=== PATIENT | female | born 1950 | race Caucasian/White ===

== ENCOUNTER 2016-11-08 15:24 | Inpatient (IN) | payer OTHER ==
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
[2016-11-08] MEDS ORDERED: METOCLOPRAMIDE HCL INJECTION 10 MG/2 ML VIAL IVPB ONE (17:27)
[2016-11-08] MEDS ORDERED: KETOROLAC TROMETHAMINE 30 MG/1 ML VIAL IVPUSH ONE (17:27)
[2016-11-08 19:12] LABS: BASOPHIL 1.5 % (0-2.0); EOSINOPHIL 9.8 % (0-4.5); MEAN CELL VOLUME 87.3 fl (80-96); MEAN PLT VOLUME 11.5 fl (7.5-11.1); PLATELET COUNT 174 K/MM3 (134-434); RDW 15.1 % (11.6-15.6); WHITE BLOOD COUNT 8.4 K/mm3 (4.0-10.0)
[2016-11-08] MEDS ORDERED: DEXAMETHASONE SOD PHOSPHATE 10 MG/1 ML VIAL IVPUSH ONE (19:16)
[2016-11-08] MEDS ORDERED: DEXAMETHASONE SOD PHOSPHATE 10 MG/1 ML VIAL ONE (19:30)
[2016-11-08 19:38] LABS: INR 1.05 (0.82-1.09); PROTHROMBIN TIME (PATIENT) 11.6 SEC (9.98-11.88)
[2016-11-08 20:00] LABS: ALBUMIN 3.2 g/dl (3.4-5.0); ANION GAP 9 (8-16); BILIRUBIN,TOTAL 0.3 mg/dL (0.2-1.0); CALCIUM 8.2 mg/dL (8.5-10.1); CO2 25 mmol/L (21-32); CREATININE 1.1 mg/dL (0.55-1.02); GLUCOSE,RANDOM 99 mg/dL (74-106); SGOT/AST 17 U/L (15-37); SGPT/ALT 16 U/L (12-78); TOT PROT 6.2 g/dl (6.4-8.2)
[2016-11-08 20:02] LABS: ALK PHOS 91 U/L (45-117); TROPONIN I < 0.02 ng/ml (0.00-0.05)
--- NOTE | 2016-11-08 22:05 | PDOC ---
*Physical Exam - Vital Signs Last Vital Signs Temp Pulse Resp BP Pulse Ox 98.4 F 78 20 120/68 97 11/08/16 15:41 11/08/16 15:41 11/08/16 15:41 11/08/16 15:41 11/08/16 15:41 - Physical Exam Comments: 11/08/16 19:[address] Romero/Neurosurgery Dr. Romero [phone] Morgan/neurology [phone] MRI of brain with gado req by DR. Romero and Dr. Morgan. As per Dr. Romero/ call him back with MRI results 2204hrs: Called Dr. Romero/NS ED Treatment Course - LABORATORY CBC & Chemistry Diagram: 11/08/16 19:00 11/08/16 19:00 - ADDITIONAL ORDERS Additional order review: Laboratory Results 11/08/16 11/08/16 11/08/16 19:00 19:00 19:00 INR 1.05 Sodium 144 Potassium 4.3 Chloride 110 H Carbon Dioxide 25 Anion Gap 9 BUN 21 H Creatinine 1.1 H Creat Clearance w eGFR 49.69 Random Glucose 99 Calcium 8.2 L Total Bilirubin 0.3 AST 17 ALT 16 Alkaline Phosphatase 91 Creatine Kinase 74 Troponin I < 0.02 Total Protein 6.2 L Albumin 3.2 L Blood Type A POSITIVE Antibody Screen Negative 11/08/16 19:00 RBC 4.06 MCV 87.3 MCHC 32.0 RDW 15.1 MPV 11.5 H Neutrophils % 65.0 Lymphocytes % 17.5 Monocytes % 6.2 Eosinophils % 9.8 H Basophils % 1.5 - RADIOLOGY Radiology Studies Ordered: Category Date Time Status BRAIN MRI WITH CONTRAST [MRI] Stat MRI 11/08/16 19:14 Completed Radiograph Interpretation: 11/09/16 03:30 CT chest with IV contrast: Masslike area of consolidation seen below the right hilum and in the posterior medial right thorax suspicious for neoplasm. Enlarged mediastinal lymph nodes are noted. Fracture of L1 noted, not clearly a pathologic fracture - Medications Given in the ED: ED Medications Discontinued Medications Generic Name Dose Route Start Last Admin Trade Name Freq PRN Reason Stop Dose Admin Dexamethasone Sodium Phosphate 10 mg 11/08/16 19:16 11/08/16 19:40 Decadron Injection - IVPUSH 11/08/16 19:17 10 mg ONCE ONE Administration Ketorolac Tromethamine 30 mg 11/08/16 17:27 11/08/16 17:47 Toradol Injection - IVPUSH 11/08/16 17:28 Not Given ONCE ONE Metoclopramide HCl 10 mg 11/08/16 17:27 11/08/16 17:47 Reglan Injection - IVPB 11/08/16 17:28 Not Given ONCE ONE Progress Note - Progress Note Progress Note: 2012hrs: Spoke to Dr. Romero/neurosurgery/ 2013hrs: Called Dr. Morgan/neurology environmental health and safety intern 2019hrs: spoke to Dr. Morgan/ arvind to call Dr. Reardon/neurosurgery 2024hrs: Called Dr. Reardon/NS. samuels admit to hospitalist. will Consult in the am 2031hrs: Called Dr. Morgan/ arvind CT abd/pelvis/ch with contrast *DC/Admit/Observation/Transfer Diagnosis at time of Disposition: Weakness, Brain metastasis - Discharge Dispostion Admit: Yes
[2016-11-08] MEDS ORDERED: levETIRAcetam 500 MG/5 ML INJECTION VIAL IVPB ONE ×2 (22:38→22:59)
[2016-11-08] MEDS ORDERED: RANITIDINE HCL 150 MG TABLET (FP) PO ONE (22:50)
[2016-11-08] MEDS ORDERED: RANITIDINE HCL 150 MG TABLET (FP) ONE (23:02)
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
[2016-11-09] MEDS ORDERED: DEXAMETHASONE SOD PHOSPHATE 4 MG/1 ML VIAL IVPB SCH (01:15)
[2016-11-09] MEDS ORDERED: DEXAMETHASONE SOD PHOSPHATE 4 MG/1 ML VIAL ONE (02:04)
[2016-11-09] MEDS: DEXAMETHASONE SOD PHOSPHATE 4 MG/1 ML VIAL IVPB SCH ×4 (02:15→21:13)
[2016-11-09] MEDS ORDERED: SODIUM CHLORIDE 1,000 ML IV SCH (03:00)
[2016-11-09 03:13] VITALS: BMI 29.0
[2016-11-09] MEDS ORDERED: PNEUMOC 13-VAL CONJ-DIP CRM/PF 0.5 ML DISP.SYRIN IM ONE (03:18)
[2016-11-09 03:43] LABS: URINE APPEARANCE CLEAR; URINE BILIRUBIN NEGATIVE (NEGATIVE); URINE COLOR STRAW; URINE GLUCOSE (UA) 3+ (NEGATIVE); URINE KETONE TRACE (NEGATIVE); URINE NITRITE NEGATIVE (NEGATIVE); URINE PROTEIN NEGATIVE (NEGATIVE); URINE UROBILINOGEN NEGATIVE E.U./dl (0.2-1.0)
[2016-11-09 03:44] LABS: URINE BLOOD 1+ (NEGATIVE); URINE LEUK ESTERASE 1+ (NEGATIVE)
[2016-11-09] MEDS: CYCLOBENZAPRINE HCL 10 MG TABLET (FP) PO PRN ×2 (04:16→21:16)
[2016-11-09 04:45] LABS: URINE BACTERIA RARE /hpf (NONE SEEN); URINE MUCUS RARE; URINE RBC 1 /hpf (0-3); URINE WBC 17 /hpf (3-5)
[2016-11-09 07:46] LABS: BASOPHIL 0.2 % (0-2.0); EOSINOPHIL 0.4 % (0-4.5); MCH 28.5 pg (25.7-33.7); MEAN CELL VOLUME 86.3 fl (80-96); MEAN PLT VOLUME 11.2 fl (7.5-11.1); NEUTROPHILS 87.3 % (42.8-82.8); PLATELET COUNT 154 K/MM3 (134-434); WHITE BLOOD COUNT 7.4 K/mm3 (4.0-10.0)
[2016-11-09 07:47] LABS: ALBUMIN 2.8 g/dl (3.4-5.0); ANION GAP 10 (8-16); BILIRUBIN,TOTAL 0.3 mg/dL (0.2-1.0); CALCIUM 8.3 mg/dL (8.5-10.1); CO2 22 mmol/L (21-32); SGOT/AST 14 U/L (15-37); SGPT/ALT 15 U/L (12-78); TOT PROT 5.9 g/dl (6.4-8.2)
[2016-11-09 07:48] LABS: ALK PHOS 83 U/L (45-117)
[2016-11-09] MEDS ORDERED: INSULIN (NOVOLOG) ASPART 100 UNITS/ML 10ML VIAL ONE ×3 (07:56→20:47)
[2016-11-09] MEDS: INSULIN SLIDING SCALE (NOVOLOG) 1 VIAL SQ SCH ×4 (07:57→21:08)
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
[2016-11-09] MEDS: diphenhydrAMINE HCL 25 MG CAPSULE (FP) PO SCH (09:25)
[2016-11-09 10:33] LABS: GLUCOSE,RANDOM 320 mg/dL (74-106)
[2016-11-09] MEDS: levETIRAcetam 500 MG/5 ML INJECTION VIAL IVPB SCH ×2 (11:50→22:03)
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
--- NOTE | 2016-11-09 15:56 | PN ---
Progress Note (short form) - Note Progress Note: Radiation Oncology: Patient seen and examined. I will dictate consult. No intervention at present . Patient is stable . I would get lung biopsy and consider biopsy of second organ. My cell is [phone]
--- NOTE | 2016-11-09 16:24 | PN ---
Physical Exam: SUBJECTIVE: Patient seen and examined at bedside. No overnight events. No new complaints. Denies CP, YU, SOB, abd. pain, N/V. OBJECTIVE: Vital Signs Period Temp Pulse Resp BP Sys/Curran Pulse Ox Last 24 Hr 97.9 F-98.2 F 76-85 18-18 116-139/60-94 98-98 GENERAL:AAOx3, NAD HEAD: Nc/AT EYES: PERRL, EOMI, sclera anicteric, conjunctiva clear. No ptosis. ENT: moist mucous membranes. NECK: Supple, No JVD LUNGS: CTAB, HEART: Regular rate and rhythm, S1, S2 without murmur, rub or gallop. ABDOMEN: Soft, nontender, nondistended, normoactive bowel sounds, no guarding, no rebound, no hepatosplenomegaly, no masses. EXTREMITIES: 2+ pulses, warm, well-perfused, no edema. NEUROLOGICAL: no facial droop, EOMI, round equal pupils , reactive to light , nl facial sensation, tongue and uvula at mid line . shoulder shrug 5/5 b/l, deltoid and shoulder flexion 4/5 on L , and 5/5 on R . biceps and triceps 5/5 b/ l , wrist felxion and extension 5/5 b/l . Nl hand sound engineering technician b/l . hip flexion 5/5 b/l. R knee flexion and extension 5/ 5 , unable to evaluate strength due to knee sx. dorsiflexion and plantar flexion 5/5 b/l . sensation to light touch decreased on L leg from knee down. reflexes 2+ biceps , triceps , knee jerk b/l . Babibski's up-going on L, down going on R Laboratory Results - last 24 hr 11/09/16 11/09/16 11/09/16 01:05 06:10 06:10 WBC 7.4 RBC 3.85 Hgb 11.0 Hct 33.2 MCV 86.3 MCHC 33.0 RDW 15.0 Plt Count 154 MPV 11.2 H Neutrophils % 87.3 H D Lymphocytes % 10.8 D Monocytes % 1.3 L Eosinophils % 0.4 D Basophils % 0.2 Sodium 141 Potassium 4.5 Chloride 109 H Carbon Dioxide 22 Anion Gap 10 BUN 17 Creatinine 1.0 Creat Clearance w eGFR 55.47 POC Glucometer Random Glucose 320 H* D Calcium 8.3 L Total Bilirubin 0.3 AST 14 L ALT 15 Alkaline Phosphatase 83 Total Protein 5.9 L Albumin 2.8 L Urine Color Straw Urine Appearance Clear Urine pH 5.0 Ur Specific Prospect 1.010 Urine Protein Negative Urine Glucose (UA) 3+ H Urine Ketones Trace H Urine Blood 1+ H Urine Nitrite Negative Urine Bilirubin Negative Urine Urobilinogen Negative Ur Leukocyte Esterase 1+ H Urine RBC 1 Urine WBC 17 Ur Epithelial Cells Rare Urine Bacteria Rare Urine Mucus Rare 11/09/16 11/09/16 11/09/16 06:42 07:52 11:51 WBC RBC Hgb Hct MCV MCHC RDW Plt Count MPV Neutrophils % Lymphocytes % Monocytes % Eosinophils % Basophils % Sodium Potassium Chloride Carbon Dioxide Anion Gap BUN Creatinine Creat Clearance w eGFR POC Glucometer 307 260 165 Random Glucose Calcium Total Bilirubin AST ALT Alkaline Phosphatase Total Protein Albumin Urine Color Urine Appearance Urine pH Ur Specific Prospect Urine Protein Urine Glucose (UA) Urine Ketones Urine Blood Urine Nitrite Urine Bilirubin Urine Urobilinogen Ur Leukocyte Esterase Urine RBC Urine WBC Ur Epithelial Cells Urine Bacteria Urine Mucus Active Medications Generic Name Dose Route Start Last Admin Trade Name Freq PRN Reason Stop Dose Admin Atorvastatin Calcium 10 mg 11/09/16 22:00 Lipitor - PO HS ALEX Cyclobenzaprine HCl 5 mg 11/09/16 02:37 11/09/16 04:16 Flexeril - PO 5 mg TID PRN Administration PAIN Dexamethasone Sodium Phosphate 4 mg 11/09/16 02:00 11/09/16 16:15 Decadron Injection - IVPB 4 mg Q6H-IV ALEX Administration Diphenhydramine HCl 25 mg 11/09/16 10:00 11/09/16 09:25 Benadryl - PO 25 mg DAILY ALEX Administration Sodium Chloride 1,000 mls @ 42 mls/hr 11/09/16 03:00 11/09/16 04:03 Normal Saline - IV 42 mls/hr ASDIR ALEX Administration Insulin Aspart 1 vial 11/09/16 07:00 11/09/16 16:22 Novolog Vial Sliding Scale - SQ 2 units ACHS ALEX Administration Protocol Levetiracetam 500 mg 11/09/16 10:45 11/09/16 11:50 Keppra Injection - IVPB 500 mg BID ALEX Administration Non-Formulary Medication 37.5 mg 11/09/16 10:00 Phentermine Hcl [Adipex-P] PO DAILY ALEX Ondansetron HCl 4 mg 11/09/16 02:49 Zofran Injection IVPUSH Q8H PRN NAUSEA AND/OR VOMITING ASSESSMENT/PLAN: 65 y/o F with significant pmhx CAD ,and DM who presneted with L sided weakness. She was found tohave R sided brain masses with R lung mass and Liver masses Problem List - Problems (1) Lung malignancy Assessment/Plan: * tissue biopsy pending * evaluated by Dr Martinez * consulted pulmonary * Rad Onc on the case (2) Brain metastasis Assessment/Plan: * Decadron for edema * neuro checks q shift (3) Liver metastases Visit type - Emergency Visit Emergency Visit: Yes ED Registration Date: 11/09/16 Care time: The patient presented to the Emergency Department on the above date and was hospitalized for further evaluation of their emergent condition. - New Patient This patient is new to me today: Yes Date on this admission: 11/12/16 - Critical Care Critical Care patient: No
--- NOTE | 2016-11-09 16:58 | PN ---
Progress Note (short form) - Note Progress Note: Patient seen and examined 65 year old 1 05/14 ppd smoker from age 20 until 10-15 years ago. Presents with large RLL mass , right effusion, compression atelectasis. Has 3 ring enhancing lesions in right parietal lobe associated with significant vasogenic edema. Likely meningioma as well. Has hypodense lesions in liver compatible with mets and compression in lumbar spine with sclerotic lesion on CT. Plan: Tissue diagnosis-scheduled for bronchoscopy on 11/12. Needs bone scan and MRI of lumbosacral spine. Already on decadron and anti-epileptics. 70-80 pack years suggest likely oat cell ca-- the commonest lung ca presenting with CURRICULUM ASSISTANT and liver mets. ( Incidence of CURRICULUM ASSISTANT mets at diagnosis in oat cell ca in some series 2%- 8% ) ( [place] second commonest lung ca with CURRICULUM ASSISTANT mets at presentation and at postmortem.(35%) ) Peripheral lesion would also favor this. Less likely however with heavy smoking history. Further comments after tissue.
--- NOTE | 2016-11-09 17:09 | EKG ---
Test Reason : Blood Pressure : / mmHG Vent. Rate : 077 BPM Atrial Rate : 077 BPM P-R Int : 130 ms QRS Dur : 122 ms QT Int : 412 ms P-R-T Axes : 032 010 003 degrees QTc Int : 466 ms POOR DATA QUALITY, INTERPRETATION MAY BE ADVERSELY AFFECTED NORMAL SINUS RHYTHM RIGHT BUNDLE BRANCH BLOCK INFERIOR INFARCT (CITED ON OR BEFORE 08-NOV-2016) T WAVE ABNORMALITY, CONSIDER LATERAL ISCHEMIA ABNORMAL ECG Confirmed by MD ESTHELA, JOAN ([id number]) on 11/09/2016 5:08:44 PM Referred By: Confirmed By:JOAN PROCTOR MD
--- NOTE | 2016-11-09 18:00 | PN ---
Teaching Attending Note Name of Resident: Willam Nick ATTENDING PHYSICIAN STATEMENT I saw and evaluated the patient. I reviewed the resident's note and discussed the case with the resident. I agree with the resident's findings and plan as documented. SUBJECTIVE: no fever or chills, feels weaker on L , no visual change , no YU , no N/V . OBJECTIVE: NAD CV : RRR Lungs : CTAB ext : no edema NEuro : no facial droop, EOMI, round equal pupils , reactive to light , nl facial sensation, tongue and uvula at mid line . shoulder shrug 5/5 b/l, deltoid and shoulder flexion 4/5 on L , and 5/5 on R . biceps and triceps 5/5 b/ l , wrist felxion and extension 5/5 b/l . Nl hand label stitcher b/l . hip flexion 5/5 b/l. R knee flexion and extension 5/ 5 , unable to evaluate strength due to knee sx. dorsiflexion and plantar flexion 5/5 b/l . sensation to light touch decreased on L leg from knee down. reflexes 2+ biceps , triceps , knee jerk b/l . Babibski's up-going on L, down going on R ASSESSMENT AND PLAN: 65 y/o lady with h/o CAD ,and DM who presneted with L sided weakness. She was found tohave R sided brain masses with R lung mass and Liver masses 1- Brain Masses: likely Mets form Lung cancer. liver mets as well surrounding edema and mid line shift. - Bronchoscopy for lung mass Bx on Saturday - case was d/w Dr. Martinez, no need for Bx of brain or liver lesions in addition to lung - will plan for radiation Tx after tissue diagnosis. for that she needs to be in [facility] - cont steroids and Keppra - dc IVF . - PPI - case was d/w patient and her son in details. - appreciate all consultants help 2- DM : hold metformin and use SSI . might need to use long acting DVT px
[2016-11-09] MEDS: HEPARIN NA (PORCINE) 5,000 UNITS/ML 1ML VIAL SQ SCH (21:13)
[2016-11-09] MEDS: ATORVASTATIN CA 10 MG TABLET (FP) PO SCH (21:15)
[2016-11-10] MEDS: DEXAMETHASONE SOD PHOSPHATE 4 MG/1 ML VIAL IVPB SCH ×4 (02:13→22:33)
[2016-11-10] MEDS: HEPARIN NA (PORCINE) 5,000 UNITS/ML 1ML VIAL SQ SCH ×3 (06:14→22:34)
[2016-11-10] MEDS: INSULIN SLIDING SCALE (NOVOLOG) 1 VIAL SQ SCH ×4 (06:14→22:33)
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
[2016-11-10 07:55] LABS: ALBUMIN 2.9 g/dl (3.4-5.0); ANION GAP 10 (8-16); CALCIUM 9.2 mg/dL (8.5-10.1); CO2 24 mmol/L (21-32); CREATININE 1.1 mg/dL (0.55-1.02); GLUCOSE,RANDOM 196 mg/dL (74-106); SGOT/AST 14 U/L (15-37); SGPT/ALT 14 U/L (12-78)
[2016-11-10 07:57] LABS: ALK PHOS 87 U/L (45-117); BILIRUBIN,TOTAL 0.2 mg/dL (0.2-1.0); TOT PROT 6.2 g/dl (6.4-8.2)
[2016-11-10 09:36] LABS: BASOPHIL 0.5 % (0-2.0); EOSINOPHIL 0.2 % (0-4.5); MCH 27.9 pg (25.7-33.7); MCHC 31.8 g/dl (32.0-36.0); MEAN CELL VOLUME 87.7 fl (80-96); MEAN PLT VOLUME 12.1 fl (7.5-11.1); NEUTROPHILS 87.9 % (42.8-82.8); PLATELET COUNT 121 K/MM3 (134-434); RDW 15.1 % (11.6-15.6); WHITE BLOOD COUNT 13.4 K/mm3 (4.0-10.0)
[2016-11-10] MEDS ORDERED: PT OWN MED DRAWER 7, Y5N ONE (10:12)
[2016-11-10] MEDS: diphenhydrAMINE HCL 25 MG CAPSULE (FP) PO SCH (10:31)
[2016-11-10] MEDS: levETIRAcetam 500 MG/5 ML INJECTION VIAL IVPB SCH ×2 (10:32→22:34)
--- NOTE | 2016-11-10 11:16 | PN ---
Progress Note (short form) - Note Progress Note: PULMONARY SEE CONSULT 11/09 VSS/AFEBRILE ANICTERIC DIMINISHED BREATH SOUNDS S1S2 BS+ SOFT OBESE NO EDEMA/CALF TENDERNESS LABS/MEDS/NOTES REVIEWED LARGE CENTRAL LUNG MASS BRAIN METS/LIVER METS R/O BONE METS WILL HAVE FOB/BX ON SATURDAY NPO AFTER MIDNIGHT SATURDAY Pili CASTELLANOS MD Problem List - Problems (1) Liver metastases Code(s): C78.7 - SECONDARY MALIG NEOPLASM OF LIVER AND INTRAHEPATIC BILE DUCT (2) Brain metastasis Code(s): C79.31 - SECONDARY MALIGNANT NEOPLASM OF BRAIN (3) Lung malignancy Code(s): C34.90 - MALIGNANT NEOPLASM OF UNSP PART OF UNSP BRONCHUS OR LUNG Qualifiers: Laterality: right Lung location: hilum of lung Qualified Code(s) : C34.01 - Malignant neoplasm of right main bronchus
[2016-11-10] MEDS ORDERED: SODIUM CHLORIDE 1,000 ML IV SCH (11:30)
--- NOTE | 2016-11-10 12:47 | PN ---
Progress Note (short form) - Note Progress Note: Patient seen and examined 65 year old 1 1/2 ppd smoker from age 20 until 10-15 years ago. Presents with large RLL mass , right effusion, compression atelectasis. Has 3 ring enhancing lesions in right parietal lobe associated with significant vasogenic edema. Likely meningioma as well. Has hypodense lesions in liver compatible with mets and compression in lumbar spine with sclerotic lesion on CT. CBC, BMP 11/10/16 06:00 11/10/16 06:00 Vital Signs Period Temp Pulse Resp BP Sys/Curran Pulse Ox Last 24 Hr 98.4 F-99.0 F 66-87 20-20 94-118/46-69 98 Current Medications Generic Name Dose Route Start Last Admin Trade Name Freq PRN Reason Stop Dose Admin Atorvastatin Calcium 10 mg 11/09/16 22:00 11/09/16 21:15 Lipitor - PO 10 mg HS ALEX Administration Cyclobenzaprine HCl 5 mg 11/09/16 02:37 11/09/16 21:16 Flexeril - PO 5 mg TID PRN Administration PAIN Dexamethasone Sodium Phosphate 4 mg 11/09/16 02:00 11/10/16 10:31 Decadron Injection - IVPB 4 mg Q6H-IV ALEX Administration Diphenhydramine HCl 25 mg 11/09/16 10:00 11/10/16 10:31 Benadryl - PO 25 mg DAILY ALEX Administration Heparin Sodium (Porcine) 5,000 unit 11/09/16 22:00 11/10/16 06:14 Heparin - SQ 5,000 unit TID ALEX Administration Sodium Chloride 1,000 mls @ 75 mls/hr 11/10/16 11:30 Normal Saline - IV ASDIR ALEX Insulin Aspart 1 vial 11/09/16 07:00 11/10/16 06:14 Novolog Vial Sliding Scale - SQ 4 units ACHS ALEX Administration Protocol Levetiracetam 500 mg 11/09/16 10:45 11/10/16 10:32 Keppra Injection - IVPB 500 mg BID ALEX Administration Non-Formulary Medication 37.5 mg 11/09/16 10:00 Phentermine Hcl [Adipex-P] PO DAILY ALEX Ondansetron HCl 4 mg 11/09/16 02:49 Zofran Injection IVPUSH Q8H PRN NAUSEA AND/OR VOMITING Plan: Tissue diagnosis-scheduled for bronchoscopy on 11/12. Needs bone scan and MRI of lumbosacral spine.
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
--- NOTE | 2016-11-10 14:15 | PN ---
Physical Exam: SUBJECTIVE: Patient seen and examined at bedside. Pt states she is anxious and did not sleep very well. She had no other complaints and denied CP, SOB, abd pain, bowel or bladder problems, difficulty eating or drinking. OBJECTIVE: Vital Signs Period Temp Pulse Resp BP Sys/Curran Pulse Ox Last 24 Hr 98.4 F-99.0 F 66-87 17-20 94-118/46-69 96-98 GENERAL: The patient is awake, alert, and fully oriented, in no acute distress. Pt seems anxious. HEAD: Normal with no signs of trauma. EYES: PERRL, extraocular movements intact, sclera anicteric, conjunctiva clear. No ptosis. ENT: Ears normal, nares patent, oropharynx clear without exudates, moist mucous membranes. NECK: Trachea midline, full range of motion, supple. LUNGS: Breath sounds equal, clear to auscultation bilaterally, no wheezes, no crackles, no accessory muscle use. HEART: Regular rate and rhythm, S1, S2 without murmur, rub or gallop. ABDOMEN: Soft, nontender, nondistended, normoactive bowel sounds, no guarding, no rebound, no hepatosplenomegaly, no masses. EXTREMITIES: 2+ pulses, warm, well-perfused, no edema. NEUROLOGICAL: Cranial nerves II through XII intact. Tongue midline. Uvula midline. No deviation. Normal speech, gait not observed. Motor strength 5/5 shoulder flexion, extension, abduction bilaterally. Elbow and wrist flexion/extension 5/5 bilaterally. Hip flexion 5/ 5. Right knee flexion/extension 5/5. Left knee not tested 2/2 pain. Pedal dorsiflexion and plantar flexion 5/5. Tactile sensation appreciated well bilaterally on shins, thighs, forearms, arms, and cheeks. PSYCH: Normal mood, normal affect. SKIN: Warm, dry, normal turgor, no rashes or lesions noted Laboratory Results - last 24 hr 11/09/16 11/09/16 11/10/16 16:19 21:06 06:00 WBC 13.4 H D RBC 3.86 Hgb 10.8 Hct 33.8 MCV 87.7 MCHC 31.8 L RDW 15.1 Plt Count 121 L D MPV 12.1 H Neutrophils % 87.9 H Lymphocytes % 10.1 Monocytes % 1.3 L Eosinophils % 0.2 Basophils % 0.5 Sodium Potassium Chloride Carbon Dioxide Anion Gap BUN Creatinine Creat Clearance w eGFR POC Glucometer 198 298 Random Glucose Calcium Total Bilirubin AST ALT Alkaline Phosphatase Total Protein Albumin Triglycerides Cholesterol Total LDL Cholesterol HDL Cholesterol 11/10/16 11/10/16 11/10/16 06:00 06:12 10:54 WBC RBC Hgb Hct MCV MCHC RDW Plt Count MPV Neutrophils % Lymphocytes % Monocytes % Eosinophils % Basophils % Sodium 145 Potassium 4.6 Chloride 111 H Carbon Dioxide 24 Anion Gap 10 BUN 21 H D Creatinine 1.1 H Creat Clearance w eGFR 49.69 POC Glucometer 209 181 Random Glucose 196 H D Calcium 9.2 Total Bilirubin 0.2 D AST 14 L ALT 14 Alkaline Phosphatase 87 Total Protein 6.2 L Albumin 2.9 L Triglycerides Cancelled Cholesterol Cancelled Total LDL Cholesterol Cancelled HDL Cholesterol Cancelled Active Medications Generic Name Dose Route Start Last Admin Trade Name Freq PRN Reason Stop Dose Admin Atorvastatin Calcium 10 mg 11/09/16 22:00 11/09/16 21:15 Lipitor - PO 10 mg HS ALEX Administration Cyclobenzaprine HCl 5 mg 11/09/16 02:37 11/09/16 21:16 Flexeril - PO 5 mg TID PRN Administration PAIN Dexamethasone Sodium Phosphate 4 mg 11/09/16 02:00 11/10/16 10:31 Decadron Injection - IVPB 4 mg Q6H-IV ALEX Administration Diphenhydramine HCl 25 mg 11/09/16 10:00 11/10/16 10:31 Benadryl - PO 25 mg DAILY ALEX Administration Heparin Sodium (Porcine) 5,000 unit 11/09/16 22:00 11/10/16 13:00 Heparin - SQ 5,000 unit TID ALEX Administration Sodium Chloride 1,000 mls @ 75 mls/hr 11/10/16 11:30 Normal Saline - IV ASDIR ALEX Insulin Aspart 1 vial 11/09/16 07:00 11/10/16 12:56 Novolog Vial Sliding Scale - SQ 2 units ACHS ALEX Administration Protocol Levetiracetam 500 mg 11/09/16 10:45 11/10/16 10:32 Keppra Injection - IVPB 500 mg BID ALEX Administration Non-Formulary Medication 37.5 mg 11/09/16 10:00 Phentermine Hcl [Adipex-P] PO DAILY ALEX Ondansetron HCl 4 mg 11/09/16 02:49 Zofran Injection IVPUSH Q8H PRN NAUSEA AND/OR VOMITING ASSESSMENT/PLAN: 65 y/o woman with PMH of CAD and DM who presented with L sided weakness. She was found to have masses in the right side of her brain as well as in her liver and lungs. # Brain Masses: likely mets from lung cancer - Cerebral edema - Keppra 500mg BID - Decadron 4mg IVPB Q6H # Lung Mass: likely primary cancer -bronchoscopy set for Sat11/12/2016 -case discussed with Dr. Martinez. No need for Bx of brain or liver lesions in addition to lung Bx -possible therapy was discussed with patient who is open to radiation but does not want chemo at this time. -plan for radiation therapy following tissue diagnosis. She will need to be in [facility] for this. # Back Pain -? etiology -Back MRI today. f/u result # DM -continue SSI # JEANNIE -resume IVF -f/u labs in am # Leukocytosis: mild -no Sx of UTI -likely 2/2 steroids #Thrombocytopenia -mild -continue heparin -monitor labs -continue DVT ppx Visit type - Emergency Visit Emergency Visit: No - New Patient This patient is new to me today: Yes Date on this admission: 11/10/16 - Critical Care Critical Care patient: No
--- NOTE | 2016-11-10 15:49 | PN ---
Teaching Attending Note Name of Resident: Elian Urbano ATTENDING PHYSICIAN STATEMENT I saw and evaluated the patient. I reviewed the resident's note and discussed the case with the resident. I agree with the resident's findings and plan as documented. SUBJECTIVE: no fever or chills, has no abd pain . has L Lower back pain , L upper ext is still weak no urine or stool incontinence OBJECTIVE: NAD CV : RRR Lungs : CTAB ext : no edema NEuro : no facial droop, EOMI, round equal pupils , reactive to light , nl facial sensation, tongue and uvula at mid line . shoulder shrug 5/5 b/l, deltoid and shoulder flexion 4/5 on L , and 5/5 on R . biceps and triceps 5/5 b/ l , wrist felxion and extension 5/5 b/l . Nl hand front end mechanic b/l . L pronator drift hip flexion 5/5 b/l. R knee flexion and extension 5/ 5 , unable to evaluate strength due to knee sx. dorsiflexion and plantar flexion 5/5 b/l . sensation to light touch decreased on L leg from knee down. reflexes 2+ biceps , triceps , knee jerk b/l . Babibski's up-going on L, down going on R ASSESSMENT AND PLAN: 65 y/o lady with h/o CAD ,and DM who presneted with L sided weakness. She was found tohave R sided brain masses with R lung mass and Liver masses 1- Brain Masses: likely Mets form Lung cancer. liver mets as well surrounding edema and mid line shift. - Bronchoscopy for lung mass Bx on Saturday - will plan for radiation Tx after tissue diagnosis. for that she needs to be in [facility] - cont steroids and Keppra - PPI - appreciate all consultants help 2- DM : hold metformin and use SSI . might need to use long acting 3- JEANNIE : resume IVF at low dose and monitor 4- mild leuokytosis : likely due to steroids . although has pyuria but has no sx of UTI 5- thrombocytopenia : mild . will cont heparinand monitor plt count DVT px
[2016-11-10] MEDS ORDERED: INSULIN (NOVOLOG) ASPART 100 UNITS/ML 10ML VIAL ONE (22:10)
[2016-11-10] MEDS: ATORVASTATIN CA 10 MG TABLET (FP) PO SCH (22:33)
[2016-11-10] MEDS ORDERED: diphenhydrAMINE HCL 25 MG CAPSULE (FP) PO ONE (22:54)
[2016-11-11] MEDS: DEXAMETHASONE SOD PHOSPHATE 4 MG/1 ML VIAL IVPB SCH ×4 (02:36→21:17)
[2016-11-11] MEDS: HEPARIN NA (PORCINE) 5,000 UNITS/ML 1ML VIAL SQ SCH ×3 (06:16→21:17)
[2016-11-11] MEDS: INSULIN SLIDING SCALE (NOVOLOG) 1 VIAL SQ SCH ×4 (06:17→21:13)
[2016-11-11 07:35] LABS: BASOPHIL 0.1 % (0-2.0); EOSINOPHIL 0.1 % (0-4.5); MCH 28.1 pg (25.7-33.7); MCHC 32.3 g/dl (32.0-36.0); MEAN PLT VOLUME 11.7 fl (7.5-11.1); NEUTROPHILS 91.1 % (42.8-82.8); PLATELET COUNT 213 K/MM3 (134-434); RDW 15.3 % (11.6-15.6); WHITE BLOOD COUNT 10.4 K/mm3 (4.0-10.0)
--- NOTE | 2016-11-11 08:07 | PN ---
Progress Note (short form) - Note Progress Note: Subjective: no fever or chills, did not sleep last night . Objective: Vital Signs: Last Vital Signs Temp Pulse Resp BP Pulse Ox 97.9 F 65 20 121/72 96 11/11/16 06:00 11/11/16 06:00 11/11/16 06:00 11/11/16 06:00 11/10/16 21:00 Laboratory Results - last 24 hr 11/10/16 11/10/16 11/10/16 06:00 06:00 10:54 WBC 13.4 H D RBC 3.86 Hgb 10.8 Hct 33.8 MCV 87.7 MCHC 31.8 L RDW 15.1 Plt Count 121 L D MPV 12.1 H Neutrophils % 87.9 H Lymphocytes % 10.1 Monocytes % 1.3 L Eosinophils % 0.2 Basophils % 0.5 Sodium 145 Potassium 4.6 Chloride 111 H Carbon Dioxide 24 Anion Gap 10 BUN 21 H D Creatinine 1.1 H Creat Clearance w eGFR 49.69 POC Glucometer 181 Random Glucose 196 H D Calcium 9.2 Total Bilirubin 0.2 D AST 14 L ALT 14 Alkaline Phosphatase 87 Total Protein 6.2 L Albumin 2.9 L Triglycerides Cancelled Cholesterol Cancelled Total LDL Cholesterol Cancelled HDL Cholesterol Cancelled 11/10/16 11/10/16 11/11/16 17:27 22:29 06:00 WBC 10.4 H RBC 4.19 Hgb 11.8 Hct 36.5 MCV 87.0 MCHC 32.3 RDW 15.3 Plt Count 213 D MPV 11.7 H Neutrophils % 91.1 H Lymphocytes % 7.1 L D Monocytes % 1.6 L Eosinophils % 0.1 Basophils % 0.1 Sodium Potassium Chloride Carbon Dioxide Anion Gap BUN Creatinine Creat Clearance w eGFR POC Glucometer 126 251 Random Glucose Calcium Total Bilirubin AST ALT Alkaline Phosphatase Total Protein Albumin Triglycerides Cholesterol Total LDL Cholesterol HDL Cholesterol 11/11/16 06:14 WBC RBC Hgb Hct MCV MCHC RDW Plt Count MPV Neutrophils % Lymphocytes % Monocytes % Eosinophils % Basophils % Sodium Potassium Chloride Carbon Dioxide Anion Gap BUN Creatinine Creat Clearance w eGFR POC Glucometer 230 Random Glucose Calcium Total Bilirubin AST ALT Alkaline Phosphatase Total Protein Albumin Triglycerides Cholesterol Total LDL Cholesterol HDL Cholesterol Physical Exam: NAD CV : RRR Lungs : CTAB ext : no edema NEuro : no facial droop, EOMI, round equal pupils , reactive to light , nl facial sensation, tongue and uvula at mid line. Shoulder shrug 5/5 b/l, deltoid and shoulder flexion 5/5 on L( improved ) , and 5/5 on R . biceps and triceps 5/5 b/l , wrist felxion and extension 5/5 b/l . Nl hand help desk representative b/l . L pronator drift hip flexion 5/5 b/l. R knee flexion and extension 5/ 5 , unable to evaluate strength due to knee sx. dorsiflexion and plantar flexion 5/5 b/l . sensation to light touch decreased on L leg from knee down. reflexes 2+ biceps , triceps , knee jerk b/l . Babibski's up-going on L, down going on R ASSESSMENT AND PLAN: 65 y/o lady with h/o CAD ,and DM who presneted with L sided weakness. She was found tohave R sided brain masses with R lung mass and Liver masses 1- Brain Masses: likely Mets form Lung cancer. liver mets as well surrounding edema and mid line shift. MRI of L spine with mets to bone and epidural space Neuro exam has improved - Bronchoscopy for lung mass Bx on Saturday - will plan for radiation Tx after tissue diagnosis. for that she needs to be in [facility] - L spine mets might also benefit form radiation - cont steroids and Keppra - PPI - appreciate all consultants help 2- DM : hold metformin and use SSI . 3- JEANNIE : refused IVF today. I will encourage oral hydration . BMP pending 4- Mild leuokytosis : likely due to steroids . 5- thrombocytopenia : resolved DVT px Visit type - Emergency Visit Emergency Visit: Yes ED Registration Date: 11/09/16 Care time: The patient presented to the Emergency Department on the above date and was hospitalized for further evaluation of their emergent condition. - New Patient This patient is new to me today: No - Critical Care Critical Care patient: No
[2016-11-11 08:22] LABS: ANION GAP 10 (8-16); CALCIUM 8.9 mg/dL (8.5-10.1); CO2 24 mmol/L (21-32); CREATININE 1.1 mg/dL (0.55-1.02); GLUCOSE,RANDOM 222 mg/dL (74-106)
[2016-11-11] MEDS: levETIRAcetam 500 MG/5 ML INJECTION VIAL IVPB SCH ×2 (09:23→22:16)
--- NOTE | 2016-11-11 10:45 | PN ---
Progress Note (short form) - Note Progress Note: PULMONARY SEE CONSULT 11/09 VSS/AFEBRILE ANICTERIC DIMINISHED BREATH SOUNDS S1S2 BS+ SOFT OBESE NO EDEMA/CALF TENDERNESS LABS/MEDS/NOTES/IMAGING REVIEWED LARGE CENTRAL LUNG MASS BRAIN METS/LIVER METS/BONE METS WILL HAVE FOB/BX ON SATURDAY NPO AFTER MIDNIGHT SATURDAY Pili CASTELLANOS MD Problem List - Problems (1) Liver metastases Code(s): C78.7 - SECONDARY MALIG NEOPLASM OF LIVER AND INTRAHEPATIC BILE DUCT (2) Brain metastasis Code(s): C79.31 - SECONDARY MALIGNANT NEOPLASM OF BRAIN (3) Lung malignancy Code(s): C34.90 - MALIGNANT NEOPLASM OF UNSP PART OF UNSP BRONCHUS OR LUNG Qualifiers: Laterality: right Lung location: hilum of lung Qualified Code(s) : C34.01 - Malignant neoplasm of right main bronchus
[2016-11-11] MEDS: diphenhydrAMINE HCL 25 MG CAPSULE (FP) PO SCH (10:50)
[2016-11-11] MEDS ORDERED: INSULIN (NOVOLOG) ASPART 100 UNITS/ML 10ML VIAL ONE (12:16)
--- NOTE | 2016-11-11 12:42 | PN ---
Progress Note (short form) - Note Progress Note: Patient seen and examined 65 year old 1 1/2 ppd smoker from age 20 until 10-15 years ago. Presents with large RLL mass , right effusion, compression atelectasis. Has 3 ring enhancing lesions in right parietal lobe associated with significant vasogenic edema. Likely meningioma as well. Has hypodense lesions in liver compatible with mets and compression in lumbar spine with sclerotic lesion on CT. Vital Signs Period Temp Pulse Resp BP Sys/Curran Pulse Ox Last 24 Hr 97.9 F-98.9 F 65-80 20-20 121-131/70-76 96 CBC, BMP 11/11/16 06:00 11/11/16 06:00 Current Medications Generic Name Dose Route Start Last Admin Trade Name Freq PRN Reason Stop Dose Admin Atorvastatin Calcium 10 mg 11/09/16 22:00 11/10/16 22:33 Lipitor - PO 10 mg HS ALEX Administration Cyclobenzaprine HCl 5 mg 11/09/16 02:37 11/09/16 21:16 Flexeril - PO 5 mg TID PRN Administration PAIN Dexamethasone Sodium Phosphate 4 mg 11/09/16 02:00 11/11/16 10:52 Decadron Injection - IVPB 4 mg Q6H-IV ALEX Administration Diphenhydramine HCl 25 mg 11/09/16 10:00 11/11/16 10:50 Benadryl - PO Not Given DAILY ALEX Heparin Sodium (Porcine) 5,000 unit 11/09/16 22:00 11/11/16 06:16 Heparin - SQ 5,000 unit TID ALEX Administration Insulin Aspart 1 vial 11/09/16 07:00 11/11/16 12:33 Novolog Vial Sliding Scale - SQ 4 units ACHS ALEX Administration Protocol Levetiracetam 500 mg 11/09/16 10:45 11/11/16 09:23 Keppra Injection - IVPB 500 mg BID ALEX Administration Non-Formulary Medication 37.5 mg 11/09/16 10:00 Phentermine Hcl [Adipex-P] PO DAILY ALEX Ondansetron HCl 4 mg 11/09/16 02:49 Zofran Injection IVPUSH Q8H PRN NAUSEA AND/OR VOMITING Plan: Tissue diagnosis-scheduled for bronchoscopy on 11/12. MRI spine- shows multilevels bone involvement, pathological fractures but no cord compression Maalox Low dose temazepam as she reacted badly to benadryl
[2016-11-11] MEDS ORDERED: ZOLPIDEM TARTRATE 5 MG TABLET PO PRN (12:52)
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
[2016-11-11] MEDS: PANTOPRAZOLE 40 MG TABLET (FP) PO SCH (16:06)
--- NOTE | 2016-11-11 19:43 | PN ---
Progress Note (short form) - Note Progress Note: Radiation oncology workup results appreciated. I would still bx a metastatic site to confirm .
[2016-11-11] MEDS: ATORVASTATIN CA 10 MG TABLET (FP) PO SCH (21:17)
[2016-11-11] MEDS: PHENTERMINE HCL 37.5 MG PO SCH ×2 (21:42→21:43)
[2016-11-11] MEDS ORDERED: TEMAZEPAM 15 MG CAPSULE PO SCH (22:00)
[2016-11-12] MEDS: DEXAMETHASONE SOD PHOSPHATE 4 MG/1 ML VIAL IVPB SCH ×3 (03:19→17:25)
[2016-11-12] MEDS ORDERED: INSULIN (NOVOLOG) ASPART 100 UNITS/ML 10ML VIAL ONE ×2 (06:01→21:10)
[2016-11-12] MEDS: HEPARIN NA (PORCINE) 5,000 UNITS/ML 1ML VIAL SQ SCH ×2 (06:16→13:45)
[2016-11-12] MEDS: INSULIN SLIDING SCALE (NOVOLOG) 1 VIAL SQ SCH ×4 (06:17→21:28)
[2016-11-12 08:07] LABS: BASOPHIL 0.2 % (0-2.0); EOSINOPHIL 0.3 % (0-4.5); MCH 28.2 pg (25.7-33.7); MCHC 32.4 g/dl (32.0-36.0); MEAN PLT VOLUME 11.2 fl (7.5-11.1); NEUTROPHILS 85.8 % (42.8-82.8); PLATELET COUNT 206 K/MM3 (134-434); RDW 15.1 % (11.6-15.6); WHITE BLOOD COUNT 12.1 K/mm3 (4.0-10.0)
--- NOTE | 2016-11-12 08:35 | PN ---
Physical Exam: SUBJECTIVE: Patient seen and examined at bedside. Resting comfortably, NAD. Afebrile and hemodynamically stable. No acute events overnight. Pt complains of nonbloody cough and continues to have apprehension about her diagnosis. Pt denies dizziness, vision changes, difficulty eating/drinking, CP, SOB, abd pain , weakness, fever, chills, nausea, and vomiting. OBJECTIVE: Vital Signs Period Temp Pulse Resp BP Sys/Curran Pulse Ox Last 24 Hr 97.9 F-99 F 59-89 16-20 107-127/65-82 96-98 GENERAL: The patient is awake, alert, and fully oriented, in no acute distress. HEAD: Normal with no signs of trauma. EYES: PERRL, extraocular movements intact, sclera anicteric, conjunctiva clear. No ptosis. ENT: Ears normal, nares patent, oropharynx clear without exudates, moist mucous membranes. NECK: Trachea midline, full range of motion, supple. LUNGS: Breath sounds equal, clear to auscultation bilaterally, no wheezes, no crackles, no accessory muscle use. HEART: irregular rhythm, S1, S2 without murmur, rub or gallop. ABDOMEN: Soft, nontender, nondistended, normoactive bowel sounds, no guarding, no rebound, no hepatosplenomegaly, no masses. EXTREMITIES: capillary refill <2 sec, warm, well-perfused, no edema. NEUROLOGICAL: Cranial nerves II through XII grossly intact. Normal speech, gait not observed. Strength 5/5 b/l in shoulders, elbows, knees, ankles. Sensation intact globally. PSYCH: Slightly anxious, normal affect. SKIN: Warm, dry, normal turgor, no rashes or lesions noted Laboratory Results - last 24 hr 11/11/16 11/11/16 11/11/16 06:00 12:12 17:03 Sodium 143 Potassium 4.5 Chloride 109 H Carbon Dioxide 24 Anion Gap 10 BUN 23 H Creatinine 1.1 H POC Glucometer 216 262 Random Glucose 222 H Calcium 8.9 11/11/16 11/12/16 21:12 06:11 Sodium Potassium Chloride Carbon Dioxide Anion Gap BUN Creatinine POC Glucometer 244 182 Random Glucose Calcium Active Medications Generic Name Dose Route Start Last Admin Trade Name Freq PRN Reason Stop Dose Admin Atorvastatin Calcium 10 mg 11/09/16 22:00 11/11/16 21:17 Lipitor - PO 10 mg HS ALEX Administration Cyclobenzaprine HCl 5 mg 11/09/16 02:37 11/09/16 21:16 Flexeril - PO 5 mg TID PRN Administration PAIN Dexamethasone Sodium Phosphate 4 mg 11/09/16 02:00 11/12/16 03:19 Decadron Injection - IVPB 4 mg Q6H-IV ALEX Administration Heparin Sodium (Porcine) 5,000 unit 11/09/16 22:00 11/12/16 06:16 Heparin - SQ Not Given TID ALEX Insulin Aspart 1 vial 11/09/16 07:00 11/12/16 06:17 Novolog Vial Sliding Scale - SQ Not Given ACHS [facility] Protocol Levetiracetam 500 mg 11/09/16 10:45 11/11/16 22:16 Keppra Injection - IVPB 500 mg BID ALEX Administration Ondansetron HCl 4 mg 11/09/16 02:49 Zofran Injection IVPUSH Q8H PRN NAUSEA AND/OR VOMITING Pantoprazole Sodium 40 mg 11/11/16 12:45 11/11/16 16:06 Protonix - PO 40 mg DAILY ALEX Administration Zolpidem Tartrate 5 mg 11/11/16 12:52 Ambien - PO 11/12/16 12:51 HS PRN INSOMNIA ASSESSMENT/PLAN: 65 y/o woman with PMH of CAD and DM who presented with L sided weakness. She was found to have masses in the right side of her brain as well as in her liver and lungs. # Brain Masses: likely mets from lung cancer - Cerebral edema - Keppra 500mg BID - Decadron 4mg IVPB Q6H # Lung Mass: likely primary cancer -bronchoscopy showed an irregular friable mass in the right lung. -pending biopsy result -case discussed with Dr. Martinez. No need for Bx of brain or liver lesions in addition to lung Bx -possible therapy was discussed with patient who is open to radiation but does not want chemo at this time. -plan for radiation therapy following tissue diagnosis. She will need to be in [facility] for this. # Back Pain -Back MRI showed L1 and L4 compression fracture without cord involvement # DM -continue SSI # JEANNIE -encourage PO hydration -f/u labs in am # Leukocytosis: mild -no Sx of UTI -likely 2/2 steroids #Thrombocytopenia: resolved -continue heparin -continue to monitor labs #continue DVT ppx -HSQ 5000 units -SCDs #FEN -leukocytosis 12.1 -NPO after midnight #Dispo -Consider d/c tomorrow pending discharge planning and outpatient follow up planning for Heme/onc Visit type - Emergency Visit Emergency Visit: No - New Patient This patient is new to me today: No - Critical Care Critical Care patient: No
[2016-11-12] MEDS: levETIRAcetam 500 MG/5 ML INJECTION VIAL IVPB SCH ×2 (09:47→22:20)
--- NOTE | 2016-11-12 10:09 | PN ---
Progress Note (short form) - Note Progress Note: PULMONARY VSS/AFEBRILE ANICTERIC DIMINISHED BREATH SOUNDS S1S2 BS+ SOFT OBESE NO EDEMA/CALF TENDERNESS LABS/MEDS/NOTES/IMAGING REVIEWED LARGE CENTRAL LUNG MASS BRAIN METS/LIVER METS/BONE METS WILL HAVE FOB/BX TODAY Pili CASTELLANOS MD Problem List - Problems (1) Liver metastases Code(s): C78.7 - SECONDARY MALIG NEOPLASM OF LIVER AND INTRAHEPATIC BILE DUCT (2) Brain metastasis Code(s): C79.31 - SECONDARY MALIGNANT NEOPLASM OF BRAIN (3) Lung malignancy Code(s): C34.90 - MALIGNANT NEOPLASM OF UNSP PART OF UNSP BRONCHUS OR LUNG Qualifiers: Laterality: right Lung location: hilum of lung Qualified Code(s) : C34.01 - Malignant neoplasm of right main bronchus
[2016-11-12] MEDS: PANTOPRAZOLE 40 MG TABLET (FP) PO SCH (12:14)
[2016-11-12] MEDS ORDERED: MIDAZOLAM HCL 2 MG/2 ML SINGLE DOSE VIAL ONE (13:10)
--- NOTE | 2016-11-12 13:53 | PROC ---
Procedure Note Procedure: BRONCHOSCOPY NOTE After discussing the risks and benefits of the procedure, informed consent was obtained. Pt was placed under anesthesia and intubated with size 8.0 ETT by anesthesia. [employer] video bronchoscope was passed via the ETT and the airways were examined down to the subsegmental level. The susy was sharp, there were no endobronchial lesions in the left lung. In the right lung in the right lower lobe at the level of the superior subsegment there was an irregular, friable mass which the scope could not pass. The area was biopsied with the bronchial forceps and washed with saline. Area visualized until hemostasis achieved. Bronchoscope then withdrawn and procedure terminated. No immediate complications. Pre-op Dx: lung mass Post-op Dx: r/o lung cancer Plan: - f/u BAL washings for culture and cytology - f/u endobronchial biopsies Allen Bishop MD
[2016-11-12] MEDS ORDERED: ONDANSETRON 4 MG/2 ML VIAL IVPUSH PRN (14:11)
[2016-11-12] MEDS ORDERED: ALBUTEROL SO4 0.083% IH SOL 2.5 MG/3 ML VIAL.NEB. NEB ONE (14:12)
[2016-11-12] MEDS ORDERED: LACTATED RINGERS SOLUTION 1,000 ML IV SCH (14:15)
--- NOTE | 2016-11-12 15:21 | PN ---
Progress Note (short form) - Note Progress Note: Radiation Oncology Seen by Dr Sosa over the weekend. Chart and films reviewed. Awaiting tissue diagnosis for what appears to be an advanced lung cancer with mets to liver, brain, bone. For FOB biopsy today. Cont decadron for symptomatic brain mets. Follow up path. Further RT recs to follow.
--- NOTE | 2016-11-12 18:41 | PN ---
Teaching Attending Note Name of Resident: Elian Urbano ATTENDING PHYSICIAN STATEMENT I saw and evaluated the patient. I reviewed the resident's note and discussed the case with the resident. I agree with the resident's findings and plan as documented. SUBJECTIVE: no weaknes, feels better . has no abd pain or diarrhea OBJECTIVE: NAD CV : RRR Lungs : CTAB ext : no edema NEuro: no facial droop, EOMI, round equal pupils , reactive to light , nl facial sensation, tongue and uvula at mid line. Shoulder shrug 5/5 b/l, deltoid and shoulder flexion 5/5 on L( improved ) , and 5/5 on R . biceps and triceps 5/5 b/l , wrist felxion and extension 5/5 b/l . Nl hand incinerator attendant b/l . L pronator drift hip flexion 5/5 b/l. R knee flexion and extension 5/ 5 , unable to evaluate strength due to knee sx. dorsiflexion and plantar flexion 5/5 b/l . sensation to light touch decreased on L leg from knee down. reflexes 2+ biceps , triceps , knee jerk b/l . ASSESSMENT AND PLAN: 65 y/o lady with h/o CAD ,and DM who presneted with L sided weakness. She was found tohave R sided brain masses with R lung mass and Liver masses 1- Brain Masses: likely Mets form Lung cancer. liver mets as well surrounding edema and mid line shift. MRI of L spine with mets to bone and epidural space Neuro exam has improved - s/p Bronchoscopy and BX with BAL . follow cytology and results - radiation Tx after tissue diagnosis. - L spine mets might also benefit form radiation - cont steroids and Keppra - PPI - appreciate all consultants help 2- DM : hold metformin and use SSI . 3- JEANNIE : oral hydration . BMP in am 4- Mild leuokytosis : likely due to steroids . 5- thrombocytopenia : resolved DVT px dc tomorrow . she prefers to follow on Bx results as out pt and follow with consultants. declined palliative care
--- NOTE | 2016-11-12 19:08 | PN ---
Progress Note (short form) - Note Progress Note: Patient seen and examined c/o pain right chest on coughing Last Vital Signs Temp Pulse Resp BP Pulse Ox 98.6 F 80 20 112/66 95 11/12/16 18:00 11/12/16 18:00 11/12/16 18:00 11/12/16 18:00 11/12/16 14:45 Cor: RSR, No murmurs, No gallops Lungs: Clear to P&A Abd: Soft, Normal bowel sounds, No organomegaly Ext:No significant edema Skin: No rashes, Integument intact Abnormal Lab Results 11/12/16 06:30 WBC 12.1 H MPV 11.2 H Neutrophils % 85.8 H Monocytes % 3.4 L D Active Medications Atorvastatin Calcium (Lipitor -) 10 mg PO HS [facility] Last Admin: 11/11/16 21:17 Dose: 10 mg Cyclobenzaprine HCl (Flexeril -) 5 mg PO TID PRN PRN Reason: PAIN Last Admin: 11/09/16 21:16 Dose: 5 mg Dexamethasone Sodium Phosphate (Decadron Injection -) 4 mg IVPB Q6H-IV [facility] Last Admin: 11/12/16 17:25 Dose: 4 mg Fentanyl (Sublimaze Injection -) 25 mcg IVPUSH [id number] PRN PRN Reason: PAIN Stop: 11/15/16 14:12 Heparin Sodium (Porcine) (Heparin -) 5,000 unit SQ TID [facility] Last Admin: 11/12/16 13:45 Dose: Not Given Lactated Ringer's (Lactated Ringers Solution) 1,000 mls @ 75 mls/hr IV ASDIR [facility] Last Admin: 11/12/16 15:47 Dose: 75 mls/hr Insulin Aspart (Novolog Vial Sliding Scale -) 1 vial SQ ACHS [facility] PRN Reason: Protocol Last Admin: 11/12/16 17:46 Dose: Not Given Levetiracetam (Keppra Injection -) 500 mg IVPB BID [facility] Last Admin: 11/12/16 09:47 Dose: 500 mg Ondansetron HCl (Zofran Injection) 4 mg IVPUSH Q8H PRN PRN Reason: NAUSEA AND/OR VOMITING Ondansetron HCl (Zofran Injection) 4 mg IVPUSH Q6H PRN PRN Reason: NAUSEA AND/OR VOMITING Stop: 11/12/16 20:12 Pantoprazole Sodium (Protonix -) 40 mg PO DAILY [facility] Last Admin: 11/12/16 12:14 Dose: Not Given A?P 65 y/o patient with presumed widely metastatic lung cancer--RLL mass with liver mets/brain mets/bone mets s/p bronch awaiting pathology FOr WBRT hold dvt prophylaxis
[2016-11-12] MEDS ORDERED: PT OWN MED DRAWER 7, Y5N ONE (20:31)
[2016-11-12] MEDS: DEXAMETHASONE SOD PHOSPHATE 10 MG/1 ML VIAL IVPB SCH (21:28)
[2016-11-12] MEDS: ATORVASTATIN CA 10 MG TABLET (FP) PO SCH (21:29)
[2016-11-13] MEDS: DEXAMETHASONE SOD PHOSPHATE 10 MG/1 ML VIAL IVPB SCH ×4 (03:22→21:45)
[2016-11-13] MEDS ORDERED: INSULIN (NOVOLOG) ASPART 100 UNITS/ML 10ML VIAL ONE ×2 (05:52→18:40)
[2016-11-13] MEDS: INSULIN SLIDING SCALE (NOVOLOG) 1 VIAL SQ SCH ×4 (06:09→22:36)
[2016-11-13] MEDS: BENZOCAINE/MENTH/CETYLPYRD CL 1 EACH LOZENGE MM PRN ×3 (06:26→15:42)
[2016-11-13] MEDS ORDERED: PT OWN MED DRAWER 7, Y5N ONE ×3 (06:27→21:31)
[2016-11-13] MEDS ORDERED: ACETAMINOPHEN 325 MG TABLET (FP) PO ONE (06:54)
[2016-11-13 07:28] LABS: MCH 28.5 pg (25.7-33.7); MCHC 32.9 g/dl (32.0-36.0); MEAN CELL VOLUME 86.9 fl (80-96); MEAN PLT VOLUME 11.3 fl (7.5-11.1); PLATELET COUNT 163 K/MM3 (134-434); RDW 15.4 % (11.6-15.6); WHITE BLOOD COUNT 10.5 K/mm3 (4.0-10.0)
[2016-11-13 08:20] LABS: ANION GAP 6 (8-16); CALCIUM 8.9 mg/dL (8.5-10.1); CO2 28 mmol/L (21-32); CREATININE 1.1 mg/dL (0.55-1.02); GLUCOSE,RANDOM 211 mg/dL (74-106)
[2016-11-13] MEDS: PANTOPRAZOLE 40 MG TABLET (FP) PO SCH (09:01)
--- NOTE | 2016-11-13 09:28 | PN ---
Progress Note, Physician Chief Complaint: Pt. has no GA complaints. No pain. - Current Medication List Current Medications: Active Medications Atorvastatin Calcium (Lipitor -) 10 mg PO HS [facility] Last Admin: 11/12/16 21:29 Dose: 10 mg Benzocaine/Menthol (Cepacol Lozenge -) 1 each MM PRN PRN PRN Reason: SORE THROAT Last Admin: 11/13/16 08:55 Dose: 1 each Cyclobenzaprine HCl (Flexeril -) 5 mg PO TID PRN PRN Reason: PAIN Last Admin: 11/09/16 21:16 Dose: 5 mg Dexamethasone Sodium Phosphate (Decadron Injection -) 4 mg IVPB Q6H-IV [facility] Last Admin: 11/13/16 08:52 Dose: 4 mg Fentanyl (Sublimaze Injection -) 25 mcg IVPUSH [id number] PRN PRN Reason: PAIN Stop: 11/15/16 14:12 Lactated Ringer's (Lactated Ringers Solution) 1,000 mls @ 75 mls/hr IV ASDIR [facility] Last Admin: 11/12/16 15:47 Dose: 75 mls/hr Insulin Aspart (Novolog Vial Sliding Scale -) 1 vial SQ ACHS [facility] PRN Reason: Protocol Last Admin: 11/13/16 06:09 Dose: 4 units Levetiracetam (Keppra Injection -) 500 mg IVPB BID [facility] Last Admin: 11/12/16 22:20 Dose: 500 mg Ondansetron HCl (Zofran Injection) 4 mg IVPUSH Q8H PRN PRN Reason: NAUSEA AND/OR VOMITING Pantoprazole Sodium (Protonix -) 40 mg PO DAILY [facility] Last Admin: 11/13/16 09:01 Dose: 40 mg - Objective Vital Signs: Vital Signs Temperature -98.7 F L 11/13/16 05:52 Pulse Rate 79 11/13/16 05:52 Respiratory Rate 22 11/13/16 05:52 Blood Pressure 139/99 11/13/16 05:52 O2 Sat by Pulse Oximetry (%) 95 11/12/16 21:00 Constitutional: Yes: Well Nourished, No Distress, Calm Neurological: Yes: WNL, Alert, Oriented Labs: CBC, BMP 11/13/16 06:00 11/13/16 06:00 INR, PTT INR 1.05 (0.82-1.09) 11/08/16 19:00 Assessment/Plan POD#1 s/p fiberoptic bronchoscopy and biopsy under GA. Doing well. D/C from anesthesia care.
[2016-11-13] MEDS: levETIRAcetam 500 MG/5 ML INJECTION VIAL IVPB SCH ×2 (09:33→22:28)
--- NOTE | 2016-11-13 10:00 | PN ---
Progress Note (short form) - Note Progress Note: PULMONARY VSS/AFEBRILE ANICTERIC DIMINISHED BREATH SOUNDS S1S2 BS+ SOFT OBESE NO EDEMA/CALF TENDERNESS LABS/MEDS/NOTES/IMAGING REVIEWED LARGE CENTRAL LUNG MASS ENDOBRONCHIAL LESION BIOPSIED VIA BRONCHOSCOPY BRAIN METS/LIVER METS/LUMBAR METS AWAIT PATH STABLE POST BRONCHO R JASMIN SOSA Problem List - Problems (1) Liver metastases Code(s): C78.7 - SECONDARY MALIG NEOPLASM OF LIVER AND INTRAHEPATIC BILE DUCT (2) Brain metastasis Code(s): C79.31 - SECONDARY MALIGNANT NEOPLASM OF BRAIN (3) Lung malignancy Code(s): C34.90 - MALIGNANT NEOPLASM OF UNSP PART OF UNSP BRONCHUS OR LUNG Qualifiers: Laterality: right Lung location: hilum of lung Qualified Code(s) : C34.01 - Malignant neoplasm of right main bronchus
--- NOTE | 2016-11-13 12:11 | PN ---
Progress Note (short form) - Note Progress Note: Subjective: no fever or chills, has no abd pain , has no new weakness . stillhas the decreased sensation in L leg Objective: Vital Signs: Last Vital Signs Temp Pulse Resp BP Pulse Ox 98.2 F 79 20 123/87 95 11/13/16 08:00 11/13/16 08:00 11/13/16 09:00 11/13/16 08:00 11/13/16 09:00 Laboratory Results - last 24 hr 11/12/16 11/12/16 11/13/16 17:42 21:27 06:00 WBC RBC Hgb Hct MCV MCHC RDW Plt Count MPV Sodium 142 Potassium 4.9 Chloride 108 H Carbon Dioxide 28 Anion Gap 6 L BUN 25 H Creatinine 1.1 H POC Glucometer 124 304 Random Glucose 211 H Calcium 8.9 11/13/16 11/13/16 06:00 06:07 WBC 10.5 H RBC 4.26 Hgb 12.2 Hct 37.0 MCV 86.9 MCHC 32.9 RDW 15.4 Plt Count 163 D MPV 11.3 H Sodium Potassium Chloride Carbon Dioxide Anion Gap BUN Creatinine POC Glucometer 219 Random Glucose Calcium Physical Exam: NAD CV: RRR Lungs: CTAB ext : no edema NEuro: no facial droop, EOMI, round equal pupils , reactive to light , nl facial sensation, tongue and uvula at mid line. Shoulder shrug 5/5 b/l, deltoid and shoulder flexion 5/5 on L( improved ) , and 5/5 on R . biceps and triceps 5/5 b/l , wrist felxion and extension 5/5 b/l . Nl hand layout mechanic b/l . L pronator drift hip flexion 5/5 b/l. R knee flexion and extension 5/ 5 , unable to evaluate strength due to knee sx. dorsiflexion and plantar flexion 5/5 b/l . sensation to light touch decreased on L leg from knee down. reflexes 2+ biceps , triceps , knee jerk b/l . ASSESSMENT AND PLAN: 65 y/o lady with h/o CAD ,and DM who presneted with L sided weakness. She was found tohave R sided brain masses with R lung mass and Liver masses 1- Presumed lung cancer with mets to Liver and Brain MRI of L spine with mets to bone and epidural space - s/p Bronchoscopy and BX with BAL . follow cytology and results - Radiation Tx after tissue diagnosis. - L spine mets might also benefit form radiation - cont steroids and Keppra - PPI - Bone scan was not done yesterday 2- DM : hold metformin and use SSI . 3- JEANNIE : oral hydration . 4- Mild leuokytosis: likely due to steroids . 5- Thrombocytopenia: resolved DVT px Patient wants to go home. Explained to her that dural mets can cause paralysis , and it is preferred to stay and get a plan regarding her radiation . She agreed to stay today. She will think about it tomorrow , and might leave AMA If AMA , will prescribe keppra and oral decadron and give her referrals Visit type - Emergency Visit Emergency Visit: Yes ED Registration Date: 11/09/16 Care time: The patient presented to the Emergency Department on the above date and was hospitalized for further evaluation of their emergent condition. - New Patient This patient is new to me today: No - Critical Care Critical Care patient: No
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
[2016-11-13] MEDS: ATORVASTATIN CA 10 MG TABLET (FP) PO SCH (22:29)
[2016-11-14] MEDS: DEXAMETHASONE SOD PHOSPHATE 10 MG/1 ML VIAL IVPB SCH ×4 (02:34→22:02)
[2016-11-14] MEDS ORDERED: PT OWN MED DRAWER 7, Y5N ONE (06:19)
[2016-11-14] MEDS ORDERED: ACETAMINOPHEN 325 MG TABLET (FP) PO ONE (08:05)
[2016-11-14] MEDS: PANTOPRAZOLE 40 MG TABLET (FP) PO SCH (10:06)
[2016-11-14] MEDS: levETIRAcetam 500 MG/5 ML INJECTION VIAL IVPB SCH ×2 (10:47→22:01)
--- NOTE | 2016-11-14 11:39 | PN ---
Progress Note (short form) - Note Progress Note: PULMONARY VSS/AFEBRILE ANICTERIC DIMINISHED BREATH SOUNDS S1S2 BS+ SOFT OBESE NO EDEMA/CALF TENDERNESS LABS/MEDS/NOTES/IMAGING REVIEWED LARGE CENTRAL LUNG MASS ENDOBRONCHIAL LESION BIOPSIED VIA BRONCHOSCOPY PATH PENDING BRAIN METS/LIVER METS/LUMBAR METS AWAIT PATH STABLE POST BRONCHO BONE SCAN UNDERWAY RT-ONCO APPRECIATED Pili CASTELLANOS MD Problem List - Problems (1) Liver metastases Code(s): C78.7 - SECONDARY MALIG NEOPLASM OF LIVER AND INTRAHEPATIC BILE DUCT (2) Brain metastasis Code(s): C79.31 - SECONDARY MALIGNANT NEOPLASM OF BRAIN (3) Lung malignancy Code(s): C34.90 - MALIGNANT NEOPLASM OF UNSP PART OF UNSP BRONCHUS OR LUNG Qualifiers: Laterality: right Lung location: hilum of lung Qualified Code(s) : C34.01 - Malignant neoplasm of right main bronchus
[2016-11-14] MEDS: INSULIN SLIDING SCALE (NOVOLOG) 1 VIAL SQ SCH ×3 (11:56→22:15)
[2016-11-14] MEDS: BENZOCAINE/MENTH/CETYLPYRD CL 1 EACH LOZENGE MM PRN ×2 (15:01→22:01)
--- NOTE | 2016-11-14 18:06 | PN ---
Physical Exam: SUBJECTIVE: Patient seen and examined OBJECTIVE: Vital Signs Period Temp Pulse Resp BP Sys/Curran Pulse Ox Last 24 Hr 97.6 F-98.7 F 71-75 16-20 118-129/64-82 95-96 GENERAL: The patient is awake, alert, and fully oriented, in no acute distress. HEAD: Normal with no signs of trauma. EYES: PERRL, extraocular movements intact, sclera anicteric, conjunctiva clear. No ptosis. ENT: Ears normal, nares patent, oropharynx clear without exudates, moist mucous membranes. NECK: Trachea midline, full range of motion, supple. LUNGS: Breath sounds equal, clear to auscultation bilaterally, no wheezes, no crackles, no accessory muscle use. HEART: Regular rate and rhythm, S1, S2 without murmur, rub or gallop. ABDOMEN: Soft, nontender, nondistended, normoactive bowel sounds, no guarding, no rebound, no hepatosplenomegaly, no masses. EXTREMITIES: 2+ pulses, warm, well-perfused, no edema. NEUROLOGICAL: Cranial nerves II through XII grossly intact. Normal speech, gait not observed. PSYCH: Normal mood, normal affect. SKIN: Warm, dry, normal turgor, no rashes or lesions noted Laboratory Results - last 24 hr 11/13/16 11/14/16 11/14/16 22:30 05:53 06:00 POC Glucometer 200 284 340 11/14/16 11/14/16 11:44 17:06 POC Glucometer 112 157 Active Medications Generic Name Dose Route Start Last Admin Trade Name Freq PRN Reason Stop Dose Admin Atorvastatin Calcium 10 mg 11/09/16 22:00 11/13/16 22:29 Lipitor - PO 10 mg HS [facility] Administration Benzocaine/Menthol 1 each 11/13/16 04:10 11/14/16 15:01 Cepacol Lozenge - MM 1 each PRN PRN Administration SORE THROAT Cyclobenzaprine HCl 5 mg 11/09/16 02:37 11/09/16 21:16 Flexeril - PO 5 mg TID PRN Administration PAIN Dexamethasone Sodium Phosphate 4 mg 11/12/16 21:00 11/14/16 15:01 Decadron Injection - IVPB 4 mg Q6H-IV [facility] Administration Fentanyl 25 mcg 11/12/16 14:11 Sublimaze Injection - IVPUSH 11/15/16 14:12 [id number] PRN PAIN Insulin Aspart 1 vial 11/14/16 09:28 11/14/16 17:53 Novolog Vial Sliding Scale - SQ 2 units ACHS [facility] Administration Protocol Levetiracetam 500 mg 11/09/16 10:45 11/14/16 10:47 Keppra Injection - IVPB 500 mg BID [facility] Administration Ondansetron HCl 4 mg 11/09/16 02:49 Zofran Injection IVPUSH Q8H PRN NAUSEA AND/OR VOMITING Pantoprazole Sodium 40 mg 11/11/16 12:45 11/14/16 10:06 Protonix - PO 40 mg DAILY [facility] Administration ASSESSMENT/PLAN: 65 y/o woman with PMH of CAD and DM who presented with L sided weakness. She was found to have masses in the right side of her brain as well as in her liver and lungs. # Brain Masses: likely mets from lung cancer - Cerebral edema - Keppra 500mg BID - Decadron 4mg IVPB Q6H # Lung Mass: likely primary cancer -bronchoscopy showed an irregular friable mass in the right lung. -pending biopsy result -case discussed with Dr. Martinez. No need for Bx of brain or liver lesions in addition to lung Bx -possible therapy was discussed with patient who is open to radiation but does not want chemo at this time. -plan for radiation therapy following tissue diagnosis. She will need to be in [facility] this. 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
--- NOTE | 2016-11-14 19:15 | PN ---
Teaching Attending Note Name of Resident: Elian Urbano ATTENDING PHYSICIAN STATEMENT I saw and evaluated the patient. I reviewed the resident's note and discussed the case with the resident. I agree with the resident's findings and plan as documented. SUBJECTIVE: Patient is comfortable with no acute distress. OBJECTIVE: Vital Signs Temperature 99 F 11/14/16 17:00 Pulse Rate 74 11/14/16 17:00 Respiratory Rate 20 11/14/16 17:00 Blood Pressure 98/69 11/14/16 17:00 O2 Sat by Pulse Oximetry (%) 96 11/14/16 09:00 PE: per resident's note CBCD WBC 10.5 K/mm3 (4.0-10.0) H 11/13/16 06:00 RBC 4.26 M/mm3 (3.60-5.2) 11/13/16 06:00 Hgb 12.2 GM/dL (10.7-15.3) 11/13/16 06:00 Hct 37.0 % (32.4-45.2) 11/13/16 06:00 MCV 86.9 fl (80-96) 11/13/16 06:00 MCHC 32.9 g/dl (32.0-36.0) 11/13/16 06:00 RDW 15.4 % (11.6-15.6) 11/13/16 06:00 Plt Count 163 K/MM3 (134-434) D 11/13/16 06:00 MPV 11.3 fl (7.5-11.1) H 11/13/16 06:00 CMP Sodium 142 mmol/L (136-145) 11/13/16 06:00 Potassium 4.9 mmol/L (3.5-5.1) 11/13/16 06:00 Chloride 108 mmol/L (98-107) H 11/13/16 06:00 Carbon Dioxide 28 mmol/L (21-32) 11/13/16 06:00 Anion Gap 6 (8-16) L 11/13/16 06:00 BUN 25 mg/dL (7-18) H 11/13/16 06:00 Creatinine 1.1 mg/dL (0.55-1.02) H 11/13/16 06:00 Creat Clearance w eGFR 49.69 (>60) 11/10/16 06:00 Random Glucose 211 mg/dL (74-106) H 11/13/16 06:00 Calcium 8.9 mg/dL (8.5-10.1) 11/13/16 06:00 Total Bilirubin 0.2 mg/dL (0.2-1.0) D 11/10/16 06:00 AST 14 U/L (15-37) L 11/10/16 06:00 ALT 14 U/L (12-78) 11/10/16 06:00 Alkaline Phosphatase 87 U/L (45-117) 11/10/16 06:00 Total Protein 6.2 g/dl (6.4-8.2) L 11/10/16 06:00 Albumin 2.9 g/dl (3.4-5.0) L 11/10/16 06:00 CARDIAC ENZYMES Creatine Kinase 74 IU/L (26-192) 11/08/16 19:00 Troponin I < 0.02 ng/ml (0.00-0.05) 11/08/16 19:00 Current Medications Generic Name Dose Route Start Last Admin Trade Name Freq PRN Reason Stop Dose Admin Atorvastatin Calcium 10 mg 11/09/16 22:00 11/13/16 22:29 Lipitor - PO 10 mg HS ALEX Administration Benzocaine/Menthol 1 each 11/13/16 04:10 11/14/16 15:01 Cepacol Lozenge - MM 1 each PRN PRN Administration SORE THROAT Cyclobenzaprine HCl 5 mg 11/09/16 02:37 11/09/16 21:16 Flexeril - PO 5 mg TID PRN Administration PAIN Dexamethasone Sodium Phosphate 4 mg 11/12/16 21:00 11/14/16 15:01 Decadron Injection - IVPB 4 mg Q6H-IV ALEX Administration Fentanyl 25 mcg 11/12/16 14:11 Sublimaze Injection - IVPUSH 11/15/16 14:12 [id number] PRN PAIN Insulin Aspart 1 vial 11/14/16 09:28 11/14/16 17:53 Novolog Vial Sliding Scale - SQ 2 units ACHS ALEX Administration Protocol Levetiracetam 500 mg 11/09/16 10:45 11/14/16 10:47 Keppra Injection - IVPB 500 mg BID ALEX Administration Ondansetron HCl 4 mg 11/09/16 02:49 Zofran Injection IVPUSH Q8H PRN NAUSEA AND/OR VOMITING Pantoprazole Sodium 40 mg 11/11/16 12:45 11/14/16 10:06 Protonix - PO 40 mg DAILY ALEX Administration Home Medications Medication Instructions Recorded Acetaminophen [Non-Aspirin Pain 500 mg PO DAILY PRN 11/08/16 Relief] Atorvastatin Ca [Lipitor] 10 mg PO HS 11/08/16 Calcium Carbonate [Calcium] 1,200 mg PO DAILY 11/08/16 Diphenhydramine HCl [Benadryl -] 25 mg PO DAILY 11/08/16 Ibuprofen 800 mg PO TID PRN 11/08/16 Icosapent Ethyl [Vascepa] 1 gm PO DAILY 11/08/16 Metformin HCl 500 mg PO BID 11/08/16 Phentermine HCl [Adipex-P] 37.5 mg PO DAILY 11/08/16 HISTORY: 65-year-old female with lung cancer TECHNIQUE: 3 hours after the intravenous injection of 25.7 mCi of technetium 99m MDP, whole-body bone scan was performed from the vertex of skull through the bilateral feet in the anterior and posterior projections. Spot views of the head and neck, torso and pelvis were obtained in the anterior and posterior, as well as the bilateral lateral and oblique projections. COMPARISON: no comparison bone scan is available. Correlation is made with CT of the chest, abdomen and pelvis dated November 09, 2016 and MRI of the lumbar spine dated November 10, 2016 FINDINGS: Multiple foci of activity seen in the left scapula, right clavicle, L2 vertebral body and to lesser extent L1, L3 and L5 vertebral body. The kidneys are visualized. IMPRESSION: Scintigraphic findings suggestive of osteoblastic metastasis of the left scapula, right clavicle, L2 vertebral body and to lesser extent L1, L3 and L5 vertebral bodies. Reported By: Renzo Sweeney MD MRI OF THE BRAIN (without and with contrast) CLINICAL INFORMATION GIVEN: evaluate for metastatic neoplastic disease Multiplanar imaging was obtained before and following the intravenous administration of paramagnetic contrast. Diffusion weighted spin-echo echo-planar imaging was also performed. There is diffuse neoplastic marrow infiltration involving the L1 vertebral body and L1 pedicles with an associated moderate pathologic fracture of the superior and inferior vertebral body endplates. There is resultant minimal bony retropulsion. Smaller focal neoplastic lesions are seen within the T12 and L4 vertebral bodies. There is associated minimal to mild pathologic fracture involving the L4 inferior endplate ventrally. Neoplastic disease is also seen within the left L1 pedicle and left L1 transverse process. No central canal compromise is noted. There is no thecal sac impingement/compression. The conus medullaris appears unremarkable. A small amount of epidural neoplastic disease is seen within the left L1-L2 and L2-L3 intervertebral foramina superiorly. There is possible partial imaging of a small neoplastic lesion within the right posterior iliac bone abutting the sacroiliac joint. Neoplastic findings are seen within the partially imaged liver and right chest as discussed in detail on recently performed CT. Mild lumbar levoscoliosis. Moderate multilevel bilateral degenerative facet arthropathy. Left L5-S1 foraminal disc herniation with impingement upon the exiting L5 nerve root. Bilateral L5 spondylolysis with associated minimal L5-S1 spondylolisthesis. Left renal atrophy. IMPRESSION : Multilevel osseous neoplastic disease is seen involving the lumbar spine. A moderate pathologic L1 vertebral body compression fracture is noted with minimal bony retropulsion. Minimal to mild pathologic L4 vertebral body compression fracture without bony retropulsion No central canal compromise or thecal sac impingement is seen. A small amount of epidural neoplastic disease is noted within the left L1-L2 and L2-L3 intervertebral foramina. Moderate left L5-S1 foraminal disc herniation. Minimal L5-S1 spondylolytic spondylolisthesis. Multilevel osseous neoplastic disease is seen involving the lumbar spine. A moderate pathologic L1 vertebral body compression fracture is noted with minimal bony retropulsion. Minimal to mild pathologic L4 vertebral body compression fracture without bony retropulsion No central canal compromise or thecal sac impingement is seen. A small amount of epidural neoplastic disease is noted within the left L1-L2 and L2-L3 intervertebral foramina. Moderate left L5-S1 foraminal disc herniation. Minimal L5-S1 spondylolytic spondylolisthesis CT of the chest IMPRESSION: 1. Poorly defined right lower lobe mass strongly suspicious for malignancy. The mass is associated with adjacent atelectasis and pleural fluid. 2. Additional right lung nodules possibly metastatic in nature. 3. Mediastinal and right hilar lymphadenopathy. 4. Multiple hepatic masses consistent with metastatic disease. 5. Partial compression and sclerosis of L1. A metastatic lesion cannot be excluded and a follow-up MRI is recommended. Please see above discussion. A/P: 65 y/o lady with h/o CAD ,and DM who presneted with L sided weakness. She was found tohave R sided brain masses with R lung mass and Liver masses # RLL mass highly suspecious of Malignancy with Mediastinal and right hilat lymphadenopathy. with multiple hepatic masses consistent with metastatic disease. MRI of L spine with mets to bone and epidural space s/p Bronchoscopy and BX with BAL . follow cytology and results; Radiation Tx after tissue diagnosis. cont steroids and Keppra , PPI , Bone scan positive for osteoblastic lesion of the left scapula, right clavicle, L2 vertebral body, and lesser estent L1,L3 and L5. # Hx of T2DM : hold metformin and use SSI . # JEANNIE : oral hydration . # Mild leuokytosis: likely due to steroids . will repeat labs in am # Thrombocytopenia: resolved DVT px Patient wants to go home. Explained to her that dural mets can cause paralysis , and it is preferred to stay and get a plan regarding her radiation . She agreed to stay today. She will think about it tomorrow , and might leave AMA If AMA , will prescribe keppra and oral decadron and give her referrals
[2016-11-14] MEDS ORDERED: INSULIN (NOVOLOG) ASPART 100 UNITS/ML 10ML VIAL ONE (21:27)
[2016-11-14] MEDS: ATORVASTATIN CA 10 MG TABLET (FP) PO SCH (22:01)
[2016-11-15] MEDS: DEXAMETHASONE SOD PHOSPHATE 10 MG/1 ML VIAL IVPB SCH ×4 (03:17→21:57)
[2016-11-15] MEDS: BENZOCAINE/MENTH/CETYLPYRD CL 1 EACH LOZENGE MM PRN ×2 (03:49→09:46)
[2016-11-15] MEDS: INSULIN SLIDING SCALE (NOVOLOG) 1 VIAL SQ SCH ×5 (07:00→21:57)
[2016-11-15 07:50] LABS: EOSINOPHIL 0.5 % (0-4.5); MCH 28.6 pg (25.7-33.7); MCHC 32.6 g/dl (32.0-36.0); MEAN CELL VOLUME 87.6 fl (80-96); MEAN PLT VOLUME 11.3 fl (7.5-11.1); NEUTROPHILS 85.8 % (42.8-82.8); PLATELET COUNT 173 K/MM3 (134-434); RDW 14.9 % (11.6-15.6); WHITE BLOOD COUNT 11.7 K/mm3 (4.0-10.0)
[2016-11-15 08:11] LABS: ALBUMIN 3.1 g/dl (3.4-5.0); ANION GAP 7 (8-16); BILIRUBIN,TOTAL 0.5 mg/dL (0.2-1.0); CO2 28 mmol/L (21-32); CREATININE 1.1 mg/dL (0.55-1.02); GLUCOSE,RANDOM 279 mg/dL (74-106); SGOT/AST 11 U/L (15-37); SGPT/ALT 17 U/L (12-78); TOT PROT 6.9 g/dl (6.4-8.2)
[2016-11-15 08:12] LABS: ALK PHOS 115 U/L (45-117)
[2016-11-15] MEDS: levETIRAcetam 500 MG/5 ML INJECTION VIAL IVPB SCH ×2 (09:35→21:57)
[2016-11-15] MEDS: PANTOPRAZOLE 40 MG TABLET (FP) PO SCH (09:35)
--- NOTE | 2016-11-15 10:31 | PN ---
Progress Note (short form) - Note Progress Note: PULMONARY Denies shortness of breath or chest pain. +cough with green sputum. No fevers or chills. Some throat discomfort since bronchosocpy/intubation. Last Vital Signs Temp Pulse Resp BP Pulse Ox 99 F 75 20 132/61 96 11/15/16 05:13 11/15/16 05:13 11/15/16 05:13 11/15/16 05:13 11/14/16 21:00 Gen: NAD at rest Heart: RRR Lung: decreased breath sounds at the bases Abd: soft, nontender Ext: no edema CBC, BMP 11/15/16 06:00 11/15/16 06:00 Active Medications Atorvastatin Calcium (Lipitor -) 10 mg PO HS [facility] Last Admin: 11/14/16 22:01 Dose: 10 mg Benzocaine/Menthol (Cepacol Lozenge -) 1 each MM PRN PRN PRN Reason: SORE THROAT Last Admin: 11/15/16 09:46 Dose: 1 each Cyclobenzaprine HCl (Flexeril -) 5 mg PO TID PRN PRN Reason: PAIN Last Admin: 11/09/16 21:16 Dose: 5 mg Dexamethasone Sodium Phosphate (Decadron Injection -) 4 mg IVPB Q6H-IV ALEX Last Admin: 11/15/16 09:35 Dose: 4 mg Fentanyl (Sublimaze Injection -) 25 mcg IVPUSH [id number] PRN PRN Reason: PAIN Stop: 11/15/16 14:12 Insulin Aspart (Novolog Vial Sliding Scale -) 1 vial SQ ACHS ALEX PRN Reason: Protocol Last Admin: 11/15/16 07:00 Dose: 6 units Levetiracetam (Keppra Injection -) 500 mg IVPB BID ALEX Last Admin: 11/15/16 09:35 Dose: 500 mg Ondansetron HCl (Zofran Injection) 4 mg IVPUSH Q8H PRN PRN Reason: NAUSEA AND/OR VOMITING Pantoprazole Sodium (Protonix -) 40 mg PO DAILY [facility] Last Admin: 11/15/16 09:35 Dose: 40 mg A/P Likely Metastatic Lung Cancer with brain/liver/bone mets CAD DM - spoke to pathology, should have a preliminary diagnosis by tomorrow - continue decadron - pain control - DVT prophylaxis
[2016-11-15] MEDS: PETROLATUM, WHITE 30 GM TUBE TP SCH (11:45)
[2016-11-15] MEDS ORDERED: INSULIN (NOVOLOG) ASPART 100 UNITS/ML 10ML VIAL ONE (12:04)
--- NOTE | 2016-11-15 15:57 | PN ---
Physical Exam: SUBJECTIVE: Patient seen and examined at bedside. Pt complained of discomfort in her left eye. She was putting face creme on and some got in her eye. Pt is also upset with the staff at the hospital. No other complaints. Pt denies headache, cp sob, nausea, vomiting, diarrhea, abdominal pain. OBJECTIVE: Vital Signs Period Temp Pulse Resp BP Sys/Curran Pulse Ox Last 24 Hr 99 F-99.5 F 71-75 20-20 105-132/52-66 96 GENERAL: The patient is awake, alert, and fully oriented, in no acute distress. HEAD: Normal with no signs of trauma. EYES: PERRL, extraocular movements intact, sclera anicteric, conjunctiva clear. No ptosis. ENT: Ears normal, nares patent, oropharynx clear without exudates, moist mucous membranes. NECK: Trachea midline, full range of motion, supple. No carotid bruits, no thyromegally. LUNGS: Breath sounds equal, clear to auscultation bilaterally, no wheezes, no crackles, no accessory muscle use. HEART: Regular rate and rhythm, S1, S2 without murmur, rub or gallop. ABDOMEN: Soft, nontender, nondistended, normoactive bowel sounds, no guarding, no rebound, no hepatosplenomegaly, no masses. EXTREMITIES: 2+ pulses, warm, well-perfused, no edema. NEUROLOGICAL: Cranial nerves II through XII grossly intact. Normal speech, gait not observed. PSYCH: Normal mood, normal affect. SKIN: Warm, dry, normal turgor, no rashes or lesions noted Laboratory Results - last 24 hr 11/14/16 11/14/16 11/15/16 17:06 22:14 06:00 WBC 11.7 H RBC 4.30 Hgb 12.3 Hct 37.6 MCV 87.6 MCHC 32.6 RDW 14.9 Plt Count 173 MPV 11.3 H Neutrophils % 85.8 H Lymphocytes % 6.8 L D Monocytes % 6.9 D Eosinophils % 0.5 Basophils % 0.0 Sodium Potassium Chloride Carbon Dioxide Anion Gap BUN Creatinine Creat Clearance w eGFR POC Glucometer 157 239 Random Glucose Calcium Total Bilirubin AST ALT Alkaline Phosphatase Total Protein Albumin 11/15/16 11/15/16 11/15/16 06:00 06:59 12:00 WBC RBC Hgb Hct MCV MCHC RDW Plt Count MPV Neutrophils % Lymphocytes % Monocytes % Eosinophils % Basophils % Sodium 138 Potassium 4.0 Chloride 103 Carbon Dioxide 28 Anion Gap 7 L BUN 23 H Creatinine 1.1 H Creat Clearance w eGFR 49.69 POC Glucometer 273 239 Random Glucose 279 H D Calcium 9.0 Total Bilirubin 0.5 D AST 11 L D ALT 17 D Alkaline Phosphatase 115 D Total Protein 6.9 Albumin 3.1 L Active Medications Generic Name Dose Route Start Last Admin Trade Name Frevanessa PRN Reason Stop Dose Admin Atorvastatin Calcium 10 mg 11/09/16 22:00 11/14/16 22:01 Lipitor - PO 10 mg HS ALEX Administration Benzocaine/Menthol 1 each 11/13/16 04:10 11/15/16 09:46 Cepacol Lozenge - MM 1 each PRN PRN Administration SORE THROAT Cyclobenzaprine HCl 5 mg 11/09/16 02:37 11/09/16 21:16 Flexeril - PO 5 mg TID PRN Administration PAIN Dexamethasone Sodium Phosphate 4 mg 11/12/16 21:00 11/15/16 14:55 Decadron Injection - IVPB 4 mg Q6H-IV ALEX Administration Insulin Aspart 1 vial 11/14/16 09:28 11/15/16 12:08 Novolog Vial Sliding Scale - SQ 4 units ACHS ALEX Administration Protocol Levetiracetam 500 mg 11/09/16 10:45 11/15/16 09:35 Keppra Injection - IVPB 500 mg BID ALEX Administration Ondansetron HCl 4 mg 11/09/16 02:49 Zofran Injection IVPUSH Q8H PRN NAUSEA AND/OR VOMITING Pantoprazole Sodium 40 mg 11/11/16 12:45 11/15/16 09:35 Protonix - PO 40 mg DAILY ALEX Administration Petrolatum 1 applic 11/15/16 10:45 11/15/16 11:45 Vaseline TP 1 applic DAILY ALEX Administration ASSESSMENT/PLAN: 65 y/o woman with PMH of CAD and DM who presented with L sided weakness. She was found to have masses in the right side of her brain as well as in her liver and lungs. # Brain Masses: likely mets from lung cancer - Cerebral edema - Keppra 500mg BID - Decadron 4mg IVPB Q6H # Lung Mass: likely primary cancer -bronchoscopy showed an irregular friable mass in the right lung. Pulm consult appreciated. Bx result expected tomorrow. -Pulm consult appreciated. Bx result expected tomorrow. -case discussed with Dr. Martinez. No need for Bx of brain or liver lesions in addition to lung Bx -possible therapy was discussed with patient who is open to radiation but does not want chemo at this time. -plan for radiation therapy following tissue diagnosis. She will need to be in [facility] for this. # Back Pain -Back MRI showed L1 and L4 compression fracture without cord involvement -Bone scan showed osteoblastic metastases of left scapula, right clavicle, L2 body, and to a lesser extent, L1,L3, and L5 # DM -continue SSI # JEANNIE -encourage PO hydration -monitor labs and exam # Leukocytosis: mild, stable -no Sx of UTI -likely 2/2 steroids #Thrombocytopenia: resolved -continue heparin -continue to monitor labs #continue DVT ppx -HSQ 5000 units -SCDs #FEN -not on fluids -monitor lytes -diabetic diet #Dispo -Admit to med-surg -pending planning for Heme/onc chemo vs radiation Visit type - Emergency Visit Emergency Visit: No - New Patient This patient is new to me today: No - Critical Care Critical Care patient: No
--- NOTE | 2016-11-15 18:31 | PN ---
Progress Note (short form) - Note Progress Note: Patient seen and examined c/o pain right chest on coughing Last Vital Signs Temp Pulse Resp BP Pulse Ox 99 F 75 20 132/61 96 11/15/16 05:13 11/15/16 05:13 11/15/16 05:13 11/15/16 05:13 11/14/16 21:00 Lungs: Clear to P&A Abd: Soft, Normal bowel sounds, No organomegaly Ext:No significant edema Skin: No rashes, Integument intact Abnormal Lab Results 11/15/16 11/15/16 06:00 06:00 WBC 11.7 H MPV 11.3 H Neutrophils % 85.8 H Lymphocytes % 6.8 L D Anion Gap 7 L BUN 23 H Creatinine 1.1 H Random Glucose 279 H D AST 11 L D Albumin 3.1 L Active Medications Generic Name Dose Route Start Last Admin Trade Name Freq PRN Reason Stop Dose Admin Atorvastatin Calcium 10 mg 11/09/16 22:00 11/14/16 22:01 Lipitor - PO 10 mg HS ALEX Administration Benzocaine/Menthol 1 each 11/13/16 04:10 11/15/16 09:46 Cepacol Lozenge - MM 1 each PRN PRN Administration SORE THROAT Cyclobenzaprine HCl 5 mg 11/09/16 02:37 11/09/16 21:16 Flexeril - PO 5 mg TID PRN Administration PAIN Dexamethasone Sodium Phosphate 4 mg 11/12/16 21:00 11/15/16 14:55 Decadron Injection - IVPB 4 mg Q6H-IV ALEX Administration Insulin Aspart 1 vial 11/14/16 09:28 11/15/16 16:43 Novolog Vial Sliding Scale - SQ 4 units ACHS ALEX Administration Protocol Levetiracetam 500 mg 11/09/16 10:45 11/15/16 09:35 Keppra Injection - IVPB 500 mg BID ALEX Administration Ondansetron HCl 4 mg 11/09/16 02:49 Zofran Injection IVPUSH Q8H PRN NAUSEA AND/OR VOMITING Pantoprazole Sodium 40 mg 11/11/16 12:45 11/15/16 09:35 Protonix - PO 40 mg DAILY ALEX Administration Petrolatum 1 applic 11/15/16 10:45 11/15/16 11:45 Vaseline TP 1 applic DAILY ALEX Administration A?P 65 y/o patient with presumed widely metastatic lung cancer--RLL mass with liver mets/brain mets/bone mets s/p bronch awaiting pathology FOr WBRT hold dvt prophylaxis
--- NOTE | 2016-11-15 21:27 | PN ---
Teaching Attending Note Name of Resident: Elian Urbano ATTENDING PHYSICIAN STATEMENT I saw and evaluated the patient. I reviewed the resident's note and discussed the case with the resident. I agree with the resident's findings and plan as documented. SUBJECTIVE: Lying in bed with no acute distress OBJECTIVE: Vital Signs Temperature 99 F 11/15/16 18:54 Pulse Rate 68 11/15/16 18:54 Respiratory Rate 20 11/15/16 18:54 Blood Pressure 118/72 11/15/16 18:54 O2 Sat by Pulse Oximetry (%) 95 11/15/16 09:00 PE: per resident's note CBCD WBC 11.7 K/mm3 (4.0-10.0) H 11/15/16 06:00 RBC 4.30 M/mm3 (3.60-5.2) 11/15/16 06:00 Hgb 12.3 GM/dL (10.7-15.3) 11/15/16 06:00 Hct 37.6 % (32.4-45.2) 11/15/16 06:00 MCV 87.6 fl (80-96) 11/15/16 06:00 MCHC 32.6 g/dl (32.0-36.0) 11/15/16 06:00 RDW 14.9 % (11.6-15.6) 11/15/16 06:00 Plt Count 173 K/MM3 (134-434) 11/15/16 06:00 MPV 11.3 fl (7.5-11.1) H 11/15/16 06:00 CMP Sodium 138 mmol/L (136-145) 11/15/16 06:00 Potassium 4.0 mmol/L (3.5-5.1) 11/15/16 06:00 Chloride 103 mmol/L (98-107) 11/15/16 06:00 Carbon Dioxide 28 mmol/L (21-32) 11/15/16 06:00 Anion Gap 7 (8-16) L 11/15/16 06:00 BUN 23 mg/dL (7-18) H 11/15/16 06:00 Creatinine 1.1 mg/dL (0.55-1.02) H 11/15/16 06:00 Creat Clearance w eGFR 49.69 (>60) 11/15/16 06:00 Random Glucose 279 mg/dL (74-106) H D 11/15/16 06:00 Calcium 9.0 mg/dL (8.5-10.1) 11/15/16 06:00 Total Bilirubin 0.5 mg/dL (0.2-1.0) D 11/15/16 06:00 AST 11 U/L (15-37) L D 11/15/16 06:00 ALT 17 U/L (12-78) D 11/15/16 06:00 Alkaline Phosphatase 115 U/L (45-117) D 11/15/16 06:00 Total Protein 6.9 g/dl (6.4-8.2) 11/15/16 06:00 Albumin 3.1 g/dl (3.4-5.0) L 11/15/16 06:00 CARDIAC ENZYMES Creatine Kinase 74 IU/L (26-192) 11/08/16 19:00 Troponin I < 0.02 ng/ml (0.00-0.05) 11/08/16 19:00 Current Medications Generic Name Dose Route Start Last Admin Trade Name Freq PRN Reason Stop Dose Admin Atorvastatin Calcium 10 mg 11/09/16 22:00 11/14/16 22:01 Lipitor - PO 10 mg HS ALEX Administration Benzocaine/Menthol 1 each 11/13/16 04:10 11/15/16 09:46 Cepacol Lozenge - MM 1 each PRN PRN Administration SORE THROAT Cyclobenzaprine HCl 5 mg 11/09/16 02:37 11/09/16 21:16 Flexeril - PO 5 mg TID PRN Administration PAIN Dexamethasone Sodium Phosphate 4 mg 11/12/16 21:00 11/15/16 14:55 Decadron Injection - IVPB 4 mg Q6H-IV ALEX Administration Insulin Aspart 1 vial 11/14/16 09:28 11/15/16 16:43 Novolog Vial Sliding Scale - SQ 4 units ACHS ALEX Administration Protocol Levetiracetam 500 mg 11/09/16 10:45 11/15/16 09:35 Keppra Injection - IVPB 500 mg BID ALEX Administration Ondansetron HCl 4 mg 11/09/16 02:49 Zofran Injection IVPUSH Q8H PRN NAUSEA AND/OR VOMITING Pantoprazole Sodium 40 mg 11/11/16 12:45 11/15/16 09:35 Protonix - PO 40 mg DAILY ALEX Administration Petrolatum 1 applic 11/15/16 10:45 11/15/16 11:45 Vaseline TP 1 applic DAILY ALEX Administration Home Medications Medication Instructions Recorded Acetaminophen [Non-Aspirin Pain 500 mg PO DAILY PRN 11/08/16 Relief] Atorvastatin Ca [Lipitor] 10 mg PO HS 11/08/16 Calcium Carbonate [Calcium] 1,200 mg PO DAILY 11/08/16 Diphenhydramine HCl [Benadryl -] 25 mg PO DAILY 11/08/16 Ibuprofen 800 mg PO TID PRN 11/08/16 Icosapent Ethyl [Vascepa] 1 gm PO DAILY 11/08/16 Metformin HCl 500 mg PO BID 11/08/16 Phentermine HCl [Adipex-P] 37.5 mg PO DAILY 11/08/16 HISTORY: 65-year-old female with lung cancer TECHNIQUE: 3 hours after the intravenous injection of 25.7 mCi of technetium 99m MDP, whole-body bone scan was performed from the vertex of skull through the bilateral feet in the anterior and posterior projections. Spot views of the head and neck, torso and pelvis were obtained in the anterior and posterior, as well as the bilateral lateral and oblique projections. COMPARISON: no comparison bone scan is available. Correlation is made with CT of the chest, abdomen and pelvis dated November 09, 2016 and MRI of the lumbar spine dated November 10, 2016 FINDINGS: Multiple foci of activity seen in the left scapula, right clavicle, L2 vertebral body and to lesser extent L1, L3 and L5 vertebral body. The kidneys are visualized. IMPRESSION: Scintigraphic findings suggestive of osteoblastic metastasis of the left scapula, right clavicle, L2 vertebral body and to lesser extent L1, L3 and L5 vertebral bodies. Reported By: Renzo Sweeney MD MRI OF THE BRAIN (without and with contrast) CLINICAL INFORMATION GIVEN: evaluate for metastatic neoplastic disease Multiplanar imaging was obtained before and following the intravenous administration of paramagnetic contrast. Diffusion weighted spin-echo echo-planar imaging was also performed. There is diffuse neoplastic marrow infiltration involving the L1 vertebral body and L1 pedicles with an associated moderate pathologic fracture of the superior and inferior vertebral body endplates. There is resultant minimal bony retropulsion. Smaller focal neoplastic lesions are seen within the T12 and L4 vertebral bodies. There is associated minimal to mild pathologic fracture involving the L4 inferior endplate ventrally. Neoplastic disease is also seen within the left L1 pedicle and left L1 transverse process. No central canal compromise is noted. There is no thecal sac impingement/compression. The conus medullaris appears unremarkable. A small amount of epidural neoplastic disease is seen within the left L1-L2 and L2-L3 intervertebral foramina superiorly. There is possible partial imaging of a small neoplastic lesion within the right posterior iliac bone abutting the sacroiliac joint. Neoplastic findings are seen within the partially imaged liver and right chest as discussed in detail on recently performed CT. Mild lumbar levoscoliosis. Moderate multilevel bilateral degenerative facet arthropathy. Left L5-S1 foraminal disc herniation with impingement upon the exiting L5 nerve root. Bilateral L5 spondylolysis with associated minimal L5-S1 spondylolisthesis. Left renal atrophy. IMPRESSION : Multilevel osseous neoplastic disease is seen involving the lumbar spine. A moderate pathologic L1 vertebral body compression fracture is noted with minimal bony retropulsion. Minimal to mild pathologic L4 vertebral body compression fracture without bony retropulsion No central canal compromise or thecal sac impingement is seen. A small amount of epidural neoplastic disease is noted within the left L1-L2 and L2-L3 intervertebral foramina. Moderate left L5-S1 foraminal disc herniation. Minimal L5-S1 spondylolytic spondylolisthesis. Multilevel osseous neoplastic disease is seen involving the lumbar spine. A moderate pathologic L1 vertebral body compression fracture is noted with minimal bony retropulsion. Minimal to mild pathologic L4 vertebral body compression fracture without bony retropulsion No central canal compromise or thecal sac impingement is seen. A small amount of epidural neoplastic disease is noted within the left L1-L2 and L2-L3 intervertebral foramina. Moderate left L5-S1 foraminal disc herniation. Minimal L5-S1 spondylolytic spondylolisthesis CT of the chest IMPRESSION: 1. Poorly defined right lower lobe mass strongly suspicious for malignancy. The mass is associated with adjacent atelectasis and pleural fluid. 2. Additional right lung nodules possibly metastatic in nature. 3. Mediastinal and right hilar lymphadenopathy. 4. Multiple hepatic masses consistent with metastatic disease. 5. Partial compression and sclerosis of L1. A metastatic lesion cannot be excluded and a follow-up MRI is recommended. Please see above discussion. ASSESSMENT AND PLAN: 65 y/o lady with h/o CAD ,and DM who presneted with L sided weakness. She was found to have R sided brain masses with R lung mass and Liver masses. # RLL mass Likely metastatic Lung Cancer with brain/liver/bone mets.s/p Bronchoscopy and BX with BAL . follow cytology and results; Radiation Tx after tissue diagnosis, cont steroids and Keppra , PPI , Bone scan positive for osteoblastic lesion of the left scapula, right clavicle, L2 vertebral body, and lesser extent L1,L3 and L5. pathology report will be available in am preliminary report. Continue Decadron # Hx of T2DM : hold metformin and use SSI . # JEANNIE : oral hydration . # Mild leukocytosis: likely due to steroids . will repeat labs in am # Thrombocytopenia: resolved DVT px : SCDs If AMA , will prescribe keppra and oral decadron and give her referrals
[2016-11-15] MEDS: ATORVASTATIN CA 10 MG TABLET (FP) PO SCH (21:56)
[2016-11-15] MEDS ORDERED: PT OWN MED DRAWER 7, Y5N ONE (22:14)
[2016-11-16] MEDS: DEXAMETHASONE SOD PHOSPHATE 10 MG/1 ML VIAL IVPB SCH ×4 (03:39→21:28)
[2016-11-16] MEDS ORDERED: INSULIN (NOVOLOG) ASPART 100 UNITS/ML 10ML VIAL ONE ×2 (05:56→21:03)
[2016-11-16] MEDS: INSULIN SLIDING SCALE (NOVOLOG) 1 VIAL SQ SCH ×4 (06:06→21:28)
[2016-11-16 07:16] LABS: EOSINOPHIL 0.2 % (0-4.5); MCH 28.8 pg (25.7-33.7); MCHC 32.8 g/dl (32.0-36.0); MEAN PLT VOLUME 11.2 fl (7.5-11.1); NEUTROPHILS 88.3 % (42.8-82.8); PLATELET COUNT 193 K/MM3 (134-434); RDW 15.3 % (11.6-15.6)
[2016-11-16 07:38] LABS: ANION GAP 10 (8-16); CALCIUM 9.2 mg/dL (8.5-10.1); CO2 28 mmol/L (21-32); GLUCOSE,RANDOM 274 mg/dL (74-106)
[2016-11-16] MEDS: PANTOPRAZOLE 40 MG TABLET (FP) PO SCH (09:00)
[2016-11-16] MEDS: BENZOCAINE/MENTH/CETYLPYRD CL 1 EACH LOZENGE MM PRN (09:01)
[2016-11-16] MEDS: PETROLATUM, WHITE 30 GM TUBE TP SCH (09:08)
--- NOTE | 2016-11-16 09:47 | PN ---
Progress Note (short form) - Note Progress Note: Patient seen and examined Complains of pains in right flank area . No puch tenderness, Some right shoulder pains No chest pains or SOB No nausea ,emesis, diarrhea, constipation. No headaches. No dysuria, hematuria Some lower back pains Watery dscharge right eye Last Vital Signs Temp Pulse Resp BP Pulse Ox 98.0 F 75 18 120/66 95 11/16/16 08:58 11/16/16 08:58 11/16/16 08:58 11/16/16 08:58 11/15/16 09:00 HEENT: VIOLET, EOM Intact Oropharynx: No thrush, No mucositis, edentulous Cor: RSR, No murmurs, No gallops Lungs: Decreased breath sounds RLL Abd: Soft, Normal bowel sounds, No organomegaly Ext:No significant edema Skin: No rashes, Integument intact CBC, BMP 11/16/16 06:00 11/16/16 06:00 Current Medications Generic Name Dose Route Start Last Admin Trade Name Freq PRN Reason Stop Dose Admin Atorvastatin Calcium 10 mg 11/09/16 22:00 11/15/16 21:56 Lipitor - PO 10 mg HS ALEX Administration Benzocaine/Menthol 1 each 11/13/16 04:10 11/16/16 09:01 Cepacol Lozenge - MM 1 each PRN PRN Administration SORE THROAT Cyclobenzaprine HCl 5 mg 11/09/16 02:37 11/09/16 21:16 Flexeril - PO 5 mg TID PRN Administration PAIN Dexamethasone Sodium Phosphate 4 mg 11/12/16 21:00 11/16/16 09:00 Decadron Injection - IVPB 4 mg Q6H-IV ALEX Administration Insulin Aspart 1 vial 11/14/16 09:28 11/16/16 06:06 Novolog Vial Sliding Scale - SQ 6 units ACHS ALEX Administration Protocol Levetiracetam 500 mg 11/09/16 10:45 11/15/16 21:57 Keppra Injection - IVPB 500 mg BID ALEX Administration Ondansetron HCl 4 mg 11/09/16 02:49 Zofran Injection IVPUSH Q8H PRN NAUSEA AND/OR VOMITING Pantoprazole Sodium 40 mg 11/11/16 12:45 11/16/16 09:00 Protonix - PO 40 mg DAILY ALEX Administration Petrolatum 1 applic 11/15/16 10:45 11/16/16 09:08 Vaseline TP 1 applic DAILY ALEX Administration Impression: Likely metastatic lung ca Liver , bone, spine, , brain mets Epidural disease lumbar spine Hyperglycemia Social issues- Living in [place], custody issues with nephew etc Plan : Awaiting pathology Recommendations thereafter Continue decadron /keppra. Eye culture if drainage resumes/persists. Problem List - Problems (1) Brain metastasis Code(s): C79.31 - SECONDARY MALIGNANT NEOPLASM OF BRAIN (2) Liver metastases Code(s): C78.7 - SECONDARY MALIG NEOPLASM OF LIVER AND INTRAHEPATIC BILE DUCT (3) Lung malignancy Code(s): C34.90 - MALIGNANT NEOPLASM OF UNSP PART OF UNSP BRONCHUS OR LUNG Qualifiers: Laterality: right Lung location: hilum of lung Qualified Code(s) : C34.01 - Malignant neoplasm of right main bronchus (4) Metastasis to spinal column Code(s): C79.51 - SECONDARY MALIGNANT NEOPLASM OF BONE
[2016-11-16] MEDS: levETIRAcetam 500 MG/5 ML INJECTION VIAL IVPB SCH ×2 (10:10→22:17)
--- NOTE | 2016-11-16 11:27 | PN ---
Progress Note (short form) - Note Progress Note: PULMONARY SPOKE WITH PATHOLOGY PRELIM APPEARS NONSMALL CELL TYPE PATIENT WAS INFORMED THAT WE ARE WAITING FOR FURTHER STAINS AND GENETIC TESTING SON WAS PRESENT VSS/AFEBRILE ANICTERIC DIMINISHED BREATH SOUNDS S1S2 BS+ SOFT OBESE NO EDEMA/CALF TENDERNESS LABS/MEDS/NOTES/IMAGING REVIEWED LARGE CENTRAL LUNG MASS NON SMALL CELL TYPE ENDOBRONCHIAL LESION PRESENT VIA BRONCHOSCOPY BRAIN METS/LIVER METS/LUMBAR METS POSITIVE BONE SCAN BEYOND SPINE WILL CALL ONCO-RT AND ONCO TO DETERMINE PLAN OF CARE PATIENT AMENABLE TO RT/CHEMO/IMMUNOTHERAPY (IF POSSIBLE) Pili CASTELLANOS MD Problem List - Problems (1) Liver metastases Code(s): C78.7 - SECONDARY MALIG NEOPLASM OF LIVER AND INTRAHEPATIC BILE DUCT (2) Brain metastasis Code(s): C79.31 - SECONDARY MALIGNANT NEOPLASM OF BRAIN (3) Lung malignancy Code(s): C34.90 - MALIGNANT NEOPLASM OF UNSP PART OF UNSP BRONCHUS OR LUNG Qualifiers: Laterality: right Lung location: hilum of lung Qualified Code(s) : C34.01 - Malignant neoplasm of right main bronchus
--- NOTE | 2016-11-16 15:50 | PATH ---
Surgical Pathology Report Patient Name: ALAINA CLARK Med. Rec. #: [id number] /Age/Gender: 1950 (Age: 65) / F Account: [id number] Location: [facility] MED/SURG Taken: 11/12/2016 Received: 11/15/2016 Reported: 11/16/2016 Physicians: Allen Bishop M.D. Jd Garcia M.D. Alejandro Martinez M.D. Specimen(s) Received RIGHT LOWER LOBE BIOPSY Clinical History Hemoptysis Final Diagnosis LUNG, RIGHT LOWER LOBE, BRONCHOSCOPIC BIOPSY: NON-SMALL CELL CARCINOMA, CONSISTENT WITH ADENOCARCINOMA, POORLY DIFFERENTIATED, WITH GIANT CELL FEATURES (SEE COMMENT). Comment: Immunohistochemical stains performed and interpreted at [facility] show the tumor cells are positive for TTF1 and CK7 immunostains and are negative for p63, synaptophysin and chromogranin immunostains. The morphologic findings and renal profile are consistent with poorly differentiated adenocarcinoma. The material is available for molecular studies. The case was discussed with Dr. Martinez and Dr. Garcia on 11/16/16. Electronically Signed Dhaval Short M.D. Addendum Reported: 11/19/2016 Addendum Diagnosis PD-L1 (Keytruda) IHC, Clone 22C3 Pharm Dx performed and interpreted at [place], [place] ([id number]) shows the following: Result: PD-L1 (Keytruda) TPS: 95% (High Expression) Reference Range: TPS=Tumor Proportion Score (% of at least 100 viable tumor cells showing complete or partial membrane staining at =1+) TPS< 1% =No Expression TPS 1-49% =Low Expression. TPS =50% =High Expression. The PD-L1, 22C3 pharmDx is FDA approved for use in the detection of PD-L1 in formalin-fixed paraffin-embedded non-small cell lung carcinoma using the [employer] platform. The assay is indicated as an aid in identifying NSCLC patients for treatment with Keytruda (pembrolizumab). Dhaval Short M.D. Gross Description Received in formalin labeled "biopsy right lower lobe" is a 0.5 x 0.5 x 0.2 cm aggregate of jones soft tissue fragments. The formalin is filtered and the specimen is entirely submitted in one cassette. 11/15/2016 saudi11/15/2016
--- NOTE | 2016-11-16 15:57 | PATH ---
Cytology Non-Gynecological Report Patient Name: ALAINA CLARK Med. Rec. #: [id number] /Age/Gender: 1950 (Age: 65) / F Account: [id number] Location: [facility] MED/SURG Taken: 11/12/2016 Received: 11/14/2016 Reported: 11/16/2016 Physicians: Petty Whyte M.D. Robert DeMatteo, M.D. Norman Rosen, M.D. Specimen(s) Received BRONCHIAL WASHINGS RIGHT LOWER LOBE Clinical History Hemoptysis Final Diagnosis LUNG, RIGHT LOWER LOBE, BRONCHIAL WASHINGS: SATISFACTORY FOR EVALUATION. POSITIVE FOR MALIGNANT CELLS. NON-SMALL CELL CARCINOMA, CONSISTENT WITH ADENOCARCINOMA WITH GIANT CELL FEATURES (SEE COMMENT). Comment: Refer to [id number] for the biopsy and immunostain results. Electronically Signed Dhaval Short M.D. Gross Description Received is 20 cc of bloody fluid fresh. One cytofunnel slide and one cell block are made.
--- NOTE | 2016-11-16 16:45 | PN ---
Physical Exam: SUBJECTIVE: Patient seen and examined at bedside. No acute events overnight. Pt complains of mild irritation of her left eye. No other complaints. Pt denies headache, cp, sob, nausea, vomiting, diarrhea, abdominal pain. OBJECTIVE: Vital Signs Period Temp Pulse Resp BP Sys/Curran Pulse Ox Last 24 Hr 98.0 F-99 F 65-75 18-20 118-141/50-72 96 GENERAL: The patient is awake, alert, and fully oriented, in no acute distress. HEAD: Normal with no signs of trauma. EYES: left eye slight conjunctival redness PERRL, extraocular movements intact, sclera anicteric, conjunctiva clear. No ptosis. ENT: Ears normal, nares patent, oropharynx clear without exudates, moist mucous membranes. NECK: Trachea midline, full range of motion, supple. LUNGS: Breath sounds equal, clear to auscultation bilaterally, no wheezes, no crackles, no accessory muscle use. HEART: Regular rate and rhythm, S1, S2 without murmur, rub or gallop. ABDOMEN: Soft, nontender, nondistended, normoactive bowel sounds, no guarding, no rebound, no hepatosplenomegaly, no masses. EXTREMITIES: 2+ pulses, warm, well-perfused, no edema. NEUROLOGICAL: Cranial nerves II through XII grossly intact. Normal speech, gait not observed. PSYCH: Normal mood, normal affect. SKIN: Warm, dry, normal turgor, no rashes or lesions noted Laboratory Results - last 24 hr 11/15/16 11/15/16 11/16/16 16:40 21:54 06:00 WBC 11.0 H RBC 4.41 Hgb 12.7 Hct 38.8 MCV 88.0 MCHC 32.8 RDW 15.3 Plt Count 193 MPV 11.2 H Neutrophils % 88.3 H Lymphocytes % 6.6 L Monocytes % 4.9 Eosinophils % 0.2 Basophils % 0.0 Sodium Potassium Chloride Carbon Dioxide Anion Gap BUN Creatinine POC Glucometer 246 338 Random Glucose Calcium 11/16/16 11/16/16 06:00 06:03 WBC RBC Hgb Hct MCV MCHC RDW Plt Count MPV Neutrophils % Lymphocytes % Monocytes % Eosinophils % Basophils % Sodium 142 Potassium 4.4 Chloride 104 Carbon Dioxide 28 Anion Gap 10 BUN 26 H Creatinine 1.0 POC Glucometer 263 Random Glucose 274 H Calcium 9.2 Active Medications Generic Name Dose Route Start Last Admin Trade Name Freq PRN Reason Stop Dose Admin Atorvastatin Calcium 10 mg 11/09/16 22:00 11/15/16 21:56 Lipitor - PO 10 mg HS ALEX Administration Benzocaine/Menthol 1 each 11/13/16 04:10 11/16/16 09:01 Cepacol Lozenge - MM 1 each PRN PRN Administration SORE THROAT Cyclobenzaprine HCl 5 mg 11/09/16 02:37 11/09/16 21:16 Flexeril - PO 5 mg TID PRN Administration PAIN Dexamethasone Sodium Phosphate 4 mg 11/12/16 21:00 11/16/16 15:37 Decadron Injection - IVPB 4 mg Q6H-IV ALEX Administration Insulin Aspart 1 vial 11/14/16 09:28 11/16/16 11:00 Novolog Vial Sliding Scale - SQ 4 units ACHS ALEX Administration Protocol Levetiracetam 500 mg 11/09/16 10:45 11/16/16 10:10 Keppra Injection - IVPB 500 mg BID ALEX Administration Ondansetron HCl 4 mg 11/09/16 02:49 Zofran Injection IVPUSH Q8H PRN NAUSEA AND/OR VOMITING Pantoprazole Sodium 40 mg 11/11/16 12:45 11/16/16 09:00 Protonix - PO 40 mg DAILY ALEX Administration Petrolatum 1 applic 11/15/16 10:45 11/16/16 09:08 Vaseline TP 1 applic DAILY ALEX Administration ASSESSMENT/PLAN: 65 y/o woman with PMH of CAD and DM who presented with L sided weakness. She was found to have masses in the right side of her brain as well as in her liver and lungs. # Planning -Pt had a lengthy conversation today with Heme/onc (Dr. Martinez) regarding bone scan result and future planning. Pt agreed to have radiation therapy of her back and brain. The possibility of immunotherapy vs chemo for her liver and lung were discussed. That decision will depend upon eligibility for immunotherapy based on lab testing. # Brain Masses: likely mets from lung cancer - Cerebral edema - Keppra 500mg BID - Decadron 4mg IVPB Q6H # Lung Mass: likely primary cancer -bronchoscopy showed an irregular friable mass in the right lung. Pulm consult appreciated. Bx result expected tomorrow. -Pulm consult appreciated. Bx result expected tomorrow. -case discussed with Dr. Martinez. No need for Bx of brain or liver lesions in addition to lung Bx -possible therapy was discussed with patient who is open to radiation but does not want chemo at this time. -plan for radiation therapy following tissue diagnosis. She will need to be in [facility] for this. # Back Pain -Back MRI showed L1 and L4 compression fracture without cord involvement -Bone scan showed osteoblastic metastases of left scapula, right clavicle, L2 body, and to a lesser extent, L1,L3, and L5 # DM -continue SSI # JEANNIE -encourage PO hydration -monitor labs and exam # Leukocytosis: mild, stable -no Sx of UTI -likely 2/2 steroids #Thrombocytopenia: resolved -continue heparin -continue to monitor labs #continue DVT ppx -HSQ 5000 units -SCDs #FEN -not on fluids -monitor lytes -diabetic diet #Dispo -Admit to med-surg -pending planning for Heme/onc chemo vs radiation Visit type - Emergency Visit Emergency Visit: Yes ED Registration Date: 11/09/16 Care time: The patient presented to the Emergency Department on the above date and was hospitalized for further evaluation of their emergent condition. - New Patient This patient is new to me today: No - Critical Care Critical Care patient: No
--- NOTE | 2016-11-16 17:03 | PN ---
Progress Note (short form) - Note Progress Note: Radiation Oncology c/o right clavicle and shoulder pain. ambulating with cane/walker. states unsteady since left knee surgery. AOx3, no visual deficit, EOMI, sensation LT intact, equal motor in UE, decreased left LE 2/2 pain in knee, gait wide based with cane. BS - diffuse bone mets including left clavicle and L spine. MRI spine - multilevel vertebral mets with pathologic fractures, epidural extension at L1-L3 neuroforaminae. MRI Brain - 3 right supratentorial mets <1.5cm with vasogenic edema, mild midline shift, meningioma in right CPA. Pathology endobronchial bx - NSCLC adenocarcinoma, biomarker studies pending. 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 Will need palliative RT to brain, L-spine, possibly clavicle. Discussed option of GKS vs whole brain RT, pros and cons, logistics. She elects WBRT. As she is neurologically stable, would continue decadron/seizure meds and plan to commence RT next week, hopefully RT planning on Sat pending hospital approval. If stable after initial treatments, she ay continue as outpatient. Will need systemic tx per med onc.
--- NOTE | 2016-11-16 20:45 | PN ---
Teaching Attending Note Name of Resident: Elian Urbano ATTENDING PHYSICIAN STATEMENT I saw and evaluated the patient. I reviewed the resident's note and discussed the case with the resident. I agree with the resident's findings and plan as documented. SUBJECTIVE: Denies having any pain OBJECTIVE: Vital Signs Temperature 97.4 F L 11/16/16 18:14 Pulse Rate 88 11/16/16 18:14 Respiratory Rate 20 11/16/16 18:14 Blood Pressure 132/80 11/16/16 18:14 O2 Sat by Pulse Oximetry (%) 96 11/16/16 09:00 PE: Per resident's note CBCD WBC 11.0 K/mm3 (4.0-10.0) H 11/16/16 06:00 RBC 4.41 M/mm3 (3.60-5.2) 11/16/16 06:00 Hgb 12.7 GM/dL (10.7-15.3) 11/16/16 06:00 Hct 38.8 % (32.4-45.2) 11/16/16 06:00 MCV 88.0 fl (80-96) 11/16/16 06:00 MCHC 32.8 g/dl (32.0-36.0) 11/16/16 06:00 RDW 15.3 % (11.6-15.6) 11/16/16 06:00 Plt Count 193 K/MM3 (134-434) 11/16/16 06:00 MPV 11.2 fl (7.5-11.1) H 11/16/16 06:00 CMP Sodium 142 mmol/L (136-145) 11/16/16 06:00 Potassium 4.4 mmol/L (3.5-5.1) 11/16/16 06:00 Chloride 104 mmol/L (98-107) 11/16/16 06:00 Carbon Dioxide 28 mmol/L (21-32) 11/16/16 06:00 Anion Gap 10 (8-16) 11/16/16 06:00 BUN 26 mg/dL (7-18) H 11/16/16 06:00 Creatinine 1.0 mg/dL (0.55-1.02) 11/16/16 06:00 Creat Clearance w eGFR 49.69 (>60) 11/15/16 06:00 Random Glucose 274 mg/dL (74-106) H 11/16/16 06:00 Calcium 9.2 mg/dL (8.5-10.1) 11/16/16 06:00 Total Bilirubin 0.5 mg/dL (0.2-1.0) D 11/15/16 06:00 AST 11 U/L (15-37) L D 11/15/16 06:00 ALT 17 U/L (12-78) D 11/15/16 06:00 Alkaline Phosphatase 115 U/L (45-117) D 11/15/16 06:00 Total Protein 6.9 g/dl (6.4-8.2) 11/15/16 06:00 Albumin 3.1 g/dl (3.4-5.0) L 11/15/16 06:00 CARDIAC ENZYMES Creatine Kinase 74 IU/L (26-192) 11/08/16 19:00 Troponin I < 0.02 ng/ml (0.00-0.05) 11/08/16 19:00 Current Medications Generic Name Dose Route Start Last Admin Trade Name Freq PRN Reason Stop Dose Admin Atorvastatin Calcium 10 mg 11/09/16 22:00 11/15/16 21:56 Lipitor - PO 10 mg HS ALEX Administration Benzocaine/Menthol 1 each 11/13/16 04:10 11/16/16 09:01 Cepacol Lozenge - MM 1 each PRN PRN Administration SORE THROAT Cyclobenzaprine HCl 5 mg 11/09/16 02:37 11/09/16 21:16 Flexeril - PO 5 mg TID PRN Administration PAIN Dexamethasone Sodium Phosphate 4 mg 11/12/16 21:00 11/16/16 15:37 Decadron Injection - IVPB 4 mg Q6H-IV ALEX Administration Insulin Aspart 1 vial 11/14/16 09:28 11/16/16 17:05 Novolog Vial Sliding Scale - SQ 4 units ACHS ALEX Administration Protocol Levetiracetam 500 mg 11/09/16 10:45 11/16/16 10:10 Keppra Injection - IVPB 500 mg BID ALEX Administration Ondansetron HCl 4 mg 11/09/16 02:49 Zofran Injection IVPUSH Q8H PRN NAUSEA AND/OR VOMITING Pantoprazole Sodium 40 mg 11/11/16 12:45 11/16/16 09:00 Protonix - PO 40 mg DAILY ALEX Administration Petrolatum 1 applic 11/15/16 10:45 11/16/16 09:08 Vaseline TP 1 applic DAILY ALEX Administration Home Medications Medication Instructions Recorded Acetaminophen [Non-Aspirin Pain 500 mg PO DAILY PRN 11/08/16 Relief] Atorvastatin Ca [Lipitor] 10 mg PO HS 11/08/16 Calcium Carbonate [Calcium] 1,200 mg PO DAILY 11/08/16 Diphenhydramine HCl [Benadryl -] 25 mg PO DAILY 11/08/16 Ibuprofen 800 mg PO TID PRN 11/08/16 Icosapent Ethyl [Vascepa] 1 gm PO DAILY 11/08/16 Metformin HCl 500 mg PO BID 11/08/16 Phentermine HCl [Adipex-P] 37.5 mg PO DAILY 11/08/16 MRI spine - multilevel vertebral mets with pathologic fractures, epidural extension at L1-L3 neuroforaminae. MRI Brain - 3 right supratentorial mets <1.5cm with vasogenic edema, mild midline shift, meningioma in right temporal area, incidental findings. ASSESSMENT AND PLAN: 65 y/o lady with h/o CAD ,and DM who presneted with L sided weakness. She was found to have R sided brain masses with R lung mass and Liver masses. 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 Will need palliative RT to brain, L -spine, possibly clavicle. # RLL mass Likely metastatic Lung Cancer with brain/liver/bone mets.s/p Bronchoscopy and BX with BAL; NSCLC adenocarcinoma, biomarker studies pending. follow markers ; Radiation Tx after tissue diagnosis, continue steroids and Keppra , PPI . Diffuse Bone mets;Bone scan positive for osteoblastic lesion of the left scapula , right clavicle, L2 vertebral body, and lesser extent L1,L3 and L5. pathology report will be available in am preliminary report. Continue Decadron hopefully RT planning on Mon pending hospital approval. # Hx of T2DM : hold metformin and use SSI . # JEANNIE : oral hydration . # Mild leukocytosis: likely due to steroids . will repeat labs in am # Thrombocytopenia: resolved DVT px : SCDs If AMA , will prescribe keppra and oral decadron and give her referrals discussed with the patient in detail reagrding the Bx result
[2016-11-16] MEDS: ATORVASTATIN CA 10 MG TABLET (FP) PO SCH (21:28)
[2016-11-16] MEDS ORDERED: PT OWN MED DRAWER 7, Y5N ONE (21:36)
[2016-11-17] MEDS: DEXAMETHASONE SOD PHOSPHATE 10 MG/1 ML VIAL IVPB SCH ×4 (02:28→22:23)
[2016-11-17] MEDS ORDERED: PT OWN MED DRAWER 7, Y5N ONE (02:34)
[2016-11-17] MEDS: BENZOCAINE/MENTH/CETYLPYRD CL 1 EACH LOZENGE MM PRN ×2 (02:35→22:30)
[2016-11-17] MEDS: INSULIN SLIDING SCALE (NOVOLOG) 1 VIAL SQ SCH ×3 (06:14→22:21)
[2016-11-17 07:29] LABS: BASOPHIL 0.1 % (0-2.0); EOSINOPHIL 0.3 % (0-4.5); MCH 28.3 pg (25.7-33.7); MCHC 32.5 g/dl (32.0-36.0); MEAN CELL VOLUME 87.1 fl (80-96); MEAN PLT VOLUME 11.1 fl (7.5-11.1); NEUTROPHILS 86.3 % (42.8-82.8); PLATELET COUNT 168 K/MM3 (134-434); RDW 15.2 % (11.6-15.6); WHITE BLOOD COUNT 11.7 K/mm3 (4.0-10.0)
[2016-11-17 08:34] LABS: ANION GAP 11 (8-16); CALCIUM 8.7 mg/dL (8.5-10.1); CO2 26 mmol/L (21-32); GLUCOSE,RANDOM 273 mg/dL (74-106)
--- NOTE | 2016-11-17 10:22 | PN ---
Progress Note (short form) - Note Progress Note: PULMONARY Denies shortness of breath or chest pain. +cough with green sputum. No fevers or chills. Still with some throat discomfort since bronchosocpy/intubation. Last Vital Signs Temp Pulse Resp BP Pulse Ox 98.6 F 68 18 116/67 94 L 11/17/16 06:00 11/17/16 06:00 11/17/16 06:00 11/17/16 06:00 11/16/16 21:00 Intake & Output 11/14/16 11/15/16 11/16/16 11/17/16 23:59 23:59 23:59 23:59 Intake Total 550 1250 1070 50 Balance 550 1250 1070 50 Gen: NAD at rest Heart: RRR Lung: decreased breath sounds at the bases Abd: soft, nontender Ext: no edema CBC, BMP 11/17/16 06:20 11/17/16 06:00 Active Medications Atorvastatin Calcium (Lipitor -) 10 mg PO HS ALEX Last Admin: 11/16/16 21:28 Dose: 10 mg Benzocaine/Menthol (Cepacol Lozenge -) 1 each MM PRN PRN PRN Reason: SORE THROAT Last Admin: 11/17/16 02:35 Dose: 1 each Cyclobenzaprine HCl (Flexeril -) 5 mg PO TID PRN PRN Reason: PAIN Last Admin: 11/09/16 21:16 Dose: 5 mg Dexamethasone Sodium Phosphate (Decadron Injection -) 4 mg IVPB Q6H-IV ALEX Last Admin: 11/17/16 02:28 Dose: 4 mg Insulin Aspart (Novolog Vial Sliding Scale -) 1 vial SQ ACHS ALEX PRN Reason: Protocol Last Admin: 11/17/16 06:14 Dose: 6 units Levetiracetam (Keppra Injection -) 500 mg IVPB BID ALEX Last Admin: 11/16/16 22:17 Dose: 500 mg Ondansetron HCl (Zofran Injection) 4 mg IVPUSH Q8H PRN PRN Reason: NAUSEA AND/OR VOMITING Pantoprazole Sodium (Protonix -) 40 mg PO DAILY ALEX Last Admin: 11/16/16 09:00 Dose: 40 mg Petrolatum (Vaseline) 1 applic TP DAILY ALEX Last Admin: 11/16/16 09:08 Dose: 1 applic A/P Metastatic Lung Cancer with brain/liver/bone mets CAD DM - f/u final path - continue decadron - pain control - for RT - DVT prophylaxis
[2016-11-17] MEDS: PANTOPRAZOLE 40 MG TABLET (FP) PO SCH (10:24)
[2016-11-17] MEDS: PETROLATUM, WHITE 30 GM TUBE TP SCH (10:24)
[2016-11-17] MEDS: levETIRAcetam 500 MG/5 ML INJECTION VIAL IVPB SCH ×2 (10:24→23:06)
[2016-11-17] MEDS ORDERED: ARTIFICIAL TEARS (POLYVINYL ALCOHOL 1.4%) OPTH DROPS OU PRN (10:28)
--- NOTE | 2016-11-17 11:29 | PN ---
Physical Exam: SUBJECTIVE: Patient seen and examined Has no new complains. OBJECTIVE: Vital Signs Temperature 98.6 F 11/17/16 06:00 Pulse Rate 68 11/17/16 06:00 Respiratory Rate 18 11/17/16 06:00 Blood Pressure 116/67 11/17/16 06:00 O2 Sat by Pulse Oximetry (%) 94 L 11/16/16 21:00 GENERAL: The patient is awake, alert, and fully oriented, in no acute distress. HEAD: Normal with no signs of trauma. EYES: PERRL, extraocular movements intact, sclera anicteric, conjunctiva clear. No ptosis. ENT: Ears normal, nares patent, oropharynx clear without exudates, moist mucous membranes. NECK: Trachea midline, full range of motion, supple. LUNGS: Breath sounds equal, clear to auscultation bilaterally, no wheezes, no crackles, no accessory muscle use. HEART: Regular rate and rhythm, S1, S2 without murmur, rub or gallop. ABDOMEN: Soft, nontender, nondistended, normoactive bowel sounds, no guarding, no rebound, no hepatosplenomegaly, no masses. EXTREMITIES: 2+ pulses, warm, well-perfused, no edema. NEUROLOGICAL: Cranial nerves II through XII grossly intact. Normal speech, gait is stable. PSYCH: Normal mood, normal affect. SKIN: Warm, dry, normal turgor, no rashes or lesions noted Laboratory Results - last 24 hr 11/16/16 11/16/16 11/16/16 11:16 16:58 21:27 WBC RBC Hgb Hct MCV MCH MCHC RDW Plt Count MPV Neutrophils % Lymphocytes % Monocytes % Eosinophils % Basophils % Sodium Potassium Chloride Carbon Dioxide Anion Gap BUN Creatinine POC Glucometer 206 231 214 Random Glucose Calcium 11/17/16 11/17/16 11/17/16 06:00 06:13 06:20 WBC 11.7 H RBC 4.15 Hgb 11.7 Hct 36.2 MCV 87.1 MCH 28.3 MCHC 32.5 RDW 15.2 Plt Count 168 MPV 11.1 Neutrophils % 86.3 H Lymphocytes % 6.3 L Monocytes % 7.0 Eosinophils % 0.3 Basophils % 0.1 D Sodium 141 Potassium 4.5 Chloride 104 Carbon Dioxide 26 Anion Gap 11 BUN 31 H Creatinine 1.0 POC Glucometer 276 Random Glucose 273 H Calcium 8.7 Active Medications Generic Name Dose Route Start Last Admin Trade Name Freq PRN Reason Stop Dose Admin Artificial Tears 1 drop 11/17/16 10:28 Artificial Tears OU TID PRN DRY EYES Atorvastatin Calcium 10 mg 11/09/16 22:00 11/16/16 21:28 Lipitor - PO 10 mg HS ALEX Administration Benzocaine/Menthol 1 each 11/17/16 10:22 Cepacol Lozenge - MM PRN PRN SORE THROAT Cyclobenzaprine HCl 5 mg 11/09/16 02:37 11/09/16 21:16 Flexeril - PO 5 mg TID PRN Administration PAIN Dexamethasone Sodium Phosphate 4 mg 11/12/16 21:00 11/17/16 02:28 Decadron Injection - IVPB 4 mg Q6H-IV ALEX Administration Insulin Aspart 1 vial 11/14/16 09:28 11/17/16 06:14 Novolog Vial Sliding Scale - SQ 6 units ACHS ALEX Administration Protocol Levetiracetam 500 mg 11/09/16 10:45 11/17/16 10:24 Keppra Injection - IVPB 500 mg BID ALEX Administration Ondansetron HCl 4 mg 11/09/16 02:49 Zofran Injection IVPUSH Q8H PRN NAUSEA AND/OR VOMITING Pantoprazole Sodium 40 mg 11/11/16 12:45 11/17/16 10:24 Protonix - PO 40 mg DAILY ALEX Administration Petrolatum 1 applic 11/15/16 10:45 11/17/16 10:24 Vaseline TP 1 applic DAILY ALEX Administration MRI spine - multilevel vertebral mets with pathologic fractures, epidural extension at L1-L3 neuroforaminae. MRI Brain - 3 right supratentorial mets <1.5cm with vasogenic edema, mild midline shift, meningioma in right temporal area, incidental findings. ASSESSMENT AND PLAN: 65 y/o lady with h/o CAD ,and DM who presneted with L sided weakness. She was found to have R sided brain masses with R lung mass and Liver masses. 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 Will need palliative RT to brain, L -spine, possibly clavicle. # RLL mass Likely metastatic Lung Cancer with brain/liver/bone mets.s/p Bronchoscopy and BX with BAL; NSCLC adenocarcinoma, biomarker studies pending. Follow markers ; Radiation Tx after tissue diagnosis, continue steroids and Keppra , PPI . Diffuse Bone mets;Bone scan positive for osteoblastic lesion of the left scapula , right clavicle, L2 vertebral body, and lesser extent L1,L3 and L5. pathology report will be available in am preliminary report. Continue Decadron RT planning on Mon pending hospital approval. # Hx of T2DM : hold metformin and use SSI . # JEANNIE : oral hydration . # Mild leukocytosis: likely due to steroids . will repeat labs in am # Thrombocytopenia: resolved DVT px : SCDs If AMA , will prescribe keppra and oral decadron and give her referrals discussed with the patient in detail reagrding the Bx result Visit type - Emergency Visit Emergency Visit: Yes ED Registration Date: 11/09/16 Care time: The patient presented to the Emergency Department on the above date and was hospitalized for further evaluation of their emergent condition. - New Patient This patient is new to me today: No - Critical Care Critical Care patient: No
[2016-11-17] MEDS: ATORVASTATIN CA 10 MG TABLET (FP) PO SCH (22:24)
[2016-11-18] MEDS: CYCLOBENZAPRINE HCL 10 MG TABLET (FP) PO PRN ×2 (00:19→23:12)
[2016-11-18] MEDS: DEXAMETHASONE SOD PHOSPHATE 10 MG/1 ML VIAL IVPB SCH ×4 (02:16→22:19)
[2016-11-18] MEDS: INSULIN SLIDING SCALE (NOVOLOG) 1 VIAL SQ SCH ×4 (06:22→22:18)
--- NOTE | 2016-11-18 08:33 | PN ---
Physical Exam: SUBJECTIVE: Patient seen and examined at bedside. Pt complains of minor right lower back pain. No other complaints at this time. Pt denies headache, chest pain, sob, abdominal pain, nausea, vomiting, diarrhea, dysuria. OBJECTIVE: Vital Signs Period Temp Pulse Resp BP Sys/Curran Pulse Ox Last 24 Hr 97.9 F-98.7 F 61-74 20-20 104-132/53-78 94-94 GENERAL: The patient is awake, alert, and fully oriented, in no acute distress. HEAD: Normal with no signs of trauma. EYES: PERRL, extraocular movements intact, sclera anicteric, conjunctiva clear. No ptosis. ENT: Ears normal, nares patent, oropharynx clear without exudates, moist mucous membranes. NECK: Trachea midline, full range of motion, supple. LUNGS: Breath sounds equal, clear to auscultation bilaterally, no wheezes, no crackles, no accessory muscle use. HEART: Regular rate and rhythm, S1, S2 without murmur, rub or gallop. ABDOMEN: Soft, nontender, nondistended, normoactive bowel sounds, no guarding, no rebound, no hepatosplenomegaly, no masses. Lumbar region no tenderness to palpation. EXTREMITIES: 2+ pulses, warm, well-perfused, no edema. NEUROLOGICAL: Cranial nerves II through XII grossly intact. Normal speech, gait not observed. PSYCH: Normal mood, normal affect. SKIN: Warm, dry, normal turgor, no rashes or lesions noted Laboratory Results - last 24 hr 11/17/16 11/17/16 11/17/16 06:00 17:37 22:20 Sodium 141 Potassium 4.5 Chloride 104 Carbon Dioxide 26 Anion Gap 11 BUN 31 H Creatinine 1.0 POC Glucometer 275 327 Random Glucose 273 H Calcium 8.7 Active Medications Generic Name Dose Route Start Last Admin Trade Name Freq PRN Reason Stop Dose Admin Artificial Tears 1 drop 11/17/16 10:28 Artificial Tears OU TID PRN DRY EYES Atorvastatin Calcium 10 mg 11/09/16 22:00 11/17/16 22:24 Lipitor - PO 10 mg HS ALEX Administration Benzocaine/Menthol 1 each 11/17/16 10:22 11/17/16 22:30 Cepacol Lozenge - MM 1 each PRN PRN Administration SORE THROAT Cyclobenzaprine HCl 5 mg 11/09/16 02:37 11/18/16 00:19 Flexeril - PO 5 mg TID PRN Administration PAIN Dexamethasone Sodium Phosphate 4 mg 11/12/16 21:00 11/18/16 02:16 Decadron Injection - IVPB 4 mg Q6H-IV ALEX Administration Insulin Aspart 1 vial 11/14/16 09:28 11/18/16 06:22 Novolog Vial Sliding Scale - SQ 4 units ACHS ALEX Administration Protocol Levetiracetam 500 mg 11/09/16 10:45 11/17/16 23:06 Keppra Injection - IVPB 500 mg BID ALEX Administration Ondansetron HCl 4 mg 11/09/16 02:49 Zofran Injection IVPUSH Q8H PRN NAUSEA AND/OR VOMITING Pantoprazole Sodium 40 mg 11/11/16 12:45 11/17/16 10:24 Protonix - PO 40 mg DAILY ALEX Administration Petrolatum 1 applic 11/15/16 10:45 11/17/16 10:24 Vaseline TP 1 applic DAILY ALEX Administration ASSESSMENT/PLAN: 65 y/o woman with PMH of CAD and DM who presented with L sided weakness. She was found to have masses in the right side of her brain as well as in her liver and lungs. # Radiation therapy -Pt agreed to whole brain radiation therapy. Will wait to see enrollment status tomorrow. # Brain Masses: likely mets from lung cancer - Cerebral edema - Keppra 500mg BID - Decadron 4mg IVPB Q6H # Lung Mass: likely primary cancer -bronchoscopy showed an irregular friable mass in the right lung. Pulm consult appreciated. Bx result expected tomorrow. -Pulm consult appreciated. Bx result expected tomorrow. -case discussed with Dr. Martinez. No need for Bx of brain or liver lesions in addition to lung Bx -possible therapy was discussed with patient who is open to radiation but does not want chemo at this time. -plan for radiation therapy following tissue diagnosis. She will need to be in [facility] for this. # Back Pain -Back MRI showed L1 and L4 compression fracture without cord involvement -Bone scan showed osteoblastic metastases of left scapula, right clavicle, L2 body, and to a lesser extent, L1,L3, and L5 # DM -continue SSI # JEANNIE -encourage PO hydration -monitor labs and exam # Leukocytosis: mild, stable -no Sx of UTI -likely 2/2 steroids #Thrombocytopenia: resolved -continue heparin -continue to monitor labs #continue DVT ppx -Pt is frequently out of bed and walking -SCDs when in bed #FEN -not on fluids -monitor lytes -diabetic diet #Dispo -Admit to med-surg -pending planning for Heme/onc chemo vs radiation Visit type - Emergency Visit Emergency Visit: Yes ED Registration Date: 11/09/16 Care time: The patient presented to the Emergency Department on the above date and was hospitalized for further evaluation of their emergent condition. - New Patient This patient is new to me today: No - Critical Care Critical Care patient: No
[2016-11-18] MEDS ORDERED: PT OWN MED DRAWER 7, Y5N ONE ×2 (09:15→21:08)
[2016-11-18] MEDS: PANTOPRAZOLE 40 MG TABLET (FP) PO SCH (09:42)
[2016-11-18] MEDS: BENZOCAINE/MENTH/CETYLPYRD CL 1 EACH LOZENGE MM PRN ×3 (09:43→22:20)
[2016-11-18] MEDS: levETIRAcetam 500 MG/5 ML INJECTION VIAL IVPB SCH ×2 (10:27→23:12)
--- NOTE | 2016-11-18 10:30 | PN ---
Progress Note (short form) - Note Progress Note: PULMONARY Denies shortness of breath or chest pain. +cough clearing. No fevers or chills. Last Vital Signs Temp Pulse Resp BP Pulse Ox 98.4 F 61 20 120/69 94 L 11/18/16 05:32 11/18/16 05:32 11/18/16 05:32 11/18/16 05:32 11/17/16 21:00 Gen: NAD at rest Heart: RRR Lung: decreased breath sounds at the bases Abd: soft, nontender Ext: no edema CBC, BMP 11/17/16 06:20 11/17/16 06:00 Active Medications Artificial Tears (Artificial Tears) 1 drop OU TID PRN PRN Reason: DRY EYES Atorvastatin Calcium (Lipitor -) 10 mg PO HS [facility] Last Admin: 11/17/16 22:24 Dose: 10 mg Benzocaine/Menthol (Cepacol Lozenge -) 1 each MM PRN PRN PRN Reason: SORE THROAT Last Admin: 11/18/16 09:43 Dose: 1 each Cyclobenzaprine HCl (Flexeril -) 5 mg PO TID PRN PRN Reason: PAIN Last Admin: 11/18/16 00:19 Dose: 5 mg Dexamethasone Sodium Phosphate (Decadron Injection -) 4 mg IVPB Q6H-IV ALEX Last Admin: 11/18/16 09:42 Dose: 4 mg Insulin Aspart (Novolog Vial Sliding Scale -) 1 vial SQ ACHS ALEX PRN Reason: Protocol Last Admin: 11/18/16 06:22 Dose: 4 units Levetiracetam (Keppra Injection -) 500 mg IVPB BID ALEX Last Admin: 11/17/16 23:06 Dose: 500 mg Ondansetron HCl (Zofran Injection) 4 mg IVPUSH Q8H PRN PRN Reason: NAUSEA AND/OR VOMITING Pantoprazole Sodium (Protonix -) 40 mg PO DAILY [facility] Last Admin: 11/18/16 09:42 Dose: 40 mg Petrolatum (Vaseline) 1 applic TP DAILY [facility] Last Admin: 11/17/16 10:24 Dose: 1 applic A/P Metastatic Lung Cancer with brain/liver/bone mets CAD DM - continue decadron - pain control - for RT - DVT prophylaxis
[2016-11-18] MEDS: PETROLATUM, WHITE 30 GM TUBE TP SCH (15:32)
--- NOTE | 2016-11-18 20:27 | PN ---
Teaching Attending Note Name of Resident: Elian Urbano ATTENDING PHYSICIAN STATEMENT I saw and evaluated the patient. I reviewed the resident's note and discussed the case with the resident. I agree with the resident's findings and plan as documented. SUBJECTIVE: comfortable with no acute distress. No nausea or vomiting. OBJECTIVE: Vital Signs Temperature 98 F 11/18/16 18:25 Pulse Rate 71 11/18/16 18:25 Respiratory Rate 20 11/18/16 18:25 Blood Pressure 112/61 11/18/16 18:25 O2 Sat by Pulse Oximetry (%) 94 L 11/18/16 09:00 CBCD WBC 11.7 K/mm3 (4.0-10.0) H 11/17/16 06:20 RBC 4.15 M/mm3 (3.60-5.2) 11/17/16 06:20 Hgb 11.7 GM/dL (10.7-15.3) 11/17/16 06:20 Hct 36.2 % (32.4-45.2) 11/17/16 06:20 MCV 87.1 fl (80-96) 11/17/16 06:20 MCHC 32.5 g/dl (32.0-36.0) 11/17/16 06:20 RDW 15.2 % (11.6-15.6) 11/17/16 06:20 Plt Count 168 K/MM3 (134-434) 11/17/16 06:20 MPV 11.1 fl (7.5-11.1) 11/17/16 06:20 CMP Sodium 141 mmol/L (136-145) 11/17/16 06:00 Potassium 4.5 mmol/L (3.5-5.1) 11/17/16 06:00 Chloride 104 mmol/L (98-107) 11/17/16 06:00 Carbon Dioxide 26 mmol/L (21-32) 11/17/16 06:00 Anion Gap 11 (8-16) 11/17/16 06:00 BUN 31 mg/dL (7-18) H 11/17/16 06:00 Creatinine 1.0 mg/dL (0.55-1.02) 11/17/16 06:00 Creat Clearance w eGFR 49.69 (>60) 11/15/16 06:00 Random Glucose 273 mg/dL (74-106) H 11/17/16 06:00 Calcium 8.7 mg/dL (8.5-10.1) 11/17/16 06:00 Total Bilirubin 0.5 mg/dL (0.2-1.0) D 11/15/16 06:00 AST 11 U/L (15-37) L D 11/15/16 06:00 ALT 17 U/L (12-78) D 11/15/16 06:00 Alkaline Phosphatase 115 U/L (45-117) D 11/15/16 06:00 Total Protein 6.9 g/dl (6.4-8.2) 11/15/16 06:00 Albumin 3.1 g/dl (3.4-5.0) L 11/15/16 06:00 CARDIAC ENZYMES Creatine Kinase 74 IU/L (26-192) 11/08/16 19:00 Troponin I < 0.02 ng/ml (0.00-0.05) 11/08/16 19:00 Current Medications Generic Name Dose Route Start Last Admin Trade Name Freq PRN Reason Stop Dose Admin Artificial Tears 1 drop 11/17/16 10:28 Artificial Tears OU TID PRN DRY EYES Atorvastatin Calcium 10 mg 11/09/16 22:00 11/17/16 22:24 Lipitor - PO 10 mg HS ALEX Administration Benzocaine/Menthol 1 each 11/17/16 10:22 11/18/16 17:33 Cepacol Lozenge - MM 1 each PRN PRN Administration SORE THROAT Cyclobenzaprine HCl 5 mg 11/09/16 02:37 11/18/16 00:19 Flexeril - PO 5 mg TID PRN Administration PAIN Dexamethasone Sodium Phosphate 4 mg 11/12/16 21:00 11/18/16 15:32 Decadron Injection - IVPB 4 mg Q6H-IV ALEX Administration Insulin Aspart 1 vial 11/14/16 09:28 11/18/16 17:32 Novolog Vial Sliding Scale - SQ 4 units ACHS ALEX Administration Protocol Levetiracetam 500 mg 11/09/16 10:45 11/18/16 10:27 Keppra Injection - IVPB 500 mg BID ALEX Administration Ondansetron HCl 4 mg 11/09/16 02:49 Zofran Injection IVPUSH Q8H PRN NAUSEA AND/OR VOMITING Pantoprazole Sodium 40 mg 11/11/16 12:45 11/18/16 09:42 Protonix - PO 40 mg DAILY ALEX Administration Petrolatum 1 applic 11/15/16 10:45 11/18/16 15:32 Vaseline TP 1 applic DAILY ALEX Administration Home Medications Medication Instructions Recorded Acetaminophen [Non-Aspirin Pain 500 mg PO DAILY PRN 11/08/16 Relief] Atorvastatin Ca [Lipitor] 10 mg PO HS 11/08/16 Calcium Carbonate [Calcium] 1,200 mg PO DAILY 11/08/16 Diphenhydramine HCl [Benadryl -] 25 mg PO DAILY 11/08/16 Ibuprofen 800 mg PO TID PRN 11/08/16 Icosapent Ethyl [Vascepa] 1 gm PO DAILY 11/08/16 Metformin HCl 500 mg PO BID 11/08/16 Phentermine HCl [Adipex-P] 37.5 mg PO DAILY 11/08/16 MRI spine - multilevel vertebral mets with pathologic fractures, epidural extension at L1-L3 neuroforaminae. MRI Brain - 3 right supratentorial mets <1.5cm with vasogenic edema, mild midline shift, meningioma in right temporal area, incidental findings. ASSESSMENT AND PLAN: 65 y/o lady with h/o CAD ,and DM who presneted with L sided weakness. She was found to have R sided brain masses with R lung mass and Liver masses. 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 Will need palliative RT to brain, L -spine, possibly clavicle. # RLL mass Likely metastatic Lung Cancer with brain/liver/bone mets.s/p Bronchoscopy and BX with BAL; NSCLC adenocarcinoma, biomarker studies pending. Radiation Tx after tissue diagnosis, continue steroids and Keppra , PPI . Diffuse Bone mets;Bone scan positive for osteoblastic lesion of the left scapula , right clavicle, L2 vertebral body, and lesser extent L1,L3 and L5. pathology report will be available in am preliminary report. Continue Decadron hopefully RT planning on Sat pending hospital approval. # Hx of T2DM : hold metformin and use SSI . # JEANNIE : oral hydration . # Mild leukocytosis: likely due to steroids . will repeat labs in am # Thrombocytopenia: resolved DVT px : SCDs If AMA , will prescribe keppra and oral decadron and give her referrals discussed with the patient in detail reagrding the Bx result
[2016-11-18] MEDS: ATORVASTATIN CA 10 MG TABLET (FP) PO SCH (22:19)
[2016-11-19] MEDS: DEXAMETHASONE SOD PHOSPHATE 10 MG/1 ML VIAL IVPB SCH ×4 (02:57→21:47)
[2016-11-19] MEDS: INSULIN SLIDING SCALE (NOVOLOG) 1 VIAL SQ SCH ×5 (06:34→22:56)
[2016-11-19] MEDS: BENZOCAINE/MENTH/CETYLPYRD CL 1 EACH LOZENGE MM PRN ×2 (06:37→21:51)
[2016-11-19 08:22] LABS: BASOPHIL 0.1 % (0-2.0); EOSINOPHIL 0.3 % (0-4.5); MCH 28.4 pg (25.7-33.7); MCHC 32.6 g/dl (32.0-36.0); MEAN CELL VOLUME 87.1 fl (80-96); MEAN PLT VOLUME 11.8 fl (7.5-11.1); NEUTROPHILS 90.5 % (42.8-82.8); PLATELET COUNT 183 K/MM3 (134-434); RDW 15.3 % (11.6-15.6); WHITE BLOOD COUNT 18.8 K/mm3 (4.0-10.0)
[2016-11-19 08:38] LABS: ANION GAP 8 (8-16); CALCIUM 8.9 mg/dL (8.5-10.1); CO2 27 mmol/L (21-32); CREATININE 0.9 mg/dL (0.55-1.02); GLUCOSE,RANDOM 253 mg/dL (74-106)
[2016-11-19] MEDS: PANTOPRAZOLE 40 MG TABLET (FP) PO SCH (10:14)
[2016-11-19] MEDS: levETIRAcetam 500 MG/5 ML INJECTION VIAL IVPB SCH ×2 (12:04→21:47)
--- NOTE | 2016-11-19 12:43 | PN ---
Progress Note (short form) - Note Progress Note: PULMONARY VSS/AFEBRILE ANICTERIC DIMINISHED BREATH SOUNDS S1S2 BS+ SOFT OBESE NO EDEMA/CALF TENDERNESS LABS/MEDS/NOTES/IMAGING REVIEWED LARGE CENTRAL LUNG MASS NON SMALL CELL TYPE ENDOBRONCHIAL LESION PRESENT VIA BRONCHOSCOPY BRAIN METS/LIVER METS/LUMBAR METS POSITIVE BONE SCAN BEYOND SPINE WILL START WBRT TOMORROW Pili CASTELLANOS MD Problem List - Problems (1) Liver metastases Code(s): C78.7 - SECONDARY MALIG NEOPLASM OF LIVER AND INTRAHEPATIC BILE DUCT (2) Brain metastasis Code(s): C79.31 - SECONDARY MALIGNANT NEOPLASM OF BRAIN (3) Lung malignancy Code(s): C34.90 - MALIGNANT NEOPLASM OF UNSP PART OF UNSP BRONCHUS OR LUNG Qualifiers: Laterality: right Lung location: hilum of lung Qualified Code(s) : C34.01 - Malignant neoplasm of right main bronchus
--- NOTE | 2016-11-19 13:59 | EKG ---
Test Reason : Blood Pressure : / mmHG Vent. Rate : 077 BPM Atrial Rate : 077 BPM P-R Int : 118 ms QRS Dur : 128 ms QT Int : 398 ms P-R-T Axes : 034 003 -05 degrees QTc Int : 450 ms NORMAL SINUS RHYTHM RIGHT BUNDLE BRANCH BLOCK INFERIOR INFARCT , AGE UNDETERMINED ABNORMAL ECG NO PREVIOUS ECGS AVAILABLE Confirmed by EDENILSON SOSA, WILL ([id number] on 11/19/2016 1:58:56 PM Referred By: Confirmed By:WILL PYLE MD
[2016-11-19] MEDS: PETROLATUM, WHITE 30 GM TUBE TP SCH (14:49)
--- NOTE | 2016-11-19 15:16 | PN ---
Progress Note (short form) - Note Progress Note: Radiation Oncology Continues with left shoulder pain. Completed RT simulation today. On review of simulation CT and prior chest CT scans, there is noted a displaced fracture of medial right clavicle, probably pathologic. Would obtain orthopedic eval. Will begin WBRT and L-spine RT tomorrow. Clavicle tx on hold until ortho eval. Cont decadron.
--- NOTE | 2016-11-19 19:07 | PN ---
Physical Exam: SUBJECTIVE: Patient seen and examined at bedside. No acute events overnight. Pt has no complaints at this time. Pt denies fever, headache, chest pain, sob, abd pain, nausea, vomiting, diarrhea. OBJECTIVE: Vital Signs Period Temp Pulse Resp BP Sys/Curran Pulse Ox Last 24 Hr 97.7 F-98.2 F 65-86 18-20 105-126/52-71 95-96 GENERAL: The patient is awake, alert, and fully oriented, in no acute distress. HEAD: Normal with no signs of trauma. EYES: PERRL, extraocular movements intact, sclera anicteric, conjunctiva clear. No ptosis. ENT: Ears normal, nares patent, oropharynx clear without exudates, moist mucous membranes. NECK: Trachea midline, full range of motion, supple. LUNGS: Breath sounds equal, clear to auscultation bilaterally, no wheezes, no crackles, no accessory muscle use. HEART: Regular rate and rhythm, S1, S2 without murmur, rub or gallop. ABDOMEN: Soft, nontender, nondistended, normoactive bowel sounds, no guarding, no rebound, no hepatosplenomegaly, no masses. EXTREMITIES: 2+ pulses, warm, well-perfused, no edema. NEUROLOGICAL: Cranial nerves II through XII grossly intact. Normal speech, gait not observed. PSYCH: Normal mood, normal affect. SKIN: Warm, dry, normal turgor, no rashes or lesions noted Laboratory Results - last 24 hr 11/18/16 11/19/16 11/19/16 22:15 06:30 06:30 WBC 18.8 H D RBC 4.28 Hgb 12.1 Hct 37.3 MCV 87.1 MCH 28.4 MCHC 32.6 RDW 15.3 Plt Count 183 MPV 11.8 H Neutrophils % 90.5 H Lymphocytes % 5.3 L Monocytes % 3.8 Eosinophils % 0.3 Basophils % 0.1 Sodium 141 Potassium 4.5 Chloride 106 Carbon Dioxide 27 Anion Gap 8 BUN 23 H D Creatinine 0.9 POC Glucometer 333 Random Glucose 253 H Calcium 8.9 11/19/16 11/19/16 06:33 12:01 WBC RBC Hgb Hct MCV MCH MCHC RDW Plt Count MPV Neutrophils % Lymphocytes % Monocytes % Eosinophils % Basophils % Sodium Potassium Chloride Carbon Dioxide Anion Gap BUN Creatinine POC Glucometer 261 150 Random Glucose Calcium Active Medications Generic Name Dose Route Start Last Admin Trade Name Freq PRN Reason Stop Dose Admin Artificial Tears 1 drop 11/17/16 10:28 Artificial Tears OU TID PRN DRY EYES Atorvastatin Calcium 10 mg 11/09/16 22:00 11/18/16 22:19 Lipitor - PO 10 mg HS ALEX Administration Benzocaine/Menthol 1 each 11/17/16 10:22 11/19/16 06:37 Cepacol Lozenge - MM 1 each PRN PRN Administration SORE THROAT Cyclobenzaprine HCl 5 mg 11/09/16 02:37 11/18/16 23:12 Flexeril - PO 5 mg TID PRN Administration PAIN Dexamethasone Sodium Phosphate 4 mg 11/12/16 21:00 11/19/16 14:49 Decadron Injection - IVPB 4 mg Q6H-IV ALEX Administration Insulin Aspart 1 vial 11/14/16 09:28 11/19/16 17:27 Novolog Vial Sliding Scale - SQ 6 units ACHS ALEX Administration Protocol Levetiracetam 500 mg 11/09/16 10:45 11/19/16 12:04 Keppra Injection - IVPB 500 mg BID ALEX Administration Ondansetron HCl 4 mg 11/09/16 02:49 Zofran Injection IVPUSH Q8H PRN NAUSEA AND/OR VOMITING Pantoprazole Sodium 40 mg 11/11/16 12:45 11/19/16 10:14 Protonix - PO 40 mg DAILY ALEX Administration Petrolatum 1 applic 11/15/16 10:45 11/19/16 14:49 Vaseline TP 1 applic DAILY ALEX Administration ASSESSMENT/PLAN: 65 y/o woman with PMH of CAD and DM who presented with L sided weakness. She was found to have masses in the right side of her brain as well as in her liver and lungs. # Radiation therapy -Pt agreed to whole brain radiation therapy. Will wait to see enrollment status tomorrow. # Brain Masses: likely mets from lung cancer - Cerebral edema - Keppra 500mg BID - Decadron 4mg IVPB Q6H # Lung Mass: likely primary cancer -bronchoscopy showed an irregular friable mass in the right lung. Pulm consult appreciated. Bx result expected tomorrow. -Pulm consult appreciated. Bx result expected tomorrow. -case discussed with Dr. Martinez. No need for Bx of brain or liver lesions in addition to lung Bx -possible therapy was discussed with patient who is open to radiation but does not want chemo at this time. -plan for radiation therapy following tissue diagnosis. She will need to be in [facility] for this. -Bx shows NSCLC -pending testing for candidacy for immunotherapy # Back Pain -Back MRI showed L1 and L4 compression fracture without cord involvement -Bone scan showed osteoblastic metastases of left scapula, right clavicle, L2 body, and to a lesser extent, L1,L3, and L5 # DM -continue SSI # JEANNIE -encourage PO hydration -monitor labs and exam # Leukocytosis: mild, stable -no Sx of UTI -likely 2/2 steroids #Thrombocytopenia: resolved -continue heparin -continue to monitor labs #continue DVT ppx -Pt is frequently out of bed and walking -SCDs when in bed #FEN -not on fluids -monitor lytes -diabetic diet #Dispo -Admit to med-surg -pending planning for Heme/onc chemo vs radiation Visit type - Emergency Visit Emergency Visit: No - New Patient This patient is new to me today: No - Critical Care Critical Care patient: No
--- NOTE | 2016-11-19 19:12 | PN ---
Teaching Attending Note Name of Resident: Elian Urbano ATTENDING PHYSICIAN STATEMENT I saw and evaluated the patient. I reviewed the resident's note and discussed the case with the resident. I agree with the resident's findings and plan as documented. SUBJECTIVE: 1st RT today, comfortable , no acute distress. OBJECTIVE: Vital Signs Temperature 98.2 F 11/19/16 18:43 Pulse Rate 79 11/19/16 18:43 Respiratory Rate 20 11/19/16 18:43 Blood Pressure 121/58 11/19/16 18:43 O2 Sat by Pulse Oximetry (%) 96 11/19/16 09:00 CBCD WBC 18.8 K/mm3 (4.0-10.0) H D 11/19/16 06:30 RBC 4.28 M/mm3 (3.60-5.2) 11/19/16 06:30 Hgb 12.1 GM/dL (10.7-15.3) 11/19/16 06:30 Hct 37.3 % (32.4-45.2) 11/19/16 06:30 MCV 87.1 fl (80-96) 11/19/16 06:30 MCHC 32.6 g/dl (32.0-36.0) 11/19/16 06:30 RDW 15.3 % (11.6-15.6) 11/19/16 06:30 Plt Count 183 K/MM3 (134-434) 11/19/16 06:30 MPV 11.8 fl (7.5-11.1) H 11/19/16 06:30 CMP Sodium 141 mmol/L (136-145) 11/19/16 06:30 Potassium 4.5 mmol/L (3.5-5.1) 11/19/16 06:30 Chloride 106 mmol/L (98-107) 11/19/16 06:30 Carbon Dioxide 27 mmol/L (21-32) 11/19/16 06:30 Anion Gap 8 (8-16) 11/19/16 06:30 BUN 23 mg/dL (7-18) H D 11/19/16 06:30 Creatinine 0.9 mg/dL (0.55-1.02) 11/19/16 06:30 Creat Clearance w eGFR 49.69 (>60) 11/15/16 06:00 Random Glucose 253 mg/dL (74-106) H 11/19/16 06:30 Calcium 8.9 mg/dL (8.5-10.1) 11/19/16 06:30 Total Bilirubin 0.5 mg/dL (0.2-1.0) D 11/15/16 06:00 AST 11 U/L (15-37) L D 11/15/16 06:00 ALT 17 U/L (12-78) D 11/15/16 06:00 Alkaline Phosphatase 115 U/L (45-117) D 11/15/16 06:00 Total Protein 6.9 g/dl (6.4-8.2) 11/15/16 06:00 Albumin 3.1 g/dl (3.4-5.0) L 11/15/16 06:00 CARDIAC ENZYMES Creatine Kinase 74 IU/L (26-192) 11/08/16 19:00 Troponin I < 0.02 ng/ml (0.00-0.05) 11/08/16 19:00 Current Medications Generic Name Dose Route Start Last Admin Trade Name Freq PRN Reason Stop Dose Admin Artificial Tears 1 drop 11/17/16 10:28 Artificial Tears OU TID PRN DRY EYES Atorvastatin Calcium 10 mg 11/09/16 22:00 11/18/16 22:19 Lipitor - PO 10 mg HS ALEX Administration Benzocaine/Menthol 1 each 11/17/16 10:22 11/19/16 06:37 Cepacol Lozenge - MM 1 each PRN PRN Administration SORE THROAT Cyclobenzaprine HCl 5 mg 11/09/16 02:37 11/18/16 23:12 Flexeril - PO 5 mg TID PRN Administration PAIN Dexamethasone Sodium Phosphate 4 mg 11/12/16 21:00 11/19/16 14:49 Decadron Injection - IVPB 4 mg Q6H-IV ALEX Administration Insulin Aspart 1 vial 11/14/16 09:28 11/19/16 17:27 Novolog Vial Sliding Scale - SQ 6 units ACHS ALEX Administration Protocol Levetiracetam 500 mg 11/09/16 10:45 11/19/16 12:04 Keppra Injection - IVPB 500 mg BID ALEX Administration Ondansetron HCl 4 mg 11/09/16 02:49 Zofran Injection IVPUSH Q8H PRN NAUSEA AND/OR VOMITING Pantoprazole Sodium 40 mg 11/11/16 12:45 11/19/16 10:14 Protonix - PO 40 mg DAILY ALEX Administration Petrolatum 1 applic 11/15/16 10:45 11/19/16 14:49 Vaseline TP 1 applic DAILY ALEX Administration Home Medications Medication Instructions Recorded Acetaminophen [Non-Aspirin Pain 500 mg PO DAILY PRN 11/08/16 Relief] Atorvastatin Ca [Lipitor] 10 mg PO HS 11/08/16 Calcium Carbonate [Calcium] 1,200 mg PO DAILY 11/08/16 Diphenhydramine HCl [Benadryl -] 25 mg PO DAILY 11/08/16 Ibuprofen 800 mg PO TID PRN 11/08/16 Icosapent Ethyl [Vascepa] 1 gm PO DAILY 11/08/16 Metformin HCl 500 mg PO BID 11/08/16 Phentermine HCl [Adipex-P] 37.5 mg PO DAILY 11/08/16 PE: per resident's notes. MRI spine - multilevel vertebral mets with pathologic fractures, epidural extension at L1-L3 neuroforaminae. MRI Brain - 3 right supratentorial mets <1.5cm with vasogenic edema, mild midline shift, meningioma in right temporal area, incidental findings. ASSESSMENT AND PLAN: 65 y/o lady with h/o CAD ,and DM who presneted with L sided weakness. She was found to have R sided brain masses with R lung mass and Liver masses. 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 Will need palliative RT to brain, L-spine, avoid clavicle. # RLL mass Likely metastatic Lung Cancer with brain/liver/bone mets.s/p Bronchoscopy and BX with BAL; NSCLC adenocarcinoma, biomarker studies pending. ; Radiation Tx after tissue diagnosis, continue steroids and Keppra , PPI . Diffuse Bone mets;Bone scan positive for osteoblastic lesion of the left scapula , right clavicle, L2 vertebral body, and lesser extent L1,L3 and L5. pathology report will be available in am preliminary report. Continue Decadron hopefully RT planning on Mon pending hospital approval. # Hx of T2DM : hold metformin and use SSI . # JEANNIE : oral hydration . # Mild leukocytosis: likely due to steroids . will repeat labs in am # Thrombocytopenia: resolved DVT px : SCDs
[2016-11-19] MEDS: ATORVASTATIN CA 10 MG TABLET (FP) PO SCH (21:47)
[2016-11-19] MEDS ORDERED: PT OWN MED DRAWER 7, Y5N ONE (21:50)
[2016-11-19] MEDS: CYCLOBENZAPRINE HCL 10 MG TABLET (FP) PO PRN (21:51)
[2016-11-19] MEDS ORDERED: INSULIN (NOVOLOG) ASPART 100 UNITS/ML 10ML VIAL ONE (22:24)
[2016-11-20] MEDS: DEXAMETHASONE SOD PHOSPHATE 10 MG/1 ML VIAL IVPB SCH ×4 (03:57→21:47)
[2016-11-20] MEDS: INSULIN SLIDING SCALE (NOVOLOG) 1 VIAL SQ SCH ×4 (06:57→21:46)
[2016-11-20 07:20] LABS: MCH 28.4 pg (25.7-33.7); MCHC 32.5 g/dl (32.0-36.0); MEAN CELL VOLUME 87.3 fl (80-96); MEAN PLT VOLUME 11.6 fl (7.5-11.1); PLATELET COUNT 187 K/MM3 (134-434); WHITE BLOOD COUNT 19.8 K/mm3 (4.0-10.0)
[2016-11-20 07:55] LABS: ANION GAP 9 (8-16); CALCIUM 8.5 mg/dL (8.5-10.1); CO2 23 mmol/L (21-32); GLUCOSE,RANDOM 296 mg/dL (74-106)
[2016-11-20] MEDS: PANTOPRAZOLE 40 MG TABLET (FP) PO SCH (09:33)
[2016-11-20] MEDS: levETIRAcetam 500 MG/5 ML INJECTION VIAL IVPB SCH ×2 (09:33→22:51)
[2016-11-20] MEDS: PETROLATUM, WHITE 30 GM TUBE TP SCH (09:37)
[2016-11-20 13:11] LABS: PLATELET ESTIMATE ADEQUATE (NORMAL)
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
--- NOTE | 2016-11-20 15:33 | PN ---
Physical Exam: SUBJECTIVE: Patient seen and examined at bedside. Pt continues to have mild right lower back discomfort. No acute events overnight. No other complaints at this time. OBJECTIVE: Vital Signs Period Temp Pulse Resp BP Sys/Curran Pulse Ox Last 24 Hr 98.2 F-98.5 F 65-79 20-20 105-126/58-62 96-96 GENERAL: The patient is awake, alert, and fully oriented, in no acute distress. HEAD: Normal with no signs of trauma. EYES: PERRL, extraocular movements intact, sclera anicteric, conjunctiva clear. No ptosis. ENT: Ears normal, nares patent, oropharynx clear without exudates, moist mucous membranes. NECK: Trachea midline, full range of motion, supple. LUNGS: Breath sounds equal, clear to auscultation bilaterally, no wheezes, no crackles, no accessory muscle use. HEART: Regular rate and rhythm, S1, S2 without murmur, rub or gallop. ABDOMEN: Soft, nontender, nondistended, normoactive bowel sounds, no guarding, no rebound, no hepatosplenomegaly, no masses. EXTREMITIES: 2+ pulses, warm, well-perfused, no edema. NEUROLOGICAL: Cranial nerves II through XII grossly intact. Normal speech, gait not observed. PSYCH: Normal mood, normal affect. SKIN: Warm, dry, normal turgor, no rashes or lesions noted Laboratory Results - last 24 hr 11/19/16 11/19/16 11/20/16 17:18 22:17 06:00 WBC 19.8 H RBC 4.20 Hgb 11.9 Hct 36.6 MCV 87.3 MCH 28.4 MCHC 32.5 RDW 15.0 Plt Count 187 MPV 11.6 H Neutrophils % 92.0 H Lymphocytes % 4.0 L D Monocytes % 2.0 L Eosinophils % 0.0 D Basophils % 0.0 Band Neutrophils 2.0 Differential Comment Manual diff done Platelet Estimate Adequate Sodium Potassium Chloride Carbon Dioxide Anion Gap BUN Creatinine POC Glucometer 256 286 Random Glucose Calcium 11/20/16 11/20/16 11/20/16 06:00 06:54 11:18 WBC RBC Hgb Hct MCV MCH MCHC RDW Plt Count MPV Neutrophils % Lymphocytes % Monocytes % Eosinophils % Basophils % Band Neutrophils Differential Comment Platelet Estimate Sodium 140 Potassium 4.2 Chloride 108 H Carbon Dioxide 23 Anion Gap 9 BUN 28 H D Creatinine 1.0 POC Glucometer 293 227 Random Glucose 296 H Calcium 8.5 Active Medications Generic Name Dose Route Start Last Admin Trade Name Freq PRN Reason Stop Dose Admin Artificial Tears 1 drop 11/17/16 10:28 Artificial Tears OU TID PRN DRY EYES Atorvastatin Calcium 10 mg 11/09/16 22:00 11/19/16 21:47 Lipitor - PO 10 mg HS ALEX Administration Benzocaine/Menthol 1 each 11/17/16 10:22 11/19/16 21:51 Cepacol Lozenge - MM 1 each PRN PRN Administration SORE THROAT Cyclobenzaprine HCl 5 mg 11/09/16 02:37 11/19/16 21:51 Flexeril - PO 5 mg TID PRN Administration PAIN Dexamethasone Sodium Phosphate 4 mg 11/12/16 21:00 11/20/16 09:33 Decadron Injection - IVPB 4 mg Q6H-IV ALEX Administration Insulin Aspart 1 vial 11/14/16 09:28 11/20/16 11:21 Novolog Vial Sliding Scale - SQ 4 units ACHS ALEX Administration Protocol Levetiracetam 500 mg 11/09/16 10:45 11/20/16 09:33 Keppra Injection - IVPB 500 mg BID ALEX Administration Ondansetron HCl 4 mg 11/09/16 02:49 Zofran Injection IVPUSH Q8H PRN NAUSEA AND/OR VOMITING Pantoprazole Sodium 40 mg 11/11/16 12:45 11/20/16 09:33 Protonix - PO 40 mg DAILY ALEX Administration Petrolatum 1 applic 11/15/16 10:45 11/20/16 09:37 Vaseline TP 1 applic DAILY ALEX Administration ASSESSMENT/PLAN: 65 y/o woman with PMH of CAD and DM who presented with L sided weakness. She was found to have masses in the right side of her brain as well as in her liver and lungs. # Radiation therapy -Pt agreed to whole brain radiation therapy. Beginning today. # Brain Masses: likely mets from lung cancer - Cerebral edema - Keppra 500mg BID - Decadron 4mg IVPB Q6H # Lung Mass: likely primary cancer -bronchoscopy showed an irregular friable mass in the right lung. Pulm consult appreciated. Bx result expected tomorrow. -Pulm consult appreciated. Bx result expected tomorrow. -case discussed with Dr. Martinez. No need for Bx of brain or liver lesions in addition to lung Bx -possible therapy was discussed with patient who is open to radiation but does not want chemo at this time. -plan for radiation therapy following tissue diagnosis. She will need to be in [facility] for this. -Bx shows NSCLC -pending testing for candidacy for immunotherapy # Back Pain -Back MRI showed L1 and L4 compression fracture without cord involvement -Bone scan showed osteoblastic metastases of left scapula, right clavicle, L2 body, and to a lesser extent, L1,L3, and L5 -Ordered warm compresses for low back discomfort # DM -continue SSI # JEANNIE -encourage PO hydration -monitor labs and exam # Leukocytosis -no Sx of UTI -likely 2/2 steroids #Thrombocytopenia: resolved -continue heparin -continue to monitor labs #continue DVT ppx -Pt is frequently out of bed and walking -SCDs when in bed #FEN -not on fluids -monitor lytes -diabetic diet #Dispo -Admit to med-surg -pending planning for Heme/onc chemo vs radiation #d/w attending Visit type - Emergency Visit Emergency Visit: No - New Patient This patient is new to me today: No - Critical Care Critical Care patient: No
--- NOTE | 2016-11-20 16:10 | PN ---
Progress Note (short form) - Note Progress Note: Still with some left posterior pleuritic type pain with coughing and movement. SOB Is a little better. Intake & Output 11/17/16 11/18/16 11/19/16 11/20/16 23:59 23:59 23:59 23:59 Intake Total 600 570 850 Balance 600 570 850 Last Vital Signs Temp Pulse Resp BP Pulse Ox 98.5 F 67 20 105/62 96 11/20/16 08:30 11/20/16 08:30 11/20/16 08:30 11/20/16 08:30 11/20/16 09:00 Active Medications Artificial Tears (Artificial Tears) 1 drop OU TID PRN PRN Reason: DRY EYES Atorvastatin Calcium (Lipitor -) 10 mg PO HS [facility] Last Admin: 11/19/16 21:47 Dose: 10 mg Benzocaine/Menthol (Cepacol Lozenge -) 1 each MM PRN PRN PRN Reason: SORE THROAT Last Admin: 11/19/16 21:51 Dose: 1 each Cyclobenzaprine HCl (Flexeril -) 5 mg PO TID PRN PRN Reason: PAIN Last Admin: 11/19/16 21:51 Dose: 5 mg Dexamethasone Sodium Phosphate (Decadron Injection -) 4 mg IVPB Q6H-IV ALEX Last Admin: 11/20/16 15:57 Dose: 4 mg Insulin Aspart (Novolog Vial Sliding Scale -) 1 vial SQ ACHS ALEX PRN Reason: Protocol Last Admin: 11/20/16 11:21 Dose: 4 units Levetiracetam (Keppra Injection -) 500 mg IVPB BID [facility] Last Admin: 11/20/16 09:33 Dose: 500 mg Ondansetron HCl (Zofran Injection) 4 mg IVPUSH Q8H PRN PRN Reason: NAUSEA AND/OR VOMITING Pantoprazole Sodium (Protonix -) 40 mg PO DAILY [facility] Last Admin: 11/20/16 09:33 Dose: 40 mg Petrolatum (Vaseline) 1 applic TP DAILY [facility] Last Admin: 11/20/16 09:37 Dose: 1 applic Gen: NAD at rest Heart: RRR Lung: Few scattered rhonchi Left > Right Abd: soft, nontender Ext: no edema Laboratory Results - last 24 hr 11/19/16 11/19/16 11/20/16 17:18 22:17 06:00 WBC 19.8 H RBC 4.20 Hgb 11.9 Hct 36.6 MCV 87.3 MCH 28.4 MCHC 32.5 RDW 15.0 Plt Count 187 MPV 11.6 H Neutrophils % 92.0 H Lymphocytes % 4.0 L D Monocytes % 2.0 L Eosinophils % 0.0 D Basophils % 0.0 Band Neutrophils 2.0 Differential Comment Manual diff done Platelet Estimate Adequate Sodium Potassium Chloride Carbon Dioxide Anion Gap BUN Creatinine POC Glucometer 256 286 Random Glucose Calcium 11/20/16 11/20/16 11/20/16 06:00 06:54 11:18 WBC RBC Hgb Hct MCV MCH MCHC RDW Plt Count MPV Neutrophils % Lymphocytes % Monocytes % Eosinophils % Basophils % Band Neutrophils Differential Comment Platelet Estimate Sodium 140 Potassium 4.2 Chloride 108 H Carbon Dioxide 23 Anion Gap 9 BUN 28 H D Creatinine 1.0 POC Glucometer 293 227 Random Glucose 296 H Calcium 8.5 A/P Metastatic Lung Cancer with brain/liver/bone mets CAD DM - decadron - pain control - RT - DVT prophylaxis - BD TX PRN Dr Robert
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
[2016-11-20] MEDS: ONDANSETRON 4 MG/2 ML VIAL IVPUSH PRN (19:54)
--- NOTE | 2016-11-20 20:10 | PN ---
Teaching Attending Note Name of Resident: Elian Urbano ATTENDING PHYSICIAN STATEMENT I saw and evaluated the patient. I reviewed the resident's note and discussed the case with the resident. I agree with the resident's findings and plan as documented. SUBJECTIVE: Comfortable with no acute distress, started RT today of brain and LS. OBJECTIVE: Vital Signs Temperature 98.2 F 11/20/16 18:00 Pulse Rate 62 11/20/16 18:00 Respiratory Rate 20 11/20/16 18:00 Blood Pressure 106/61 11/20/16 18:00 O2 Sat by Pulse Oximetry (%) 96 11/20/16 09:00 PE: per resident CBCD WBC 19.8 K/mm3 (4.0-10.0) H 11/20/16 06:00 RBC 4.20 M/mm3 (3.60-5.2) 11/20/16 06:00 Hgb 11.9 GM/dL (10.7-15.3) 11/20/16 06:00 Hct 36.6 % (32.4-45.2) 11/20/16 06:00 MCV 87.3 fl (80-96) 11/20/16 06:00 MCHC 32.5 g/dl (32.0-36.0) 11/20/16 06:00 RDW 15.0 % (11.6-15.6) 11/20/16 06:00 Plt Count 187 K/MM3 (134-434) 11/20/16 06:00 MPV 11.6 fl (7.5-11.1) H 11/20/16 06:00 CMP Sodium 140 mmol/L (136-145) 11/20/16 06:00 Potassium 4.2 mmol/L (3.5-5.1) 11/20/16 06:00 Chloride 108 mmol/L (98-107) H 11/20/16 06:00 Carbon Dioxide 23 mmol/L (21-32) 11/20/16 06:00 Anion Gap 9 (8-16) 11/20/16 06:00 BUN 28 mg/dL (7-18) H D 11/20/16 06:00 Creatinine 1.0 mg/dL (0.55-1.02) 11/20/16 06:00 Creat Clearance w eGFR 49.69 (>60) 11/15/16 06:00 Random Glucose 296 mg/dL (74-106) H 11/20/16 06:00 Calcium 8.5 mg/dL (8.5-10.1) 11/20/16 06:00 Total Bilirubin 0.5 mg/dL (0.2-1.0) D 11/15/16 06:00 AST 11 U/L (15-37) L D 11/15/16 06:00 ALT 17 U/L (12-78) D 11/15/16 06:00 Alkaline Phosphatase 115 U/L (45-117) D 11/15/16 06:00 Total Protein 6.9 g/dl (6.4-8.2) 11/15/16 06:00 Albumin 3.1 g/dl (3.4-5.0) L 11/15/16 06:00 CARDIAC ENZYMES Creatine Kinase 74 IU/L (26-192) 11/08/16 19:00 Troponin I < 0.02 ng/ml (0.00-0.05) 11/08/16 19:00 Current Medications Generic Name Dose Route Start Last Admin Trade Name Freq PRN Reason Stop Dose Admin Artificial Tears 1 drop 11/17/16 10:28 Artificial Tears OU TID PRN DRY EYES Atorvastatin Calcium 10 mg 11/09/16 22:00 11/19/16 21:47 Lipitor - PO 10 mg HS ALEX Administration Benzocaine/Menthol 1 each 11/17/16 10:22 11/19/16 21:51 Cepacol Lozenge - MM 1 each PRN PRN Administration SORE THROAT Cyclobenzaprine HCl 5 mg 11/09/16 02:37 11/19/16 21:51 Flexeril - PO 5 mg TID PRN Administration PAIN Dexamethasone Sodium Phosphate 4 mg 11/12/16 21:00 11/20/16 15:57 Decadron Injection - IVPB 4 mg Q6H-IV ALEX Administration Insulin Aspart 1 vial 11/14/16 09:28 11/20/16 16:30 Novolog Vial Sliding Scale - SQ 4 units ACHS ALEX Administration Protocol Levetiracetam 500 mg 11/09/16 10:45 11/20/16 09:33 Keppra Injection - IVPB 500 mg BID ALEX Administration Ondansetron HCl 4 mg 11/09/16 02:49 11/20/16 19:54 Zofran Injection IVPUSH 4 mg Q8H PRN Administration NAUSEA AND/OR VOMITING Pantoprazole Sodium 40 mg 11/11/16 12:45 11/20/16 09:33 Protonix - PO 40 mg DAILY ALEX Administration Petrolatum 1 applic 11/15/16 10:45 11/20/16 09:37 Vaseline TP 1 applic DAILY ALEX Administration Home Medications Medication Instructions Recorded Acetaminophen [Non-Aspirin Pain 500 mg PO DAILY PRN 11/08/16 Relief] Atorvastatin Ca [Lipitor] 10 mg PO HS 11/08/16 Calcium Carbonate [Calcium] 1,200 mg PO DAILY 11/08/16 Diphenhydramine HCl [Benadryl -] 25 mg PO DAILY 11/08/16 Ibuprofen 800 mg PO TID PRN 11/08/16 Icosapent Ethyl [Vascepa] 1 gm PO DAILY 11/08/16 Metformin HCl 500 mg PO BID 11/08/16 Phentermine HCl [Adipex-P] 37.5 mg PO DAILY 11/08/16 HISTORY: 65-year-old female with lung cancer TECHNIQUE: 3 hours after the intravenous injection of 25.7 mCi of technetium 99m MDP, whole-body bone scan was performed from the vertex of skull through the bilateral feet in the anterior and posterior projections. Spot views of the head and neck, torso and pelvis were obtained in the anterior and posterior, as well as the bilateral lateral and oblique projections. COMPARISON: no comparison bone scan is available. Correlation is made with CT of the chest, abdomen and pelvis dated November 09, 2016 and MRI of the lumbar spine dated November 10, 2016 FINDINGS: Multiple foci of activity seen in the left scapula, right clavicle, L2 vertebral body and to lesser extent L1, L3 and L5 vertebral body. The kidneys are visualized. IMPRESSION: Scintigraphic findings suggestive of osteoblastic metastasis of the left scapula, right clavicle, L2 vertebral body and to lesser extent L1, L3 and L5 vertebral bodies. Reported By: Renzo Sweeney MD MRI OF THE BRAIN (without and with contrast) CLINICAL INFORMATION GIVEN: evaluate for metastatic neoplastic disease Multiplanar imaging was obtained before and following the intravenous administration of paramagnetic contrast. Diffusion weighted spin-echo echo-planar imaging was also performed. There is diffuse neoplastic marrow infiltration involving the L1 vertebral body and L1 pedicles with an associated moderate pathologic fracture of the superior and inferior vertebral body endplates. There is resultant minimal bony retropulsion. Smaller focal neoplastic lesions are seen within the T12 and L4 vertebral bodies. There is associated minimal to mild pathologic fracture involving the L4 inferior endplate ventrally. Neoplastic disease is also seen within the left L1 pedicle and left L1 transverse process. No central canal compromise is noted. There is no thecal sac impingement/compression. The conus medullaris appears unremarkable. A small amount of epidural neoplastic disease is seen within the left L1-L2 and L2-L3 intervertebral foramina superiorly. There is possible partial imaging of a small neoplastic lesion within the right posterior iliac bone abutting the sacroiliac joint. Neoplastic findings are seen within the partially imaged liver and right chest as discussed in detail on recently performed CT. Mild lumbar levoscoliosis. Moderate multilevel bilateral degenerative facet arthropathy. Left L5-S1 foraminal disc herniation with impingement upon the exiting L5 nerve root. Bilateral L5 spondylolysis with associated minimal L5-S1 spondylolisthesis. Left renal atrophy. IMPRESSION : Multilevel osseous neoplastic disease is seen involving the lumbar spine. A moderate pathologic L1 vertebral body compression fracture is noted with minimal bony retropulsion. Minimal to mild pathologic L4 vertebral body compression fracture without bony retropulsion No central canal compromise or thecal sac impingement is seen. A small amount of epidural neoplastic disease is noted within the left L1-L2 and L2-L3 intervertebral foramina. Moderate left L5-S1 foraminal disc herniation. Minimal L5-S1 spondylolytic spondylolisthesis. Multilevel osseous neoplastic disease is seen involving the lumbar spine. A moderate pathologic L1 vertebral body compression fracture is noted with minimal bony retropulsion. Minimal to mild pathologic L4 vertebral body compression fracture without bony retropulsion No central canal compromise or thecal sac impingement is seen. A small amount of epidural neoplastic disease is noted within the left L1-L2 and L2-L3 intervertebral foramina. Moderate left L5-S1 foraminal disc herniation. Minimal L5-S1 spondylolytic spondylolisthesis CT of the chest IMPRESSION: 1. Poorly defined right lower lobe mass strongly suspicious for malignancy. The mass is associated with adjacent atelectasis and pleural fluid. 2. Additional right lung nodules possibly metastatic in nature. 3. Mediastinal and right hilar lymphadenopathy. 4. Multiple hepatic masses consistent with metastatic disease. 5. Partial compression and sclerosis of L1. A metastatic lesion cannot be excluded and a follow-up MRI is recommended. Please see above discussion. MRI spine - multilevel vertebral mets with pathologic fractures, epidural extension at L1-L3 neuroforaminae. MRI Brain - 3 right supratentorial mets <1.5cm with vasogenic edema, mild midline shift, meningioma in right temporal area, incidental findings. ASSESSMENT AND PLAN: 65 y/o lady with h/o CAD ,and DM who presneted with L sided weakness. She was found to have R sided brain masses with R lung mass and Liver masses. 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 #1 RT treatment today ;palliative RT to brain, L-spine, but not clavicle. As per RT oncologist :If stable after initial treatments, she may continue as an outpatient. Will need systemic tx per med onc. # RLL mass Likely metastatic Lung Cancer with brain/liver/bone mets.s/p Bronchoscopy and BX with BAL; NSCLC adenocarcinoma, biomarker studies pending. On decadron and Keppra continue and PPI Diffuse Bone mets;Bone scan positive for osteoblastic lesion of the left scapula , right clavicle, L2 vertebral body, and lesser extent L1,L3 and L5. # Hx of T2DM : hold metformin and use SSI . # JEANNIE : oral hydration . # Mild leukocytosis: likely due to steroids . will repeat labs in am # Thrombocytopenia: resolved DVT px : SCDs discussed with the patient in detail regarding the Bx result
[2016-11-20] MEDS: ATORVASTATIN CA 10 MG TABLET (FP) PO SCH (21:47)
[2016-11-21] MEDS: DEXAMETHASONE SOD PHOSPHATE 10 MG/1 ML VIAL IVPB SCH ×4 (03:45→21:13)
[2016-11-21] MEDS ORDERED: INSULIN (NOVOLOG) ASPART 100 UNITS/ML 10ML VIAL ONE ×3 (06:00→20:41)
[2016-11-21] MEDS: INSULIN SLIDING SCALE (NOVOLOG) 1 VIAL SQ SCH ×4 (06:19→21:12)
[2016-11-21] MEDS ORDERED: PT OWN MED DRAWER 7, Y5N ONE ×2 (10:28→13:55)
[2016-11-21] MEDS: levETIRAcetam 500 MG/5 ML INJECTION VIAL IVPB SCH (10:33)
[2016-11-21] MEDS: PANTOPRAZOLE 40 MG TABLET (FP) PO SCH (10:33)
[2016-11-21] MEDS: BENZOCAINE/MENTH/CETYLPYRD CL 1 EACH LOZENGE MM PRN (10:40)
[2016-11-21] MEDS: PETROLATUM, WHITE 30 GM TUBE TP SCH (11:39)
--- NOTE | 2016-11-21 13:44 | PN ---
Progress Note (short form) - Note Progress Note: Radiation Oncology: Patient treated to brain and spine today . 2/10 fractions delivered. tolerated treatment without incident today but had vomiting and diarrhea on saturday. Please premedicate for vomiting and diarrhea tomorrow.
[2016-11-21] MEDS: ONDANSETRON 4 MG/2 ML VIAL IVPUSH PRN (13:58)
[2016-11-21] MEDS: CYCLOBENZAPRINE HCL 10 MG TABLET (FP) PO PRN (16:02)
--- NOTE | 2016-11-21 16:07 | PN ---
Progress Note, Physician History of Present Illness: pulmonary alert,nad,c/o cp,+ cough - Current Medication List Current Medications: Active Medications Artificial Tears (Artificial Tears) 1 drop OU TID PRN PRN Reason: DRY EYES Atorvastatin Calcium (Lipitor -) 10 mg PO HS ALEX Last Admin: 11/20/16 21:47 Dose: 10 mg Benzocaine/Menthol (Cepacol Lozenge -) 1 each MM PRN PRN PRN Reason: SORE THROAT Last Admin: 11/21/16 10:40 Dose: 1 each Cyclobenzaprine HCl (Flexeril -) 5 mg PO TID PRN PRN Reason: PAIN Last Admin: 11/21/16 16:02 Dose: 5 mg Dexamethasone Sodium Phosphate (Decadron Injection -) 4 mg IVPB Q6H-IV ALEX Last Admin: 11/21/16 09:25 Dose: 4 mg Insulin Aspart (Novolog Vial Sliding Scale -) 1 vial SQ ACHS ALEX PRN Reason: Protocol Last Admin: 11/21/16 11:37 Dose: 8 units Levetiracetam (Keppra Injection -) 500 mg IVPB BID [facility] Last Admin: 11/21/16 10:33 Dose: 500 mg Ondansetron HCl (Zofran Injection) 4 mg IVPUSH Q8H PRN PRN Reason: NAUSEA AND/OR VOMITING Last Admin: 11/21/16 13:58 Dose: 4 mg Pantoprazole Sodium (Protonix -) 40 mg PO DAILY [facility] Last Admin: 11/21/16 10:33 Dose: 40 mg Petrolatum (Vaseline) 1 applic TP DAILY [facility] Last Admin: 11/21/16 11:39 Dose: Not Given - Objective Vital Signs: Vital Signs Temperature 98.6 F 11/21/16 14:52 Pulse Rate 66 11/21/16 14:52 Respiratory Rate 20 11/21/16 14:52 Blood Pressure 110/62 11/21/16 14:52 O2 Sat by Pulse Oximetry (%) 95 11/21/16 09:00 Constitutional: Yes: Well Nourished, Calm Eyes: Yes: WNL HENT: Yes: WNL Neck: Yes: WNL Respiratory: Yes: Rhonchi (few rhnchi) Gastrointestinal: Yes: Normal Bowel Sounds, Soft Extremities: Yes: WNL Edema: No Labs: CBC, BMP 11/20/16 06:00 Problem List - Problems (1) Brain metastasis Code(s): C79.31 - SECONDARY MALIGNANT NEOPLASM OF BRAIN (2) Liver metastases Code(s): C78.7 - SECONDARY MALIG NEOPLASM OF LIVER AND INTRAHEPATIC BILE DUCT (3) Lung malignancy Code(s): C34.90 - MALIGNANT NEOPLASM OF UNSP PART OF UNSP BRONCHUS OR LUNG Qualifiers: Laterality: right Lung location: hilum of lung Qualified Code(s) : C34.01 - Malignant neoplasm of right main bronchus (4) Metastasis to spinal column Code(s): C79.51 - SECONDARY MALIGNANT NEOPLASM OF BONE (5) Weakness Code(s): R53.1 - WEAKNESS Assessment/Plan A/P Metastatic Lung Cancer with brain/liver/bone mets CAD DM - decadron - pain control - RT - DVT prophylaxis - BD TX PRN DR NICOLAS
[2016-11-21] MEDS ORDERED: oxyCODONE HCL 5 MG TABLET PO PRN (17:56)
--- NOTE | 2016-11-21 18:09 | PN ---
Teaching Attending Note Name of Resident: Elian Urbano ATTENDING PHYSICIAN STATEMENT I saw and evaluated the patient. I reviewed the resident's note and discussed the case with the resident. I agree with the resident's findings and plan as documented. SUBJECTIVE: no fever or chills. has mild back pain in L spine. no YU or visual changes OBJECTIVE: NAD CV: RRR Lungs: CTAB ext : no edema NEuro: no facial droop, EOMI, round equal pupils , reactive to light , nl facial sensation, tongue and uvula at mid line. Shoulder shrug 5 on L , refused to do R , deltoid and shoulder flexion 5/5 on L , declined R . biceps and triceps 5/5 b/l , wrist felxion and extension 5/5 b/l . Nl hand time piece repairer b/l . No pronator drift hip flexion 5/5 b/l. R knee flexion and extension 5/ 5 , unable to evaluate strength due to knee sx. dorsiflexion and plantar flexion 5/5 b/l . sensation to light touch NL all over reflexes 2+ biceps , triceps B/L , and R biceps ASSESSMENT AND PLAN: 65 y/o lady with h/o CAD ,and DM who presneted with L sided weakness. She was found tohave R sided brain masses with R lung mass and Liver masses 1- poorly differentiated lung adenocarcinoma , with mets to Liver, Brain , epidural space , and skeleton - change keppra to po - cont IV decadron - cont Radiation treatments 06/22 . - add oxycodone PRN 2- DM : hold metformin and use SSI . 3- JEANNIE :resolved . oral hydration . 4- Mild leuokytosis: likely due to steroids . HLOC. to finish radiation
--- NOTE | 2016-11-21 19:11 | PN ---
Physical Exam: SUBJECTIVE: Patient seen and examined at bedside. Pt complains of right lower back discomfort and nausea. No acute events overnight. No other complaints at this time. Pt denies headache, cp, sob, vomiting, diarrhea, dysuria, fever. OBJECTIVE: Vital Signs Period Temp Pulse Resp BP Sys/Curran Pulse Ox Last 24 Hr 98.6 F-98.9 F 66-83 20-22 104-130/50-79 95-95 GENERAL: The patient is awake, alert, and fully oriented, in no acute distress. HEAD: Normal with no signs of trauma. EYES: PERRL, extraocular movements intact, sclera anicteric, conjunctiva clear. No ptosis. ENT: Ears normal, nares patent, oropharynx clear without exudates, moist mucous membranes. NECK: Trachea midline, full range of motion, supple. LUNGS: Breath sounds equal, clear to auscultation bilaterally, no wheezes, no crackles, no accessory muscle use. HEART: Regular rate and rhythm, S1, S2 without murmur, rub or gallop. ABDOMEN: Soft, nontender, nondistended, normoactive bowel sounds, no guarding, no rebound, no hepatosplenomegaly, no masses. EXTREMITIES: 2+ pulses, warm, well-perfused, no edema. NEUROLOGICAL: Cranial nerves II through XII grossly intact. Normal speech, gait not observed. PSYCH: Normal mood, normal affect. SKIN: Warm, dry, normal turgor, no rashes or lesions noted Laboratory Results - last 24 hr 11/20/16 11/21/16 11/21/16 21:45 06:18 11:22 POC Glucometer 168 343 335 11/21/16 17:26 POC Glucometer 315 Active Medications Generic Name Dose Route Start Last Admin Trade Name Freq PRN Reason Stop Dose Admin Artificial Tears 1 drop 11/17/16 10:28 Artificial Tears OU TID PRN DRY EYES Atorvastatin Calcium 10 mg 11/09/16 22:00 11/20/16 21:47 Lipitor - PO 10 mg HS ALEX Administration Benzocaine/Menthol 1 each 11/17/16 10:22 11/21/16 10:40 Cepacol Lozenge - MM 1 each PRN PRN Administration SORE THROAT Cyclobenzaprine HCl 5 mg 11/09/16 02:37 11/21/16 16:02 Flexeril - PO 5 mg TID PRN Administration PAIN Dexamethasone Sodium Phosphate 4 mg 11/12/16 21:00 11/21/16 17:22 Decadron Injection - IVPB 4 mg Q6H-IV ALEX Administration Insulin Aspart 1 vial 11/14/16 09:28 11/21/16 18:23 Novolog Vial Sliding Scale - SQ 8 units ACHS ALEX Administration Protocol Levetiracetam 500 mg 11/21/16 22:00 Keppra - PO BID ALEX Ondansetron HCl 4 mg 11/09/16 02:49 11/21/16 13:58 Zofran Injection IVPUSH 4 mg Q8H PRN Administration NAUSEA AND/OR VOMITING Oxycodone HCl 5 mg 11/21/16 17:56 Roxicodone - PO Q6H PRN PAIN Pantoprazole Sodium 40 mg 11/11/16 12:45 11/21/16 10:33 Protonix - PO 40 mg DAILY ALEX Administration Petrolatum 1 applic 11/15/16 10:45 11/21/16 11:39 Vaseline TP Not Given DAILY ALEX ASSESSMENT/PLAN: 65 y/o woman with PMH of CAD and DM who presented with L sided weakness. She was found to have masses in the right side of her brain as well as in her liver and lungs. # Radiation therapy -Pt agreed to whole brain radiation therapy. -Pt went for RT of brain and back. Is having nausea since then. On Zofran # Brain Masses: likely mets from lung cancer - Cerebral edema - Keppra 500mg BID - Decadron 4mg IVPB Q6H -Whole brain RT # Lung Mass: likely primary cancer -bronchoscopy showed an irregular friable mass in the right lung. Pulm consult appreciated. Bx result expected tomorrow. -Pulm consult appreciated. Bx result expected tomorrow. -case discussed with Dr. Martinez. No need for Bx of brain or liver lesions in addition to lung Bx -possible therapy was discussed with patient who is open to radiation but does not want chemo at this time. -plan for radiation therapy following tissue diagnosis. She will need to be in [facility] for this. -Bx shows NSCLC -pending testing for candidacy for immunotherapy # Back Pain -Back MRI showed L1 and L4 compression fracture without cord involvement -Bone scan showed osteoblastic metastases of left scapula, right clavicle, L2 body, and to a lesser extent, L1,L3, and L5 -Warm compresses for low back discomfort # DM -continue SSI # JEANNIE: resolved -encourage PO hydration -monitor labs and exam # Leukocytosis -no Sx of UTI -likely 2/2 steroids #Thrombocytopenia: resolved -continue heparin -continue to monitor labs #continue DVT ppx -Pt is frequently out of bed and walking -SCDs when in bed #FEN -not on fluids -monitor lytes -diabetic diet #Dispo -Admit to med-surg -pending planning for Heme/onc chemo vs radiation as out pt #d/w attending Visit type - Emergency Visit Emergency Visit: No - New Patient This patient is new to me today: No - Critical Care Critical Care patient: No
[2016-11-21] MEDS: levETIRAcetam 500 MG TABLET (FP) PO SCH (21:13)
[2016-11-21] MEDS: ATORVASTATIN CA 10 MG TABLET (FP) PO SCH (21:13)
[2016-11-22] MEDS: DEXAMETHASONE SOD PHOSPHATE 10 MG/1 ML VIAL IVPB SCH ×3 (03:17→14:23)
[2016-11-22] MEDS: BENZOCAINE/MENTH/CETYLPYRD CL 1 EACH LOZENGE MM PRN ×2 (03:17→09:25)
[2016-11-22] MEDS: CYCLOBENZAPRINE HCL 10 MG TABLET (FP) PO PRN ×2 (03:57→22:10)
[2016-11-22] MEDS: INSULIN SLIDING SCALE (NOVOLOG) 1 VIAL SQ SCH ×4 (06:38→22:12)
[2016-11-22] MEDS ORDERED: INSULIN (NOVOLOG) ASPART 100 UNITS/ML 10ML VIAL ONE ×2 (06:44→22:00)
[2016-11-22] MEDS ORDERED: PT OWN MED DRAWER 7, Y5N ONE (09:23)
[2016-11-22] MEDS: PANTOPRAZOLE 40 MG TABLET (FP) PO SCH (09:25)
[2016-11-22] MEDS: levETIRAcetam 500 MG TABLET (FP) PO SCH ×2 (09:25→22:11)
--- NOTE | 2016-11-22 12:37 | PN ---
Progress Note (short form) - Note Progress Note: Resting in NAD. No acute events overnight. SOB is improving. Intake & Output 11/19/16 11/20/16 11/21/16 11/22/16 23:59 23:59 23:59 23:59 Intake Total 850 750 740 50 Balance 850 750 740 50 Last Vital Signs Temp Pulse Resp BP Pulse Ox 98.9 F 66 20 128/74 94 L 11/22/16 06:14 11/22/16 06:14 11/22/16 06:14 11/22/16 06:14 11/21/16 21:00 Active Medications Artificial Tears (Artificial Tears) 1 drop OU TID PRN PRN Reason: DRY EYES Atorvastatin Calcium (Lipitor -) 10 mg PO HS [facility] Last Admin: 11/21/16 21:13 Dose: 10 mg Benzocaine/Menthol (Cepacol Lozenge -) 1 each MM PRN PRN PRN Reason: SORE THROAT Last Admin: 11/22/16 09:25 Dose: 1 each Cyclobenzaprine HCl (Flexeril -) 5 mg PO TID PRN PRN Reason: PAIN Last Admin: 11/22/16 03:57 Dose: 5 mg Dexamethasone Sodium Phosphate (Decadron Injection -) 4 mg IVPB Q6H-IV ALEX Last Admin: 11/22/16 08:46 Dose: 4 mg Insulin Aspart (Novolog Vial Sliding Scale -) 1 vial SQ ACHS ALEX PRN Reason: Protocol Last Admin: 11/22/16 06:38 Dose: 6 units Insulin Detemir (Levemir Vial) 10 units SQ [facility] Levetiracetam (Keppra -) 500 mg PO BID [facility] Last Admin: 11/22/16 09:25 Dose: 500 mg Ondansetron HCl (Zofran Injection) 4 mg IVPUSH Q8H PRN PRN Reason: NAUSEA AND/OR VOMITING Last Admin: 11/21/16 13:58 Dose: 4 mg Oxycodone HCl (Roxicodone -) 5 mg PO Q6H PRN PRN Reason: PAIN Pantoprazole Sodium (Protonix -) 40 mg PO DAILY [facility] Last Admin: 11/22/16 09:25 Dose: 40 mg Petrolatum (Vaseline) 1 applic TP DAILY [facility] Last Admin: 11/21/16 11:39 Dose: Not Given Gen: NAD at rest Heart: RRR Lung: Few scattered rhonchi Left > Right Abd: soft, nontender Ext: no edema Laboratory Results - last 24 hr 11/21/16 11/21/16 11/22/16 17:26 21:11 06:37 POC Glucometer 315 383 261 A/P Metastatic Lung Cancer with brain/liver/bone mets CAD DM - decadron - pain control - RT - DVT prophylaxis - BD TX PRN Dr Robert
[2016-11-22] MEDS: ONDANSETRON 4 MG/2 ML VIAL IVPUSH PRN (14:06)
[2016-11-22] MEDS: PETROLATUM, WHITE 30 GM TUBE TP SCH (14:23)
--- NOTE | 2016-11-22 18:19 | PN ---
Teaching Attending Note Name of Resident: Elian Urbano ATTENDING PHYSICIAN STATEMENT I saw and evaluated the patient. I reviewed the resident's note and discussed the case with the resident. I agree with the resident's findings and plan as documented. SUBJECTIVE: no fever or chills. has no ABd pain , had minimal back pain . OBJECTIVE: NAD CV: RRR Lungs: CTAB ext : no edema NEuro: no facial droop, EOMI, round equal pupils , reactive to light , nl facial sensation, tongue and uvula at mid line. Shoulder shrug 5 on L , refused to do R , deltoid and shoulder flexion 5/5 on L , declined R . biceps and triceps 5/5 b/l , wrist felxion and extension 5/5 b/l . Nl hand home service technician b/l . No pronator drift hip flexion 5/5 b/l. R knee flexion and extension 5/ 5 , unable to evaluate strength due to knee sx. dorsiflexion and plantar flexion 5/5 b/l . sensation to light touch NL all over reflexes 2+ biceps , triceps B/L , and R biceps ASSESSMENT AND PLAN: 65 y/o lady with h/o CAD ,and DM who presneted with L sided weakness. She was found tohave R sided brain masses with R lung mass and Liver masses 1- poorly differentiated lung adenocarcinoma , with mets to Liver, Brain , epidural space , and skeleton - cont PO Keppra - cont IV decadron - cont Radiation treatments 07/20 . - dc oxycodone, as it causes her dizziness 2- DM : hold metformin and use SSI . 3- JEANNIE :resolved. oral hydration. 4- Mild leuokytosis: likely due to steroids . will repeat tomorrow HLOC.
--- NOTE | 2016-11-22 20:15 | PN ---
Progress Note (short form) - Note Progress Note: Radiation Oncology On day 3 of RT to brain and L-spine. Mild nausea without other symptoms. Will continue tomorrow. Cont decadron, changed to po. Antiemetics. Seen by orthopedics who will f/u. No RT to clavicle fracture for now.
--- NOTE | 2016-11-22 20:32 | PN ---
Physical Exam: SUBJECTIVE: Patient seen and examined at bedside. Pt complains of right lower back discomfort and nausea. No acute events overnight. No other complaints at this time. Pt denies headache, cp, sob, vomiting, diarrhea, dysuria, fever. OBJECTIVE: Vital Signs Period Temp Pulse Resp BP Sys/Curran Pulse Ox Last 24 Hr 98.9 F-99.8 F 64-74 18-20 102-128/53-74 94-94 GENERAL: The patient is awake, alert, and fully oriented, in no acute distress. HEAD: Normal with no signs of trauma. EYES: PERRL, extraocular movements intact, sclera anicteric, conjunctiva clear. No ptosis. ENT: Ears normal, nares patent, oropharynx clear without exudates, moist mucous membranes. NECK: Trachea midline, full range of motion, supple. LUNGS: Breath sounds equal, clear to auscultation bilaterally, no wheezes, no crackles, no accessory muscle use. HEART: Regular rate and rhythm, S1, S2 without murmur, rub or gallop. ABDOMEN: Soft, nontender, nondistended, normoactive bowel sounds, no guarding, no rebound, no hepatosplenomegaly, no masses. EXTREMITIES: 2+ pulses, warm, well-perfused, no edema. NEUROLOGICAL: Cranial nerves II through XII grossly intact. Normal speech, gait not observed. PSYCH: Normal mood, normal affect. SKIN: Warm, dry, normal turgor, no rashes or lesions noted Laboratory Results - last 24 hr 11/21/16 11/22/16 11/22/16 21:11 06:37 11:47 POC Glucometer 383 261 229 11/22/16 16:43 POC Glucometer 268 Active Medications Generic Name Dose Route Start Last Admin Trade Name Freq PRN Reason Stop Dose Admin Artificial Tears 1 drop 11/17/16 10:28 Artificial Tears OU TID PRN DRY EYES Atorvastatin Calcium 10 mg 11/09/16 22:00 11/21/16 21:13 Lipitor - PO 10 mg HS ALEX Administration Benzocaine/Menthol 1 each 11/17/16 10:22 11/22/16 09:25 Cepacol Lozenge - MM 1 each PRN PRN Administration SORE THROAT Cyclobenzaprine HCl 5 mg 11/09/16 02:37 11/22/16 03:57 Flexeril - PO 5 mg TID PRN Administration PAIN Dexamethasone 4 mg 11/22/16 20:15 Decadron - PO Q6H ALEX Insulin Aspart 1 vial 11/14/16 09:28 11/22/16 17:41 Novolog Vial Sliding Scale - SQ 6 units ACHS ALEX Administration Protocol Insulin Detemir 10 units 11/22/16 22:00 Levemir Vial SQ HS ALEX Levetiracetam 500 mg 11/21/16 22:00 11/22/16 09:25 Keppra - PO 500 mg BID ALEX Administration Ondansetron HCl 4 mg 11/09/16 02:49 11/22/16 14:06 Zofran Injection IVPUSH 4 mg Q8H PRN Administration NAUSEA AND/OR VOMITING Oxycodone HCl 5 mg 11/21/16 17:56 Roxicodone - PO Q6H PRN PAIN Pantoprazole Sodium 40 mg 11/11/16 12:45 11/22/16 09:25 Protonix - PO 40 mg DAILY ALEX Administration Petrolatum 1 applic 11/15/16 10:45 11/22/16 14:23 Vaseline TP Not Given DAILY ALEX ASSESSMENT/PLAN: 65 y/o woman with PMH of CAD and DM who presented with L sided weakness. She was found to have masses in the right side of her brain as well as in her liver and lungs. # Radiation therapy -Pt agreed to whole brain radiation therapy. -Pt went for RT of brain and back. Is having nausea since then. On Zofran # Brain Masses: likely mets from lung cancer - Cerebral edema - Keppra 500mg PO BID - Decadron 4mg IVPB Q6H -Whole brain RT -D/C Oxycodone 2/2 dizziness # Lung Mass: likely primary cancer -bronchoscopy showed an irregular friable mass in the right lung. -Pulm consult appreciated. -case discussed with Dr. Martinez. No need for Bx of brain or liver lesions in addition to lung Bx -possible therapy was discussed with patient who is open to radiation but does not want chemo at this time. -plan for radiation therapy following tissue diagnosis. -Bx shows NSCLC -pending testing for candidacy for immunotherapy # Back Pain -Back MRI showed L1 and L4 compression fracture without cord involvement -Bone scan showed osteoblastic metastases of left scapula, right clavicle, L2 body, and to a lesser extent, L1,L3, and L5 -Warm compresses for low back discomfort # DM -continue SSI # JEANNIE: resolved -encourage PO hydration -monitor labs and exam # Leukocytosis -no Sx of UTI -likely 2/2 steroids #Thrombocytopenia: resolved -continue heparin -continue to monitor labs #continue DVT ppx -Pt is frequently out of bed and walking -SCDs when in bed #FEN -not on fluids -monitor lytes -diabetic diet #Dispo -Admit to med-surg -pending planning for Heme/onc chemo vs radiation as out pt #d/w attending Visit type - Emergency Visit Emergency Visit: No - New Patient This patient is new to me today: No - Critical Care Critical Care patient: No - Discharge Referral Referred to [facility] Med [facility].C[facility] No
[2016-11-22] MEDS: DEXAMETHASONE 4 MG TABLET (FP) PO SCH (21:10)
[2016-11-22] MEDS: INSULIN DETEMIR 100 UNITS/ML MDV SQ SCH (22:11)
[2016-11-22] MEDS: ATORVASTATIN CA 10 MG TABLET (FP) PO SCH (22:11)
[2016-11-23] MEDS: CYCLOBENZAPRINE HCL 10 MG TABLET (FP) PO PRN ×3 (01:38→18:50)
[2016-11-23] MEDS: DEXAMETHASONE 4 MG TABLET (FP) PO SCH ×4 (01:39→20:17)
[2016-11-23] MEDS: INSULIN SLIDING SCALE (NOVOLOG) 1 VIAL SQ SCH ×4 (06:38→21:18)
[2016-11-23] MEDS ORDERED: PT OWN MED DRAWER 7, Y5N ONE (08:58)
[2016-11-23] MEDS: PANTOPRAZOLE 40 MG TABLET (FP) PO SCH (09:07)
[2016-11-23] MEDS: levETIRAcetam 500 MG TABLET (FP) PO SCH ×2 (09:07→21:18)
[2016-11-23] MEDS: PETROLATUM, WHITE 30 GM TUBE TP SCH (09:51)
--- NOTE | 2016-11-23 10:46 | PN ---
Progress Note (short form) - Note Progress Note: Patient seen and examined 11/22/16 Denies any complaints AFVSS Lungs: Clear to P&A Abd: Soft, Normal bowel sounds, No organomegaly Ext:No significant edema Skin: No rashes, Integument intact LAbs reviewed A?P 65 y/o patient with presumed widely metastatic lung cancer--RLL mass with liver mets/brain mets/bone mets adenocarcinoma PDL1+ discussed with patient , rad-oncchanging decadron to PO pain control d/c planning initiated
--- NOTE | 2016-11-23 13:07 | PN ---
Progress Note, Physician History of Present Illness: pulmonary alert,feeling better,-resp distress - Current Medication List Current Medications: Active Medications Artificial Tears (Artificial Tears) 1 drop OU TID PRN PRN Reason: DRY EYES Atorvastatin Calcium (Lipitor -) 10 mg PO HS [facility] Last Admin: 11/22/16 22:11 Dose: 10 mg Benzocaine/Menthol (Cepacol Lozenge -) 1 each MM PRN PRN PRN Reason: SORE THROAT Last Admin: 11/22/16 09:25 Dose: 1 each Cyclobenzaprine HCl (Flexeril -) 5 mg PO TID PRN PRN Reason: PAIN Last Admin: 11/23/16 11:25 Dose: 5 mg Dexamethasone (Decadron -) 4 mg PO Q6H [facility] Last Admin: 11/23/16 07:51 Dose: 4 mg Insulin Aspart (Novolog Vial Sliding Scale -) [address] [facility] PRN Reason: Protocol Last Admin: 11/23/16 11:43 Dose: 4 units Insulin Detemir (Levemir Vial) 10 units SQ [facility] Last Admin: 11/22/16 22:11 Dose: 10 unit Levetiracetam (Keppra -) 500 mg PO BID [facility] Last Admin: 11/23/16 09:07 Dose: 500 mg Ondansetron HCl (Zofran Injection) 4 mg IVPUSH Q8H PRN PRN Reason: NAUSEA AND/OR VOMITING Last Admin: 11/22/16 14:06 Dose: 4 mg Oxycodone HCl (Roxicodone -) 5 mg PO Q6H PRN PRN Reason: PAIN Pantoprazole Sodium (Protonix -) 40 mg PO DAILY [facility] Last Admin: 11/23/16 09:07 Dose: 40 mg Petrolatum (Vaseline) 1 applic TP DAILY [facility] Last Admin: 11/23/16 09:51 Dose: 1 applic - Objective Vital Signs: Vital Signs Temperature 98.6 F 11/23/16 05:44 Pulse Rate 65 11/23/16 05:44 Respiratory Rate 20 11/23/16 08:10 Blood Pressure 108/48 11/23/16 05:44 O2 Sat by Pulse Oximetry (%) 96 11/23/16 08:10 Constitutional: Yes: Well Nourished, Calm Eyes: Yes: WNL HENT: Yes: WNL Neck: Yes: WNL Cardiovascular: Yes: Regular Rate and Rhythm, S1, S2 Respiratory: Yes: Diminished Gastrointestinal: Yes: Normal Bowel Sounds, Soft Extremities: Yes: WNL Edema: No Labs: CBC, BMP Problem List - Problems (1) Brain metastasis Code(s): C79.31 - SECONDARY MALIGNANT NEOPLASM OF BRAIN (2) Liver metastases Code(s): C78.7 - SECONDARY MALIG NEOPLASM OF LIVER AND INTRAHEPATIC BILE DUCT (3) Lung malignancy Code(s): C34.90 - MALIGNANT NEOPLASM OF UNSP PART OF UNSP BRONCHUS OR LUNG Qualifiers: Laterality: right Lung location: hilum of lung Qualified Code(s) : C34.01 - Malignant neoplasm of right main bronchus (4) Metastasis to spinal column Code(s): C79.51 - SECONDARY MALIGNANT NEOPLASM OF BONE (5) Weakness Code(s): R53.1 - WEAKNESS Assessment/Plan A/P Metastatic Lung Cancer with brain/liver/bone mets CAD DM - decadron - pain control - RT - DVT prophylaxis - BD TX PRN DR NICOLAS
[2016-11-23] MEDS: ONDANSETRON 4 MG/2 ML VIAL IVPUSH PRN (14:01)
--- NOTE | 2016-11-23 14:20 | PN ---
Progress Note, Physician Chief Complaint: follow up for metastatic Lung Adeno History of Present Illness: Patient seen and examined, She just returned from RT. She feels OK, but more tired after the RT. She is waiting for a SWer to discuss about the social situation. She is able to walk around with some pain in the back. She does c.o nausea post RT. She continues to be on steroids. - Current Medication List Current Medications: Active Medications Artificial Tears (Artificial Tears) 1 drop OU TID PRN PRN Reason: DRY EYES Atorvastatin Calcium (Lipitor -) 10 mg PO HS [facility] [place] Last Admin: 11/22/16 22:11 Dose: 10 mg Benzocaine/Menthol (Cepacol Lozenge -) 1 each MM PRN PRN PRN Reason: SORE THROAT Last Admin: 11/22/16 09:25 Dose: 1 each Cyclobenzaprine HCl (Flexeril -) 5 mg PO TID PRN PRN Reason: PAIN Last Admin: 11/23/16 11:25 Dose: 5 mg Dexamethasone (Decadron -) 4 mg PO Q6H [facility] [place] Last Admin: 11/23/16 13:20 Dose: Not Given Insulin Aspart (Novolog Vial Sliding Scale -) 1 vial SQ ACHS [facility] [place] PRN Reason: Protocol Last Admin: 11/23/16 11:43 Dose: 4 units Insulin Detemir (Levemir Vial) 10 units SQ HS [facility] Last Admin: 11/22/16 22:11 Dose: 10 unit Levetiracetam (Keppra -) 500 mg PO BID [facility] [place] Last Admin: 11/23/16 09:07 Dose: 500 mg Ondansetron HCl (Zofran Injection) 4 mg IVPUSH Q8H PRN PRN Reason: NAUSEA AND/OR VOMITING Last Admin: 11/23/16 14:01 Dose: 4 mg Oxycodone HCl (Roxicodone -) 5 mg PO Q6H PRN PRN Reason: PAIN Pantoprazole Sodium (Protonix -) 40 mg PO DAILY [facility] [place] Last Admin: 11/23/16 09:07 Dose: 40 mg Petrolatum (Vaseline) 1 applic TP DAILY [facility] [place] Last Admin: 11/23/16 09:51 Dose: 1 applic - Objective Vital Signs: Vital Signs Temperature 98.6 F 11/23/16 05:44 Pulse Rate 65 11/23/16 05:44 Respiratory Rate 20 11/23/16 08:10 Blood Pressure 108/48 11/23/16 05:44 O2 Sat by Pulse Oximetry (%) 96 11/23/16 08:10 Constitutional: Yes: Well Nourished, Mild Distress Eyes: Yes: Conjunctiva Clear HENT: Yes: Atraumatic, Normocephalic Neck: Yes: Supple Cardiovascular: Yes: Regular Rate and Rhythm Respiratory: Yes: Regular, CTA Bilaterally Gastrointestinal: Yes: Normal Bowel Sounds, Soft Extremities: Yes: WNL Labs: CBC, BMP 11/20/16 06:00 11/20/16 06:00 INR, PTT INR 1.05 (0.82-1.09) 11/08/16 19:00 Problem List - Problems (1) Lung malignancy Assessment/Plan: Patient with newly diagnosed Stage IV Lung Adeno Molecular markers pending PDL1 reportedly 90%, would be a candidate for up-front immunotherapy (Pembro) if the molecular targets are not detected. Discussed with the patient about the possibility of using Pembrolizumab in her case and she is in agreement. Patient to follow us as an OP Code(s): C34.90 - MALIGNANT NEOPLASM OF UNSP PART OF UNSP BRONCHUS OR LUNG Qualifiers: Laterality: right Lung location: hilum of lung Qualified Code(s) : C34.01 - Malignant neoplasm of right main bronchus (2) Brain metastasis Assessment/Plan: Presently undergoing WBRT On Dexamethasone c/w Zofran for nausea Code(s): C79.31 - SECONDARY MALIGNANT NEOPLASM OF BRAIN (3) Liver metastases Assessment/Plan: Mets from Lung adenocarcinoma Will need systemic treatment once RT is completed and will be administered as an OP Code(s): C78.7 - SECONDARY MALIG NEOPLASM OF LIVER AND INTRAHEPATIC BILE DUCT (4) Metastasis to spinal column Assessment/Plan: would need bisphosphonates as an outpatient Code(s): C79.51 - SECONDARY MALIGNANT NEOPLASM OF BONE Assessment/Plan d/c planning initiated.
--- NOTE | 2016-11-23 14:31 | PN ---
Physical Exam: SUBJECTIVE: Patient seen and examined at bedside. No acute events overnight. Pt has no new complaints at this time. OBJECTIVE: Vital Signs Period Temp Pulse Resp BP Sys/Curran Pulse Ox Last 24 Hr 98.6 F-99.4 F 65-72 20-20 108-117/48-54 95-96 GENERAL: The patient is awake, alert, and fully oriented, in no acute distress. HEAD: Normal with no signs of trauma. EYES: PERRL, extraocular movements intact, sclera anicteric, conjunctiva clear. No ptosis. ENT: Ears normal, nares patent, oropharynx clear without exudates, moist mucous membranes. NECK: Trachea midline, full range of motion, supple. LUNGS: Breath sounds equal, clear to auscultation bilaterally, no wheezes, no crackles, no accessory muscle use. HEART: Regular rate and rhythm, S1, S2 without murmur, rub or gallop. ABDOMEN: Soft, nontender, nondistended, normoactive bowel sounds, no guarding, no rebound, no hepatosplenomegaly, no masses. EXTREMITIES: 2+ pulses, warm, well-perfused, no edema. NEUROLOGICAL: Cranial nerves II through XII grossly intact. Normal speech, gait not observed. PSYCH: Normal mood, normal affect. SKIN: Warm, dry, normal turgor, no rashes or lesions noted Laboratory Results - last 24 hr 11/22/16 11/22/16 11/23/16 16:43 22:05 06:36 POC Glucometer 268 309 387 11/23/16 11:35 POC Glucometer 222 Active Medications Generic Name Dose Route Start Last Admin Trade Name Freq PRN Reason Stop Dose Admin Artificial Tears 1 drop 11/17/16 10:28 Artificial Tears OU TID PRN DRY EYES Atorvastatin Calcium 10 mg 11/09/16 22:00 11/22/16 22:11 Lipitor - PO 10 mg HS ALEX Administration Benzocaine/Menthol 1 each 11/17/16 10:22 11/22/16 09:25 Cepacol Lozenge - MM 1 each PRN PRN Administration SORE THROAT Cyclobenzaprine HCl 5 mg 11/09/16 02:37 11/23/16 11:25 Flexeril - PO 5 mg TID PRN Administration PAIN Dexamethasone 4 mg 11/22/16 20:15 11/23/16 13:20 Decadron - PO Not Given Q6H ALEX Insulin Aspart 1 vial 11/14/16 09:28 11/23/16 11:43 Novolog Vial Sliding Scale - SQ 4 units ACHS ALEX Administration Protocol Insulin Detemir 10 units 11/22/16 22:00 11/22/16 22:11 Levemir Vial SQ 10 unit HS ALEX Administration Levetiracetam 500 mg 11/21/16 22:00 11/23/16 09:07 Keppra - PO 500 mg BID ALEX Administration Ondansetron HCl 4 mg 11/09/16 02:49 11/23/16 14:01 Zofran Injection IVPUSH 4 mg Q8H PRN Administration NAUSEA AND/OR VOMITING Oxycodone HCl 5 mg 11/21/16 17:56 Roxicodone - PO Q6H PRN PAIN Pantoprazole Sodium 40 mg 11/11/16 12:45 11/23/16 09:07 Protonix - PO 40 mg DAILY ALEX Administration Petrolatum 1 applic 11/15/16 10:45 11/23/16 09:51 Vaseline TP 1 applic DAILY ALEX Administration ASSESSMENT/PLAN: 65 y/o woman with PMH of CAD and DM who presented with L sided weakness. She was found to have masses in the right side of her brain as well as in her liver and lungs. # Radiation therapy -Pt agreed to whole brain radiation therapy. -Pt went for RT of brain and back. Is having nausea since then. On Zofran -RT to continue Mon -Pt complaining of pain. Flexeril increased to 10mg TID # Brain Masses: likely mets from lung cancer - Cerebral edema - Keppra 500mg PO BID - Decadron 4mg IVPB Q6H -Whole brain RT -D/C Oxycodone 2/2 dizziness # Lung Mass: likely primary cancer -bronchoscopy showed an irregular friable mass in the right lung. -Pulm consult appreciated. -case discussed with Dr. Martinez. No need for Bx of brain or liver lesions in addition to lung Bx -possible therapy was discussed with patient who is open to radiation but does not want chemo at this time. -plan for radiation therapy following tissue diagnosis. -Bx shows NSCLC -pending testing for candidacy for immunotherapy # Back Pain -Back MRI showed L1 and L4 compression fracture without cord involvement -Bone scan showed osteoblastic metastases of left scapula, right clavicle, L2 body, and to a lesser extent, L1,L3, and L5 -Warm compresses for low back discomfort # DM -continue SSI # JEANNIE: resolved -encourage PO hydration -monitor labs and exam # Leukocytosis -no Sx of UTI -likely 2/2 steroids #Thrombocytopenia: resolved -continue heparin -continue to monitor labs #continue DVT ppx -Pt is frequently out of bed and walking -SCDs when in bed #FEN -not on fluids -monitor lytes -diabetic diet #Dispo -Admit to med-surg -pending planning for Heme/onc chemo vs radiation as out pt #d/w attending Visit type - Emergency Visit Emergency Visit: No - New Patient This patient is new to me today: No - Critical Care Critical Care patient: No
--- NOTE | 2016-11-23 15:07 | PN ---
Progress Note (short form) - Note Progress Note: Radiation Oncology Tolerating RT to brain and L-spine on fx #4 of 10 with mild nausea. Will continue on Saturday. Cont po decadron. Antiemetics prn. Seen by orthopedics who will f/u. No RT to clavicle fracture for now.
--- NOTE | 2016-11-23 19:19 | PN ---
Teaching Attending Note Name of Resident: Elian Urbano ATTENDING PHYSICIAN STATEMENT I saw and evaluated the patient. I reviewed the resident's note and discussed the case with the resident. I agree with the resident's findings and plan as documented. SUBJECTIVE: no fever or chills , mild back pain . no YU or nausea. no new weakness OBJECTIVE: NAD CV: RRR Lungs: CTAB ext : no edema NEuro: no facial droop, EOMI, round equal pupils , reactive to light , nl facial sensation, tongue and uvula at mid line. Shoulder shrug 5 on L , refused to do R , deltoid and shoulder flexion 5/5 on L , declined R . biceps and triceps 5/5 b/l , wrist felxion and extension 5/5 b/l . 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 No pronator drift hip flexion 5/5 b/l. R knee flexion and extension 5/ 5 , unable to evaluate strength due to knee sx. dorsiflexion and plantar flexion 5/5 b/l . sensation to light touch NL all over reflexes 2+ biceps , triceps B/L , and R biceps ASSESSMENT AND PLAN: 65 y/o lady with h/o CAD ,and DM who presneted with L sided weakness. She was found tohave R sided brain masses with R lung mass and Liver masses 1- poorly differentiated lung adenocarcinoma , with mets to Liver, Brain , epidural space , and skeleton - cont PO Keppra - cont IV decadron . will switch to po 4 mg q 6hr at dc - cont Radiation treatments 08/20. 2- DM : hold metformin and use SSI . levemir started due to severe hyperglycemia with steroids 3- JEANNIE :resolved. oral hydration. 4- Mild leuokytosis: likely due to steroids . will repeat tomorrow dipso : will arrange for dc tomorrow , with VNS, and equipments son will be transporting her to radiation
[2016-11-23] MEDS ORDERED: INSULIN (NOVOLOG) ASPART 100 UNITS/ML 10ML VIAL ONE (21:10)
[2016-11-23] MEDS: ATORVASTATIN CA 10 MG TABLET (FP) PO SCH (21:18)
[2016-11-23] MEDS: INSULIN DETEMIR 100 UNITS/ML MDV SQ SCH (21:18)
[2016-11-24 00:21] VITALS: BP 105/56; PULSE 84; TEMP 99
[2016-11-24] MEDS: DEXAMETHASONE 4 MG TABLET (FP) PO SCH ×3 (02:22→14:56)
[2016-11-24] MEDS: CYCLOBENZAPRINE HCL 10 MG TABLET (FP) PO PRN ×2 (02:23→08:39)
[2016-11-24] MEDS: INSULIN SLIDING SCALE (NOVOLOG) 1 VIAL SQ SCH ×2 (06:01→12:24)
[2016-11-24] MEDS ORDERED: INSULIN (NOVOLOG) ASPART 100 UNITS/ML 10ML VIAL ONE (06:26)
[2016-11-24 07:31] LABS: MCH 28.5 pg (25.7-33.7); MCHC 32.7 g/dl (32.0-36.0); MEAN CELL VOLUME 87.1 fl (80-96); MEAN PLT VOLUME 11.6 fl (7.5-11.1); PLATELET COUNT 156 K/MM3 (134-434); RDW 15.1 % (11.6-15.6); WHITE BLOOD COUNT 21.7 K/mm3 (4.0-10.0)
[2016-11-24] MEDS: ONDANSETRON 4 MG/2 ML VIAL IVPUSH PRN (08:39)
[2016-11-24 08:52] LABS: PLATELET ESTIMATE ADEQUATE (NORMAL)
[2016-11-24] MEDS: PANTOPRAZOLE 40 MG TABLET (FP) PO SCH (09:49)
[2016-11-24] MEDS: levETIRAcetam 500 MG TABLET (FP) PO SCH (09:49)
--- NOTE | 2016-11-24 12:04 | PN ---
Progress Note (short form) - Note Progress Note: Progress Note: Seen in follow up. No new complaints. Meds reviewed. Current Medications Generic Name Dose Route Start Last Admin Trade Name Freq PRN Reason Stop Dose Admin Artificial Tears 1 drop 11/17/16 10:28 Artificial Tears OU TID PRN DRY EYES Atorvastatin Calcium 10 mg 11/09/16 22:00 11/23/16 21:18 Lipitor - PO 10 mg HS ALEX Administration Benzocaine/Menthol 1 each 11/17/16 10:22 11/22/16 09:25 Cepacol Lozenge - MM 1 each PRN PRN Administration SORE THROAT Cyclobenzaprine HCl 10 mg 11/23/16 19:06 11/24/16 08:39 Flexeril - PO 10 mg TID PRN Administration PAIN Dexamethasone 4 mg 11/22/16 20:15 11/24/16 08:38 Decadron - PO 4 mg Q6H ALEX Administration Insulin Aspart 1 vial 11/14/16 09:28 11/24/16 06:01 Novolog Vial Sliding Scale - SQ 4 units ACHS ALEX Administration Protocol Insulin Detemir 10 units 11/22/16 22:00 11/23/16 21:18 Levemir Vial SQ 10 unit HS ALEX Administration Levetiracetam 500 mg 11/21/16 22:00 11/24/16 09:49 Keppra - PO 500 mg BID ALEX Administration Ondansetron HCl 4 mg 11/09/16 02:49 11/24/16 08:39 Zofran Injection IVPUSH 4 mg Q8H PRN Administration NAUSEA AND/OR VOMITING Pantoprazole Sodium 40 mg 11/11/16 12:45 11/24/16 09:49 Protonix - PO 40 mg DAILY ALEX Administration Petrolatum 1 applic 11/15/16 10:45 11/23/16 09:51 Vaseline TP 1 applic DAILY ALEX Administration On exam: CBC, [facility] 11/24/16 06:00 11/20/16 06:00 General: In no acute distress. Extremities: No pallor or icterus, no pedal edema. Chest:good air entry bilaterally, . Abdomen: Soft, no organomegaly, no masses. Neuro: Alert, oriented, non-focal. CVS: Normal sinus rhythm, S1, S2, no gallop or murmur. CBC, BMP 11/24/16 06:00 11/20/16 06:00 Assessment. Newly diagnosed NSCLC IV, with brain mets and spinal mets, currently receiving radiation. Steroids. Performance Status 2 Will be discharged soon, and will complete RTX, and initiate systemic chemotherapy as outpatient.
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
== END 2016-11-24 15:16 | disposition home health service (06) | DRG 166 ==
LOC: JER 15:24 → JERBED 11-09 00:21 → UNDOADMIN 11-09 00:50 → JERBED 11-09 00:50 → J7W 11-09 02:45
PROVIDERS: ADMIT Internal Medicine; ATTEND Internal Medicine
PROC: 0B9F8ZX Drainage of Right Lower Lung Lobe, Via Natural or Artificial Opening Endoscopic, Diagnostic (ICD-10-PCS; 2016-11-12)
PROC: 0BBF8ZX Excision of Right Lower Lung Lobe, Via Natural or Artificial Opening Endoscopic, Diagnostic (ICD-10-PCS; principal; 2016-11-12 14:00)
PROC: D0Y07ZZ Contact Radiation of Brain (ICD-10-PCS; 2016-11-20)
PROC: D0Y67ZZ Contact Radiation of Spinal Cord (ICD-10-PCS; 2016-11-20)
DX: C34.90 Malignant neoplasm of unspecified part of unspecified bronchus or lung (principal); G93.6 Cerebral edema; C79.31 Secondary malignant neoplasm of brain; N17.9 Acute kidney failure, unspecified; C78.7 Secondary malignant neoplasm of liver and intrahepatic bile duct; J98.11 Atelectasis; C79.51 Secondary malignant neoplasm of bone; M84.48XA Pathological fracture, other site, initial encounter for fracture; I10 Essential (primary) hypertension; I25.10 Atherosclerotic heart disease of native coronary artery without angina pectoris; I25.2 Old myocardial infarction; E11.9 Type 2 diabetes mellitus without complications; Z87.891 Personal history of nicotine dependence; Z79.84 Long term (current) use of oral hypoglycemic drugs; D69.6 Thrombocytopenia, unspecified; R11.10 Vomiting, unspecified; R19.7 Diarrhea, unspecified; D72.829 Elevated white blood cell count, unspecified
CPT/HCPCS: 36415; 70450-TC; 70552-TC; 71260-TC; 72149-TC; 74177-TC; 78306-TC; 80048; 80053; 81003; 81015; 82550; 84484; 85025; 85027; 85610; 86850; 86900; 86901; 87070; 87102; 87116; 87205; 87206; 87210; 88108; 88305-TC; 88341-TC; 90670; 93005; 93010; 94010; 94760; 99283-25; A9503; A9576; J1644

== ENCOUNTER 2016-12-27 07:31 | Day surgery (SDC) | payer OTHER ==
[2016-12-27 08:57] LABS: MCHC 33.5 g/dl (32.0-36.0); MEAN CELL VOLUME 86.5 fl (80-96); MEAN PLT VOLUME 9.8 fl (7.5-11.1); PLATELET COUNT 202 K/MM3 (134-434); RDW 17.2 % (11.6-15.6); WHITE BLOOD COUNT 11.1 K/mm3 (4.0-10.0)
[2016-12-27 09:18] LABS: ALBUMIN 2.3 g/dl (3.4-5.0); ANION GAP 8 (8-16); BILIRUBIN,DIRECT < 0.2 mg/dL (0.0-0.2); BILIRUBIN,TOTAL 0.5 mg/dL (0.2-1.0); CALCIUM 7.9 mg/dL (8.5-10.1); CO2 25 mmol/L (21-32); CREATININE 0.9 mg/dL (0.55-1.02); GLUCOSE,RANDOM 113 mg/dL (74-106); MAGNESIUM 2.1 mg/dL (1.8-2.4); SGOT/AST 12 U/L (15-37); SGPT/ALT 34 U/L (12-78); TOT PROT 6.1 g/dl (6.4-8.2)
[2016-12-27 09:19] LABS: ALK PHOS 78 U/L (45-117)
[2016-12-27] MEDS ORDERED: ZOLEDRONIC ACID 4 MG in SODIUM CHLORIDE 100 ML IVPB ONE ×2 (11:00→12:00)
[2016-12-27] MEDS ORDERED: SODIUM CHLORIDE 250 ML IV ONE ×4 (12:00→13:30)
[2016-12-27] MEDS ORDERED: PEMBROLIZUMAB 200 MG in SODIUM CHLORIDE 50 ML IV ONE ×2 (12:00→13:00)
[2016-12-27 14:09] LABS: PLATELET ESTIMATE ADEQUATE
[2016-12-27 18:32] VITALS: BP 106/60; PULSE 68; TEMP 98.1
== END 2016-12-27 16:00 | disposition home or self-care (01) ==
LOC: JINFUSION 07:31 → J7W 11:11 → JINFUSION 16:00
PROVIDERS: ATTEND Internal Medicine Hematology & Oncology
PROC: 3E03305 Introduction of Other Antineoplastic into Peripheral Vein, Percutaneous Approach (ICD-10-PCS; principal; 2016-12-27)
PROC: 3E0337Z Introduction of Electrolytic and Water Balance Substance into Peripheral Vein, Percutaneous Approach (ICD-10-PCS; 2016-12-27)
DX: C34.00 Malignant neoplasm of unspecified main bronchus (principal)
CPT/HCPCS: 36415; 80048; 80076; 83735; 85025; 86704; 86803; 87340; 93970-TC; 96361; 96413; J9271

== ENCOUNTER 2017-01-16 10:06 | Inpatient (IN) | payer OTHER ==
[2017-01-16] MEDS ORDERED: ALBUTEROL SO4 2.5/IPRATROPIUM 0.5 INH SOL 3 ML VIAL.NEB. NEB ONE ×2 (10:27→10:28)
[2017-01-16] MEDS ORDERED: VANCOMYCIN 1,000 MG in DEXTROSE 5%-WATER - 250 ML IVPB ONE (10:45)
--- NOTE | 2017-01-16 10:45 | PDOC ---
History of Present Illness - General History Source: Patient Exam Limitations: No Limitations - History of Present Illness Initial Comments: 01/16/17 10:48 The patient is a 66 year old female, BIBA with a significant past medical history of HTN, CAD, CA, and metastatic lung CA who presents to the emergency department with headaches, dizziness, and decreased appetite for the past 2-3 days. The patient arrives with decreased O2 Sat, and has been more lethargic since the onset of her symptoms. She also arrives with c/os of mild abdominal pain. The patient is currently being treated for metastatic lung cancer, currently going through chemotherapy. She denies recent fevers, or chills. She denies recent nausea, vomit, diarrhea or constipation. She denies recent dysuria, frequency, urgency or hematuria. She denies recent chest pain or shortness of breath. Allergies: NKDA Past surgical history: None reported. Social history: Denies EtOH use and recreational drug use. Primary Care Physician: Dr.Smitha Kim <Ulises Salas - Last Filed: 01/16/17 11:03> <Crys Dillon - Last Filed: 01/16/17 12:24> <Kassandra Locke - Last Filed: 01/16/17 12:46> - General Stated Complaint: R/O SEPSIS Time Seen by Provider: 01/16/17 10:10 Past History <Ulises Salas - Last Filed: 01/16/17 11:03> <Crys Dillon - Last Filed: 01/16/17 12:24> - Past Medical History Diabetes: Yes Disorders: Yes Hypercholesterolemia: Yes Seizures: Yes Lung CA: Yes (chemo and radaition therapy) - Surgical History Orthopedic Surgery: Yes - Psycho/Social/Smoking Cessation Hx Anxiety: No Suicidal Ideation: No Smoking History: Former smoker Have you smoked in the past 12 months: No Information on smoking cessation initiated: No Hx Alcohol Use: No Drug/Substance Use Hx: No Substance Use Type: None <Kassandra Locke - Last Filed: 01/16/17 12:46> - Past Medical History Allergies/Adverse Reactions: Allergies Allergy/AdvReac Type Severity Reaction Status Date / Time No Known Drug Allergies Allergy Verified 11/10/16 14:06 oats Allergy Verified 11/10/16 14:06 Home Medications: Ambulatory Orders Acetaminophen [Non-Aspirin Pain Relief] 500 mg PO TID PRN #60 tab 11/24/16 Alendronate Na [Fosamax (Weekly)] 70 mg PO Q7D #4 tablet 11/24/16 Atorvastatin Ca [Lipitor] 10 mg PO HS #1 tab 11/24/16 Calcium Carbonate/Vitamin D3 [Calcium 500 + Vit D3 400 Tab] 1 each PO BID #60 tablet 11/24/16 Dexamethasone [Decadron -] 4 mg PO Q6H #120 tablet 11/24/16 Icosapent Ethyl [Vascepa] 1 gm PO DAILY #0 cap 11/24/16 Insulin (Levemir) [Levemir Vial] 10 unit SQ HS #10 unit 11/24/16 Insulin Aspart [Novolog] See Protocol SQ AC #10 cartridge 11/24/16 Lancets 1 each MC AC #100 each 11/24/16 Levetiracetam [Keppra -] 500 mg PO BID #60 tab 11/24/16 Lidocaine 5% Patch [Lidoderm -] 1 patch TP DAILY #30 patch 11/24/16 Metformin HCl 500 mg PO BID #0 tab 11/24/16 Miscellaneous Medical Supply [Glucometer Device] 1 each SQ AC #1 kit 11/24/16 Miscellaneous Medical Supply [Glucometer Test Strips #100] 1 each SQ AC #1 box 11/24/16 Miscellaneous Medical Supply [Outpatient Order] 1 each MC ASDIR #1 misc Ondansetron HCl [Zofran] 4 mg PO Q8H #40 tab 11/24/16 Pantoprazole Sodium [Protonix -] 40 mg PO DAILY #30 tab 11/24/16 Pen Needle, Diabetic [Insulin Pen Needle] 1 each MC AC #100 dis.needle 11/24/16 Polyvinyl Alcohol [Artificial Tears] 1 drop OU TID PRN #0 drop 11/24/16 Syrge-Ndl,Ins 0.3 ml Half Elian [Insulin Syringe] 1 each MC HS #100 disp.syrin Review of Systems - Review of Systems Able to Perform ROS?: Yes Comments:: 01/16/17 10:48 GENERAL/CONSTITUTIONAL: No fever or chills. +weakness. +decreased appetite. HEAD, EYES, EARS, NOSE AND THROAT: No change in vision. No ear pain or discharge. No sore throat. CARDIOVASCULAR: No chest pain or shortness of breath. RESPIRATORY: No cough, wheezing, or hemoptysis. GASTROINTESTINAL: +abdominal pain. No nausea, vomiting, diarrhea or constipation. GENITOURINARY: No dysuria, frequency, or change in urination. MUSCULOSKELETAL: No joint or muscle swelling or pain. No neck or back pain. SKIN: No rash NEUROLOGIC: +headache and dizziness. No vertigo, loss of consciousness, or change in strength/sensation. ENDOCRINE: No increased thirst. No abnormal weight change. HEMATOLOGIC/LYMPHATIC: No anemia, easy bleeding, or history of blood clots. ALLERGIC/IMMUNOLOGIC: No hives or skin allergy. <Ulises Salas - Last Filed: 01/16/17 11:03> *Physical Exam - Vital Signs Last Vital Signs Temp Pulse Resp BP Pulse Ox 86 14 100/59 74 L 01/16/17 10:19 01/16/17 10:19 01/16/17 10:19 01/16/17 10:19 - Physical Exam Comments: 01/16/17 10:50 GENERAL: Awake, but lethargic , in no acute distress HEAD: No signs of trauma EYES: PERRLA, EOMI, sclera anicteric, conjunctiva clear ENT: Auricles normal inspection, hearing grossly normal, nares patent, oropharynx clear without exudates. Dry mucosa NECK: Normal ROM, supple, no lymphadenopathy, JVD, or masses LUNGS: Decreased breath sound bilaterally. Increased work of breathing. + Tachypneic. No wheezes, and no crackles HEART: Regular rate and rhythm, normal S1 and S2, no murmurs, rubs or gallops ABDOMEN: Soft, nontender, normoactive bowel sounds. No guarding, no rebound. No masses EXTREMITIES: Normal range of motion, no edema. No clubbing or cyanosis. No cords, erythema, or tenderness NEUROLOGICAL: Awake and alert but drowsy . Cranial nerves II through XII grossly intact. Normal speech, normal gait SKIN: Warm, Dry, normal turgor, no rashes or lesions noted. <Ulises Salas - Last Filed: 01/16/17 11:03> - Vital Signs Last Vital Signs Temp Pulse Resp BP Pulse Ox 98.5 F 76 14 85/83 94 L 09/06/17 10:10 01/16/17 12:12 01/16/17 10:19 01/16/17 12:13 01/16/17 12:12 <Crys Dillon - Last Filed: 01/16/17 12:24> - Vital Signs Last Vital Signs Temp Pulse Resp BP Pulse Ox 86 14 100/59 74 L 01/16/17 10:19 01/16/17 10:19 01/16/17 10:19 01/16/17 10:19 <Kassandra Locke - Last Filed: 01/16/17 12:46> Heart Score/ECG Review #1 General ECG Interpretation: Sinus Rhythm, Normal Rate (85), Normal Intervals, No acute ischemic changes Compared to previous ECG there are: No significant change (comparison 11/09/16) - ECG Intrepretation Rhythm: Regular Rhythm - Elsie Elsie: Left Elsie Deviation - QRS Widened: RBBB <Kassandra Locke - Last Filed: 01/16/17 12:46> ED Treatment Course - LABORATORY CBC & Chemistry Diagram: 01/16/17 10:25 01/16/17 10:25 - ADDITIONAL ORDERS Additional order review: Laboratory Results 01/16/17 01/16/17 01/16/17 11:25 10:25 10:25 VBG pH 7.32 POC VBG pCO2 38.7 POC VBG pO2 82.8 H Mixed VBG HCO3 19.4 Sodium Potassium Chloride Carbon Dioxide Anion Gap BUN Creatinine Creat Clearance w eGFR Random Glucose Lactic Acid 2.8 H* Calcium Total Bilirubin AST ALT Alkaline Phosphatase Creatine Kinase Troponin I Total Protein Albumin Blood Type A POSITIVE Antibody Screen Negative 01/16/17 10:25 VBG pH POC VBG pCO2 POC VBG pO2 Mixed VBG HCO3 Sodium 139 Potassium 5.3 H D Chloride 105 Carbon Dioxide 19 L D Anion Gap 15 BUN 59 H D Creatinine 1.9 H D Creat Clearance w eGFR 26.37 Random Glucose 421 H* D Lactic Acid Calcium 7.0 L Total Bilirubin 1.1 H D AST 1669 H ALT 1036 H D Alkaline Phosphatase 145 H D Creatine Kinase 274 H Troponin I 0.78 H* Total Protein 5.2 L Albumin 2.1 L Blood Type Antibody Screen 01/16/17 10:25 RBC 3.97 MCV 90.5 MCHC 31.8 L RDW 20.0 H D MPV 10.2 Neutrophils % Y Lymphocytes % Y - RADIOLOGY Radiograph Interpretation: 01/16/17 12:24 Chest x-ray, read and reviewed by Dr. Lassiter Impression: Bilateral interstitial and airspace disease suggestive of pneumonic infiltrates mainly in the right perihilar region wih consolidation/atelectasis in the right lower lobe extending to the inferior margin of the right hilum as well as a small right pleural effusion that was present on prior CT scan of the chest dates 06/11/2016. - Medications Given in the ED: ED Medications Discontinued Medications Generic Name Dose Route Start Last Admin Trade Name Freq PRN Reason Stop Dose Admin Albuterol/Ipratropium 1 amp 01/16/17 10:27 01/16/17 11:29 Duoneb - NEB 01/16/17 10:28 1 amp ONCE ONE Administration Vancomycin HCl 1,000 mg/ 250 mls @ 250 mls/hr 01/16/17 10:45 01/16/17 11:30 Dextrose IVPB 01/16/17 11:44 250 mls/hr ONCE ONE Administration Protocol Piperacillin Sod/Tazobactam 50 mls @ 100 mls/hr 01/16/17 10:49 01/16/17 11:30 Sod 3.375 gm/ Dextrose IVPB 01/16/17 11:18 100 mls/hr ONCE ONE Administration Protocol Methylprednisolone Sodium Succinate 125 mg 01/16/17 11:06 01/16/17 11:29 Solu-Medrol - IVPB 01/16/17 11:07 125 mg ONCE ONE Administration Sodium Chloride 1,000 ml 01/16/17 12:11 01/16/17 12:13 Normal Saline - IV 01/16/17 12:12 1,000 ml ONCE ONE Administration <HerchekCrys - Last Filed: 01/16/17 12:24> - LABORATORY CBC & Chemistry Diagram: 01/16/17 10:25 01/16/17 10:25 - RADIOLOGY Radiology Studies Ordered: Category Date Time Status CHEST X-RAY PORTABLE* [RAD] Stat Radiology 01/16/17 10:10 Ordered <Kassandra Locke - Last Filed: 01/16/17 12:46> Medical Decision Making - Medical Decision Making 01/16/17 11:03 Case discussed with , oncologist. <[place],Ulises - Last Filed: 01/16/17 11:03> - Medical Decision Making 01/16/17 10:33 66 yo F wit h/o metastatic lung cancer with mets to brain and other sites here with son for fever, worsening sob, and hypotension. had fever few days ago, decreased po intake last 2 - 3 days. today noted to be weaker, and sob. pt is currenlty DNR,/ DNI. followed by dr joy. oncologist. has been getting siezure prophylaxis and steroids recently for brain mets. on exam pt lethargic, increased work of breathing. lungs wiht decreased breath sounds. heart rrr no mrg. abd soft NT ND. ext wwp. no edema. plan: differential : pt wih resp failure, likley sepsis possible pna, vs. other source. michael labs cultures iv hydration rescusitation. pt is to be dnr/ dni. will assist work of breathing with bipap, and nebs. consult ICU. d/w dr. joy. cover abx for sepsis. 01/16/17 11:09 <Kassandra Locke - Last Filed: 01/16/17 12:46> *DC/Admit/Observation/Transfer - Attestations Scribe Attestion: 01/16/17 10:50 Documentation prepared by Ulises Salas, acting as medical aide for Kassandra Locke MD. <Ulises Salas - Last Filed: 01/16/17 11:03> - Attestations Scribe Attestion: 01/16/17 12:26 Documentation prepared by Crys Dillon, acting as medical aide for Kassandra Locke MD. <Crys Dillon - Last Filed: 01/16/17 12:24> - Discharge Dispostion Admit: Yes <Kassandra Locke - Last Filed: 01/16/17 12:46> Diagnosis at time of Disposition: Sepsis, Lung malignancy, Liver metastases - Referrals Referrals: AtaAneesh gordon [Primary Care Provider] -
[2017-01-16] MEDS ORDERED: PIPERACILLIN/TAZOB 3.375 GM 3.375 GM in DEXTROSE 5%-WATER - 50 ML IVPB ONE (10:49)
[2017-01-16] MEDS ORDERED: methylPREDNISolone NA SUCC 125 MG/2 ML VIAL IVPB ONE (11:06)
[2017-01-16 11:29] LABS: MCH 28.8 pg (25.7-33.7); MCHC 31.8 g/dl (32.0-36.0); MEAN CELL VOLUME 90.5 fl (80-96); MEAN PLT VOLUME 10.2 fl (7.5-11.1)
[2017-01-16 11:32] LABS: VENOUS BLOOD GAS HCO3 19.4 meq/L (19-25)
[2017-01-16 11:33] LABS: VENOUS PH 7.32 (7.32-7.42)
[2017-01-16] MEDS ORDERED: VANCOMYCIN 1 GRAM (PRE-DOCKED) 250 ML IVPB ONE (11:35)
[2017-01-16] MEDS ORDERED: methylPREDNISolone NA SUCC 125 MG/2 ML VIAL ONE (11:36)
[2017-01-16] MEDS ORDERED: PIPERACILLIN/TAZOB 3.375 GM 50 ML IVPB ONE (11:36)
[2017-01-16 11:45] LABS: INR 1.91 (0.82-1.09); PROTHROMBIN TIME (PATIENT) 21.3 SEC (9.98-11.88)
[2017-01-16 11:48] LABS: ACTIVATED PTT 26.1 SECONDS (26.9-34.4)
[2017-01-16 11:57] LABS: ALBUMIN 2.1 g/dl (3.4-5.0); ANION GAP 15 (8-16); CO2 19 mmol/L (21-32); CREATININE 1.9 mg/dL (0.55-1.02)
[2017-01-16 12:01] LABS: PLATELET COUNT 60 K/MM3 (134-434)
[2017-01-16] MEDS ORDERED: SODIUM CHLORIDE 0.9% 1000 ML INFUS.BAG IV ONE ×2 (12:11→12:29)
[2017-01-16 12:12] LABS: ALK PHOS 145 U/L (45-117); BILIRUBIN,TOTAL 1.1 mg/dL (0.2-1.0); CPK 274 IU/L (26-192); TOT PROT 5.2 g/dl (6.4-8.2)
[2017-01-16 12:19] LABS: SGOT/AST 1669 U/L (15-37); SGPT/ALT 1036 U/L (12-78); TROPONIN I 0.78 ng/ml (0.00-0.05)
[2017-01-16 12:20] LABS: GLUCOSE,RANDOM 421 mg/dL (74-106)
[2017-01-16 12:31] LABS: URINE APPEARANCE SLCLOUDY; URINE BILIRUBIN NEGATIVE (NEGATIVE); URINE BLOOD NEGATIVE (NEGATIVE); URINE COLOR DKYELLOW; URINE GLUCOSE (UA) 1+ (NEGATIVE); URINE KETONE NEGATIVE (NEGATIVE); URINE NITRITE NEGATIVE (NEGATIVE); URINE PROTEIN NEGATIVE (NEGATIVE); URINE UROBILINOGEN NEGATIVE mg/dL (0.2-1.0)
[2017-01-16] MEDS: INSULIN REGULAR HUMAN 100 UNITS/ML *VIAL IVPUSH ONE ×2 (12:35→14:05)
[2017-01-16 12:37] LABS: URINE LEUK ESTERASE 1+ (NEGATIVE)
[2017-01-16 12:38] LABS: URINE BACTERIA MANY /hpf (NONE SEEN); URINE HYALINE CAST 9 /lpf; URINE MUCUS RARE; URINE RBC 1 /hpf (0-3); URINE WBC 14 /hpf (3-5)
[2017-01-16] MEDS ORDERED: INSULIN REGULAR HUMAN 100 UNITS/ML *VIAL ONE ×2 (12:38→23:36)
[2017-01-16 12:45] LABS: METAMYELOCYTE 4 % (0-2); MYELOCYTE 1 % (0-2); NUCLEATED RED BLOOD CELL 8 % (0-0); TOTAL CELLS COUNTED 100; WHITE BLOOD COUNT 12.3 K/mm3 (4.0-10.0)
--- NOTE | 2017-01-16 12:48 | PN ---
Progress Note (short form) - Note Progress Note: PULMONARY CONSULTATION DICTATED 01/16/17 IMP ACUTE HYPOXEMIC RESPIRATORY FAILURE SEPSIS LIKELY PNEUMONIA ADVANCED METASTATIC LUNG CA WITH LIVER,CROZE CUTTER,BONE METS ACUTE RENAL FAILURE ELEVATED LACTATE + TROPONINS ELEVATED LFTS THROMBOCYTOPENIA PLAN IVF O2/BIPAP ANTIBIOTICS TREND LACTATE LEVEL TREND TROPONINS CULTURES EKG DUPLEX LOWER EXT DR NICOLAS Problem List - Problems (1) Brain metastasis Code(s): C79.31 - SECONDARY MALIGNANT NEOPLASM OF BRAIN (2) Liver metastases Code(s): C78.7 - SECONDARY MALIG NEOPLASM OF LIVER AND INTRAHEPATIC BILE DUCT (3) Lung malignancy Code(s): C34.90 - MALIGNANT NEOPLASM OF UNSP PART OF UNSP BRONCHUS OR LUNG Qualifiers: Laterality: right Lung location: hilum of lung Qualified Code(s) : C34.01 - Malignant neoplasm of right main bronchus (4) Weakness Code(s): R53.1 - WEAKNESS (5) Sepsis Code(s): A41.9 - SEPSIS, UNSPECIFIED ORGANISM (6) Acute hypoxemic respiratory failure Code(s): J96.01 - ACUTE RESPIRATORY FAILURE WITH HYPOXIA (7) Metastasis to spinal column Code(s): C79.51 - SECONDARY MALIGNANT NEOPLASM OF BONE (8) Thrombocytopenia Code(s): D69.6 - THROMBOCYTOPENIA, UNSPECIFIED (9) Lactate blood increase Code(s): R79.89 - OTHER SPECIFIED ABNORMAL FINDINGS OF BLOOD CHEMISTRY (10) Acute kidney failure Code(s): N17.9 - ACUTE KIDNEY FAILURE, UNSPECIFIED (11) Elevated troponin Code(s): R74.8 - ABNORMAL LEVELS OF OTHER SERUM ENZYMES
[2017-01-16] MEDS ORDERED: ARTIFICIAL TEARS (POLYVINYL ALCOHOL 1.4%) OPTH DROPS OU PRN (14:05)
--- NOTE | 2017-01-16 14:09 | HP ---
CHIEF COMPLAINT: Shortness of breath PCP/oncologist: Dr.Smitha Kim HISTORY OF PRESENT ILLNESS: This is a 66 year old female with a history of HTN, CAD/OR, lung ca with mets to the brain, bone, liver, and spine (s/p immunotherapy and RTX, no chemotherapy) brought into the ED complaining of shortness of breath and generalized weakness over the last 3 days. ER course was notable for: (1) SpO2 74% on arrival - placed on Bipap with improvement (2) Hypotension - 80's to 100's systolic (3) INR 1.91 (not on any AC) (4) Cr 1.9 (0.9 on admission about 1 month ago) (5) Glucose 421 (6) Troponin 0.78 (7) AST/ALT 1669/1036 (previously normal) (8) CXR: Right perihilar infiltrate with consolidation/atelectasis in the right lower lobe Recent Travel: None PAST MEDICAL HISTORY: As above PAST SURGICAL HISTORY: Gastric bypass, cholecystectomy, knee surgery Social History: Lives with son, reports she was previously independent in ADLs Smoking: Former smoker, quit about 10 years ago Alcohol: None Family History: Sister: lung ca () Allergies No Known Drug Allergies Allergy (Verified 11/10/16 14:06) oats Allergy (Verified 11/10/16 14:06) HOME MEDICATIONS: Home Medications Medication Instructions Recorded Acetaminophen [Non-Aspirin Pain 500 mg PO TID PRN #60 tab 11/24/16 Relief] Alendronate Na [Fosamax (Weekly)] 70 mg PO Q7D #4 tablet 11/24/16 Atorvastatin Ca [Lipitor] 10 mg PO HS #1 tab 11/24/16 Calcium Carbonate/Vitamin D3 1 each PO BID #60 tablet 11/24/16 [Calcium 500 + Vit D3 400 Tab] Dexamethasone [Decadron -] 4 mg PO Q6H #120 tablet 11/24/16 Icosapent Ethyl [Vascepa] 1 gm PO DAILY #0 cap 11/24/16 Insulin (Levemir) [Levemir Vial] 10 unit SQ HS #10 unit 11/24/16 Insulin Aspart [Novolog] See Protocol SQ AC #10 cartridge 11/24/16 Lancets 1 each AC #100 each 11/24/16 Levetiracetam [Keppra -] 500 mg PO BID #60 tab 11/24/16 Lidocaine 5% Patch [Lidoderm -] 1 patch TP DAILY #30 patch 11/24/16 Metformin HCl 500 mg PO BID #0 tab 11/24/16 Miscellaneous Medical Supply 1 each SQ AC #1 kit 11/24/16 [Glucometer Device] Miscellaneous Medical Supply 1 each SQ AC #1 box 11/24/16 [Glucometer Test Strips #100] Miscellaneous Medical Supply 1 each MC ASDIR #1 misc 11/24/16 [Outpatient Order] Ondansetron HCl [Zofran] 4 mg PO Q8H #40 tab 11/24/16 Pantoprazole Sodium [Protonix -] 40 mg PO DAILY #30 tab 11/24/16 Pen Needle, Diabetic [Insulin Pen 1 each AC #100 dis.needle 11/24/16 Needle] Polyvinyl Alcohol [Artificial 1 drop OU TID PRN #0 drop 11/24/16 Tears] Syrge-Ndl,Ins 0.3 ml Half Elian 1 each HS #100 disp.syrin 11/24/16 [Insulin Syringe] REVIEW OF SYSTEMS CONSTITUTIONAL: Generalized weakness, malaise, loss of appetite Absent: fever, chills, weight change HEENT: Absent: rhinorrhea, nasal congestion, throat pain, throat swelling, difficulty swallowing, mouth swelling, ear pain, eye pain, visual changes CARDIOVASCULAR: Absent: chest pain, syncope, palpitations, irregular heart rate, lightheadedness , peripheral edema RESPIRATORY: Cough, shortness of breath Absent: orthopnea, wheezing, stridor, hemoptysis GASTROINTESTINAL: Abdominal pain Absent: nausea, vomiting, diarrhea, constipation, melena, hematochezia GENITOURINARY: Absent: dysuria, frequency, urgency, hesitancy, hematuria, flank pain, genital pain MUSCULOSKELETAL: Absent: myalgia, arthralgia, joint swelling, back pain, neck pain SKIN: Absent: rash, itching, pallor HEMATOLOGIC/IMMUNOLOGIC: Absent: easy bleeding, easy bruising, lymphadenopathy, frequent infections ENDOCRINE: Absent: unexplained weight gain, unexplained weight loss, heat intolerance, cold intolerance NEUROLOGIC: Absent: headache, focal weakness or paresthesias, dizziness, unsteady gait, seizure, mental status changes, bladder or bowel incontinence PSYCHIATRIC: Absent: anxiety, depression, suicidal or homicidal ideation, hallucinations. PHYSICAL EXAMINATION Vital Signs - 24 hr 09/06/17 09/06/17 13:16 14:03 Pulse Rate [ 80 84 Left Apical] Respiratory 12 16 Rate Blood Pressure 97/55 102/71 [Left Arm] O2 Sat by Pulse 99 99 Oximetry (%) GENERAL: Awake, alert, and fully oriented (name, [facility], 2016), in respiratory distress. HEAD: Normal with no signs of trauma. EYES: Pupils equal, round and reactive to light, extraocular movements intact, sclera anicteric, conjunctiva clear. No lid lag. EARS, NOSE, THROAT: Ears normal, nares patent, oropharynx clear without exudates. Moist mucous membranes. NECK: Normal range of motion, supple without lymphadenopathy, JVD, or masses. LUNGS: Tachypneic on Bipap. Scattered ronchi. Breath sounds diminished at bases. HEART: Regular rate and rhythm, normal S1 and S2 without murmur, rub or gallop. ABDOMEN: Soft, no focal tenderness, not distended, normoactive bowel sounds, no guarding, no rebound, no masses. No hepatomegaly or splenomegaly. MUSCULOSKELETAL: Normal range of motion at all joints. No bony deformities or tenderness. No CVA tenderness. UPPER EXTREMITIES: 2+ pulses, warm, well-perfused. No cyanosis. No clubbing. No peripheral edema. LOWER EXTREMITIES: 2+ pulses, warm, well-perfused. No calf tenderness. No peripheral edema. NEUROLOGICAL: Cranial nerves II-XII intact. Normal speech. Normal gait. PSYCHIATRIC: Cooperative. Good eye contact. Appropriate mood and affect. SKIN: Warm, dry, normal turgor, no rashes or lesions noted, normal capillary refill. Laboratory Results - last 24 hr 01/16/17 13:29 Lactic Acid 1.9 ASSESSMENT/PLAN: 66 year old female with metastatic lung ca admitted with respiratory failure and sepsis likely secondary to PNA. Problem List - Problem (1) Pneumonia Assessment/Plan: -HCAP (last hospitalization <1 month ago) -Continue Vancomycin/Zosyn, add Azithromycin -Follow up urine antigens, blood cultures, sputum culture Code(s): J18.9 - PNEUMONIA, UNSPECIFIED ORGANISM (2) Sepsis Assessment/Plan: -Continue IVF resuscitation -Patient and family DO want central access/vasopressors if needed - must continue goals of care discussion -Palliative care involvement -Stress-dose steroids (on daily Decadron at home) -Follow up cultures, legionella antigen -Abx as above Code(s): A41.9 - SEPSIS, UNSPECIFIED ORGANISM (3) Respiratory failure Assessment/Plan: -Continue BiPap support; patient is DNR/DNI -Treatment of PNA as above -R/o PE -Evaluated by critical care team and not deemed candidate for ICU admission Code(s): J96.90 - RESPIRATORY FAILURE, UNSP, UNSP W HYPOXIA OR HYPERCAPNIA (4) Lung cancer, primary, with metastasis from lung to other site Assessment/Plan: -Palliative care evaluation -Oncology consultation Code(s): C34.90 - MALIGNANT NEOPLASM OF UNSP PART OF UNSP BRONCHUS OR LUNG (5) JEANNIE (acute kidney injury) Assessment/Plan: -Continue fluid resuscitation -Avoid nephrotoxic meds as able -Dose abx for Cr Cl 27 Code(s): N17.9 - ACUTE KIDNEY FAILURE, UNSPECIFIED (6) Hyperglycemia Assessment/Plan: -In the setting of chronic steroid use -Insulin 10 units given in ED -Continue Levemir at half home dose (NPO) -FS q6h -ISS -Check A1C Code(s): R73.9 - HYPERGLYCEMIA, UNSPECIFIED (7) Thrombocytopenia Assessment/Plan: -?secondary to sepsis -No chemical ppx -Monitor Code(s): D69.6 - THROMBOCYTOPENIA, UNSPECIFIED (8) Abnormal LFTs Assessment/Plan: -?shock liver, known liver mets -Abd u/s -Avoid hepatotoxic meds as able -Continue IVF resuscitation -Follow -Consider CTAP when stable Code(s): R79.89 - OTHER SPECIFIED ABNORMAL FINDINGS OF BLOOD CHEMISTRY (9) Elevated troponin Assessment/Plan: -Suspect demand-related rather than true ACS -Serial enzymes -PE is a consideration; obtain duplex LE to r/o DVT Code(s): R74.8 - ABNORMAL LEVELS OF OTHER SERUM ENZYMES (10) DVT prophylaxis Assessment/Plan: -SCDs -Protonix (sepsis, steroids, critical illness) Addendum: Patient remains hypotensive in 80s systolic following 3L IVF. Discussed with aftab Guerrero via phone and with patient. Explained that prognosis is poor and recommended palliative approach, however both son and patient do want central line placement and vasopressors. Discussed with Dr. Garcia in ED - patient is still boarding there, so ED will place line. ICU consult paged to discuss change in disposition. Accepted by Dr. Llamas. Code(s): [id number] - Visit type - Emergency Visit Emergency Visit: Yes ED Registration Date: 01/16/17 Care time: The patient presented to the Emergency Department on the above date and was hospitalized for further evaluation of their emergent condition. - New Patient This patient is new to me today: Yes Date on this admission: 01/18/17 - Critical Care Critical Care patient: Yes Total Critical Care Time (in minutes): 40 Critical Care Statement: The care of this patient involved high complexity decision making to prevent further life threatening deterioration of the patient 's condition and/or to evaluate & treat vital organ system(s) failure or risk of failure.
[2017-01-16] MEDS ORDERED: PANTOPRAZOLE SODIUM 40 MG in SODIUM CHLORIDE 100 ML IVPB SCH ×2 (14:15→15:04)
[2017-01-16] MEDS: HYDROCORTISONE SOD SUCCINATE 100 MG/2 ML VIAL IVPB SCH ×2 (14:42→21:44)
[2017-01-16] MEDS ORDERED: AZITHROMYCIN IVPB 500 MG in DEXTROSE 5%-WATER - 250 ML IVPB ONE (14:42)
[2017-01-16] MEDS ORDERED: PANTOPRAZOLE SODIUM 100 ML IVPB ONE (14:46)
[2017-01-16] MEDS ORDERED: AZITHROMYCIN IVPB 250 ML IVPB ONE (14:47)
--- NOTE | 2017-01-16 14:47 | EKG ---
Test Reason : Blood Pressure : / mmHG Vent. 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
[2017-01-16] MEDS ORDERED: ONDANSETRON 4 MG/2 ML VIAL IVPB PRN (14:58)
--- NOTE | 2017-01-16 14:58 | CONS ---
PULMONARY CONSULTATION DATE OF CONSULTATION: 01/16/2017 REFERRING PHYSICIAN: The patient is a 66-year-old white female known to me from previous hospitalizations in the past. 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 intake, shortness of breath, fever, headaches, and dizziness. The patient denied any complaint of nausea, vomiting or diaphoresis. The patient presented to the emergency department. In the ER, she was noted to be hypoxic and lethargic. She was placed on BiPAP. She was noted to be hypotensive. She was started on IV fluid with some clinical response. The patient denies any chest pain, nausea or vomiting. She denies any history of DVT or PE in the past. The patient underwent a chest x-ray that revealed increased markings bilaterally with a right lower lobe consolidation which was noted in previous CAT scan of the chest. PAST MEDICAL HISTORY: Again includes advanced bronchogenic carcinoma, non-small cell, with extensive metastasis to the brain, bone and liver; hypertension; ASHD ; status post DE. REVIEW OF SYSTEMS: Positive shortness of breath. Positive fever. Positive weakness. Positive decreased intake. No chest pain. No palpitations. No hemoptysis. Positive cough with sputum. No lower extremity edema. MEDICATIONS: Prior to admission include Fosamax, Lipitor, vitamin B3, Decadron, Levemir, NovoLog, Keppra, pantoprazole, and Zofran. PHYSICAL EXAMINATION: General: The patient is an elderly, chronically ill-appearing, white female, well developed, well nourished, awake, on BiPAP. Currently appears comfortable. Vital signs: She is currently afebrile. Her blood pressure is 85/53, respiratory rate is 18, O2 saturation is 100% on BiPAP on 100% FiO2. HEENT: Exam is normocephalic, atraumatic. Neck: Supple. Heart: Regular S1 and S2. Chest: Bilateral crackles. Abdomen: Soft. Bowel sounds are present. Extremities: No cyanosis, edema. LABORATORIES: WBC is 11.1, hemoglobin 11.4, hematocrit 36, platelet count of 60 ,000. INR is 1.91. Venous blood gas: PH 7.32, PCO2 of 38, PO2 of 82, mixed venous bicarbonate of 19. BUN 59, creatinine 1.9, lactate is 2.8. AST is 1669, ALT is 1036, alkaline phosphatase is 145. CK is 274, troponin 0.78. IMPRESSION: 1. Acute hypoxemic respiratory failure, multiple factors, with possible pneumonia. 2. Advanced bronchogenic carcinoma. 3. Hypotension. 4. Sepsis. 5. Dehydration. 6. Acute renal failure. 7. Elevated lactate. 8. Elevated liver function tests. 9. Positive troponins. PLAN: IV fluids. Broad-spectrum antibiotics. Continue BiPAP. Followup ABGs. Pancultures. Trend lactate. Monitor renal function. Trend troponins. EKG. Duplex lower ext. TYRA NICOLAS M.D. NOEL/[id number] MTDD
[2017-01-16] MEDS ORDERED: INSULIN SLIDING SCALE (NOVOLOG) 1 VIAL SQ SCH (15:00)
[2017-01-16] MEDS ORDERED: PIPERACILLIN/TAZOB 3.375 GM/50 ML PRE-DOCKED IVPB SCH ×2 (15:00→18:00)
--- NOTE | 2017-01-16 15:21 | PN ---
Progress Note (short form) - Note Progress Note: ID consult recent diagnosis of metastatic lung cancer- nonsmall cell- adenocarcinoma mets to liver, bone, brain s/p WBRT on decadron s/p chemotherapy now with 3 day history of sob with cough and weakness on bipap denies fevers or chills no abdominal pain, chest pain no diarrhea or dysuria noted to be hypotensive, hypoxic in ED labs with elevated creatinine, thrombocytopenia, elevated LFTS cxray with chronic RLL infiltrate/atelectais increased right perihilar markings as well she is alert poor historian not neutropenic respiratory failure sepsis probable pneumonia agree with coverage for HAP with vanco/zosyn/zithromax cultures sputum and blood urinary antigens for pneumonia abnl lfts- ?chemo, ?hypotension, for sonogram JEANNIE- vanco trough in am, adjust doses of antibiotics metastatic lung cancer overall prognosis is poor Problem List - Problems (1) Respiratory failure Code(s): J96.90 - RESPIRATORY FAILURE, UNSP, UNSP W HYPOXIA OR HYPERCAPNIA (2) Sepsis Code(s): A41.9 - SEPSIS, UNSPECIFIED ORGANISM (3) Pneumonia Code(s): J18.9 - PNEUMONIA, UNSPECIFIED ORGANISM (4) Abnormal LFTs Code(s): R79.89 - OTHER SPECIFIED ABNORMAL FINDINGS OF BLOOD CHEMISTRY (5) JEANNIE (acute kidney injury) Code(s): N17.9 - ACUTE KIDNEY FAILURE, UNSPECIFIED (6) Lung cancer, primary, with metastasis from lung to other site Code(s): C34.90 - MALIGNANT NEOPLASM OF UNSP PART OF UNSP BRONCHUS OR LUNG
[2017-01-16 16:00] VITALS: BMI 29.0
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
[2017-01-16 18:09] LABS: TROPONIN I 0.94 ng/ml (0.00-0.05)
[2017-01-16] MEDS: PIPERACILLIN/TAZOB 3.375 GM 3.375 GM in DEXTROSE 5%-WATER - 50 ML IVPB SCH (18:11)
[2017-01-16] MEDS ORDERED: SODIUM CHLORIDE 1,000 ML IV STA (18:13)
--- NOTE | 2017-01-16 18:44 | PDOC ---
ED Treatment Course - LABORATORY CBC & Chemistry Diagram: 01/18/17 05:35 01/18/17 05:35 - ADDITIONAL ORDERS Additional order review: Laboratory Results 01/16/17 01/16/17 01/16/17 11:25 11:25 10:25 INR PTT (Actin FS) VBG pH 7.32 POC VBG pCO2 38.7 POC VBG pO2 82.8 H Mixed VBG HCO3 19.4 Sodium Potassium Chloride Carbon Dioxide Anion Gap BUN Creatinine Creat Clearance w eGFR Random Glucose Lactic Acid Calcium Total Bilirubin AST ALT Alkaline Phosphatase Creatine Kinase Creatine Kinase Index CK-MB (CK-2) Troponin I Total Protein Albumin Urine Color Dkyellow Urine Appearance Slcloudy Urine pH 5.0 Ur Specific [place] 1.015 Urine Protein Negative Urine Glucose (UA) 1+ H D Urine Ketones Negative Urine Blood Negative Urine Nitrite Negative Urine Bilirubin Negative Urine Urobilinogen Negative Ur Leukocyte Esterase 1+ H Urine RBC 1 Urine WBC 14 Ur Epithelial Cells Rare Urine Bacteria Many Hyaline Casts 9 Urine Mucus Rare Blood Type A POSITIVE Antibody Screen Negative 01/16/17 01/16/17 01/16/17 10:25 10:25 10:25 INR 1.91 H D PTT (Actin FS) 26.1 L VBG pH POC VBG pCO2 POC VBG pO2 Mixed VBG HCO3 Sodium 139 Potassium 5.3 H D Chloride 105 Carbon Dioxide 19 L D Anion Gap 15 BUN 59 H D Creatinine 1.9 H D Creat Clearance w eGFR 26.37 Random Glucose 421 H* D Lactic Acid 2.8 H* Calcium 7.0 L Total Bilirubin 1.1 H D AST 1669 H ALT 1036 H D Alkaline Phosphatase 145 H D Creatine Kinase 274 H Creatine Kinase Index 2.6 CK-MB (CK-2) 7.142 H Troponin I 0.78 H* Total Protein 5.2 L Albumin 2.1 L Urine Color Urine Appearance Urine pH Ur Specific [place] Urine Protein Urine Glucose (UA) Urine Ketones Urine Blood Urine Nitrite Urine Bilirubin Urine Urobilinogen Ur Leukocyte Esterase Urine RBC Urine WBC Ur Epithelial Cells Urine Bacteria Hyaline Casts Urine Mucus Blood Type Antibody Screen 01/16/17 10:25 RBC 3.97 MCV 90.5 MCHC 31.8 L RDW 20.0 H D MPV 10.2 Neutrophils % Y Lymphocytes % Y - Medications Given in the ED: ED Medications Discontinued Medications Generic Name Dose Route Start Last Admin Trade Name Freq PRN Reason Stop Dose Admin Albuterol/Ipratropium 1 amp 01/16/17 10:27 01/16/17 11:29 Duoneb - NEB 01/16/17 10:28 1 amp ONCE ONE Administration Vancomycin HCl 1,000 mg/ 250 mls @ 250 mls/hr 01/16/17 10:45 01/16/17 11:30 Dextrose IVPB 01/16/17 11:44 250 mls/hr ONCE ONE Administration Protocol Piperacillin Sod/Tazobactam 50 mls @ 100 mls/hr 01/16/17 10:49 01/16/17 11:30 Sod 3.375 gm/ Dextrose IVPB 01/16/17 11:18 100 mls/hr ONCE ONE Administration Protocol Pantoprazole Sodium 40 mg/ 100 mls @ 200 mls/hr 01/16/17 14:15 01/16/17 14:09 Sodium Chloride IVPB 200 mls/hr DAILY ALEX Administration Azithromycin 500 mg/ Dextrose 250 mls @ 250 mls/hr 01/16/17 14:42 01/16/17 14: 44 IVPB 01/16/17 15:41 250 mls/hr ONCE ONE Administration Insulin Human Regular 8 units 01/16/17 12:23 01/16/17 14:05 Novolin R Vial *For Ivpush Or Iv Drip Only* IVPUSH 01/16/17 12:24 8 unit ONCE ONE Administration Methylprednisolone Sodium Succinate 125 mg 01/16/17 11:06 01/16/17 11:29 Solu-Medrol - IVPB 01/16/17 11:07 125 mg ONCE ONE Administration Piperacillin Sod/Tazobactam Sod 3.375 gm 01/16/17 15:00 01/16/17 15:05 Zosyn 3.375gm Ivpb (Pre-Docked) IVPB Not Given Q6H [facility] Protocol Sodium Chloride 1,000 ml 01/16/17 12:11 01/16/17 12:13 Normal Saline - IV 01/16/17 12:12 1,000 ml ONCE ONE Administration Sodium Chloride 1,000 ml 01/16/17 12:29 01/16/17 12:35 Normal Saline - IV 01/16/17 12:30 1,000 ml ONCE ONE Administration Medical Decision Making - Medical Decision Making 01/16/17 18:43 Pt remains hypotensive [employer]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
[2017-01-16 18:53] LABS: ANION GAP 11 (8-16); CO2 20 mmol/L (21-32); CREATININE 1.7 mg/dL (0.55-1.02)
[2017-01-16 19:08] LABS: CALCIUM 6.4 mg/dL (8.5-10.1); GLUCOSE,RANDOM 476 mg/dL (74-106)
--- NOTE | 2017-01-16 20:26 | CONSULT ---
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 VS in the ED: T 98.5, HR 84, BP 89/49, RR 16, reported to be satting 74% on RA. Pt was placed on bi-pap with improvement in sats to 100%. Labs were notable for WBC 12, plt 60, creat 1.7 (was 1.0 last month), elevated transaminases, and VBG 7.32/38/82. Initial lactate was 2.8-> 1.9, trop 0.78-> 0.94. BG 421. CXR showed known RLL lesion though unable to r/o concurrent infiltrate, and UA with 14WBC, 1RBC, +LE. Pt was cultured and started on vanco, zosyn, azithro per ID recs. She was also given stress dose steroids. BP was persistently low and after discussion with patient and son, they were amenable to transfer to ICU and possible central line placement if needed. DNR/ DNI status confirmed. Pt arrived in the ICU with SBP 90s to low 100s. LE doppler with + LLE DVT. EKG concerning for strain pattern. PE high on differential however given new JEANNIE , pt is not able to undergo CTA. Also, given significant thrombocytopenia, mildly elevated INR and known brain mets, will defer emperic anticoagulation without clearance from neuro. After discussion with son, we will pursue central line placement only if necessary in favor of less invasive methods, IVF, peripheral pressors. He and pt confirmed DNR/DNI status. Current Medications Artificial Tears (Artificial Tears) 1 drop OU TID PRN PRN Reason: DRY EYES Last Admin: 01/16/17 16:51 Dose: 1 drop Hydrocortisone Sodium Succinate (Solu-Cortef -) 100 mg IVPB Q8H ALEX Last Admin: 01/16/17 21:44 Dose: 100 mg Azithromycin 250 mg/ Dextrose 250 mls @ 250 mls/hr IVPB DAILY ALEX Stop: 01/20/17 10:59 Pantoprazole Sodium 40 mg/ (Sodium Chloride) 100 mls @ 200 mls/hr IVPB DAILY ALEX Piperacillin Sod/Tazobactam (Sod 3.375 gm/ Dextrose) 50 mls @ 100 mls/hr IVPB Q8H-IV ALEX Last Admin: 01/16/17 18:11 Dose: 100 mls/hr Insulin Human Regular 100 (units/ Sodium Chloride) 100 mls @ 7.66 mls/hr IVPB TITR ALEX; 0.1 UNITS/KG/HR PRN Reason: Protocol Levetiracetam (Keppra -) 500 mg PO BID ALEX Last Admin: 01/16/17 21:29 Dose: Not Given Lidocaine (Lidoderm Patch -) 1 patch TP DAILY [facility] Miscellaneous (Lidoderm Patch Removal) 1 each MC DAILY@2200 ALEX Ondansetron HCl (Zofran Injection) 4 mg IVPB Q6H PRN PRN Reason: NAUSEA - History Source History Provided By: Patient, Family Member, Medical Record Limitations to Obtaining History: No Limitations - Past Medical History 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 No: Alzheimer's Cardio/Vascular: Yes: CAD, HTN, DC. No: AFIB Pulmonary: Yes: Other (lung ca) Heme/Onc: Yes: Current Radiation Therapy, Other (metastatic lung cancer) Musculoskeletal: Yes: Chronic low back pain Endocrine: Yes: Diabetes Mellitus - Alcohol/Substance Use Hx Alcohol Use: No - Smoking History Smoking history: Former smoker Have you smoked in the past 12 months: No - Social History Usual Living Arrangement: With Child ADL: Independent History of Recent Travel: No Home Medications - Allergies Allergies/Adverse Reactions: Allergies Allergy/AdvReac Type Severity Reaction Status Date / Time No Known Drug Allergies Allergy Verified 11/10/16 14:06 oats Allergy Verified 11/10/16 14:06 - Home Medications Home Medications: Ambulatory Orders Acetaminophen [Non-Aspirin Pain Relief] 500 mg PO TID PRN #60 tab 11/24/16 Alendronate Na [Fosamax (Weekly)] 70 mg PO Q7D #4 tablet 11/24/16 Atorvastatin Ca [Lipitor] 10 mg PO HS #1 tab 11/24/16 Calcium Carbonate/Vitamin D3 [Calcium 500 + Vit D3 400 Tab] 1 each PO BID #60 tablet 11/24/16 Dexamethasone [Decadron -] 4 mg PO Q6H #120 tablet 11/24/16 Icosapent Ethyl [Vascepa] 1 gm PO DAILY #0 cap 11/24/16 Insulin (Levemir) [Levemir Vial] 10 unit SQ HS #10 unit 11/24/16 Insulin Aspart [Novolog] See Protocol SQ AC #10 cartridge 11/24/16 Levetiracetam [Keppra -] 500 mg PO BID #60 tab 11/24/16 Lidocaine 5% Patch [Lidoderm -] 1 patch TP DAILY #30 patch 11/24/16 Metformin HCl 500 mg PO BID #0 tab 11/24/16 Ondansetron HCl [Zofran] 4 mg PO Q8H #40 tab 11/24/16 Pantoprazole Sodium [Protonix -] 40 mg PO DAILY #30 tab 11/24/16 Family Disease History - Family Disease History Family Disease History: CA: Sister Review of Systems Unable to obtain ROS, reason: pt lethargic Physical Exam Vital Signs: Vital Signs Temperature 98.1 F 01/16/17 16:59 Pulse Rate 74 01/16/17 18:55 Respiratory Rate 16 01/16/17 18:55 Blood Pressure 87/53 01/16/17 18:55 O2 Sat by Pulse Oximetry (%) 95 01/16/17 18:55 Constitutional: Yes: Calm Eyes: Yes: Conjunctiva Clear, Other (pupils equal and round) HENT: Yes: Atraumatic Neck: Yes: Supple Cardiovascular: Yes: Regular Rate and Rhythm, S1, S2. No: Gallop, Murmur, Rub Respiratory: Yes: Accessory Muscle Use, On BiPap, Other (diminished b/l lower lobes) Gastrointestinal: Yes: Normal Bowel Sounds, Soft. No: Tenderness Extremities: Yes: WNL, Cool (cool distal LE) Edema: No Peripheral Pulses WNL: Yes Integumentary: Yes: Other (scattered ecchymosis) Neurological: Yes: Other (arousable, follows commands, answers yes/ no, strength equal bilaterally) ...Motor Strength: WNL Psychiatric: Yes: WNL Labs: CBC, BMP 01/16/17 17:17 Imaging - Results Chest X-ray: Report Reviewed, Image Reviewed Ultrasound: Report Reviewed EKG: Report Reviewed, Image Reviewed Other: Report Reviewed (LE doppler) Problem List - Problems (1) JEANNIE (acute kidney injury) Code(s): N17.9 - ACUTE KIDNEY FAILURE, UNSPECIFIED (2) Abnormal LFTs Code(s): R79.89 - OTHER SPECIFIED ABNORMAL FINDINGS OF BLOOD CHEMISTRY (3) Elevated troponin Code(s): R74.8 - ABNORMAL LEVELS OF OTHER SERUM ENZYMES (4) Hyperglycemia Code(s): R73.9 - HYPERGLYCEMIA, UNSPECIFIED (5) Lactate blood increase Code(s): R79.89 - OTHER SPECIFIED ABNORMAL FINDINGS OF BLOOD CHEMISTRY (6) Lung cancer, primary, with metastasis from lung to other site Code(s): C34.90 - MALIGNANT NEOPLASM OF UNSP PART OF UNSP BRONCHUS OR LUNG (7) Respiratory failure Code(s): J96.90 - RESPIRATORY FAILURE, UNSP, UNSP W HYPOXIA OR HYPERCAPNIA (8) Sepsis Code(s): A41.9 - SEPSIS, UNSPECIFIED ORGANISM (9) Thrombocytopenia Code(s): D69.6 - THROMBOCYTOPENIA, UNSPECIFIED (10) Brain metastasis Code(s): C79.31 - SECONDARY MALIGNANT NEOPLASM OF BRAIN (11) Liver metastases Code(s): C78.7 - SECONDARY MALIG NEOPLASM OF LIVER AND INTRAHEPATIC BILE DUCT (12) Lung malignancy Code(s): C34.90 - MALIGNANT NEOPLASM OF UNSP PART OF UNSP BRONCHUS OR LUNG Qualifiers: Laterality: right Lung location: hilum of lung Qualified Code(s) : C34.01 - Malignant neoplasm of right main bronchus (13) Metastasis to spinal column Code(s): C79.51 - SECONDARY MALIGNANT NEOPLASM OF BONE (14) Weakness Code(s): R53.1 - WEAKNESS (15) DVT (deep venous thrombosis) Code(s): I82.409 - ACUTE EMBOLISM AND THOMBOS UNSP DEEP VN UNSP LOWER EXTREMITY (16) UTI (urinary tract infection) Code(s): N39.0 - URINARY TRACT INFECTION, SITE NOT SPECIFIED Assessment/Plan Assessment/ Plan: 66 y/o woman with h/o HTN, CAD/ DC and 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 Pulm: Respiratory insufficiency in the setting of known lung met now with new hypoxia and + DVT study, concerning for PE -continue bi-pap for work of breathing and hypoxia -trend ABG -wean O2 as able -continue nebs -consider diuresis if BP stablizes and creatinine improves -possible CT angio if stable/ renal function stable to eval for possible PE given + DVT study -defer emperic anticoagulation until cleared by neuro given known brain mets and thrombocytopenia/ mild coagulopathy CV: Relative hypotension likely in the setting of urosepsis +/- cardiogenic 2/2 possible PE -consider cards consult -hemodynamic monitoring -hold home anti-HTN -IVF as needed though cautious given hypoxia and DNI status -peripheral dopamine/ neosynephrine as needed - family and pt amenable to central line if needed but would be in favor of less invasive treatments if possible -continue stress dose steroids -trend lactate -TTE -EKG -trend trops ID: Immunocompromised at baseline given underlying cancer now presenting with mild leukocytosis and hypotension, dirty UA concerning for urosepsis, cannot r/ o underlying PNA -plan per ID consult -continue vanco and zosyn for broad spectrum coverage -continue azithro for atypicals -f/u daniel culture -trend WBC, temperature curve Renal: JEANNIE likely secondary to hypotension; metabolic acidosis likely multifactorial - JEANNIE, hyperglycemia, +/- lactic acidosis -follow creat -renally dose meds -glycemic control as outlined below -renal us/ urine lytes if not improving -cautious IVF given DNI status Endo: DM now hyperglycemic likely compounded by steroids -insulin gtt until BG better controlled -trend AG -transition back to Levamir with sliding scale when BG better controlled Neuro: brain mets, somewhat lethargic likely in setting of UTI +/- hypotension -monitor mental status -continue keppra - home med -pain control as needed -f/u with neuro re: possible anticoagulation for DVT and possible PE GI: known liver mets; elevated liver enzymes on admission likely 2/2 mets vs 2/ 2 hypotension or hepatic congestion in setting of possible cardiogenic shock 2/ 2 PE -trend LFTs -hold statin -pantoprazole -NPO given tenuous respiratory status - advance as appropriate Heme/Onc: Metastatic lung Ca, now with + LLE DVT, concern for possible PE; thrombocytopenia and mild coagulopathy -f/u with neuro about whether anticoagulation is contraindicated -consider IVC filter for DVT -consider systemic anticoagulation for possible PE if cleared with neuro Ppx: -pantoprazole -venodynes - RLE only as + DVT in LLE Dispo: DNR/ DNI Contact info: Cesar Fink ([address] [place]) [phone] Varsha RAMIREZP CC time: 35 mins
[2017-01-16] MEDS: levETIRAcetam 500 MG TABLET (FP) PO SCH (21:29)
[2017-01-16] MEDS ORDERED: INSULIN REGULAR 100 UNITS in SODIUM CHLORIDE 99 ML IVPB SCH ×2 (21:45→23:00)
[2017-01-16 21:55] LABS: ARTERIAL BLD GAS O2 SATURATION 89.4 % (90-98.9); ARTERIAL BLOOD GAS BASE EXCESS -7.6 meq/l (-2-2)
[2017-01-16 21:56] LABS: ALLENS TEST POSITIVE; ART PUNCT SITE RIGHT RADIAL; LPM/O2% 100%; PT. ON O2? YES; TYPE OF O2 BIPAP; VENT RATE 12
[2017-01-16 21:57] LABS: ARTERIAL BLOOD GAS HCO3 19.1 meq/L (22-26); ARTERIAL BLOOD GAS PO2 76.6 mmHg (80-100); ARTERIAL BLOOD GAS pH 7.24 (7.35-7.45)
[2017-01-16] MEDS ORDERED: INSULIN DETEMIR 100 UNITS/ML MDV SQ SCH (22:00)
[2017-01-16] MEDS ORDERED: PHENYLEPHRINE HCL 10 MG/1 ML SINGLE DOSE VIAL ONE (22:49)
[2017-01-16] MEDS: PHENYLEPHRINE HCL 20,000 MCG in SODIUM CHLORIDE 248 ML IVPB SCH (22:57)
--- NOTE | 2017-01-16 23:14 | CONSULT ---
Consult Consult Specialty:: Oncology Reason for Consultation:: mNSCLC on Immunotherapy - History of Present Illness Chief Complaint: SOB History of Present Illness: is known to us from our office, she has a new diagnosis of mNSCLC adeno, met to LICENSED CLINICIAN, Bone and liver, after RT to the brain , she was started on Pembrolizumab and she received cycle one three weeks prior and tomorrow she was scheduled for cycle 2. She was directed to go to the ER when she called the office with complains of shortness of breath. Patient seen and examined in the ER. In the ER, she was hypoxic, hypotensive, was placed on BiPAP. Labs reviewed. Chart reviewed in detail Pt could not give much hx as she is on BiPAP. 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 No: Alzheimer's Cardio/Vascular: Yes: CAD, HTN, GA. No: AFIB Pulmonary: Yes: Other (lung ca) Musculoskeletal: Yes: Chronic low back pain Endocrine: Yes: Diabetes Mellitus - Alcohol/Substance Use Hx Alcohol Use: No - Smoking History Smoking history: Former smoker Have you smoked in the past 12 months: No - Social History Usual Living Arrangement: With Child ADL: Independent History of Recent Travel: No Home Medications - Allergies Allergies/Adverse Reactions: Allergies Allergy/AdvReac Type Severity Reaction Status Date / Time No Known Drug Allergies Allergy Verified 11/10/16 14:06 oats Allergy Verified 11/10/16 14:06 - Home Medications Home Medications: Ambulatory Orders Acetaminophen [Non-Aspirin Pain Relief] 500 mg PO TID PRN #60 tab 11/24/16 Alendronate Na [Fosamax (Weekly)] 70 mg PO Q7D #4 tablet 11/24/16 Atorvastatin Ca [Lipitor] 10 mg PO HS #1 tab 11/24/16 Calcium Carbonate/Vitamin D3 [Calcium 500 + Vit D3 400 Tab] 1 each PO BID #60 tablet 11/24/16 Dexamethasone [Decadron -] 4 mg PO Q6H #120 tablet 11/24/16 Icosapent Ethyl [Vascepa] 1 gm PO DAILY #0 cap 11/24/16 Insulin (Levemir) [Levemir Vial] 10 unit SQ HS #10 unit 11/24/16 Insulin Aspart [Novolog] See Protocol SQ AC #10 cartridge 11/24/16 Levetiracetam [Keppra -] 500 mg PO BID #60 tab 11/24/16 Lidocaine 5% Patch [Lidoderm -] 1 patch TP DAILY #30 patch 11/24/16 Metformin HCl 500 mg PO BID #0 tab 11/24/16 Ondansetron HCl [Zofran] 4 mg PO Q8H #40 tab 11/24/16 Pantoprazole Sodium [Protonix -] 40 mg PO DAILY #30 tab 11/24/16 Family Disease History - Family Disease History Family Disease History: CA: Sister Physical Exam Vital Signs: Vital Signs Temperature 97.5 F L 01/16/17 20:44 Pulse Rate 93 H 01/16/17 20:44 Respiratory Rate 18 01/16/17 20:44 Blood Pressure 107/63 01/16/17 20:44 O2 Sat by Pulse Oximetry (%) 95 01/16/17 20:51 Constitutional: Yes: Severe Distress HENT: Yes: Atraumatic, Normocephalic Cardiovascular: Yes: Tachycardia Respiratory: Yes: Cough, On BiPap, Poor Air Entry, SOB Edema: No Psychiatric: Yes: Agitated Imaging - Results Chest X-ray: Report Reviewed Ultrasound: Report Reviewed Assessment/Plan mNSCLC , mets to brain, bone, liver. s/p cycle one of Pembrolizumab Hypoxic respiratory distress Likely severe sepsis from possible PNA ELevated LFTs , likely from sepsis/ less likely immune related +LLE DVT. Thrombocytopenia. JEANNIE -ID consult, c/w broad spectrum abx for PNA -On BIPAP, pt is DNR/DNI -r/o DIC -AC deferred due to thrombocytopenia for DVT. 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
[2017-01-16 23:26] LABS: ANION GAP 10 (8-16); CO2 22 mmol/L (21-32); CREATININE 1.6 mg/dL (0.55-1.02)
[2017-01-16 23:30] LABS: CALCIUM 6.4 mg/dL (8.5-10.1); GLUCOSE,RANDOM 429 mg/dL (74-106)
[2017-01-16 23:43] LABS: TROPONIN I 1.03 ng/ml (0.00-0.05)
[2017-01-16] MEDS ORDERED: CALCIUM GLUCONATE 10% - 1,000 MG/10 ML VIAL IVPB ONE (23:44)
[2017-01-17] MEDS ORDERED: INSULIN REGULAR 100 UNITS in SODIUM CHLORIDE 99 ML IVPB SCH ×2 (00:04→05:57)
[2017-01-17] MEDS: PIPERACILLIN/TAZOB 3.375 GM 3.375 GM in DEXTROSE 5%-WATER - 50 ML IVPB SCH (01:22)
[2017-01-17] MEDS ORDERED: PHENYLEPHRINE HCL 10 MG/1 ML SINGLE DOSE VIAL ONE ×2 (03:55→16:33)
[2017-01-17 06:07] LABS: MCH 30.1 pg (25.7-33.7); MCHC 33.4 g/dl (32.0-36.0); MEAN CELL VOLUME 89.9 fl (80-96); MEAN PLT VOLUME 10.4 fl (7.5-11.1); PLATELET COUNT 63 K/MM3 (134-434); RDW 18.8 % (11.6-15.6); WHITE BLOOD COUNT 15.2 K/mm3 (4.0-10.0)
[2017-01-17 06:13] LABS: INR 1.54 (0.82-1.09); PROTHROMBIN TIME (PATIENT) 17.1 SEC (9.98-11.88)
[2017-01-17 06:15] LABS: ACTIVATED PTT 24.8 SECONDS (26.9-34.4)
[2017-01-17] MEDS ORDERED: morphine CARPU-JECT 2 MG/1 ML DISP.SYRIN IVPUSH ONE ×2 (06:24→16:27)
[2017-01-17] MEDS: HYDROCORTISONE SOD SUCCINATE 100 MG/2 ML VIAL IVPB SCH ×3 (06:26→21:52)
[2017-01-17] MEDS ORDERED: INSULIN REGULAR HUMAN 100 UNITS/ML *VIAL ONE (06:28)
[2017-01-17 06:32] LABS: ALBUMIN 1.9 g/dl (3.4-5.0); ANION GAP 11 (8-16); CO2 21 mmol/L (21-32); GLUCOSE,RANDOM 131 mg/dL (74-106); MAGNESIUM 2.4 mg/dL (1.8-2.4)
[2017-01-17 06:49] LABS: ALK PHOS 142 U/L (45-117); BILIRUBIN,TOTAL 0.6 mg/dL (0.2-1.0); CPK 303 IU/L (26-192); CREATININE 1.1 mg/dL (0.55-1.02); TOT PROT 4.9 g/dl (6.4-8.2); TROPONIN I 0.78 ng/ml (0.00-0.05)
[2017-01-17 07:11] LABS: SGOT/AST 695 U/L (15-37); SGPT/ALT 1000 U/L (12-78)
[2017-01-17 07:14] LABS: CALCIUM 6.8 mg/dL (8.5-10.1)
[2017-01-17 07:47] LABS: METAMYELOCYTE 8 % (0-2); PLATELET COMMENT2 NO CLOTTING DETECTED; PLATELET ESTIMATE DECREASED (NORMAL); TOTAL CELLS COUNTED 100
[2017-01-17 07:48] LABS: NUCLEATED RED BLOOD CELL 6 % (0-0); SMUDGE CELLS FEW
[2017-01-17] MEDS ORDERED: HEMOQUE TEST 1 EACH EACH ONE (07:53)
--- NOTE | 2017-01-17 08:29 | PN ---
Physical Exam: SUBJECTIVE: Patient seen and examined in ICU. Awake, but confused. Denies any chest pain or shortness of breath. OBJECTIVE: Vital Signs Period Temp Pulse Resp BP Sys/Curran Pulse Ox Last 24 Hr 97.5 F-99 F 66-93 12-25 85-130/43-77 94-100 Intake & Output 01/14/17 01/15/17 01/16/17 01/17/17 23:59 23:59 23:59 23:59 Intake Total 730 Output Total 1500 1000 Balance -1500 -270 Weight 69.088 kg 69.938 kg GENERAL: The patient is awake, and oriented x2 (knows name and hospital, but not year) EYES: sclera anicteric, conjunctiva clear ENT: moist mucous membranes NECK: supple LUNGS: On NIPPV, course breath sounds bilaterally, no wheezes or rales, no accessory muscle use HEART: rrr, normal S1/S2, no murmur, rub or gallop ABDOMEN: Soft, ntnd EXTREMITIES: 1+ edema in UE, 1+ edema LLE>RLE CBC, BMP 01/17/17 14:00 01/17/17 05:00 Hepatic Panel Total Bilirubin 0.6 mg/dL (0.2-1.0) D 01/17/17 05:00 AST 695 U/L (15-37) H D 01/17/17 05:00 ALT 1000 U/L (12-78) H 01/17/17 05:00 Alkaline Phosphatase 142 U/L (45-117) H 01/17/17 05:00 Albumin 1.9 g/dl (3.4-5.0) L 01/17/17 05:00 Laboratory Tests 01/16/17 01/17/17 01/17/17 10:25 05:00 05:00 WBC 15.2 H RBC 4.00 Hgb 12.0 Hct 35.9 Plt Count 63 L INR 1.91 H D PTT (Actin FS) 26.1 L Fibrinogen Hemoglobin A1c % 8.9 H Lactic Acid B-Natriuretic Peptide 01/17/17 01/17/17 01/17/17 05:00 05:00 05:00 WBC RBC Hgb Hct Plt Count INR 1.54 H PTT (Actin FS) 24.8 L Fibrinogen 161.0 L Hemoglobin A1c % Lactic Acid 2.4 H* B-Natriuretic Peptide 7076.35 H 01/17/17 01/17/17 01/17/17 14:00 15:45 15:45 WBC 11.9 H RBC 3.83 Hgb 11.4 Hct 34.5 Plt Count 54 L INR 1.61 H PTT (Actin FS) 25.3 L Fibrinogen 188.0 L Hemoglobin A1c % Lactic Acid B-Natriuretic Peptide Troponin, BNP 01/16/17 01/17/17 01/17/17 21:45 05:00 05:00 Troponin I 1.03 H* 0.78 H* B-Natriuretic Peptide 7076.35 H 01/17/17 11:00 Troponin I 0.39 H B-Natriuretic Peptide Urine Test Results Urine Color Dkyellow 01/16/17 11:25 Urine Appearance Slcloudy 01/16/17 11:25 Urine pH 5.0 (5.0-8.0) 01/16/17 11:25 Ur Specific [place] 1.015 (1.005-1.025) 01/16/17 11:25 Urine Protein Negative (NEGATIVE) 01/16/17 11:25 Urine Glucose (UA) 1+ (NEGATIVE) H D 01/16/17 11:25 Urine Ketones Negative (NEGATIVE) 01/16/17 11:25 Urine Blood Negative (NEGATIVE) 01/16/17 11:25 Urine Nitrite Negative (NEGATIVE) 01/16/17 11:25 Urine Bilirubin Negative (NEGATIVE) 01/16/17 11:25 Ur Leukocyte Esterase 1+ (NEGATIVE) H 01/16/17 11:25 Urine RBC 1 /hpf (0-3) 01/16/17 11:25 Urine WBC 14 /hpf (3-5) 01/16/17 11:25 Ur Epithelial Cells Rare /hpf (FEW) 01/16/17 11:25 Urine Bacteria Many /hpf (NONE SEEN) 01/16/17 11:25 Urine Mucus Rare 01/16/17 11:25 Microbiology 01/16/17 10:30 Blood - Peripheral Venous Blood Culture - Preliminary NO GROWTH OBTAINED AFTER 24 HOURS, INCUBATION TO CONTINUE FOR 4 DAYS. 01/16/17 10:30 Blood - Peripheral Venous Blood Culture - Preliminary NO GROWTH OBTAINED AFTER 24 HOURS, INCUBATION TO CONTINUE FOR 4 DAYS. 01/16/17 10:30 Urine - Urine Clean Catch Urine Culture - Preliminary Lactose Fermenting Neg Bacilli 01/16/17 19:10 Urine For Antigen Detection Legionella Antigen - Final --> NEGATIVE 01/16/17 19:10 Urine For Antigen Detection Streptococcus pneumoniae Antigen FINAL--> NEGATIVE IMAGING: CXR 01/16/17: cardiomegaly, R perihilar congestion, stable small R pleural effusion from CT 06/11/2016 LE Doppler 01/16/17: Left DVT in distal femoral vein Active Medications Artificial Tears (Artificial Tears) 1 drop OU TID PRN PRN Reason: DRY EYES Last Admin: 01/16/17 16:51 Dose: 1 drop Hydrocortisone Sodium Succinate (Solu-Cortef -) 100 mg IVPB Q8H [facility] Last Admin: 01/17/17 06:26 Dose: 100 mg Azithromycin 250 mg/ Dextrose 250 mls @ 250 mls/hr IVPB DAILY [facility] Stop: 01/20/17 10:59 Pantoprazole Sodium 40 mg/ (Sodium Chloride) 100 mls @ 200 mls/hr IVPB DAILY [facility] Piperacillin Sod/Tazobactam (Sod 3.375 gm/ Dextrose) 50 mls @ 100 mls/hr IVPB Q8H-IV [facility] Last Admin: 01/17/17 01:22 Dose: 100 mls/hr Phenylephrine HCl 20,000 mcg/ (Sodium Chloride) 250 mls @ 75 mls/hr IVPB ASDIR ALEX; 100 MCG/MIN PRN Reason: Protocol Last Titration: 01/17/17 06:26 Dose: 66.66 mcg/min Insulin Aspart (Novolog Vial Sliding Scale -) 1 vial SQ ACHS [facility] PRN Reason: Protocol Insulin Detemir (Levemir Vial) 10 units SQ HS [facility] Levetiracetam (Keppra -) 500 mg PO BID [facility] Last Admin: 01/16/17 21:29 Dose: Not Given Lidocaine (Lidoderm Patch -) 1 patch TP DAILY [facility] Miscellaneous (Lidoderm Patch Removal) 1 each MC DAILY@2200 [facility] Ondansetron HCl (Zofran Injection) 4 mg IVPB Q6H PRN PRN Reason: NAUSEA ASSESSMENT/PLAN: 66yo woman with widely metastatic NSCLC to the brain, liver, and bones who presents with severe sepsis likely 2/2 UTI and possible PNA. Patient is hypotensive requiring phenylephrine gtt, now with resolving JEANNIE (Cr 1.9 --> 1.1) , L LE DVT in distal femoral, and suspected PE (Wells score 8.5). Patient was started on heparin drip for anticoagulation when platelets >50K and fibrinogen > 150. Elevated troponin and BNP likely secondary to right heart strain from lung Ca and suspected PE. ECHO pending for further evaluation. #Pulm -NIPPV as needed (current settings 02/14, FiO2 70%) -Maintain SpO2 >90% -Aspiration precautions #HEME -Heme/Onc (Dr. Medina) following -Vascular surgery (Dr. Mendoza) consulted for possible IVC filter -Heparin 800U/hr IV (w/o bolus) for anticoagulation -Vitamin K 5mg SQ daily (day 1 of 5) -Monitor coags, CMP #CV -Phenylephrine gtt to maintain MAP>65 -ECHO pending to evaluate R heart strain -Central line (R IJ) placed for access, placement confirmed by CXR #ID -ID is following -Antibiotic coverage per ID (Zosyn 3.375g IV Q8H, Azithromycin 250mg IVPB daily) -f/u daniel cultures #Neuro -Morphine 1mg IVPUSH Q3h PRN for pain control -Continue home Keppra 500mg PO BID -fall precautions #Endocrine -BGM ACHS -Insulin sliding scale -Continue home Levemir 10U SQ HS -Hydrocortisone 100mg IVPB Q8H --> taper once hemodynamics improve #Renal - JEANNIE resolving, Cr downtrending -Monitor Cr #F/E/N -Monitor electrolytes -NPO #PPX -DVT - started on lovenox -GI - pantopraxole 40mg IVBP daily #Dispo: -Continue management in ICU -DNR/DNI per healthcare proxy (Cesar, son) d/w with Dr. Yesica Regalado, PGY-1 Visit type - Emergency Visit Emergency Visit: No - New Patient This patient is new to me today: Yes Date on this admission: 01/17/17 - Critical Care Critical Care patient: Yes Total Critical Care Time (in minutes): 40 Critical Care Statement: The care of this patient involved high complexity decision making to prevent further life threatening deterioration of the patient 's condition and/or to evaluate & treat vital organ system(s) failure or risk of failure.
[2017-01-17] MEDS: levETIRAcetam 500 MG TABLET (FP) PO SCH ×3 (09:05→21:54)
[2017-01-17] MEDS: PANTOPRAZOLE SODIUM 100 ML IVPB SCH (09:40)
[2017-01-17] MEDS: LIDOCAINE 5% TOPICAL PATCH TP SCH (09:47)
[2017-01-17] MEDS: PIPERACILLIN/TAZOB 3.375 GM 50 ML IVPB SCH ×2 (10:08→17:11)
[2017-01-17] MEDS: AZITHROMYCIN IVPB 250 MG in DEXTROSE 5%-WATER - 250 ML IVPB SCH (11:10)
[2017-01-17] MEDS: INSULIN SLIDING SCALE (NOVOLOG) 1 VIAL SQ SCH ×3 (11:16→21:52)
[2017-01-17] MEDS ORDERED: INSULIN (NOVOLOG) ASPART 100 UNITS/ML 10ML VIAL ONE ×2 (11:19→22:02)
--- NOTE | 2017-01-17 12:44 | PN ---
Progress Note (short form) - Note Progress Note: Subjective: The patient was seen and examined at the bedside, she is on bipap. She reports feeling better today, however she still reports some difficulty breathing. LLE +DVT Discussed IVC filter with Dr. Au, she is in agreement for the filter, will place order Current Medications Generic Name Dose Route Start Last Admin Trade Name Freq PRN Reason Stop Dose Admin Artificial Tears 1 drop 01/16/17 14:05 01/16/17 16:51 Artificial Tears OU 1 drop TID PRN Administration DRY EYES Hydrocortisone Sodium Succinate 100 mg 01/16/17 14:15 01/17/17 06:26 Solu-Cortef - IVPB 100 mg Q8H ALEX Administration Azithromycin 250 mg/ Dextrose 250 mls @ 250 mls/hr 01/17/17 10:00 01/17/17 11: 10 IVPB 01/20/17 10:59 250 mls/hr DAILY ALEX Administration Phenylephrine HCl 20,000 mcg/ 250 mls @ 75 mls/hr 01/16/17 23:00 01/17/17 08:00 Sodium Chloride IVPB 33.33 mcg/min ASDIR ALEX Titration Protocol 100 MCG/MIN Pantoprazole Sodium 100 mls @ 200 mls/hr 01/17/17 10:00 01/17/17 09:40 Protonix 40mg Ivpb (Pre-Docked) IVPB 200 mls/hr DAILY ALEX Administration Piperacillin Sod/Tazobactam Sod 50 mls @ 100 mls/hr 01/17/17 09:35 01/17/17 10: 08 Zosyn 3.375gm Ivpb (Pre-Docked) IVPB 100 mls/hr Q8H-IV ALEX Administration Vancomycin HCl 1,000 mg/ 250 mls @ 200 mls/hr 01/17/17 12:56 Dextrose IVPB 01/17/17 14:10 ONCE ONE Insulin Aspart 1 vial 01/17/17 11:00 01/17/17 11:16 Novolog Vial Sliding Scale - SQ 2 units ACHS ALEX Administration Protocol Insulin Detemir 10 units 01/17/17 22:00 Levemir Vial SQ HS ALEX Levetiracetam 500 mg 01/16/17 22:00 01/17/17 09:09 Keppra - PO Not Given BID ALEX Lidocaine 1 patch 01/17/17 10:00 01/17/17 09:47 Lidoderm Patch - TP 1 patch DAILY ALEX Administration Miscellaneous 1 each 01/17/17 22:00 Lidoderm Patch Removal MC DAILY@2200 ALEX Morphine Sulfate 1 mg 01/17/17 12:49 Morphine Injection - IVPUSH Q3H PRN PAIN Ondansetron HCl 4 mg 01/16/17 14:58 Zofran Injection IVPB Q6H PRN NAUSEA Objective: Vital Signs Period Temp Pulse Resp BP Sys/Curran Pulse Ox Last 24 Hr 97.5 F-99.3 F 66-93 12-32 85-130/43-77 94-100 Physical Exam: General: Mild respiratory distress, on Bipap Lungs: Tachypnea, increase work of breathing Heart: RRR, S1S2 Abd: Soft, non-tender, non-distended. Normoactive bowel sounds Ext: 2+ DP/PT bilaterally. No calf tenderness Neuro: Bipap on patient, unable to assess cranial nerves CBCD WBC 15.2 K/mm3 (4.0-10.0) H 01/17/17 05:00 RBC 4.00 M/mm3 (3.60-5.2) 01/17/17 05:00 Hgb 12.0 GM/dL (10.7-15.3) 01/17/17 05:00 Hct 35.9 % (32.4-45.2) 01/17/17 05:00 MCV 89.9 fl (80-96) 01/17/17 05:00 MCHC 33.4 g/dl (32.0-36.0) 01/17/17 05:00 RDW 18.8 % (11.6-15.6) H 01/17/17 05:00 Plt Count 63 K/MM3 (134-434) L 01/17/17 05:00 MPV 10.4 fl (7.5-11.1) 01/17/17 05:00 CMP Sodium 148 mmol/L (136-145) H 01/17/17 05:00 Potassium 3.8 mmol/L (3.5-5.1) D 01/17/17 05:00 Chloride 116 mmol/L (98-107) H 01/17/17 05:00 Carbon Dioxide 21 mmol/L (21-32) 01/17/17 05:00 Anion Gap 11 (8-16) 01/17/17 05:00 BUN 48 mg/dL (7-18) H 01/17/17 05:00 Creatinine 1.1 mg/dL (0.55-1.02) H D 01/17/17 05:00 Creat Clearance w eGFR 49.54 (>60) 01/17/17 05:00 Random Glucose 131 mg/dL (74-106) H D 01/17/17 05:00 Calcium 6.8 mg/dL (8.5-10.1) L* 01/17/17 05:00 Total Bilirubin 0.6 mg/dL (0.2-1.0) D 01/17/17 05:00 AST 695 U/L (15-37) H D 01/17/17 05:00 ALT 1000 U/L (12-78) H 01/17/17 05:00 Alkaline Phosphatase 142 U/L (45-117) H 01/17/17 05:00 Total Protein 4.9 g/dl (6.4-8.2) L 01/17/17 05:00 Albumin 1.9 g/dl (3.4-5.0) L 01/17/17 05:00 CARDIAC ENZYMES Creatine Kinase 303 IU/L (26-192) H 01/17/17 05:00 Troponin I 0.39 ng/ml (0.00-0.05) H 01/17/17 11:00 Microbiology 01/16/17 10:30 Blood - Peripheral Venous Blood Culture - Preliminary NO GROWTH OBTAINED AFTER 24 HOURS, INCUBATION TO CONTINUE FOR 4 DAYS. 01/16/17 10:30 Blood - Peripheral Venous Blood Culture - Preliminary NO GROWTH OBTAINED AFTER 24 HOURS, INCUBATION TO CONTINUE FOR 4 DAYS. 01/16/17 10:30 Urine - Urine Clean Catch Urine Culture - Preliminary Lactose Fermenting Neg Bacilli 01/16/17 19:10 Urine For Antigen Detection Legionella Antigen - Final 01/16/17 19:10 Urine For Antigen Detection Streptococcus pneumoniae Antigen (M - Final Assessment: This is a 66 year old female with PMHx of HTN, CAD/FL, lung cancer ( mets to brain, bone, liver, spine: s/p immunotherapy with radiation therapy, no chemotherapy), who presented to the ED with worsening shortness of brath and generalized weakness x3 days. Plan: 1) Pulmonary: Probable PE in the setting of DVT, malignancy with - Elevated bnp and troponin in setting of PE - F/u stat ECHO to evaluate right heart train - Hypotension requiring pressors, keep MAP >65 - Per oncology, in DIC and will defer starting anticoagulation at this point given thrombocytopenia, f/u coags, fibrinogen, cbc this afternoon - For IVC filter as discussed with Dr. Au - Appreciate critical care consult - Appreciate oncology consult Acute hypoxic respiratory failure - 2/2 PE vs. worsening lung cancer vs. pneumonia - Continue Bipap as needed 2) ID: Sepsis 2/2 pneumonia, lactose fermenting negative bacilli - Trend lactic acid, - Continue empiric Zosyn - Continue Azithromycin - Continue Vancomycin (redosed) - Appreciate ID consult 3) Cardiology: Elevated trop, elevated BNP - Likely demand ischemia in the setting of severe hypotension vs. from right heart strain from PE - Trop trending down - F/u ECHO 4) : JEANNIE - Likely prerenal in the setting of hypotension requiring pressors - Improving - Continue to monitor 5) Onc: Metastatic lung cancer - Continues with high dose steroids (patient wa son dex at home for [employer] mets) - Appreciate oncology consult 6) F/E/N: - NPO - Monitor electrolytes 7) Prophylaxis: - Hold all chemical DVT prophylaxis 2/2 DIC/thrombocytopenis - SCDs contraindicated on LLE 2/2 DVT 8) Dispo: - Critically ill - Requires continued ICU care CODE STATUS: DNR/DNI Visit type - Emergency Visit Emergency Visit: Yes ED Registration Date: 01/16/17 Care time: The patient presented to the Emergency Department on the above date and was hospitalized for further evaluation of their emergent condition. - New Patient This patient is new to me today: Yes Date on this admission: 01/17/17 - Critical Care Critical Care patient: Yes Total Critical Care Time (in minutes): 55 Critical Care Statement: The care of this patient involved high complexity decision making to prevent further life threatening deterioration of the patient 's condition and/or to evaluate & treat vital organ system(s) failure or risk of failure.
[2017-01-17] MEDS ORDERED: VANCOMYCIN 1 GRAM (PRE-DOCKED) 250 ML IVPB ONE (12:56)
[2017-01-17] MEDS: morphine CARPU-JECT 2 MG/1 ML DISP.SYRIN IVPUSH PRN ×3 (13:01→23:19)
--- NOTE | 2017-01-17 13:04 | PN ---
Progress Note, Physician History of Present Illness: Awake C/O back pain Tachypneic at rest on VM Hypotensive on pressors Low grade temp BC no growth Urine c/s LF - Current Medication List Current Medications: Active Medications Artificial Tears (Artificial Tears) 1 drop OU TID PRN PRN Reason: DRY EYES Last Admin: 01/16/17 16:51 Dose: 1 drop Hydrocortisone Sodium Succinate (Solu-Cortef -) 100 mg IVPB Q8H [facility] Last Admin: 01/17/17 06:26 Dose: 100 mg Azithromycin 250 mg/ Dextrose 250 mls @ 250 mls/hr IVPB DAILY [facility] Stop: 01/20/17 10:59 Last Admin: 01/17/17 11:10 Dose: 250 mls/hr Phenylephrine HCl 20,000 mcg/ (Sodium Chloride) 250 mls @ 75 mls/hr IVPB ASDIR ALEX; 100 MCG/MIN PRN Reason: Protocol Last Titration: 01/17/17 08:00 Dose: 33.33 mcg/min Pantoprazole Sodium (Protonix 40mg Ivpb (Pre-Docked)) 100 mls @ 200 mls/hr IVPB DAILY [facility] Last Admin: 01/17/17 09:40 Dose: 200 mls/hr Piperacillin Sod/Tazobactam Sod (Zosyn 3.375gm Ivpb (Pre-Docked)) 50 mls @ 100 mls/hr IVPB Q8H-IV ALEX Last Admin: 01/17/17 10:08 Dose: 100 mls/hr Vancomycin HCl 1,000 mg/ (Dextrose) 250 mls @ 200 mls/hr IVPB ONCE ONE Stop: 01/17/17 14:10 Insulin Aspart (Novolog Vial Sliding Scale -) 1 vial SQ ACHS ALEX PRN Reason: Protocol Last Admin: 01/17/17 11:16 Dose: 2 units Insulin Detemir (Levemir Vial) 10 units SQ HS [facility] Levetiracetam (Keppra -) 500 mg PO BID [facility] Last Admin: 01/17/17 09:09 Dose: Not Given Lidocaine (Lidoderm Patch -) 1 patch TP DAILY [facility] Last Admin: 01/17/17 09:47 Dose: 1 patch Miscellaneous (Lidoderm Patch Removal) 1 each MC DAILY@2200 [facility] Morphine Sulfate (Morphine Injection -) 1 mg IVPUSH Q3H PRN PRN Reason: PAIN Ondansetron HCl (Zofran Injection) 4 mg IVPB Q6H PRN PRN Reason: NAUSEA - Objective Vital Signs: Vital Signs Temperature 99.3 F 01/17/17 12:00 Pulse Rate 68 01/17/17 12:00 Respiratory Rate 30 H 01/17/17 12:00 Blood Pressure 103/63 01/17/17 12:00 O2 Sat by Pulse Oximetry (%) 97 01/17/17 09:00 Constitutional: Yes: Other (chronically ill appearing) Eyes: Yes: Conjunctiva Clear HENT: Yes: Other (Alopecia) Cardiovascular: Yes: Regular Rate and Rhythm, S1, S2 Respiratory: Yes: Diminished Gastrointestinal: Yes: Normal Bowel Sounds, Soft. No: Tenderness Edema: Yes Labs: CBC, BMP 01/17/17 05:00 01/17/17 05:00 INR, PTT INR 1.54 (0.82-1.09) H 01/17/17 05:00 Fibrinogen 161.0 mg/dL (238-498) L 01/17/17 05:00 Assessment/Plan Sepsis/ septic shock Respiratory failure RLL pneumonia HCAP Metastatic NSCCL DVT L LE UTI LF JEANNIE improved Elevated LFTs likely shock liver Leukocytosis Thrombocytopenia Await c/s Hemodynamic support Continue empiric zosyn/ zithromax Redose vancomycin Critical care time 38min
[2017-01-17] MEDS ORDERED: PT OWN MED DRAWER 7, Y5N ONE ×2 (14:23→14:30)
[2017-01-17] MEDS ORDERED: morphine CARPU-JECT 2 MG/1 ML DISP.SYRIN ONE (15:26)
[2017-01-17 16:03] LABS: MCH 29.9 pg (25.7-33.7); MCHC 33.2 g/dl (32.0-36.0); MEAN CELL VOLUME 90.2 fl (80-96); MEAN PLT VOLUME 11.2 fl (7.5-11.1); PLATELET COUNT 54 K/MM3 (134-434); RDW 19.8 % (11.6-15.6); WHITE BLOOD COUNT 11.9 K/mm3 (4.0-10.0)
--- NOTE | 2017-01-17 16:16 | PROC ---
Central Line Insertion Indication: Poor Venous Access Risks and Benefits Explained: Yes Consent on Chart: Yes Central Line: Triple Lumen Catheter Anesthesia: 1% Lidocaine Sterile Technique: Yes Ultrasound Guided Assistance: Yes Position: Right Internal Jugular Post Insertion: Yes: Bilateral Breath Sounds, Bilateral Chest Expansion, Chest X-Ray Ordered Sterile Dressing Applied: Yes
--- NOTE | 2017-01-17 16:21 | PN ---
Teaching Attending Note Name of Resident: Madalyn Regalado ATTENDING PHYSICIAN STATEMENT I saw and evaluated the patient. I reviewed the resident's note and discussed the case with the resident. I agree with the resident's findings and plan as documented. SUBJECTIVE: Patient seen and examined in the ICU. Awake but confused. Reportedly desaturated very quickly off of NIPPV. Currently on NIPPV 02/14, FiO2 70%. Denies CP or SOB. Intake & Output 01/14/17 01/15/17 01/16/17 01/17/17 23:59 23:59 23:59 23:59 Intake Total 730 Output Total 1500 1550 Balance -1500 -820 Weight 152 lb 5 oz 154 lb 3 oz Last Vital Signs Temp Pulse Resp BP Pulse Ox 99.2 F 74 28 H 109/74 97 01/17/17 14:00 01/17/17 15:59 01/17/17 15:59 01/17/17 15:59 01/17/17 09:00 Active Medications Artificial Tears (Artificial Tears) 1 drop OU TID PRN PRN Reason: DRY EYES Last Admin: 01/16/17 16:51 Dose: 1 drop Hydrocortisone Sodium Succinate (Solu-Cortef -) 100 mg IVPB Q8H ALEX Last Admin: 01/17/17 13:14 Dose: 100 mg Azithromycin 250 mg/ Dextrose 250 mls @ 250 mls/hr IVPB DAILY ALEX Stop: 01/20/17 10:59 Last Admin: 01/17/17 11:10 Dose: 250 mls/hr Phenylephrine HCl 20,000 mcg/ (Sodium Chloride) 250 mls @ 75 mls/hr IVPB ASDIR ALEX; 100 MCG/MIN PRN Reason: Protocol Last Titration: 01/17/17 08:00 Dose: 33.33 mcg/min Pantoprazole Sodium (Protonix 40mg Ivpb (Pre-Docked)) 100 mls @ 200 mls/hr IVPB DAILY ALEX Last Admin: 01/17/17 09:40 Dose: 200 mls/hr Piperacillin Sod/Tazobactam Sod (Zosyn 3.375gm Ivpb (Pre-Docked)) 50 mls @ 100 mls/hr IVPB Q8H-IV ALEX Last Admin: 01/17/17 10:08 Dose: 100 mls/hr Insulin Aspart (Novolog Vial Sliding Scale -) 1 vial SQ ACHS ALEX PRN Reason: Protocol Last Admin: 01/17/17 11:16 Dose: 2 units Insulin Detemir (Levemir Vial) 10 units SQ HS [facility] Levetiracetam (Keppra -) 500 mg PO BID [facility] Last Admin: 01/17/17 09:09 Dose: Not Given Lidocaine (Lidoderm Patch -) 1 patch TP DAILY [facility] Last Admin: 01/17/17 09:47 Dose: 1 patch Miscellaneous (Lidoderm Patch Removal) 1 each MC DAILY@2200 [facility] Morphine Sulfate (Morphine Injection -) 1 mg IVPUSH Q3H PRN PRN Reason: PAIN Last Admin: 01/17/17 13:01 Dose: 1 mg Ondansetron HCl (Zofran Injection) 4 mg IVPB Q6H PRN PRN Reason: NAUSEA Phytonadione (Aqua Mephyton Injection -) 5 mg SQ DAILY [facility] Stop: 01/20/17 10:01 Constitutional: Yes: Awake on NIPPV Eyes: Yes: Conjunctiva Clear HENT: Yes: Atraumatic Neck: Yes: Supple Cardiovascular: Yes: Regular Rate and Rhythm, S1, S2. No: Gallop, Murmur, Rub Respiratory: Yes: NIPPV, bilateral coarse breath sounds, no wheezing Gastrointestinal: Yes: Normal Bowel Sounds, Soft. No: Tenderness Extremities: Yes: (+) PP Edema: No Peripheral Pulses WNL: Yes Integumentary: Yes: Other (scattered ecchymosis) Neurological: Yes: Non-focal, confused ...Motor Strength: WNL Psychiatric: Yes: WNL Labs: Laboratory Results - last 24 hr 01/16/17 01/16/17 01/16/17 11:25 12:18 13:58 WBC RBC Hgb Hct MCV MCH MCHC RDW Plt Count MPV Total Counted Neutrophils % Neutrophils % (Manual) Band Neuts % (Manual) Lymphocytes % Lymphocytes % (Manual) Monocytes % Monocytes % (Manual) Eosinophils % Basophils % Nucleated RBC % Smudge Cells Platelet Estimate Platelet Comment INR PTT (Actin FS) Fibrinogen Puncture Site ABG pH ABG pCO2 at Pt Temp ABG pO2 at Pt Temp ABG HCO3 ABG O2 Sat (Measured) ABG O2 Content ABG Base Excess Jaime Test O2 Delivery Device Oxygen Flow Rate Vent Mode Vent Rate PEEP Pressure Support Vent Sodium Potassium Chloride Carbon Dioxide Anion Gap BUN Creatinine Creat Clearance w eGFR POC Glucometer > 400 > 400 Random Glucose Hemoglobin A1c % Lactic Acid Calcium Magnesium Total Bilirubin AST ALT Alkaline Phosphatase Creatine Kinase Creatine Kinase Index CK-MB (CK-2) Troponin I B-Natriuretic Peptide Total Protein Albumin Urine Color Dkyellow Urine Appearance Slcloudy Urine pH 5.0 Ur Specific [place] 1.015 Urine Protein Negative Urine Glucose (UA) 1+ H D Urine Ketones Negative Urine Blood Negative Urine Nitrite Negative Urine Bilirubin Negative Urine Urobilinogen Negative Ur Leukocyte Esterase 1+ H Urine RBC 1 Urine WBC 14 Ur Epithelial Cells Rare Urine Bacteria Many Hyaline Casts 9 Urine Mucus Rare Vancomycin Pre-Dose 01/16/17 01/16/17 01/16/17 14:03 16:48 17:05 WBC RBC Hgb Hct MCV MCH MCHC RDW Plt Count MPV Total Counted Neutrophils % Neutrophils % (Manual) Band Neuts % (Manual) Lymphocytes % Lymphocytes % (Manual) Monocytes % Monocytes % (Manual) Eosinophils % Basophils % Nucleated RBC % Smudge Cells Platelet Estimate Platelet Comment INR PTT (Actin FS) Fibrinogen Puncture Site ABG pH ABG pCO2 at Pt Temp ABG pO2 at Pt Temp ABG HCO3 ABG O2 Sat (Measured) ABG O2 Content ABG Base Excess Jaime Test O2 Delivery Device Oxygen Flow Rate Vent Mode Vent Rate PEEP Pressure Support Vent Sodium Potassium Chloride Carbon Dioxide Anion Gap BUN Creatinine Creat Clearance w eGFR POC Glucometer > 400 > 400 Random Glucose Hemoglobin A1c % Lactic Acid Calcium Magnesium Total Bilirubin AST ALT Alkaline Phosphatase Creatine Kinase 393 H Creatine Kinase Index 2.9 CK-MB (CK-2) 11.533 H Troponin I 0.94 H* B-Natriuretic Peptide Total Protein Albumin Urine Color Urine Appearance Urine pH Ur Specific [place] Urine Protein Urine Glucose (UA) Urine Ketones Urine Blood Urine Nitrite Urine Bilirubin Urine Urobilinogen Ur Leukocyte Esterase Urine RBC Urine WBC Ur Epithelial Cells Urine Bacteria Hyaline Casts Urine Mucus Vancomycin Pre-Dose 01/16/17 01/16/17 01/16/17 17:17 20:37 21:44 WBC RBC Hgb Hct MCV MCH MCHC RDW Plt Count MPV Total Counted Neutrophils % Neutrophils % (Manual) Band Neuts % (Manual) Lymphocytes % Lymphocytes % (Manual) Monocytes % Monocytes % (Manual) Eosinophils % Basophils % Nucleated RBC % Smudge Cells Platelet Estimate Platelet Comment INR PTT (Actin FS) Fibrinogen Puncture Site Right radial ABG pH 7.24 L* ABG pCO2 at Pt Temp 46.3 H ABG pO2 at Pt Temp 76.6 L ABG HCO3 19.1 L ABG O2 Sat (Measured) 89.4 L ABG O2 Content 13.4 L ABG Base Excess -7.6 L Jaime Test Positive O2 Delivery Device Bipap Oxygen Flow Rate 100% Vent Mode S/t Vent Rate 12 PEEP 0.0 Pressure Support Vent 10/5 Sodium 139 Potassium 5.1 Chloride 108 H Carbon Dioxide 20 L Anion Gap 11 BUN 59 H Creatinine 1.7 H Creat Clearance w eGFR POC Glucometer > 400 Random Glucose 476 H* Hemoglobin A1c % Lactic Acid Calcium 6.4 L* Magnesium Total Bilirubin AST ALT Alkaline Phosphatase Creatine Kinase Creatine Kinase Index CK-MB (CK-2) Troponin I B-Natriuretic Peptide Total Protein Albumin Urine Color Urine Appearance Urine pH Ur Specific [place] Urine Protein Urine Glucose (UA) Urine Ketones Urine Blood Urine Nitrite Urine Bilirubin Urine Urobilinogen Ur Leukocyte Esterase Urine RBC Urine WBC Ur Epithelial Cells Urine Bacteria Hyaline Casts Urine Mucus Vancomycin Pre-Dose 01/16/17 01/16/17 01/16/17 21:45 21:45 23:07 WBC RBC Hgb Hct MCV MCH MCHC RDW Plt Count MPV Total Counted Neutrophils % Neutrophils % (Manual) Band Neuts % (Manual) Lymphocytes % Lymphocytes % (Manual) Monocytes % Monocytes % (Manual) Eosinophils % Basophils % Nucleated RBC % Smudge Cells Platelet Estimate Platelet Comment INR PTT (Actin FS) Fibrinogen Puncture Site ABG pH ABG pCO2 at Pt Temp ABG pO2 at Pt Temp ABG HCO3 ABG O2 Sat (Measured) ABG O2 Content ABG Base Excess Jaime Test O2 Delivery Device Oxygen Flow Rate Vent Mode Vent Rate PEEP Pressure Support Vent Sodium 142 Potassium 4.9 Chloride 110 H Carbon Dioxide 22 Anion Gap 10 BUN 57 H Creatinine 1.6 H Creat Clearance w eGFR POC Glucometer > 400 Random Glucose 429 H* Hemoglobin A1c % Lactic Acid Calcium 6.4 L* Magnesium Total Bilirubin AST ALT Alkaline Phosphatase Creatine Kinase 399 H Creatine Kinase Index 3.1 CK-MB (CK-2) 12.661 H Troponin I 1.03 H* B-Natriuretic Peptide Total Protein Albumin Urine Color Urine Appearance Urine pH Ur Specific [place] Urine Protein Urine Glucose (UA) Urine Ketones Urine Blood Urine Nitrite Urine Bilirubin Urine Urobilinogen Ur Leukocyte Esterase Urine RBC Urine WBC Ur Epithelial Cells Urine Bacteria Hyaline Casts Urine Mucus Vancomycin Pre-Dose 01/16/17 01/17/17 01/17/17 23:56 01:29 02:00 WBC RBC Hgb Hct MCV MCH MCHC RDW Plt Count MPV Total Counted Neutrophils % Neutrophils % (Manual) Band Neuts % (Manual) Lymphocytes % Lymphocytes % (Manual) Monocytes % Monocytes % (Manual) Eosinophils % Basophils % Nucleated RBC % Smudge Cells Platelet Estimate Platelet Comment INR PTT (Actin FS) Fibrinogen Puncture Site ABG pH ABG pCO2 at Pt Temp ABG pO2 at Pt Temp ABG HCO3 ABG O2 Sat (Measured) ABG O2 Content ABG Base Excess Jaime Test O2 Delivery Device Oxygen Flow Rate Vent Mode Vent Rate PEEP Pressure Support Vent Sodium Potassium Chloride Carbon Dioxide Anion Gap BUN Creatinine Creat Clearance w eGFR POC Glucometer > 400 332.27498 302.48027 Random Glucose Hemoglobin A1c % Lactic Acid Calcium Magnesium Total Bilirubin AST ALT Alkaline Phosphatase Creatine Kinase Creatine Kinase Index CK-MB (CK-2) Troponin I B-Natriuretic Peptide Total Protein Albumin Urine Color Urine Appearance Urine pH Ur Specific [place] Urine Protein Urine Glucose (UA) Urine Ketones Urine Blood Urine Nitrite Urine Bilirubin Urine Urobilinogen Ur Leukocyte Esterase Urine RBC Urine WBC Ur Epithelial Cells Urine Bacteria Hyaline Casts Urine Mucus Vancomycin Pre-Dose 01/17/17 01/17/17 01/17/17 04:11 05:00 05:00 WBC RBC Hgb Hct MCV MCH MCHC RDW Plt Count MPV Total Counted Neutrophils % Neutrophils % (Manual) Band Neuts % (Manual) Lymphocytes % Lymphocytes % (Manual) Monocytes % Monocytes % (Manual) Eosinophils % Basophils % Nucleated RBC % Smudge Cells Platelet Estimate Platelet Comment INR PTT (Actin FS) Fibrinogen Puncture Site ABG pH ABG pCO2 at Pt Temp ABG pO2 at Pt Temp ABG HCO3 ABG O2 Sat (Measured) ABG O2 Content ABG Base Excess Jaime Test O2 Delivery Device Oxygen Flow Rate Vent Mode Vent Rate PEEP Pressure Support Vent Sodium 148 H Potassium 3.8 D Chloride 116 H Carbon Dioxide 21 Anion Gap 11 BUN 48 H Creatinine 1.1 H D Creat Clearance w eGFR 49.54 POC Glucometer 226.74020 Random Glucose 131 H D Hemoglobin A1c % 8.9 H Lactic Acid Calcium 6.8 L* Magnesium 2.4 Total Bilirubin 0.6 D AST 695 H D ALT 1000 H Alkaline Phosphatase 142 H Creatine Kinase 303 H Creatine Kinase Index 3.3 CK-MB (CK-2) 10.162 H Troponin I 0.78 H* B-Natriuretic Peptide Total Protein 4.9 L Albumin 1.9 L Urine Color Urine Appearance Urine pH Ur Specific [place] Urine Protein Urine Glucose (UA) Urine Ketones Urine Blood Urine Nitrite Urine Bilirubin Urine Urobilinogen Ur Leukocyte Esterase Urine RBC Urine WBC Ur Epithelial Cells Urine Bacteria Hyaline Casts Urine Mucus Vancomycin Pre-Dose 01/17/17 01/17/17 01/17/17 05:00 05:00 05:00 WBC 15.2 H RBC 4.00 Hgb 12.0 Hct 35.9 MCV 89.9 MCH 30.1 MCHC 33.4 RDW 18.8 H Plt Count 63 L MPV 10.4 Total Counted 100 Neutrophils % Insurance Service Representative Neutrophils % (Manual) 56 D Band Neuts % (Manual) 23 H Lymphocytes % Insurance Service Representative Lymphocytes % (Manual) 6 L Monocytes % Insurance Service Representative Monocytes % (Manual) 7 D Eosinophils % Insurance Service Representative Basophils % [employer] Service Representative Nucleated RBC % 6 H Smudge Cells Few Platelet Estimate Decreased Platelet Comment No clotting detected INR PTT (Actin FS) Fibrinogen Puncture Site ABG pH ABG pCO2 at Pt Temp ABG pO2 at Pt Temp ABG HCO3 ABG O2 Sat (Measured) ABG O2 Content ABG Base Excess Jaime Test O2 Delivery Device Oxygen Flow Rate Vent Mode Vent Rate PEEP Pressure Support Vent Sodium Potassium Chloride Carbon Dioxide Anion Gap BUN Creatinine Creat Clearance w eGFR POC Glucometer Random Glucose Hemoglobin A1c % Lactic Acid 2.4 H* Calcium Magnesium Total Bilirubin AST ALT Alkaline Phosphatase Creatine Kinase Creatine Kinase Index CK-MB (CK-2) Troponin I B-Natriuretic Peptide 7076.35 H Total Protein Albumin Urine Color Urine Appearance Urine pH Ur Specific [place] Urine Protein Urine Glucose (UA) Urine Ketones Urine Blood Urine Nitrite Urine Bilirubin Urine Urobilinogen Ur Leukocyte Esterase Urine RBC Urine WBC Ur Epithelial Cells Urine Bacteria Hyaline Casts Urine Mucus Vancomycin Pre-Dose 01/17/17 01/17/17 01/17/17 05:00 06:00 06:25 WBC RBC Hgb Hct MCV MCH MCHC RDW Plt Count MPV Total Counted Neutrophils % Neutrophils % (Manual) Band Neuts % (Manual) Lymphocytes % Lymphocytes % (Manual) Monocytes % Monocytes % (Manual) Eosinophils % Basophils % Nucleated RBC % Smudge Cells Platelet Estimate Platelet Comment INR 1.54 H PTT (Actin FS) 24.8 L Fibrinogen 161.0 L Puncture Site ABG pH ABG pCO2 at Pt Temp ABG pO2 at Pt Temp ABG HCO3 ABG O2 Sat (Measured) ABG O2 Content ABG Base Excess Jaime Test O2 Delivery Device Oxygen Flow Rate Vent Mode Vent Rate PEEP Pressure Support Vent Sodium Potassium Chloride Carbon Dioxide Anion Gap BUN Creatinine Creat Clearance w eGFR POC Glucometer 132.29895 Random Glucose Hemoglobin A1c % Lactic Acid Calcium Magnesium Total Bilirubin AST ALT Alkaline Phosphatase Creatine Kinase Creatine Kinase Index CK-MB (CK-2) Troponin I B-Natriuretic Peptide Total Protein Albumin Urine Color Urine Appearance Urine pH Ur Specific [place] Urine Protein Urine Glucose (UA) Urine Ketones Urine Blood Urine Nitrite Urine Bilirubin Urine Urobilinogen Ur Leukocyte Esterase Urine RBC Urine WBC Ur Epithelial Cells Urine Bacteria Hyaline Casts Urine Mucus Vancomycin Pre-Dose 6.662 01/17/17 01/17/17 01/17/17 07:57 09:39 11:00 WBC RBC Hgb Hct MCV MCH MCHC RDW Plt Count MPV Total Counted Neutrophils % Neutrophils % (Manual) Band Neuts % (Manual) Lymphocytes % Lymphocytes % (Manual) Monocytes % Monocytes % (Manual) Eosinophils % Basophils % Nucleated RBC % Smudge Cells Platelet Estimate Platelet Comment INR PTT (Actin FS) Fibrinogen Puncture Site ABG pH ABG pCO2 at Pt Temp ABG pO2 at Pt Temp ABG HCO3 ABG O2 Sat (Measured) ABG O2 Content ABG Base Excess Jaime Test O2 Delivery Device Oxygen Flow Rate Vent Mode Vent Rate PEEP Pressure Support Vent Sodium Potassium Chloride Carbon Dioxide Anion Gap BUN Creatinine Creat Clearance w eGFR POC Glucometer 128.26891 114.58532 Random Glucose Hemoglobin A1c % Lactic Acid Calcium Magnesium Total Bilirubin AST ALT Alkaline Phosphatase Creatine Kinase Creatine Kinase Index CK-MB (CK-2) Troponin I 0.39 H B-Natriuretic Peptide Total Protein Albumin Urine Color Urine Appearance Urine pH Ur Specific [place] Urine Protein Urine Glucose (UA) Urine Ketones Urine Blood Urine Nitrite Urine Bilirubin Urine Urobilinogen Ur Leukocyte Esterase Urine RBC Urine WBC Ur Epithelial Cells Urine Bacteria Hyaline Casts Urine Mucus Vancomycin Pre-Dose 01/17/17 11:15 WBC RBC Hgb Hct MCV MCH MCHC RDW Plt Count MPV Total Counted Neutrophils % Neutrophils % (Manual) Band Neuts % (Manual) Lymphocytes % Lymphocytes % (Manual) Monocytes % Monocytes % (Manual) Eosinophils % Basophils % Nucleated RBC % Smudge Cells Platelet Estimate Platelet Comment INR PTT (Actin FS) Fibrinogen Puncture Site ABG pH ABG pCO2 at Pt Temp ABG pO2 at Pt Temp ABG HCO3 ABG O2 Sat (Measured) ABG O2 Content ABG Base Excess Jaime Test O2 Delivery Device Oxygen Flow Rate Vent Mode Vent Rate PEEP Pressure Support Vent Sodium Potassium Chloride Carbon Dioxide Anion Gap BUN Creatinine Creat Clearance w eGFR POC Glucometer 164.63653 Random Glucose Hemoglobin A1c % Lactic Acid Calcium Magnesium Total Bilirubin AST ALT Alkaline Phosphatase Creatine Kinase Creatine Kinase Index CK-MB (CK-2) Troponin I B-Natriuretic Peptide Total Protein Albumin Urine Color Urine Appearance Urine pH Ur Specific [place] Urine Protein Urine Glucose (UA) Urine Ketones Urine Blood Urine Nitrite Urine Bilirubin Urine Urobilinogen Ur Leukocyte Esterase Urine RBC Urine WBC Ur Epithelial Cells Urine Bacteria Hyaline Casts Urine Mucus Vancomycin Pre-Dose Problem List - Problems (1) JEANNIE (acute kidney injury) Code(s): N17.9 - ACUTE KIDNEY FAILURE, UNSPECIFIED (2) Abnormal LFTs Code(s): R79.89 - OTHER SPECIFIED ABNORMAL FINDINGS OF BLOOD CHEMISTRY (3) Elevated troponin Code(s): R74.8 - ABNORMAL LEVELS OF OTHER SERUM ENZYMES (4) Hyperglycemia Code(s): R73.9 - HYPERGLYCEMIA, UNSPECIFIED (5) Lactate blood increase Code(s): R79.89 - OTHER SPECIFIED ABNORMAL FINDINGS OF BLOOD CHEMISTRY (6) Lung cancer, primary, with metastasis from lung to other site Code(s): C34.90 - MALIGNANT NEOPLASM OF UNSP PART OF UNSP BRONCHUS OR LUNG (7) Respiratory failure Code(s): J96.90 - RESPIRATORY FAILURE, UNSP, UNSP W HYPOXIA OR HYPERCAPNIA (8) Sepsis Code(s): A41.9 - SEPSIS, UNSPECIFIED ORGANISM (9) Thrombocytopenia Code(s): D69.6 - THROMBOCYTOPENIA, UNSPECIFIED (10) Brain metastasis Code(s): C79.31 - SECONDARY MALIGNANT NEOPLASM OF BRAIN (11) Liver metastases Code(s): C78.7 - SECONDARY MALIG NEOPLASM OF LIVER AND INTRAHEPATIC BILE DUCT (12) Lung malignancy Code(s): C34.90 - MALIGNANT NEOPLASM OF UNSP PART OF UNSP BRONCHUS OR LUNG Qualifiers: Laterality: right Lung location: hilum of lung Qualified Code(s) : C34.01 - Malignant neoplasm of right main bronchus (13) Metastasis to spinal column Code(s): C79.51 - SECONDARY MALIGNANT NEOPLASM OF BONE (14) Weakness Code(s): R53.1 - WEAKNESS (15) DVT (deep venous thrombosis) Code(s): I82.409 - ACUTE EMBOLISM AND THOMBOS UNSP DEEP VN UNSP LOWER EXTREMITY (16) UTI (urinary tract infection) Code(s): N39.0 - URINARY TRACT INFECTION, SITE NOT SPECIFIED Assessment/Plan Will need access Will D/W AC with Heme -> most likely IV Heparin NIPPV as needed Broad ABX per ID Aspiration precautions ECHO Once hemodynamics improve -> Steroid taper Glycemic control Patient is DNR/DNI Dr Robert Critical care time spent in reviewing chart, evaluating patient and formulating plan - 36 minutes.
[2017-01-17] MEDS: PHENYLEPHRINE HCL 20,000 MCG in SODIUM CHLORIDE 248 ML IVPB SCH ×2 (16:42→23:21)
[2017-01-17 17:12] LABS: INR 1.61 (0.82-1.09); PROTHROMBIN TIME (PATIENT) 17.9 SEC (9.98-11.88)
[2017-01-17 17:21] LABS: NUCLEATED RED BLOOD CELL 6 % (0-0); TOTAL CELLS COUNTED 100
--- NOTE | 2017-01-17 18:06 | CONSULT ---
Consult - Past Medical History RECORD CUTTER: Yes: Other (left hand weakness). No: Alzheimer's Cardio/Vascular: Yes: CAD, HTN, IA. No: AFIB Pulmonary: Yes: Other (lung ca) Musculoskeletal: Yes: Chronic low back pain Endocrine: Yes: Diabetes Mellitus - Alcohol/Substance Use Hx Alcohol Use: No - Smoking History Smoking history: Former smoker Have you smoked in the past 12 months: No - Social History Usual Living Arrangement: With Child ADL: Independent History of Recent Travel: No Home Medications - Allergies Allergies/Adverse Reactions: Allergies Allergy/AdvReac Type Severity Reaction Status Date / Time No Known Drug Allergies Allergy Verified 11/10/16 14:06 oats Allergy Verified 11/10/16 14:06 - Home Medications Home Medications: Ambulatory Orders Acetaminophen [Non-Aspirin Pain Relief] 500 mg PO TID PRN #60 tab 11/24/16 Alendronate Na [Fosamax (Weekly)] 70 mg PO Q7D #4 tablet 11/24/16 Atorvastatin Ca [Lipitor] 10 mg PO HS #1 tab 11/24/16 Calcium Carbonate/Vitamin D3 [Calcium 500 + Vit D3 400 Tab] 1 each PO BID #60 tablet 11/24/16 Dexamethasone [Decadron -] 4 mg PO Q6H #120 tablet 11/24/16 Icosapent Ethyl [Vascepa] 1 gm PO DAILY #0 cap 11/24/16 Insulin (Levemir) [Levemir Vial] 10 unit SQ HS #10 unit 11/24/16 Insulin Aspart [Novolog] See Protocol SQ AC #10 cartridge 11/24/16 Levetiracetam [Keppra -] 500 mg PO BID #60 tab 11/24/16 Lidocaine 5% Patch [Lidoderm -] 1 patch TP DAILY #30 patch 11/24/16 Metformin HCl 500 mg PO BID #0 tab 11/24/16 Ondansetron HCl [Zofran] 4 mg PO Q8H #40 tab 11/24/16 Pantoprazole Sodium [Protonix -] 40 mg PO DAILY #30 tab 11/24/16 Family Disease History - Family Disease History Family Disease History: CA: Sister Physical Exam Vital Signs: Vital Signs Temperature 99.2 F 01/17/17 14:00 Pulse Rate 70 01/17/17 17:12 Respiratory Rate 24 01/17/17 17:00 Blood Pressure 113/70 01/17/17 17:12 O2 Sat by Pulse Oximetry (%) 97 01/17/17 09:00 Labs: CBC, BMP 01/17/17 14:00 01/17/17 05:00 Assessment/Plan VAscular Surgery This is a 66 year old female with a history of HTN, CAD/IA, lung ca with mets to the brain, bone, liver, and spine (s/p immunotherapy and RTX, no chemotherapy ) brought into the ED complaining of shortness of breath and generalized weakness over the last 3 days. ER course was notable for: (1) SpO2 74% on arrival - placed on Bipap with improvement (2) Hypotension - 80's to 100's systolic (3) INR 1.91 (not on any AC) (4) Cr 1.9 (0.9 on admission about 1 month ago) (5) Glucose 421 (6) Troponin 0.78 (7) AST/ALT 1669/1036 (previously normal) (8) CXR: Right perihilar infiltrate with consolidation/atelectasis in the right lower lobe Recent Travel: None PAST MEDICAL HISTORY: As above PAST SURGICAL HISTORY: Gastric bypass, cholecystectomy, knee surgery Social History: Lives with son, reports she was previously independent in ADLs Smoking: Former smoker, quit about 10 years ago Alcohol: None Family History: Sister: lung ca () Allergies No Known Drug Allergies Allergy (Verified 11/10/16 14:06) oats Allergy (Verified 11/10/16 14:06) HOME MEDICATIONS: Home Medications Medication Instructions Recorded Acetaminophen [Non-Aspirin Pain 500 mg PO TID PRN #60 tab 11/24/16 Relief] Alendronate Na [Fosamax (Weekly)] 70 mg PO Q7D #4 tablet 11/24/16 Atorvastatin Ca [Lipitor] 10 mg PO HS #1 tab 11/24/16 Calcium Carbonate/Vitamin D3 1 each PO BID #60 tablet 11/24/16 [Calcium 500 + Vit D3 400 Tab] Dexamethasone [Decadron -] 4 mg PO Q6H #120 tablet 11/24/16 Icosapent Ethyl [Vascepa] 1 gm PO DAILY #0 cap 11/24/16 Insulin (Levemir) [Levemir Vial] 10 unit SQ HS #10 unit 11/24/16 Insulin Aspart [Novolog] See Protocol SQ AC #10 cartridge 11/24/16 Lancets 1 each MC AC #100 each 11/24/16 Levetiracetam [Keppra -] 500 mg PO BID #60 tab 11/24/16 Lidocaine 5% Patch [Lidoderm -] 1 patch TP DAILY #30 patch 11/24/16 Metformin HCl 500 mg PO BID #0 tab 11/24/16 Miscellaneous Medical Supply 1 each SQ AC #1 kit 11/24/16 [Glucometer Device] Miscellaneous Medical Supply 1 each SQ AC #1 box 11/24/16 [Glucometer Test Strips #100] Miscellaneous Medical Supply 1 each MC ASDIR #1 misc 11/24/16 [Outpatient Order] Ondansetron HCl [Zofran] 4 mg PO Q8H #40 tab 11/24/16 Pantoprazole Sodium [Protonix -] 40 mg PO DAILY #30 tab 11/24/16 Pen Needle, Diabetic [Insulin Pen 1 each MC AC #100 dis.needle 11/24/16 Needle] Polyvinyl Alcohol [Artificial 1 drop OU TID PRN #0 drop 11/24/16 Tears] Syrge-Ndl,Ins 0.3 ml Half Elian 1 each HS #100 disp.syrin 11/24/16 [Insulin Syringe] PE Head - NC/AT Lung - cTA Heart - RRR abd - soft,nt,nd ext - left soft, soft, warm. A/P Left leg DVT Lung CA with mets. Will need IV heparin once plt count rises -- Heme onc on the case. Will be on stand by for IVC filter. Due to mets to brain, it is possible they might bleed on AC Charan Mendoza DO
[2017-01-17] MEDS ORDERED: HEPARIN NA (PORCINE) 5,000 UNITS/ML 1ML VIAL IVPUSH PRN ×2 (18:23)
[2017-01-17] MEDS ORDERED: HEPARIN - 25,000 UNIT in SODIUM CHLORIDE 495 ML IV SCH ×2 (18:30→19:21)
--- NOTE | 2017-01-17 21:35 | PN ---
Progress Note (short form) - Note Progress Note: PAtient seen and examined On bipap mildly confused Last Vital Signs Temp Pulse Resp BP Pulse Ox 99.6 F 72 24 110/62 98 01/17/17 20:00 01/17/17 20:00 01/17/17 20:00 01/17/17 20:00 01/17/17 20:29 Cor: RSR, No murmurs, No gallops Lungs: Clear to P&A Abd: Soft, Normal bowel sounds, No organomegaly Ext:No significant edema Skin: No rashes, Integument intact Abnormal Lab Results 01/16/17 01/16/17 01/17/17 21:45 21:45 05:00 WBC RDW Plt Count MPV Band Neuts % (Manual) Lymphocytes % (Manual) Nucleated RBC % INR PTT (Actin FS) Fibrinogen Sodium 148 H Chloride 110 H 116 H BUN 57 H 48 H Creatinine 1.6 H 1.1 H D Random Glucose 429 H* 131 H D Hemoglobin A1c % Lactic Acid Calcium 6.4 L* 6.8 L* AST 695 H D ALT 1000 H Alkaline Phosphatase 142 H Creatine Kinase 399 H 303 H CK-MB (CK-2) 12.661 H 10.162 H Troponin I 1.03 H* 0.78 H* B-Natriuretic Peptide Total Protein 4.9 L Albumin 1.9 L 01/17/17 01/17/17 01/17/17 05:00 05:00 05:00 WBC 15.2 H RDW 18.8 H Plt Count 63 L MPV Band Neuts % (Manual) 23 H Lymphocytes % (Manual) 6 L Nucleated RBC % 6 H INR PTT (Actin FS) Fibrinogen Sodium Chloride BUN Creatinine Random Glucose Hemoglobin A1c % 8.9 H Lactic Acid Calcium AST ALT Alkaline Phosphatase Creatine Kinase CK-MB (CK-2) Troponin I B-Natriuretic Peptide 7076.35 H Total Protein Albumin 01/17/17 01/17/17 01/17/17 05:00 05:00 11:00 WBC RDW Plt Count MPV Band Neuts % (Manual) Lymphocytes % (Manual) Nucleated RBC % INR 1.54 H PTT (Actin FS) 24.8 L Fibrinogen 161.0 L Sodium Chloride BUN Creatinine Random Glucose Hemoglobin A1c % Lactic Acid 2.4 H* Calcium AST ALT Alkaline Phosphatase Creatine Kinase CK-MB (CK-2) Troponin I 0.39 H B-Natriuretic Peptide Total Protein Albumin 01/17/17 01/17/17 01/17/17 14:00 15:45 15:45 WBC 11.9 H RDW 19.8 H Plt Count 54 L MPV 11.2 H Band Neuts % (Manual) 25 H Lymphocytes % (Manual) 4 L D Nucleated RBC % 6 H INR 1.61 H PTT (Actin FS) Fibrinogen 188.0 L Sodium Chloride BUN Creatinine Random Glucose Hemoglobin A1c % Lactic Acid Calcium AST ALT Alkaline Phosphatase Creatine Kinase CK-MB (CK-2) Troponin I B-Natriuretic Peptide Total Protein Albumin 01/17/17 15:45 WBC RDW Plt Count MPV Band Neuts % (Manual) Lymphocytes % (Manual) Nucleated RBC % INR PTT (Actin FS) 25.3 L Fibrinogen Sodium Chloride BUN Creatinine Random Glucose Hemoglobin A1c % Lactic Acid Calcium AST ALT Alkaline Phosphatase Creatine Kinase CK-MB (CK-2) Troponin I B-Natriuretic Peptide Total Protein Albumin A/P 66 y/o patient with metastatic lung cancer ,brain,liver,bone mets s/p keytruda 12/27 comes in 1 day before her next cycle with worsening shortness of breath, hypotension, JEANNIE, coagulopathy suspect pneumonia/UTI/septic shock on broad spectrum antibiotics/BIPAP/pressor/IV fluids Renal failure mildly improved thrombocytopenia/elevated INr/decreased fibrinogen--low grade dic from sepsis transfuse platelets if bleeding/prior to procedures' vit. k trial brain mets--s/p RT, on decadron taper Le DVT-- will monitor platelets/coags and consider a/c if parameters worsening will need ivc filter discussed overall prognosis in great detail with her son demetrio supportive care for now
[2017-01-17] MEDS ORDERED: PHYTONADIONE 10 MG/1 ML AMP SQ ONE (21:40)
[2017-01-17] MEDS: INSULIN DETEMIR 100 UNITS/ML MDV SQ SCH (21:54)
[2017-01-17] MEDS ORDERED: ENOXAPARIN NA (PORCINE) 40 MG/0.4 ML DISP.SYRIN SQ ONE (21:56)
[2017-01-17] MEDS: LIDOCAINE PATCH REMOVAL MC SCH (22:23)
[2017-01-18] MEDS: PIPERACILLIN/TAZOB 3.375 GM 50 ML IVPB SCH ×3 (01:06→18:26)
[2017-01-18] MEDS: morphine CARPU-JECT 2 MG/1 ML DISP.SYRIN IVPUSH PRN ×5 (03:44→23:14)
[2017-01-18 05:48] LABS: BASOPHIL 0.2 % (0-2.0); MCH 29.7 pg (25.7-33.7); MCHC 33.3 g/dl (32.0-36.0); MEAN CELL VOLUME 89.4 fl (80-96); MEAN PLT VOLUME 10.8 fl (7.5-11.1); NEUTROPHILS 92.1 % (42.8-82.8); PLATELET COUNT 39 K/MM3 (134-434); RDW 19.9 % (11.6-15.6); WHITE BLOOD COUNT 9.8 K/mm3 (4.0-10.0)
[2017-01-18 06:03] LABS: INR 1.56 (0.82-1.09); PROTHROMBIN TIME (PATIENT) 17.3 SEC (9.98-11.88)
[2017-01-18] MEDS: HYDROCORTISONE SOD SUCCINATE 100 MG/2 ML VIAL IVPB SCH ×3 (06:22→20:14)
[2017-01-18] MEDS: INSULIN SLIDING SCALE (NOVOLOG) 1 VIAL SQ SCH ×4 (06:23→23:14)
[2017-01-18 06:28] LABS: ALBUMIN 1.7 g/dl (3.4-5.0); ALK PHOS 132 U/L (45-117); ANION GAP 8 (8-16); BILIRUBIN,TOTAL 0.7 mg/dL (0.2-1.0); CO2 24 mmol/L (21-32); CREATININE 0.6 mg/dL (0.55-1.02); GLUCOSE,RANDOM 185 mg/dL (74-106); MAGNESIUM 2.5 mg/dL (1.8-2.4); PHOSPHOROUS 1.5 mg/dL (2.5-4.9); SGOT/AST 302 U/L (15-37); TOT PROT 4.4 g/dl (6.4-8.2)
[2017-01-18 06:41] LABS: CALCIUM 6.8 mg/dL (8.5-10.1); SGPT/ALT 723 U/L (12-78)
--- NOTE | 2017-01-18 07:30 | PN ---
Progress Note, Physician Chief Complaint: ID ICU follow up for Sepsis and pneumonia. 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 Currently on BIPAP mask. Hydrocortisone Azithromycin and Pip Tazobactam - Current Medication List Current Medications: Active Medications Artificial Tears (Artificial Tears) 1 drop OU TID PRN PRN Reason: DRY EYES Last Admin: 01/16/17 16:51 Dose: 1 drop Hydrocortisone Sodium Succinate (Solu-Cortef -) 100 mg IVPB Q8H ALEX Last Admin: 01/18/17 06:22 Dose: 100 mg Azithromycin 250 mg/ Dextrose 250 mls @ 250 mls/hr IVPB DAILY ALEX Stop: 01/20/17 10:59 Last Admin: 01/17/17 11:10 Dose: 250 mls/hr Phenylephrine HCl 20,000 mcg/ (Sodium Chloride) 250 mls @ 75 mls/hr IVPB ASDIR ALEX; 100 MCG/MIN PRN Reason: Protocol Last Admin: 01/17/17 23:21 Dose: Not Given Pantoprazole Sodium (Protonix 40mg Ivpb (Pre-Docked)) 100 mls @ 200 mls/hr IVPB DAILY ALEX Last Admin: 01/17/17 09:40 Dose: 200 mls/hr Piperacillin Sod/Tazobactam Sod (Zosyn 3.375gm Ivpb (Pre-Docked)) 50 mls @ 100 mls/hr IVPB Q8H-IV ALEX Last Admin: 01/18/17 01:06 Dose: 100 mls/hr Insulin Aspart (Novolog Vial Sliding Scale -) 1 vial SQ ACHS ALEX PRN Reason: Protocol Last Admin: 01/18/17 06:23 Dose: 2 units Insulin Detemir (Levemir Vial) 10 units SQ HS ALEX Last Admin: 01/17/17 21:54 Dose: 10 units Levetiracetam (Keppra -) 500 mg PO BID ALEX Last Admin: 01/17/17 21:54 Dose: Not Given Lidocaine (Lidoderm Patch -) 1 patch TP DAILY [facility] Last Admin: 01/17/17 09:47 Dose: 1 patch Miscellaneous (Lidoderm Patch Removal) 1 each MC DAILY@2200 ALEX Last Admin: 01/17/17 22:23 Dose: 1 each Morphine Sulfate (Morphine Injection -) 1 mg IVPUSH Q3H PRN PRN Reason: PAIN Last Admin: 01/18/17 03:44 Dose: 1 mg Ondansetron HCl (Zofran Injection) 4 mg IVPB Q6H PRN PRN Reason: NAUSEA Phytonadione (Aqua Mephyton Injection -) 5 mg SQ DAILY ALEX Stop: 01/20/17 10:01 - Objective Vital Signs: Vital Signs Temperature 98.0 F 01/18/17 06:00 Pulse Rate 69 01/18/17 06:00 Respiratory Rate 18 01/18/17 06:00 Blood Pressure 102/68 01/18/17 06:00 O2 Sat by Pulse Oximetry (%) 98 01/18/17 05:17 Constitutional: Yes: Mild Distress Eyes: Yes: WNL, Conjunctiva Clear HENT: Yes: WNL, Atraumatic Neck: Yes: WNL, Supple Cardiovascular: Yes: Regular Rate and Rhythm, S1, S2 Respiratory: Yes: WNL, Regular, CTA Bilaterally, Diminished, Rhonchi Gastrointestinal: Yes: WNL, Normal Bowel Sounds, Soft. No: Splenomegaly, Tenderness, Tenderness, Rebound Edema: Yes (Swelling left leg ) Labs: CBC, BMP 01/18/17 05:35 01/18/17 05:35 INR, PTT INR 1.56 (0.82-1.09) H 01/18/17 05:35 Fibrinogen 223.0 mg/dL (238-498) L 01/18/17 05:35 Problem List - Problems (1) Sepsis with multiple organ dysfunction (MOD) Code(s): A41.9 - SEPSIS, UNSPECIFIED ORGANISM R65.20 - SEVERE SEPSIS WITHOUT SEPTIC SHOCK (2) Bacterial UTI Code(s): N39.0 - URINARY TRACT INFECTION, SITE NOT SPECIFIED A49.9 - BACTERIAL INFECTION, UNSPECIFIED (3) Pneumonia due to other specified infectious organisms Code(s): J16.8 - PNEUMONIA DUE TO OTHER SPECIFIED INFECTIOUS ORGANISMS (4) Metastatic cancer Code(s): C79.9 - SECONDARY MALIGNANT NEOPLASM OF UNSPECIFIED SITE (5) DVT (deep venous thrombosis) Code(s): I82.409 - ACUTE EMBOLISM AND THOMBOS UNSP DEEP VN UNSP LOWER EXTREMITY Assessment/Plan Microbiology 01/16/17 19:10 Urine For Antigen Detection Legionella Antigen - Final 01/16/17 19:10 Urine For Antigen Detection Streptococcus pneumoniae Antigen (M - Final 01/16/17 10:30 Urine - Urine Clean Catch Urine Culture - Preliminary Lactose Fermenting Neg Bacilli 01/16/17 10:30 Blood - Peripheral Venous Blood Culture - Preliminary NO GROWTH OBTAINED AFTER 24 HOURS, INCUBATION TO CONTINUE FOR 4 DAYS. 01/16/17 10:30 Blood - Peripheral Venous Blood Culture - Preliminary NO GROWTH OBTAINED AFTER 24 HOURS, INCUBATION TO CONTINUE FOR 4 DAYS. Laboratory Tests 01/16/17 01/18/17 01/18/17 11:25 05:35 05:35 WBC 9.8 Hgb 11.0 Hct 33.1 Plt Count 39 L D INR BUN 33 H D Creatinine 0.6 D Total Bilirubin 0.7 AST 302 H D ALT 723 H D Alkaline Phosphatase 132 H Ur Leukocyte Esterase 1+ H Urine RBC 1 Urine WBC 14 Urine Bacteria Many 01/18/17 05:35 WBC Hgb Hct Plt Count INR 1.56 H BUN Creatinine Total Bilirubin AST ALT Alkaline Phosphatase Ur Leukocyte Esterase Urine RBC Urine WBC Urine Bacteria Assessment Sepsis syndrome Bilateral pulmonary infiltrates unspecified Gram negative urinary tract infection Respiratory distress Metastatic cancer DVT left leg JEANNIE Coagulapathy DIC related from sepsis Plan Continue current therapy c/s urine culture pending Antoicoagulation per hematology ? IVC filter Steroids Critical care time spent YES 39 minutes revieweing chart examining and determining current antibiotic management Ty SOSA
--- NOTE | 2017-01-18 07:46 | PN ---
Physical Exam: 24H events: yesterday: held Heparin O/N: some agitation AM: pulled RIJ without signs of overt bleeding, off phenylephrine SUBJECTIVE: Patient seen and examined in ICU. On Bipap. Complaints of body aches , denies chest pain or sob. OBJECTIVE: Vital Signs Period Temp Pulse Resp BP Sys/Curran Pulse Ox Last 24 Hr 98.0 F-99.6 F 66-81 11-32 98-121/60-74 97-100 Intake & Output 01/15/17 01/16/17 01/17/17 01/18/17 23:59 23:59 23:59 23:59 Intake Total 1694 100 Output Total 1500 2050 400 Balance -1500 -356 -300 Weight 69.088 kg 69.938 kg 66.848 kg GENERAL: awake and alert, confused, on bipap EYES: sclera anicteric, conjunctiva clear. ENT:oropharynx clear without exudates, moist mucous membranes LUNGS: bilateral course breath sounds, no wheezes or rales HEART: rrr, normal s1/s2, no murmur, rub or gallop ABDOMEN: Soft, ntnd EXTREMITIES: wwp, no edema SKIN: scattered ecchymosis on forearms CBC, BMP 01/18/17 05:35 01/18/17 05:35 Hepatic Panel Total Bilirubin 0.7 mg/dL (0.2-1.0) 01/18/17 05:35 AST 302 U/L (15-37) H D 01/18/17 05:35 ALT 723 U/L (12-78) H D 01/18/17 05:35 Alkaline Phosphatase 132 U/L (45-117) H 01/18/17 05:35 Albumin 1.7 g/dl (3.4-5.0) L 01/18/17 05:35 INR, PTT INR 1.56 (0.82-1.09) H 01/18/17 05:35 Fibrinogen 223.0 mg/dL (238-498) L 01/18/17 05:35 01/17/17 11:00 Troponin I 0.39 H Microbiology 01/16/17 10:30 Blood - Peripheral Venous Blood Culture - Preliminary NO GROWTH OBTAINED AFTER 24 HOURS, INCUBATION TO CONTINUE FOR 4 DAYS. 01/16/17 10:30 Blood - Peripheral Venous Blood Culture - Preliminary NO GROWTH OBTAINED AFTER 24 HOURS, INCUBATION TO CONTINUE FOR 4 DAYS. 01/16/17 10:30 Urine - Urine Clean Catch Urine Culture - Preliminary Lactose Fermenting Neg Bacilli 01/16/17 19:10 Urine For Antigen Detection Legionella Antigen - Final 01/16/17 19:10 Urine For Antigen Detection Streptococcus pneumoniae Antigen (M - Final Active Medications Artificial Tears (Artificial Tears) 1 drop OU TID PRN PRN Reason: DRY EYES Last Admin: 01/16/17 16:51 Dose: 1 drop Hydrocortisone Sodium Succinate (Solu-Cortef -) 100 mg IVPB Q8H [facility] Last Admin: 01/18/17 06:22 Dose: 100 mg Azithromycin 250 mg/ Dextrose 250 mls @ 250 mls/hr IVPB DAILY [facility] Stop: 01/20/17 10:59 Last Admin: 01/17/17 11:10 Dose: 250 mls/hr Phenylephrine HCl 20,000 mcg/ (Sodium Chloride) 250 mls @ 75 mls/hr IVPB ASDIR ALEX; 100 MCG/MIN PRN Reason: Protocol Last Admin: 01/17/17 23:21 Dose: Not Given Pantoprazole Sodium (Protonix 40mg Ivpb (Pre-Docked)) 100 mls @ 200 mls/hr IVPB DAILY [facility] Last Admin: 01/17/17 09:40 Dose: 200 mls/hr Piperacillin Sod/Tazobactam Sod (Zosyn 3.375gm Ivpb (Pre-Docked)) 50 mls @ 100 mls/hr IVPB Q8H-IV ALEX Last Admin: 01/18/17 01:06 Dose: 100 mls/hr Insulin Aspart (Novolog Vial Sliding Scale -) 1 vial SQ ACHS [facility] PRN Reason: Protocol Last Admin: 01/18/17 06:23 Dose: 2 units Insulin Detemir (Levemir Vial) 10 units SQ HS [facility] Last Admin: 01/17/17 21:54 Dose: 10 units Levetiracetam (Keppra -) 500 mg PO BID [facility] Last Admin: 01/17/17 21:54 Dose: Not Given Lidocaine (Lidoderm Patch -) 1 patch TP DAILY [facility] Last Admin: 01/17/17 09:47 Dose: 1 patch Miscellaneous (Lidoderm Patch Removal) 1 each MC DAILY@2200 [facility] Last Admin: 01/17/17 22:23 Dose: 1 each Morphine Sulfate (Morphine Injection -) 1 mg IVPUSH Q3H PRN PRN Reason: PAIN Last Admin: 01/18/17 03:44 Dose: 1 mg Ondansetron HCl (Zofran Injection) 4 mg IVPB Q6H PRN PRN Reason: NAUSEA Phytonadione (Aqua Mephyton Injection -) 5 mg SQ DAILY ALEX Stop: 01/20/17 10:01 ASSESSMENT/PLAN: 66yo woman with metastatic NSCLC to the brain, liver, and bones who presents with severe sepsis likely 2/2 UTI and possible PNA, severe thrombocytopenia, and continues to require NIPPV FiO2 100% to maintain SpO2. Patient is off pressors. #Pulm -NIPPV as needed (current settings 02/14, FiO2 70%) -Maintain SpO2 >90% -Aspiration precautions #HEME -Heme/Onc following -Monitor coags, CMP #CV: -Telemetry monitoring #ID -ID is following -Antibiotic coverage per ID (Zosyn 3.375g IV Q8H, Azithromycin 250mg IVPB daily) -f/u daniel cultures #Neuro -Pain control -Continue home Keppra 500mg PO BID -fall precautions #Endocrine -BGM ACHS -Insulin sliding scale -Continue home Levemir 10U SQ HS -Hydrocortisone 100mg IVPB Q8H --> taper once hemodynamics improve #Renal - JEANNIE resolving, Cr downtrending -Monitor Cr #F/E/N -Monitor electrolytes -NPO #PPX -DVT - SCDs (thrombocytopenic) -GI - pantopraxole 40mg IVBP daily #Dispo: -Continue management in ICU -DNR/DNI per healthcare proxy (Cesar, son) d/w with Dr. Yesica Regalado, PGY-1 Visit type - Emergency Visit Emergency Visit: No - New Patient This patient is new to me today: Yes Date on this admission: 01/18/17 - Critical Care Critical Care patient: No Total Critical Care Time (in minutes): 35 Critical Care Statement: The care of this patient involved high complexity decision making to prevent further life threatening deterioration of the patient 's condition and/or to evaluate & treat vital organ system(s) failure or risk of failure.
--- NOTE | 2017-01-18 07:51 | PN ---
Progress Note (short form) - Note Progress Note: Given patient's status --> lung ca with mets to the brain, bone, liver, and spine...she is a poor candidate for AC. Duplex: + LLE DVT f/u [facility] work-up Vascular surgery to remain on standby for IVC Filter placement. Will continue to follow.
[2017-01-18] MEDS ORDERED: morphine CARPU-JECT 2 MG/1 ML DISP.SYRIN IVPUSH ONE (08:45)
[2017-01-18] MEDS: levETIRAcetam 500 MG TABLET (FP) PO SCH ×2 (09:34→23:13)
[2017-01-18] MEDS: PANTOPRAZOLE SODIUM 100 ML IVPB SCH (09:34)
[2017-01-18] MEDS: PHYTONADIONE 10 MG/1 ML AMP SQ SCH (09:41)
[2017-01-18] MEDS: LIDOCAINE 5% TOPICAL PATCH TP SCH (09:42)
[2017-01-18] MEDS ORDERED: PT OWN MED DRAWER 7, Y5N ONE (09:47)
[2017-01-18] MEDS: AZITHROMYCIN IVPB 250 MG in DEXTROSE 5%-WATER - 250 ML IVPB SCH (10:35)
--- NOTE | 2017-01-18 12:51 | PN ---
Teaching Attending Note Name of Resident: Madalyn Regalado ATTENDING PHYSICIAN STATEMENT I saw and evaluated the patient. I reviewed the resident's note and discussed the case with the resident. I agree with the resident's findings and plan as documented. SUBJECTIVE: Patient seen and examined in the ICU. Awake and responsive. Remains on NIPPV support. 100% FiO2. Denies CP or SOB. Patient pulled out her TLC. No overt bleeding noted at the site. Intake & Output 01/15/17 01/16/17 01/17/17 01/18/17 23:59 23:59 23:59 23:59 Intake Total 1694 500 Output Total 1500 2050 400 Balance -1500 -356 100 Weight 152 lb 5 oz 154 lb 3 oz 147 lb 6 oz Last Vital Signs Temp Pulse Resp BP Pulse Ox 97.9 F 78 23 99/65 96 01/18/17 10:00 01/18/17 10:00 01/18/17 10:00 01/18/17 10:00 01/18/17 11:07 Active Medications Artificial Tears (Artificial Tears) 1 drop OU TID PRN PRN Reason: DRY EYES Last Admin: 01/16/17 16:51 Dose: 1 drop Hydrocortisone Sodium Succinate (Solu-Cortef -) 100 mg IVPB Q8H ALEX Last Admin: 01/18/17 06:22 Dose: 100 mg Azithromycin 250 mg/ Dextrose 250 mls @ 250 mls/hr IVPB DAILY ALEX Stop: 01/20/17 10:59 Last Admin: 01/18/17 10:35 Dose: 250 mls/hr Phenylephrine HCl 20,000 mcg/ (Sodium Chloride) 250 mls @ 75 mls/hr IVPB ASDIR ALEX; 100 MCG/MIN PRN Reason: Protocol Last Admin: 01/17/17 23:21 Dose: Not Given Pantoprazole Sodium (Protonix 40mg Ivpb (Pre-Docked)) 100 mls @ 200 mls/hr IVPB DAILY ALEX Last Admin: 01/18/17 09:34 Dose: 200 mls/hr Piperacillin Sod/Tazobactam Sod (Zosyn 3.375gm Ivpb (Pre-Docked)) 50 mls @ 100 mls/hr IVPB Q8H-IV ALEX Last Admin: 01/18/17 09:33 Dose: 100 mls/hr Insulin Aspart (Novolog Vial Sliding Scale -) 1 vial SQ ACHS ALEX PRN Reason: Protocol Last Admin: 01/18/17 11:32 Dose: 4 units Insulin Detemir (Levemir Vial) 10 units SQ HS [facility] Last Admin: 01/17/17 21:54 Dose: 10 units Levetiracetam (Keppra -) 500 mg PO BID [facility] Last Admin: 01/18/17 09:34 Dose: Not Given Lidocaine (Lidoderm Patch -) 1 patch TP DAILY [facility] Last Admin: 01/18/17 09:42 Dose: 1 patch Miscellaneous (Lidoderm Patch Removal) 1 each MC DAILY@2200 [facility] Last Admin: 01/17/17 22:23 Dose: 1 each Morphine Sulfate (Morphine Injection -) 1 mg IVPUSH Q3H PRN PRN Reason: PAIN Last Admin: 01/18/17 07:50 Dose: 1 mg Ondansetron HCl (Zofran Injection) 4 mg IVPB Q6H PRN PRN Reason: NAUSEA Phytonadione (Aqua Mephyton Injection -) 5 mg SQ DAILY [facility] Stop: 01/20/17 10:01 Last Admin: 01/18/17 09:41 Dose: 5 mg Constitutional: Yes: Awake on NIPPV Eyes: Yes: Conjunctiva Clear HENT: Yes: Atraumatic Neck: Yes: Supple Cardiovascular: Yes: Regular Rate and Rhythm, S1, S2. No: Gallop, Murmur, Rub Respiratory: Yes: NIPPV, bilateral coarse breath sounds, no wheezing Gastrointestinal: Yes: Normal Bowel Sounds, Soft. No: Tenderness Extremities: Yes: (+) PP Edema: No Peripheral Pulses WNL: Yes Integumentary: Yes: Other (scattered ecchymosis) Neurological: Yes: Non-focal, confused ...Motor Strength: WNL Psychiatric: Yes: WNL Labs: Laboratory Results - last 24 hr 01/17/17 01/17/17 01/17/17 11:00 14:00 15:45 WBC 11.9 H RBC 3.83 Hgb 11.4 Hct 34.5 MCV 90.2 MCH 29.9 MCHC 33.2 RDW 19.8 H Plt Count 54 L MPV 11.2 H Total Counted 100 Neutrophils % Y Neutrophils % (Manual) 71 D Band Neuts % (Manual) 25 H Lymphocytes % Y Lymphocytes % (Manual) 4 L D Monocytes % Eosinophils % Basophils % Nucleated RBC % 6 H INR PTT (Actin FS) Fibrinogen 188.0 L Sodium Potassium Chloride Carbon Dioxide Anion Gap BUN Creatinine Creat Clearance w eGFR POC Glucometer Random Glucose Calcium Phosphorus Magnesium Total Bilirubin AST ALT Alkaline Phosphatase Troponin I 0.39 H Total Protein Albumin Random Vancomycin 01/17/17 01/17/17 01/17/17 15:45 15:45 16:26 WBC RBC Hgb Hct MCV MCH MCHC RDW Plt Count MPV Total Counted Neutrophils % Neutrophils % (Manual) Band Neuts % (Manual) Lymphocytes % Lymphocytes % (Manual) Monocytes % Eosinophils % Basophils % Nucleated RBC % INR 1.61 H PTT (Actin FS) 25.3 L Fibrinogen Sodium Potassium Chloride Carbon Dioxide Anion Gap BUN Creatinine Creat Clearance w eGFR POC Glucometer [phone] Random Glucose Calcium Phosphorus Magnesium Total Bilirubin AST ALT Alkaline Phosphatase Troponin I Total Protein Albumin Random Vancomycin 01/17/17 01/18/17 01/18/17 21:47 05:35 05:35 WBC 9.8 RBC 3.70 Hgb 11.0 Hct 33.1 MCV 89.4 MCH 29.7 MCHC 33.3 RDW 19.9 H Plt Count 39 L D MPV 10.8 Total Counted Neutrophils % 92.1 H Neutrophils % (Manual) Band Neuts % (Manual) Lymphocytes % 6.0 L D Lymphocytes % (Manual) Monocytes % 1.7 L Eosinophils % 0.0 D Basophils % 0.2 D Nucleated RBC % INR PTT (Actin FS) Fibrinogen Sodium Potassium Chloride Carbon Dioxide Anion Gap BUN Creatinine Creat Clearance w eGFR POC Glucometer [phone] Random Glucose Calcium Phosphorus Magnesium Total Bilirubin AST ALT Alkaline Phosphatase Troponin I Total Protein Albumin Random Vancomycin 9.282 01/18/17 01/18/17 01/18/17 05:35 05:35 05:35 WBC RBC Hgb Hct MCV MCH MCHC RDW Plt Count MPV Total Counted Neutrophils % Neutrophils % (Manual) Band Neuts % (Manual) Lymphocytes % Lymphocytes % (Manual) Monocytes % Eosinophils % Basophils % Nucleated RBC % INR 1.56 H PTT (Actin FS) 30.7 Fibrinogen 223.0 L Sodium 150 H Potassium 3.8 Chloride 118 H Carbon Dioxide 24 Anion Gap 8 BUN 33 H D Creatinine 0.6 D Creat Clearance w eGFR > 60 POC Glucometer Random Glucose 185 H D Calcium 6.8 L* Phosphorus 1.5 L Magnesium 2.5 H Total Bilirubin 0.7 AST 302 H D ALT 723 H D Alkaline Phosphatase 132 H Troponin I Total Protein 4.4 L Albumin 1.7 L Random Vancomycin 01/18/17 06:22 WBC RBC Hgb Hct MCV MCH MCHC RDW Plt Count MPV Total Counted Neutrophils % Neutrophils % (Manual) Band Neuts % (Manual) Lymphocytes % Lymphocytes % (Manual) Monocytes % Eosinophils % Basophils % Nucleated RBC % INR PTT (Actin FS) Fibrinogen Sodium Potassium Chloride Carbon Dioxide Anion Gap BUN Creatinine Creat Clearance w eGFR POC Glucometer [phone] Random Glucose Calcium Phosphorus Magnesium Total Bilirubin AST ALT Alkaline Phosphatase Troponin I Total Protein Albumin Random Vancomycin Problem List - Problems (1) JEANNIE (acute kidney injury) Code(s): N17.9 - ACUTE KIDNEY FAILURE, UNSPECIFIED (2) Abnormal LFTs Code(s): R79.89 - OTHER SPECIFIED ABNORMAL FINDINGS OF BLOOD CHEMISTRY (3) Elevated troponin Code(s): R74.8 - ABNORMAL LEVELS OF OTHER SERUM ENZYMES (4) Hyperglycemia Code(s): R73.9 - HYPERGLYCEMIA, UNSPECIFIED (5) Lactate blood increase Code(s): R79.89 - OTHER SPECIFIED ABNORMAL FINDINGS OF BLOOD CHEMISTRY (6) Lung cancer, primary, with metastasis from lung to other site Code(s): C34.90 - MALIGNANT NEOPLASM OF UNSP PART OF UNSP BRONCHUS OR LUNG (7) Respiratory failure Code(s): J96.90 - RESPIRATORY FAILURE, UNSP, UNSP W HYPOXIA OR HYPERCAPNIA (8) Sepsis Code(s): A41.9 - SEPSIS, UNSPECIFIED ORGANISM (9) Thrombocytopenia Code(s): D69.6 - THROMBOCYTOPENIA, UNSPECIFIED (10) Brain metastasis Code(s): C79.31 - SECONDARY MALIGNANT NEOPLASM OF BRAIN (11) Liver metastases Code(s): C78.7 - SECONDARY MALIG NEOPLASM OF LIVER AND INTRAHEPATIC BILE DUCT (12) Lung malignancy Code(s): C34.90 - MALIGNANT NEOPLASM OF UNSP PART OF UNSP BRONCHUS OR LUNG Qualifiers: Laterality: right Lung location: hilum of lung Qualified Code(s) : C34.01 - Malignant neoplasm of right main bronchus (13) Metastasis to spinal column Code(s): C79.51 - SECONDARY MALIGNANT NEOPLASM OF BONE (14) Weakness Code(s): R53.1 - WEAKNESS (15) DVT (deep venous thrombosis) Code(s): I82.409 - ACUTE EMBOLISM AND THOMBOS UNSP DEEP VN UNSP LOWER EXTREMITY (16) UTI (urinary tract infection) Code(s): N39.0 - URINARY TRACT INFECTION, SITE NOT SPECIFIED Assessment/Plan NIPPV as needed ABX per ID Aspiration precautions Rapid Steroid taper now that she is off pressors Glycemic control Telemetry monitoring Patient is DNR/DNI Dr Robert Critical care time spent in reviewing chart, evaluating patient and formulating plan - 36 minutes.
--- NOTE | 2017-01-18 16:10 | PN ---
Progress Note (short form) - Note Progress Note: PAtient seen and examined On bipap mildly confused Lethargic Last Vital Signs Temp Pulse Resp BP Pulse Ox 97.7 F 70 20 90/54 100 01/18/17 14:00 01/18/17 14:00 01/18/17 14:00 01/18/17 14:00 01/18/17 14:12 Cor: RSR, No murmurs, No gallops Lungs: Clear to P&A Abd: Soft, Normal bowel sounds, No organomegaly Ext:No significant edema Abnormal Lab Results 01/17/17 01/17/17 01/17/17 14:00 15:45 15:45 WBC 11.9 H RDW 19.8 H Plt Count 54 L MPV 11.2 H Neutrophils % Band Neuts % (Manual) 25 H Lymphocytes % Lymphocytes % (Manual) 4 L D Monocytes % Nucleated RBC % 6 H INR 1.61 H PTT (Actin FS) Fibrinogen 188.0 L Sodium Chloride BUN Random Glucose Calcium Phosphorus Magnesium AST ALT Alkaline Phosphatase Total Protein Albumin 01/17/17 01/18/17 01/18/17 15:45 05:35 05:35 WBC RDW 19.9 H Plt Count 39 L D MPV Neutrophils % 92.1 H Band Neuts % (Manual) Lymphocytes % 6.0 L D Lymphocytes % (Manual) Monocytes % 1.7 L Nucleated RBC % INR PTT (Actin FS) 25.3 L Fibrinogen Sodium 150 H Chloride 118 H BUN 33 H D Random Glucose 185 H D Calcium 6.8 L* Phosphorus 1.5 L Magnesium 2.5 H AST 302 H D ALT 723 H D Alkaline Phosphatase 132 H Total Protein 4.4 L Albumin 1.7 L 01/18/17 05:35 WBC RDW Plt Count MPV Neutrophils % Band Neuts % (Manual) Lymphocytes % Lymphocytes % (Manual) Monocytes % Nucleated RBC % INR 1.56 H PTT (Actin FS) Fibrinogen 223.0 L Sodium Chloride BUN Random Glucose Calcium Phosphorus Magnesium AST ALT Alkaline Phosphatase Total Protein Albumin Active Medications Generic Name Dose Route Start Last Admin Trade Name Freq PRN Reason Stop Dose Admin Artificial Tears 1 drop 01/16/17 14:05 01/16/17 16:51 Artificial Tears OU 1 drop TID PRN Administration DRY EYES Hydrocortisone Sodium Succinate 100 mg 01/16/17 14:15 01/18/17 13:31 Solu-Cortef - IVPB 100 mg Q8H ALEX Administration Azithromycin 250 mg/ Dextrose 250 mls @ 250 mls/hr 01/17/17 10:00 01/18/17 10: 35 IVPB 01/20/17 10:59 250 mls/hr DAILY ALEX Administration Phenylephrine HCl 20,000 mcg/ 250 mls @ 75 mls/hr 01/16/17 23:00 01/17/17 23:21 Sodium Chloride IVPB Not Given ASDIR ALEX Protocol 100 MCG/MIN Pantoprazole Sodium 100 mls @ 200 mls/hr 01/17/17 10:00 01/18/17 09:34 Protonix 40mg Ivpb (Pre-Docked) IVPB 200 mls/hr DAILY ALEX Administration Piperacillin Sod/Tazobactam Sod 50 mls @ 100 mls/hr 01/17/17 09:35 01/18/17 09: 33 Zosyn 3.375gm Ivpb (Pre-Docked) IVPB 100 mls/hr Q8H-IV ALEX Administration Insulin Aspart 1 vial 01/17/17 11:00 01/18/17 11:32 Novolog Vial Sliding Scale - SQ 4 units ACHS ALEX Administration Protocol Insulin Detemir 10 units 01/17/17 22:00 01/17/17 21:54 Levemir Vial SQ 10 units HS ALEX Administration Levetiracetam 500 mg 01/16/17 22:00 01/18/17 09:34 Keppra - PO Not Given BID ALEX Lidocaine 1 patch 01/17/17 10:00 01/18/17 09:42 Lidoderm Patch - TP 1 patch DAILY ALEX Administration Miscellaneous 1 each 01/17/17 22:00 01/17/17 22:23 Lidoderm Patch Removal MC 1 each DAILY@2200 ALEX Administration Morphine Sulfate 1 mg 01/17/17 12:49 01/18/17 13:31 Morphine Injection - IVPUSH 1 mg Q3H PRN Administration PAIN Ondansetron HCl 4 mg 01/16/17 14:58 Zofran Injection IVPB Q6H PRN NAUSEA Phytonadione 5 mg 01/18/17 10:00 01/18/17 09:41 Aqua Mephyton Injection - SQ 01/20/17 10:01 5 mg DAILY ALEX Administration A/P 66 y/o patient with metastatic lung cancer ,brain,liver,bone mets s/p keytruda 12/27 comes in 1 day before her next cycle with worsening shortness of breath, hypotension, JEANNIE, coagulopathy suspect pneumonia/UTI/septic shock on broad spectrum antibiotics/BIPAP/pressor/IV fluids thrombocytopenia/elevated INr/decreased fibrinogen-- dic from sepsis worsening thrombocytopenia brain mets--s/p RT, on hydrocortisone LE DVT-- unable to anticoagulate due to severe thrombocytopenia due to tenuous respiratory status unable to put in ivc filter discussed overall prognosis in great detail with her son For hospice no blood draws/transfusions/pressors
--- NOTE | 2017-01-18 16:44 | PN ---
Progress Note (short form) - Note Progress Note: Subjective: The patient was seen and examined at the bedside, she is on bipap. Current Medications Generic Name Dose Route Start Last Admin Trade Name Freq PRN Reason Stop Dose Admin Artificial Tears 1 drop 01/16/17 14:05 01/16/17 16:51 Artificial Tears OU 1 drop TID PRN Administration DRY EYES Hydrocortisone Sodium Succinate 100 mg 01/18/17 21:00 Solu-Cortef - IVPB Q6H-IV ALEX Azithromycin 250 mg/ Dextrose 250 mls @ 250 mls/hr 01/17/17 10:00 01/18/17 10: 35 IVPB 01/20/17 10:59 250 mls/hr DAILY ALEX Administration Phenylephrine HCl 20,000 mcg/ 250 mls @ 75 mls/hr 01/16/17 23:00 01/17/17 23:21 Sodium Chloride IVPB Not Given ASDIR ALEX Protocol 100 MCG/MIN Pantoprazole Sodium 100 mls @ 200 mls/hr 01/17/17 10:00 01/18/17 09:34 Protonix 40mg Ivpb (Pre-Docked) IVPB 200 mls/hr DAILY ALEX Administration Piperacillin Sod/Tazobactam Sod 50 mls @ 100 mls/hr 01/17/17 09:35 01/18/17 09: 33 Zosyn 3.375gm Ivpb (Pre-Docked) IVPB 100 mls/hr Q8H-IV ALEX Administration Insulin Aspart 1 vial 01/17/17 11:00 01/18/17 16:30 Novolog Vial Sliding Scale - SQ Not Given ACHS ALEX Protocol Insulin Detemir 10 units 01/17/17 22:00 01/17/17 21:54 Levemir Vial SQ 10 units HS ALEX Administration Levetiracetam 500 mg 01/16/17 22:00 01/18/17 09:34 Keppra - PO Not Given BID ALEX Lidocaine 1 patch 01/17/17 10:00 01/18/17 09:42 Lidoderm Patch - TP 1 patch DAILY ALEX Administration Miscellaneous 1 each 01/17/17 22:00 01/17/17 22:23 Lidoderm Patch Removal MC 1 each DAILY@2200 ALEX Administration Morphine Sulfate 1 mg 01/17/17 12:49 01/18/17 16:09 Morphine Injection - IVPUSH 1 mg Q3H PRN Administration PAIN Ondansetron HCl 4 mg 01/16/17 14:58 Zofran Injection IVPB Q6H PRN NAUSEA Phytonadione 5 mg 01/18/17 10:00 01/18/17 09:41 Aqua Mephyton Injection - SQ 01/20/17 10:01 5 mg DAILY ALEX Administration Objective: Vital Signs Period Temp Pulse Resp BP Sys/Curran Pulse Ox Last 24 Hr 97.6 F-99.6 F 67-78 11-26 90-121/54-71 96-100 Physical Exam: General: Mild respiratory distress, on Bipap Lungs: Tachypnea, increase work of breathing Heart: RRR, S1S2 Abd: Soft, non-tender, non-distended. Normoactive bowel sounds Ext: 2+ DP/PT bilaterally. No calf tenderness Neuro: Bipap on patient, unable to assess cranial nerves CBCD WBC 9.8 K/mm3 (4.0-10.0) 01/18/17 05:35 RBC 3.70 M/mm3 (3.60-5.2) 01/18/17 05:35 Hgb 11.0 GM/dL (10.7-15.3) 01/18/17 05:35 Hct 33.1 % (32.4-45.2) 01/18/17 05:35 MCV 89.4 fl (80-96) 01/18/17 05:35 MCHC 33.3 g/dl (32.0-36.0) 01/18/17 05:35 RDW 19.9 % (11.6-15.6) H 01/18/17 05:35 Plt Count 39 K/MM3 (134-434) L D 01/18/17 05:35 MPV 10.8 fl (7.5-11.1) 01/18/17 05:35 CMP Sodium 150 mmol/L (136-145) H 01/18/17 05:35 Potassium 3.8 mmol/L (3.5-5.1) 01/18/17 05:35 Chloride 118 mmol/L (98-107) H 01/18/17 05:35 Carbon Dioxide 24 mmol/L (21-32) 01/18/17 05:35 Anion Gap 8 (8-16) 01/18/17 05:35 BUN 33 mg/dL (7-18) H D 01/18/17 05:35 Creatinine 0.6 mg/dL (0.55-1.02) D 01/18/17 05:35 Creat Clearance w eGFR > 60 (>60) 01/18/17 05:35 Random Glucose 185 mg/dL (74-106) H D 01/18/17 05:35 Calcium 6.8 mg/dL (8.5-10.1) L* 01/18/17 05:35 Total Bilirubin 0.7 mg/dL (0.2-1.0) 01/18/17 05:35 AST 302 U/L (15-37) H D 01/18/17 05:35 ALT 723 U/L (12-78) H D 01/18/17 05:35 Alkaline Phosphatase 132 U/L (45-117) H 01/18/17 05:35 Total Protein 4.4 g/dl (6.4-8.2) L 01/18/17 05:35 Albumin 1.7 g/dl (3.4-5.0) L 01/18/17 05:35 CARDIAC ENZYMES Creatine Kinase 303 IU/L (26-192) H 01/17/17 05:00 Troponin I 0.39 ng/ml (0.00-0.05) H 01/17/17 11:00 Microbiology 01/16/17 10:30 Blood - Peripheral Venous Blood Culture - Preliminary NO GROWTH OBTAINED AFTER 48 HOURS, INCUBATION TO CONTINUE FOR 3 DAYS. 01/16/17 10:30 Blood - Peripheral Venous Blood Culture - Preliminary NO GROWTH OBTAINED AFTER 48 HOURS, INCUBATION TO CONTINUE FOR 3 DAYS. 01/16/17 10:30 Urine - Urine Clean Catch Urine Culture - Final Escherichia Coli 01/16/17 19:10 Urine For Antigen Detection Legionella Antigen - Final 01/16/17 19:10 Urine For Antigen Detection Streptococcus pneumoniae Antigen (M - Final Assessment: This is a 66 year old female with PMHx of HTN, CAD/[place], lung cancer ( mets to brain, bone, liver, spine: s/p immunotherapy with radiation therapy, no chemotherapy), who presented to the ED with worsening shortness of brath and generalized weakness x3 days. Plan: 1) Pulmonary: Acute hypoxic respiratory failure in the setting of metastatic lung cancer +/- probable pulmonary embolism with + DVT in the LLE - Elevated bnp and troponin - ECHO (1: RV not well visualized) (2: RV grossly normal), f/u with cards as to which one is correct - Now off pressors - Continue bipap as needed - Per oncology, in DIC and will defer starting anticoagulation at this point given severe thrombocytopenia - Not for IVC filter at this time due to tenuous respiratory status - Appreciate critical care consult - Appreciate oncology consult 2) ID: Sepsis 2/2 pneumonia, lactose fermenting negative bacilli - Continue empiric Zosyn - Continue Azithromycin - Appreciate ID consult 3) Cardiology: Elevated trop, elevated BNP - Likely demand ischemia in the setting of severe hypotension vs. from right heart strain from PE - Trop trending down - ECHO reviewed 4) : JEANNIE - Resolved - Continue to monitor 5) Onc: Metastatic lung cancer - Steroid taper per oncology - Appreciate oncology consult 6) F/E/N: - NPO while on bipap - Monitor electrolytes 7) Prophylaxis: - Hold all chemical DVT prophylaxis 2/2 DIC/thrombocytopenis - SCDs contraindicated on LLE 2/2 DVT 8) Dispo: - Critically ill - Requires continued ICU care - Per Dr. Medina son has decided no blood draws, no transfusions, no pressors - For hospice, will discuss with case management CODE STATUS: DNR/DNI Visit type - Emergency Visit Emergency Visit: Yes ED Registration Date: 01/16/17 Care time: The patient presented to the Emergency Department on the above date and was hospitalized for further evaluation of their emergent condition. - New Patient This patient is new to me today: No - Critical Care Critical Care patient: No
[2017-01-18] MEDS ORDERED: POTASSIUM PHOSPHATE 15 MM in SODIUM CHLORIDE 250 ML IVPB ONE (16:52)
[2017-01-18] MEDS: INSULIN DETEMIR 100 UNITS/ML MDV SQ SCH (23:13)
[2017-01-18] MEDS: LIDOCAINE PATCH REMOVAL MC SCH (23:14)
[2017-01-19] MEDS: morphine CARPU-JECT 2 MG/1 ML DISP.SYRIN IVPUSH PRN ×2 (02:20→06:30)
[2017-01-19] MEDS: HYDROCORTISONE SOD SUCCINATE 100 MG/2 ML VIAL IVPB SCH ×4 (03:53→21:11)
[2017-01-19] MEDS: PIPERACILLIN/TAZOB 3.375 GM 50 ML IVPB SCH ×3 (03:53→17:34)
[2017-01-19] MEDS ORDERED: morphine CARPU-JECT 2 MG/1 ML DISP.SYRIN IVPUSH PRN ×2 (06:51→12:04)
[2017-01-19] MEDS: INSULIN SLIDING SCALE (NOVOLOG) 1 VIAL SQ SCH ×4 (07:40→21:46)
--- NOTE | 2017-01-19 09:33 | PN ---
Progress Note (short form) - Note Progress Note: Seen and examined in the ICU Remains on BiPAP Moaning from discomfort Current Medications Artificial Tears (Artificial Tears) 1 drop OU TID PRN PRN Reason: DRY EYES Last Admin: 01/16/17 16:51 Dose: 1 drop Hydrocortisone Sodium Succinate (Solu-Cortef -) 50 mg IVPB Q6H-IV ALEX Azithromycin 250 mg/ Dextrose 250 mls @ 250 mls/hr IVPB DAILY [facility] Stop: 01/20/17 10:59 Last Admin: 01/18/17 10:35 Dose: 250 mls/hr Pantoprazole Sodium (Protonix 40mg Ivpb (Pre-Docked)) 100 mls @ 200 mls/hr IVPB DAILY [facility] Last Admin: 01/18/17 09:34 Dose: 200 mls/hr Piperacillin Sod/Tazobactam Sod (Zosyn 3.375gm Ivpb (Pre-Docked)) 50 mls @ 100 mls/hr IVPB Q8H-IV [facility] Last Admin: 01/19/17 03:53 Dose: 100 mls/hr Insulin Aspart (Novolog Vial Sliding Scale -) 1 vial SQ ACHS ALEX PRN Reason: Protocol Last Admin: 01/19/17 07:40 Dose: Not Given Insulin Detemir (Levemir Vial) 10 units SQ HS [facility] Last Admin: 01/18/17 23:13 Dose: 10 units Levetiracetam (Keppra -) 500 mg PO BID [facility] Last Admin: 01/18/17 23:13 Dose: Not Given Lidocaine (Lidoderm Patch -) 1 patch TP DAILY [facility] Last Admin: 01/18/17 09:42 Dose: 1 patch Miscellaneous (Lidoderm Patch Removal) 1 each MC DAILY@2200 [facility] Last Admin: 01/18/17 23:14 Dose: 1 each Morphine Sulfate (Morphine Injection -) 2 mg IVPUSH Q3H PRN PRN Reason: PAIN Ondansetron HCl (Zofran Injection) 4 mg IVPB Q6H PRN PRN Reason: NAUSEA Phytonadione (Aqua Mephyton Injection -) 5 mg SQ DAILY [facility] Stop: 01/20/17 10:01 Last Admin: 01/18/17 09:41 Dose: 5 mg Vital Signs Period Temp Pulse Resp BP Sys/Curran Pulse Ox Last 24 Hr 97.6 F-99.1 F 66-113 13-24 82-112/51-73 96-100 Intake & Output 01/16/17 01/17/17 01/18/17 01/19/17 23:59 23:59 23:59 23:59 Intake Total 1694 600 50 Output Total 1500 2050 800 400 Balance -1500 -356 -200 -350 Weight 69.088 kg 69.938 kg 66.848 kg 70 kg HENNT: PERRL, on NIPPV Cardiovascular: RRR, S1, S2. No: Gallop, Murmur, Rub Respiratory: NIPPV, bilateral coarse breath sounds, no wheezing Gastrointestinal: Normal Bowel Sounds, Soft. No: Tenderness Extremities: WWP +1 edema, +2 pulses Integumentary: Yes: Other (scattered ecchymosis) Neurological: Yes: Non-focal, confused No labs this AM CBCD WBC 9.8 K/mm3 (4.0-10.0) 01/18/17 05:35 RBC 3.70 M/mm3 (3.60-5.2) 01/18/17 05:35 Hgb 11.0 GM/dL (10.7-15.3) 01/18/17 05:35 Hct 33.1 % (32.4-45.2) 01/18/17 05:35 MCV 89.4 fl (80-96) 01/18/17 05:35 MCHC 33.3 g/dl (32.0-36.0) 01/18/17 05:35 RDW 19.9 % (11.6-15.6) H 01/18/17 05:35 Plt Count 39 K/MM3 (134-434) L D 01/18/17 05:35 MPV 10.8 fl (7.5-11.1) 01/18/17 05:35 CMP Sodium 150 mmol/L (136-145) H 01/18/17 05:35 Potassium 3.8 mmol/L (3.5-5.1) 01/18/17 05:35 Chloride 118 mmol/L (98-107) H 01/18/17 05:35 Carbon Dioxide 24 mmol/L (21-32) 01/18/17 05:35 Anion Gap 8 (8-16) 01/18/17 05:35 BUN 33 mg/dL (7-18) H D 01/18/17 05:35 Creatinine 0.6 mg/dL (0.55-1.02) D 01/18/17 05:35 Creat Clearance w eGFR > 60 (>60) 01/18/17 05:35 Random Glucose 185 mg/dL (74-106) H D 01/18/17 05:35 Calcium 6.8 mg/dL (8.5-10.1) L* 01/18/17 05:35 Total Bilirubin 0.7 mg/dL (0.2-1.0) 01/18/17 05:35 AST 302 U/L (15-37) H D 01/18/17 05:35 ALT 723 U/L (12-78) H D 01/18/17 05:35 Alkaline Phosphatase 132 U/L (45-117) H 01/18/17 05:35 Total Protein 4.4 g/dl (6.4-8.2) L 01/18/17 05:35 Albumin 1.7 g/dl (3.4-5.0) L 01/18/17 05:35 CARDIAC ENZYMES Creatine Kinase 303 IU/L (26-192) H 01/17/17 05:00 Troponin I 0.39 ng/ml (0.00-0.05) H 01/17/17 11:00 Problem List - Problems (1) JEANNIE (acute kidney injury) Code(s): N17.9 - ACUTE KIDNEY FAILURE, UNSPECIFIED (2) Abnormal LFTs Code(s): R79.89 - OTHER SPECIFIED ABNORMAL FINDINGS OF BLOOD CHEMISTRY (3) Elevated troponin Code(s): R74.8 - ABNORMAL LEVELS OF OTHER SERUM ENZYMES (4) Hyperglycemia Code(s): R73.9 - HYPERGLYCEMIA, UNSPECIFIED (5) Lactate blood increase Code(s): R79.89 - OTHER SPECIFIED ABNORMAL FINDINGS OF BLOOD CHEMISTRY (6) Lung cancer, primary, with metastasis from lung to other site Code(s): C34.90 - MALIGNANT NEOPLASM OF UNSP PART OF UNSP BRONCHUS OR LUNG (7) Respiratory failure Code(s): J96.90 - RESPIRATORY FAILURE, UNSP, UNSP W HYPOXIA OR HYPERCAPNIA (8) Sepsis Code(s): A41.9 - SEPSIS, UNSPECIFIED ORGANISM (9) Thrombocytopenia Code(s): D69.6 - THROMBOCYTOPENIA, UNSPECIFIED (10) Brain metastasis Code(s): C79.31 - SECONDARY MALIGNANT NEOPLASM OF BRAIN (11) Liver metastases Code(s): C78.7 - SECONDARY MALIG NEOPLASM OF LIVER AND INTRAHEPATIC BILE DUCT (12) Lung malignancy Code(s): C34.90 - MALIGNANT NEOPLASM OF UNSP PART OF UNSP BRONCHUS OR LUNG Qualifiers: Laterality: right Lung location: hilum of lung Qualified Code(s) : C34.01 - Malignant neoplasm of right main bronchus (13) Metastasis to spinal column Code(s): C79.51 - SECONDARY MALIGNANT NEOPLASM OF BONE (14) Weakness Code(s): R53.1 - WEAKNESS (15) DVT (deep venous thrombosis) Code(s): I82.409 - ACUTE EMBOLISM AND THOMBOS UNSP DEEP VN UNSP LOWER EXTREMITY (16) UTI (urinary tract infection) Code(s): N39.0 - URINARY TRACT INFECTION, SITE NOT SPECIFIED Assessment/Plan NIPPV as needed ABX per ID Aspiration precautions Rapid Steroid taper now that she is off pressors Glycemic control Telemetry monitoring Patient is DNR/DNI [facility] BLUE Pulm/CCM CCT: 35m
[2017-01-19] MEDS: PHYTONADIONE 10 MG/1 ML AMP SQ SCH (10:08)
[2017-01-19] MEDS: LIDOCAINE 5% TOPICAL PATCH TP SCH (10:08)
[2017-01-19] MEDS: levETIRAcetam 500 MG TABLET (FP) PO SCH ×2 (10:08→21:11)
[2017-01-19] MEDS: PANTOPRAZOLE SODIUM 100 ML IVPB SCH (10:09)
--- NOTE | 2017-01-19 10:16 | PN ---
Progress Note, Physician History of Present Illness: Awake, responsive Slightly tachypneic on Bipap Denies pain Afebrile WBC decreased 9.8 - Current Medication List Current Medications: Active Medications Artificial Tears (Artificial Tears) 1 drop OU TID PRN PRN Reason: DRY EYES Last Admin: 01/16/17 16:51 Dose: 1 drop Hydrocortisone Sodium Succinate (Solu-Cortef -) 50 mg IVPB Q6H-IV ALEX Azithromycin 250 mg/ Dextrose 250 mls @ 250 mls/hr IVPB DAILY [facility] Stop: 01/20/17 10:59 Last Admin: 01/18/17 10:35 Dose: 250 mls/hr Pantoprazole Sodium (Protonix 40mg Ivpb (Pre-Docked)) 100 mls @ 200 mls/hr IVPB DAILY [facility] Last Admin: 01/19/17 10:09 Dose: 200 mls/hr Piperacillin Sod/Tazobactam Sod (Zosyn 3.375gm Ivpb (Pre-Docked)) 50 mls @ 100 mls/hr IVPB Q8H-IV [facility] Last Admin: 01/19/17 10:08 Dose: 100 mls/hr Insulin Aspart (Novolog Vial Sliding Scale -) 1 vial SQ ACHS ALEX PRN Reason: Protocol Last Admin: 01/19/17 07:40 Dose: Not Given Insulin Detemir (Levemir Vial) 10 units SQ HS [facility] Last Admin: 01/18/17 23:13 Dose: 10 units Levetiracetam (Keppra -) 500 mg PO BID [facility] Last Admin: 01/19/17 10:08 Dose: Not Given Lidocaine (Lidoderm Patch -) 1 patch TP DAILY [facility] Last Admin: 01/19/17 10:08 Dose: 1 patch Miscellaneous (Lidoderm Patch Removal) 1 each MC DAILY@2200 [facility] Last Admin: 01/18/17 23:14 Dose: 1 each Morphine Sulfate (Morphine Injection -) 2 mg IVPUSH Q3H PRN PRN Reason: PAIN Ondansetron HCl (Zofran Injection) 4 mg IVPB Q6H PRN PRN Reason: NAUSEA Phytonadione (Aqua Mephyton Injection -) 5 mg SQ DAILY [facility] Stop: 01/20/17 10:01 Last Admin: 01/19/17 10:08 Dose: 5 mg - Objective Vital Signs: Vital Signs Temperature 98.7 F 01/19/17 10:00 Pulse Rate 76 01/19/17 10:00 Respiratory Rate 22 01/19/17 10:00 Blood Pressure 103/65 01/19/17 10:00 O2 Sat by Pulse Oximetry (%) 99 01/19/17 08:00 Constitutional: Yes: No Distress Eyes: Yes: Conjunctiva Clear Cardiovascular: Yes: Regular Rate and Rhythm, S1, S2 Respiratory: Yes: Diminished Gastrointestinal: Yes: Normal Bowel Sounds, Soft. No: Tenderness Edema: Yes Labs: CBC, BMP 01/18/17 05:35 01/18/17 05:35 INR, PTT INR 1.56 (0.82-1.09) H 01/18/17 05:35 Fibrinogen 223.0 mg/dL (238-498) L 01/18/17 05:35 Assessment/Plan Sepsis/ septic shock Respiratory failure RLL pneumonia HCAP Metastatic NSCCL DVT L LE UTI E coli JEANNIE improved Elevated LFTs likely shock liver Leukocytosis Thrombocytopenia Hemodynamic support Continue empiric zosyn/ zithromax Respiratory support Prognosis poor
[2017-01-19] MEDS: AZITHROMYCIN IVPB 250 MG in DEXTROSE 5%-WATER - 250 ML IVPB SCH (10:39)
--- NOTE | 2017-01-19 13:09 | PN ---
Progress Note (short form) - Note Progress Note: Seen in follow up. On BIPAP, sleeping, but rousable. Appears comfortable. Meds reviewed. Current Medications Generic Name Dose Route Start Last Admin Trade Name Freq PRN Reason Stop Dose Admin Artificial Tears 1 drop 01/16/17 14:05 01/16/17 16:51 Artificial Tears OU 1 drop TID PRN Administration DRY EYES Hydrocortisone Sodium Succinate 50 mg 01/19/17 09:31 Solu-Cortef - IVPB Q6H-IV ALEX Azithromycin 250 mg/ Dextrose 250 mls @ 250 mls/hr 01/17/17 10:00 01/19/17 10: 39 IVPB 01/20/17 10:59 250 mls/hr DAILY ALEX Administration Pantoprazole Sodium 100 mls @ 200 mls/hr 01/17/17 10:00 01/19/17 10:09 Protonix 40mg Ivpb (Pre-Docked) IVPB 200 mls/hr DAILY ALEX Administration Piperacillin Sod/Tazobactam Sod 50 mls @ 100 mls/hr 01/17/17 09:35 01/19/17 10: 08 Zosyn 3.375gm Ivpb (Pre-Docked) IVPB 100 mls/hr Q8H-IV ALEX Administration Morphine Sulfate 100 mg/ 100 mls @ 1.5 mls/hr 01/19/17 12:00 Sodium Chloride IVPB TITR ALEX Protocol 1.5 MG/HR Insulin Aspart 1 vial 01/17/17 11:00 01/19/17 11:11 Novolog Vial Sliding Scale - SQ Not Given ACHS ALEX Protocol Insulin Detemir 10 units 01/17/17 22:00 01/18/17 23:13 Levemir Vial SQ 10 units HS ALEX Administration Levetiracetam 500 mg 01/16/17 22:00 01/19/17 10:08 Keppra - PO Not Given BID ALEX Lidocaine 1 patch 01/17/17 10:00 01/19/17 10:08 Lidoderm Patch - TP 1 patch DAILY ALEX Administration Miscellaneous 1 each 01/17/17 22:00 01/18/17 23:14 Lidoderm Patch Removal MC 1 each DAILY@2200 ALEX Administration Morphine Sulfate 2 mg 01/19/17 12:04 01/19/17 12:27 Morphine Injection - IVPUSH 2 mg Q2H PRN Administration PAIN Ondansetron HCl 4 mg 01/16/17 14:58 Zofran Injection IVPB Q6H PRN NAUSEA Phytonadione 5 mg 01/18/17 10:00 01/19/17 10:08 Aqua Mephyton Injection - SQ 01/20/17 10:01 5 mg DAILY ALEX Administration On exam: Last Vital Signs Temp Pulse Resp BP Pulse Ox 98.6 F 74 21 101/63 97 01/19/17 12:00 01/19/17 12:00 01/19/17 12:00 01/19/17 12:00 01/19/17 12:25 General: ICU bed, sleeping. Extremities: No pallor, no icterus. Chest:BIPAP CVS: HD stable. Abdomen: Non-disteded Neuro: Sleeping. CBC, BMP No further labs draws Assessment. 66 y/o patient with metastatic lung cancer ,brain,liver,bone mets s/p keytruda 12/27 comes in 1 day before her next cycle with worsening shortness of breath, hypotension, JEANNIE, coagulopathy suspect pneumonia/UTI/septic shock on broad spectrum antibiotics/BIPAP/pressor/IV fluids thrombocytopenia/elevated INr/decreased fibrinogen-- dic from sepsis worsening thrombocytopenia brain mets--s/p RT, on hydrocortisone LE DVT-- unable to anticoagulate due to severe thrombocytopenia due to tenuous respiratory status unable to put in ivc filter Comfort care only - no blood draws/transfusions/pressors.
--- NOTE | 2017-01-19 14:27 | PN ---
Progress Note (short form) - Note Progress Note: Subjective: The patient was seen and examined at the bedside, she is on bipap. Started on morphine gtt, discussed with son and Carol Current Medications Generic Name Dose Route Start Last Admin Trade Name Freq PRN Reason Stop Dose Admin Artificial Tears 1 drop 01/16/17 14:05 01/16/17 16:51 Artificial Tears OU 1 drop TID PRN Administration DRY EYES Hydrocortisone Sodium Succinate 50 mg 01/19/17 09:31 Solu-Cortef - IVPB Q6H-IV ALEX Azithromycin 250 mg/ Dextrose 250 mls @ 250 mls/hr 01/17/17 10:00 01/19/17 10: 39 IVPB 01/20/17 10:59 250 mls/hr DAILY ALEX Administration Pantoprazole Sodium 100 mls @ 200 mls/hr 01/17/17 10:00 01/19/17 10:09 Protonix 40mg Ivpb (Pre-Docked) IVPB 200 mls/hr DAILY ALEX Administration Piperacillin Sod/Tazobactam Sod 50 mls @ 100 mls/hr 01/17/17 09:35 01/19/17 10: 08 Zosyn 3.375gm Ivpb (Pre-Docked) IVPB 100 mls/hr Q8H-IV ALEX Administration Morphine Sulfate 100 mg/ 100 mls @ 1.5 mls/hr 01/19/17 12:00 01/19/17 14:29 Sodium Chloride IVPB 1.5 mls/hr TITR ALEX Administration Protocol 1.5 MG/HR Insulin Aspart 1 vial 01/17/17 11:00 01/19/17 11:11 Novolog Vial Sliding Scale - SQ Not Given ACHS ALEX Protocol Insulin Detemir 10 units 01/17/17 22:00 01/18/17 23:13 Levemir Vial SQ 10 units HS ALEX Administration Levetiracetam 500 mg 01/16/17 22:00 01/19/17 10:08 Keppra - PO Not Given BID ALEX Lidocaine 1 patch 01/17/17 10:00 01/19/17 10:08 Lidoderm Patch - TP 1 patch DAILY ALEX Administration Miscellaneous 1 each 01/17/17 22:00 01/18/17 23:14 Lidoderm Patch Removal MC 1 each DAILY@2200 ALEX Administration Ondansetron HCl 4 mg 01/16/17 14:58 Zofran Injection IVPB Q6H PRN NAUSEA Phytonadione 5 mg 01/18/17 10:00 01/19/17 10:08 Aqua Mephyton Injection - SQ 01/20/17 10:01 5 mg DAILY ALEX Administration Objective: Vital Signs Period Temp Pulse Resp BP Sys/Curran Pulse Ox Last 24 Hr 97.6 F-99.1 F 66-113 13-24 82-112/51-73 97-100 Physical Exam: General: on Bipap Lungs: Tachypnea, increase work of breathing Heart: RRR, S1S2 Ext: 2+ DP/PT bilaterally. No calf tenderness Neuro: Bipap on patient, unable to assess cranial nerves Assessment: This is a 66 year old female with PMHx of HTN, CAD/NH, lung cancer ( mets to brain, bone, liver, spine: s/p immunotherapy with radiation therapy, no chemotherapy), who presented to the ED with worsening shortness of brath and generalized weakness x3 days. Plan: 1) Pulmonary: Acute hypoxic respiratory failure in the setting of metastatic lung cancer +/- probable pulmonary embolism with + DVT in the LLE - No pressors per son - Continue bipap as needed - Per oncology, in DIC no anticoagulation at this point given severe thrombocytopenia - Not for IVC filter as family does not want any aggressive measures or filter placed - Appreciate critical care consult - Appreciate oncology consult 2) ID: Sepsis 2/2 pneumonia, lactose fermenting negative bacilli - Continue empiric Zosyn - Continue Azithromycin - Appreciate ID consult 3) Cardiology: Elevated trop, elevated BNP - Likely demand ischemia in the setting of severe hypotension vs. from right heart strain from PE 4) : JEANNIE - Resolved 5) Onc: Metastatic lung cancer - Steroid taper per oncology 6) F/E/N: - NPO while on bipap 7) Prophylaxis: - Hold all chemical DVT prophylaxis 2/2 DIC/thrombocytopenis - SCDs contraindicated on LLE 2/2 DVT 8) Dispo: - Hospice to evaluate the patient - Per Dr. Medina son has decided no blood draws, no transfusions, no pressors CODE STATUS: DNR/DNI Visit type - Emergency Visit Emergency Visit: Yes ED Registration Date: 01/16/17 Care time: The patient presented to the Emergency Department on the above date and was hospitalized for further evaluation of their emergent condition. - New Patient This patient is new to me today: No - Critical Care Critical Care patient: No
[2017-01-19] MEDS: MORPHINE 100 MG in SODIUM CHLORIDE 98 ML IVPB SCH (14:29)
[2017-01-19] MEDS: LIDOCAINE PATCH REMOVAL MC SCH (21:12)
[2017-01-19] MEDS: INSULIN DETEMIR 100 UNITS/ML MDV SQ SCH (21:47)
[2017-01-20] MEDS: PIPERACILLIN/TAZOB 3.375 GM 50 ML IVPB SCH ×2 (01:07→09:39)
[2017-01-20] MEDS: HYDROCORTISONE SOD SUCCINATE 100 MG/2 ML VIAL IVPB SCH ×3 (02:00→14:31)
[2017-01-20 06:21] LABS: MCH 29.6 pg (25.7-33.7); MCHC 32.1 g/dl (32.0-36.0); MEAN CELL VOLUME 92.1 fl (80-96); MEAN PLT VOLUME 11.4 fl (7.5-11.1); PLATELET COUNT 44 K/MM3 (134-434); RDW 21.3 % (11.6-15.6); WHITE BLOOD COUNT 17.5 K/mm3 (4.0-10.0)
[2017-01-20 06:37] LABS: ANION GAP 7 (8-16); CALCIUM 7.1 mg/dL (8.5-10.1); CO2 27 mmol/L (21-32); CREATININE 0.7 mg/dL (0.55-1.02); GLUCOSE,RANDOM 170 mg/dL (74-106); MAGNESIUM 2.8 mg/dL (1.8-2.4); PHOSPHOROUS 2.7 mg/dL (2.5-4.9)
[2017-01-20] MEDS: INSULIN SLIDING SCALE (NOVOLOG) 1 VIAL SQ SCH ×2 (07:15→11:01)
[2017-01-20 09:03] LABS: ANISOCYTOSIS 3+; MACROCYTOSIS 1+; MICROCYTOSIS 1+
[2017-01-20] MEDS: PHYTONADIONE 10 MG/1 ML AMP SQ SCH (09:39)
[2017-01-20] MEDS: AZITHROMYCIN IVPB 250 MG in DEXTROSE 5%-WATER - 250 ML IVPB SCH (09:39)
[2017-01-20] MEDS: PANTOPRAZOLE SODIUM 100 ML IVPB SCH (09:40)
[2017-01-20] MEDS: levETIRAcetam 500 MG TABLET (FP) PO SCH (09:40)
[2017-01-20] MEDS: LIDOCAINE 5% TOPICAL PATCH TP SCH (09:40)
--- NOTE | 2017-01-20 10:16 | PN ---
Progress Note (short form) - Note Progress Note: Pulm/CCM Seen and examined in ICU Progress Note: Seen and examined in the ICU Remains on BiPAP sedated, no signs of distress Active Medications Artificial Tears (Artificial Tears) 1 drop OU TID PRN PRN Reason: DRY EYES Last Admin: 01/16/17 16:51 Dose: 1 drop Hydrocortisone Sodium Succinate (Solu-Cortef -) 50 mg IVPB Q6H-IV ALEX Last Admin: 01/20/17 09:39 Dose: 50 mg Azithromycin 250 mg/ Dextrose 250 mls @ 250 mls/hr IVPB DAILY ALEX Stop: 01/20/17 10:59 Last Admin: 01/20/17 09:39 Dose: 250 mls/hr Pantoprazole Sodium (Protonix 40mg Ivpb (Pre-Docked)) 100 mls @ 200 mls/hr IVPB DAILY [facility] Last Admin: 01/20/17 09:40 Dose: 200 mls/hr Piperacillin Sod/Tazobactam Sod (Zosyn 3.375gm Ivpb (Pre-Docked)) 50 mls @ 100 mls/hr IVPB Q8H-IV ALEX Last Admin: 01/20/17 09:39 Dose: 100 mls/hr Morphine Sulfate 100 mg/ (Sodium Chloride) 100 mls @ 1.5 mls/hr IVPB TITR ALEX; 1.5 MG/HR PRN Reason: Protocol Last Admin: 01/19/17 14:29 Dose: 1.5 mls/hr Insulin Aspart (Novolog Vial Sliding Scale -) 1 vial SQ ACHS ALEX PRN Reason: Protocol Last Admin: 01/20/17 07:15 Dose: 2 units Insulin Detemir (Levemir Vial) 10 units SQ HS [facility] Last Admin: 01/19/17 21:47 Dose: 10 units Levetiracetam (Keppra -) 500 mg PO BID [facility] Last Admin: 01/20/17 09:40 Dose: Not Given Lidocaine (Lidoderm Patch -) 1 patch TP DAILY [facility] Last Admin: 01/20/17 09:40 Dose: 1 patch Miscellaneous (Lidoderm Patch Removal) 1 each MC DAILY@2200 [facility] Last Admin: 01/19/17 21:12 Dose: 1 each Ondansetron HCl (Zofran Injection) 4 mg IVPB Q6H PRN PRN Reason: NAUSEA Vital Signs Temp 97.9 F 01/20/17 10:00 Pulse 82 01/20/17 10:00 Resp 10 L 01/20/17 10:00 BP 102/57 01/20/17 10:00 Pulse Ox 99 01/20/17 08:00 Intake & Output 01/19/17 01/19/17 01/20/17 11:59 23:59 11:59 Intake Total 50 457 518 Output Total 400 600 200 Balance -350 -143 318 Weight 70 kg 67.5 kg Intake: IV 7 18 Morphine Sulfate 100 mg 7 18 In Normal Saline - 98 ml @ 1.5 MG/HR 1.5 mls/hr IVPB TITR ALEX Rx#: [id number] IVPB 50 450 500 Output: Urine 400 600 200 Perry 400 600 200 Other: Voiding Method Indwelling Catheter Indwelling Catheter Indwelling Catheter Bowel Movement No Weight Measurement Method Built in [facility] Built in [facility] HENNT: PERRL, on NIPPV Cardiovascular: RRR, S1, S2. No: Gallop, Murmur, Rub Respiratory: NIPPV, bilateral coarse breath sounds, no wheezing Gastrointestinal: Normal Bowel Sounds, Soft. No: Tenderness Extremities: WWP +1 edema, +2 pulses Integumentary: Yes: Other (scattered ecchymosis) Neurological: Yes: Non-focal, slight withdrawal to painful simuli CBCD WBC 17.5 K/mm3 (4.0-10.0) H D 01/20/17 05:20 RBC 4.03 M/mm3 (3.60-5.2) 01/20/17 05:20 Hgb 11.9 GM/dL (10.7-15.3) 01/20/17 05:20 Hct 37.1 % (32.4-45.2) 01/20/17 05:20 MCV 92.1 fl (80-96) 01/20/17 05:20 MCHC 32.1 g/dl (32.0-36.0) 01/20/17 05:20 RDW 21.3 % (11.6-15.6) H 01/20/17 05:20 Plt Count 44 K/MM3 (134-434) L 01/20/17 05:20 MPV 11.4 fl (7.5-11.1) H 01/20/17 05:20 CMP Sodium 156 mmol/L (136-145) H 01/20/17 05:20 Potassium 4.8 mmol/L (3.5-5.1) D 01/20/17 05:20 Chloride 122 mmol/L (98-107) H 01/20/17 05:20 Carbon Dioxide 27 mmol/L (21-32) 01/20/17 05:20 Anion Gap 7 (8-16) L 01/20/17 05:20 BUN 30 mg/dL (7-18) H 01/20/17 05:20 Creatinine 0.7 mg/dL (0.55-1.02) 01/20/17 05:20 Creat Clearance w eGFR > 60 (>60) 01/18/17 05:35 Calcium 7.1 mg/dL (8.5-10.1) L 01/20/17 05:20 Total Bilirubin 0.7 mg/dL (0.2-1.0) 01/18/17 05:35 AST 302 U/L (15-37) H D 01/18/17 05:35 ALT 723 U/L (12-78) H D 01/18/17 05:35 Alkaline Phosphatase 132 U/L (45-117) H 01/18/17 05:35 Total Protein 4.4 g/dl (6.4-8.2) L 01/18/17 05:35 Albumin 1.7 g/dl (3.4-5.0) L 01/18/17 05:35 Problem List - Problems (1) JEANNIE (acute kidney injury) Code(s): N17.9 - ACUTE KIDNEY FAILURE, UNSPECIFIED (2) Abnormal LFTs Code(s): R79.89 - OTHER SPECIFIED ABNORMAL FINDINGS OF BLOOD CHEMISTRY (3) Elevated troponin Code(s): R74.8 - ABNORMAL LEVELS OF OTHER SERUM ENZYMES (4) Hyperglycemia Code(s): R73.9 - HYPERGLYCEMIA, UNSPECIFIED (5) Lactate blood increase Code(s): R79.89 - OTHER SPECIFIED ABNORMAL FINDINGS OF BLOOD CHEMISTRY (6) Lung cancer, primary, with metastasis from lung to other site Code(s): C34.90 - MALIGNANT NEOPLASM OF UNSP PART OF UNSP BRONCHUS OR LUNG (7) Respiratory failure Code(s): J96.90 - RESPIRATORY FAILURE, UNSP, UNSP W HYPOXIA OR HYPERCAPNIA (8) Sepsis Code(s): A41.9 - SEPSIS, UNSPECIFIED ORGANISM (9) Thrombocytopenia Code(s): D69.6 - THROMBOCYTOPENIA, UNSPECIFIED (10) Brain metastasis Code(s): C79.31 - SECONDARY MALIGNANT NEOPLASM OF BRAIN (11) Liver metastases Code(s): C78.7 - SECONDARY MALIG NEOPLASM OF LIVER AND INTRAHEPATIC BILE DUCT (12) Lung malignancy Code(s): C34.90 - MALIGNANT NEOPLASM OF UNSP PART OF UNSP BRONCHUS OR LUNG Qualifiers: Laterality: right Lung location: hilum of lung Qualified Code(s) : C34.01 - Malignant neoplasm of right main bronchus (13) Metastasis to spinal column Code(s): C79.51 - SECONDARY MALIGNANT NEOPLASM OF BONE (14) Weakness Code(s): R53.1 - WEAKNESS (15) DVT (deep venous thrombosis) Code(s): I82.409 - ACUTE EMBOLISM AND THOMBOS UNSP DEEP VN UNSP LOWER EXTREMITY (16) UTI (urinary tract infection) Code(s): N39.0 - URINARY TRACT INFECTION, SITE NOT SPECIFIED Assessment/Plan NIPPV as needed, suggest D/c once ok with paty MOYA per ID Aspiration precautions Rapid Steroid taper now that she is off pressors Glycemic control Telemetry monitoring Patient is DNR/DNI Cody Butterfield ACNP [id number]
--- NOTE | 2017-01-20 10:28 | PN ---
Progress Note, Physician History of Present Illness: Sedated Attempts to verbalize Breathing non-labored on bipap Afebrile WBC elevated - Current Medication List Current Medications: Active Medications Artificial Tears (Artificial Tears) 1 drop OU TID PRN PRN Reason: DRY EYES Last Admin: 01/16/17 16:51 Dose: 1 drop Hydrocortisone Sodium Succinate (Solu-Cortef -) 50 mg IVPB Q6H-IV ALEX Last Admin: 01/20/17 09:39 Dose: 50 mg Azithromycin 250 mg/ Dextrose 250 mls @ 250 mls/hr IVPB DAILY ALEX Stop: 01/20/17 10:59 Last Admin: 01/20/17 09:39 Dose: 250 mls/hr Pantoprazole Sodium (Protonix 40mg Ivpb (Pre-Docked)) 100 mls @ 200 mls/hr IVPB DAILY ALEX Last Admin: 01/20/17 09:40 Dose: 200 mls/hr Piperacillin Sod/Tazobactam Sod (Zosyn 3.375gm Ivpb (Pre-Docked)) 50 mls @ 100 mls/hr IVPB Q8H-IV ALEX Last Admin: 01/20/17 09:39 Dose: 100 mls/hr Morphine Sulfate 100 mg/ (Sodium Chloride) 100 mls @ 1.5 mls/hr IVPB TITR ALEX; 1.5 MG/HR PRN Reason: Protocol Last Admin: 01/19/17 14:29 Dose: 1.5 mls/hr Insulin Aspart (Novolog Vial Sliding Scale -) 1 vial SQ ACHS ALEX PRN Reason: Protocol Last Admin: 01/20/17 07:15 Dose: 2 units Insulin Detemir (Levemir Vial) 10 units SQ HS ALEX Last Admin: 01/19/17 21:47 Dose: 10 units Levetiracetam (Keppra -) 500 mg PO BID [facility] Last Admin: 01/20/17 09:40 Dose: Not Given Lidocaine (Lidoderm Patch -) 1 patch TP DAILY [facility] Last Admin: 01/20/17 09:40 Dose: 1 patch Miscellaneous (Lidoderm Patch Removal) 1 each MC DAILY@2200 [facility] Last Admin: 01/19/17 21:12 Dose: 1 each Ondansetron HCl (Zofran Injection) 4 mg IVPB Q6H PRN PRN Reason: NAUSEA - Objective Vital Signs: Vital Signs Temperature 97.9 F 01/20/17 10:00 Pulse Rate 83 01/20/17 10:20 Respiratory Rate 10 L 01/20/17 10:00 Blood Pressure 102/57 01/20/17 10:00 O2 Sat by Pulse Oximetry (%) 99 01/20/17 10:20 Constitutional: Yes: No Distress Eyes: Yes: Conjunctiva Clear Cardiovascular: Yes: Regular Rate and Rhythm, S1, S2 Respiratory: Yes: Diminished Gastrointestinal: Yes: Normal Bowel Sounds, Soft. No: Tenderness Edema: Yes Labs: CBC, BMP 01/20/17 05:20 01/20/17 05:20 INR, PTT INR 1.56 (0.82-1.09) H 01/18/17 05:35 Fibrinogen 223.0 mg/dL (238-498) L 01/18/17 05:35 Assessment/Plan Sepsis/ septic shock Respiratory failure RLL pneumonia HCAP Metastatic NSCCL DVT L LE UTI E coli JEANNIE improved Elevated LFTs likely shock liver Leukocytosis Thrombocytopenia Hemodynamic support Continue empiric zosyn/ zithromax Respiratory support Prognosis poor
[2017-01-20] MEDS: MORPHINE 100 MG in SODIUM CHLORIDE 98 ML IVPB SCH (12:00)
--- NOTE | 2017-01-20 13:53 | PN ---
Progress Note (short form) - Note Progress Note: Subjective: The patient was seen and examined at the bedside, she remains on bipap Appears comfortable on Morphine gtt Long discussion with son, he will think about withdrawing all care and making patient comfort care only Current Medications Generic Name Dose Route Start Last Admin Trade Name Freq PRN Reason Stop Dose Admin Artificial Tears 1 drop 01/16/17 14:05 01/16/17 16:51 Artificial Tears OU 1 drop TID PRN Administration DRY EYES Hydrocortisone Sodium Succinate 50 mg 01/19/17 09:31 01/20/17 09:39 Solu-Cortef - IVPB 50 mg Q6H-IV ALEX Administration Pantoprazole Sodium 100 mls @ 200 mls/hr 01/17/17 10:00 01/20/17 09:40 Protonix 40mg Ivpb (Pre-Docked) IVPB 200 mls/hr DAILY ALEX Administration Piperacillin Sod/Tazobactam Sod 50 mls @ 100 mls/hr 01/17/17 09:35 01/20/17 09: 39 Zosyn 3.375gm Ivpb (Pre-Docked) IVPB 100 mls/hr Q8H-IV ALEX Administration Morphine Sulfate 100 mg/ 100 mls @ 1.5 mls/hr 01/19/17 12:00 01/20/17 12:00 Sodium Chloride IVPB 1.5 mls/hr TITR ALEX Administration Protocol 1.5 MG/HR Insulin Aspart 1 vial 01/17/17 11:00 01/20/17 11:01 Novolog Vial Sliding Scale - SQ 2 units ACHS ALEX Administration Protocol Insulin Detemir 10 units 01/17/17 22:00 01/19/17 21:47 Levemir Vial SQ 10 units HS ALEX Administration Levetiracetam 500 mg 01/16/17 22:00 01/20/17 09:40 Keppra - PO Not Given BID ALEX Lidocaine 1 patch 01/17/17 10:00 01/20/17 09:40 Lidoderm Patch - TP 1 patch DAILY ALEX Administration Miscellaneous 1 each 01/17/17 22:00 01/19/17 21:12 Lidoderm Patch Removal MC 1 each DAILY@2200 ALEX Administration Ondansetron HCl 4 mg 01/16/17 14:58 Zofran Injection IVPB Q6H PRN NAUSEA Objective: Vital Signs Period Temp Pulse Resp BP Sys/Curran Pulse Ox Last 24 Hr 97.9 F-98.8 F 70-89 10-21 89-112/54-72 98-100 Physical Exam: General: on Bipap Lungs: RR 12, appears comfortable Heart: RRR, S1S2 Ext: 2+ DP/PT bilaterally. No calf tenderness Neuro: Bipap on patient, unable to assess cranial nerves Assessment: This is a 66 year old female with PMHx of HTN, CAD/VA, lung cancer ( mets to brain, bone, liver, spine: s/p immunotherapy with radiation therapy, no chemotherapy), who presented to the ED with worsening shortness of breath and generalized weakness x3 days. Plan: 1) Pulmonary: Acute hypoxic respiratory failure in the setting of metastatic lung cancer +/- probable pulmonary embolism with + DVT in the LLE - No pressors per son - Continue bipap as needed - Per oncology, in DIC no anticoagulation at this point given severe thrombocytopenia - Not for IVC filter as family does not want any aggressive measures or filter placed - Appreciate critical care consult - Appreciate oncology consult 2) ID: Sepsis 2/2 pneumonia, lactose fermenting negative bacilli - Continue empiric Zosyn - Continue Azithromycin - Appreciate ID consult 3) Cardiology: Elevated trop, elevated BNP - Likely demand ischemia in the setting of severe hypotension vs. from right heart strain from PE 4) : JEANNIE - Resolved 5) Onc: Metastatic lung cancer - Steroid taper per oncology 6) F/E/N: - NPO while on bipap 7) Prophylaxis: - Hold all chemical DVT prophylaxis 2/2 DIC/thrombocytopenis - SCDs contraindicated on LLE 2/2 DVT 8) Dispo: - Hospice to evaluate the patient - Per Dr. Medina son has decided no blood draws, no transfusions, no pressors CODE STATUS: DNR/DNI Visit type - Emergency Visit Emergency Visit: Yes ED Registration Date: 01/16/17 Care time: The patient presented to the Emergency Department on the above date and was hospitalized for further evaluation of their emergent condition. - New Patient This patient is new to me today: No - Critical Care Critical Care patient: No
[2017-01-20 14:02] VITALS: TEMP 97.8
[2017-01-20] MEDS ORDERED: SCOPOLAMINE HYDROBROMIDE 1 PATCH PATCH.TD72 TD SCH (14:30)
[2017-01-20] MEDS ORDERED: LORazepam 2 MG/ML SDV VIAL IVPUSH ONE (15:56)
[2017-01-20] MEDS ORDERED: LORazepam 2 MG/ML SDV VIAL ONE (15:57)
[2017-01-20] MEDS ORDERED: MORPHINE 100 MG in SODIUM CHLORIDE 98 ML IVPB SCH (16:37)
[2017-01-20] MEDS ORDERED: LORazepam 2 MG/ML SDV VIAL IVPUSH PRN (16:47)
[2017-01-20 18:04] VITALS: BP 90/56
[2017-01-20] MEDS ORDERED: LIDOCAINE PATCH REMOVAL MC SCH ×2 (22:00)
[2017-01-21 00:20] VITALS: PULSE 70
--- NOTE | 2017-01-21 00:48 | CONSULT ---
Consult - text type - Consultation Consultation Note: Ms. Fink is a 66 y.o woman with CAD, HTN and widely metastatic lung cancer refractory to treatment. Earlier in the day her son requested focus of care be geared at pt.s comfort only. Today, 01/21/2017 at 00:30 pt. became asystolic, without blood pressure, without response to verbal or physical stimulation, without pupilary reaction, no spontaneous breaths, no heart tones. She was pronounced at this time. Her son was present at bedside. Emotional support provided, he declined pastoral care or clergy presence. Renetta Buitrago, ASHLEYP
[2017-01-21] MEDS ORDERED: LIDOCAINE 5% TOPICAL PATCH TP SCH (10:00)
[2017-01-23] MEDS ORDERED: SCOPOLAMINE HYDROBROMIDE 1 PATCH PATCH.TD72 TD SCH (14:30)
== END 2017-01-21 01:16 | disposition expired | DRG 871 ==
LOC: JER 10:06 → JERBED 12:46 → JICU 19:22
PROVIDERS: ADMIT Internal Medicine; ATTEND Registered Nurse
PROC: 05HM33Z Insertion of Infusion Device into Right Internal Jugular Vein, Percutaneous Approach (ICD-10-PCS; principal; 2017-01-17)
PROC: 5A09557 Assistance with Respiratory Ventilation, Greater than 96 Consecutive Hours, Continuous Positive Airway Pressure (ICD-10-PCS; 2017-01-17)
DX: A41.89 Other specified sepsis (principal); R65.21 Severe sepsis with septic shock; J96.01 Acute respiratory failure with hypoxia; J16.8 Pneumonia due to other specified infectious organisms; C34.90 Malignant neoplasm of unspecified part of unspecified bronchus or lung; C78.7 Secondary malignant neoplasm of liver and intrahepatic bile duct; C79.51 Secondary malignant neoplasm of bone; N17.9 Acute kidney failure, unspecified; N39.0 Urinary tract infection, site not specified; I82.412 Acute embolism and thrombosis of left femoral vein; I24.8 Other forms of acute ischemic heart disease; D68.8 Other specified coagulation defects; I25.10 Atherosclerotic heart disease of native coronary artery without angina pectoris; I10 Essential (primary) hypertension; I25.2 Old myocardial infarction; E11.9 Type 2 diabetes mellitus without complications; E78.00 Pure hypercholesterolemia, unspecified; D69.6 Thrombocytopenia, unspecified; D72.828 Other elevated white blood cell count; R79.89 Other specified abnormal findings of blood chemistry; R74.8 Abnormal levels of other serum enzymes; M54.5 Low back pain; E11.65 Type 2 diabetes mellitus with hyperglycemia; B96.29 Other Escherichia coli [E. coli] as the cause of diseases classified elsewhere; L89.152 Pressure ulcer of sacral region, stage 2; L89.321 Pressure ulcer of left buttock, stage 1; L89.311 Pressure ulcer of right buttock, stage 1; Z79.4 Long term (current) use of insulin; Z87.891 Personal history of nicotine dependence; Z98.84 Bariatric surgery status; Z66 Do not resuscitate
CPT/HCPCS: 36415; 36600; 71010-TC; 76705-TC; 80048; 80053; 81003; 81015; 82553; 82803; 83036; 83605; 83735; 83880; 84100; 84484; 85025; 85027; 85384; 85610; 85730; 86850; 86900; 86901; 87040; 87086; 87186; 87899; 93005; 93010; 93306-TC; 93970-TC; 94660; 99285-25; G0480